=== PATIENT | male | born 1945 | race Caucasian/White ===

== ENCOUNTER → 2018-02-22 12:53 | Outpatient (CLI) | payer MEDICARE, MEDICAID, SELFPAY ==
--- NOTE | 2018-02-23 08:52 | PFTCOMP ---
COMPLETE PULMONARY FUNCTION TEST INTERPRETATION Brief HPI: Patient is a 72 year old male, currently under the care of Nikki Taveras, who presents to [facility] for complete pulmonary function tests secondary to diagnosis of asthma. Respiratory therapist reports good effort, but difficult time following instructions. Unable to exhale for 6 seconds or complete DLCO maneuver. Interpretation: Forced expiration spirometry shows no large airways obstructive ventilatory defect with an FEV1 of 52% predicted. There is no significant bronchodilator response by ATS criteria. Spirograms are of poor quality and plateau slowly, indicating slowly emptying areas of the lungs. The respiratory flow volume loop shows decreased expiratory flow rates at all lung volumes consistent with airway obstruction. Lung volumes by body plethysmography show a decreased total lung capacity at 2.99 L, 78% predicted. FRC and RV are elevated out of proportion. Lung volume measurements are consistent with air-trapping. Diffusion capacity by carbon monoxide was unable to be obtained. The airway resistance is elevated. Compared to previous pulmonary function tests from 01/11/2017, there has been no significant change. Impression: Moderate restrictive ventilatory defect, but unclear reliability given difficulty with testing.
== END ==
PROVIDERS: Family Provider Family Medicine; PCP Family Medicine; Visit Provider Nurse Practitioner Acute Care
DX: J45.20 Mild intermittent asthma, uncomplicated (principal)
CPT/HCPCS: 94060; 94726

== ENCOUNTER → 2018-09-13 09:17 | Outpatient (CLI) | payer MEDICARE, MEDICAID, SELFPAY ==
[2018-09-13 08:45] VITALS: BMI 25.4
== END ==
PROVIDERS: Family Provider Family Medicine; PCP Family Medicine; Referring Provider Nurse Practitioner Acute Care; Visit Provider Nurse Practitioner Acute Care
DX: R06.2 Wheezing (principal)
CPT/HCPCS: 87633

== ENCOUNTER 2021-08-28 15:20 | Outpatient (CLI) | payer MEDICARE, MEDICAID, SELFPAY ==
[2021-08-28 17:14] LABS: Absolute Lymphocyte Count 1.34 X10^3/uL (0.83-4.51); Absolute Neutrophil Count 5.6 X10^3/uL (2.0-7.7); Basophil# 0.05 X10^3/uL; Basophil% 0.6 % (0-1); Eosinophil# 0.13 X10^3/uL; Eosinophils% 1.6 % (0-5); Hematocrit 46.6 % (40-54); Hemoglobin 14.6 g/dL (13.0-16.5); Lymphocyte # 1.34 X10^3/ul (0.83-4.51); Lymphocyte % 16.7 % (19-41); Mean Corp Hgb Conc 31.3 g/dL (32-36); Mean Corpuscular Hgb 28.2 pg (27.0-32.0); Mean Platelet Vol. 9.8 fl (6.2-12.0); Monocyte# 0.93 X10^3/uL; Monocyte% 11.6 % (0-10); NRBC Flagged by Analyzer 0 % (0-5); Neutrophil # 5.57 X10^3/uL (2.7-7.7); Neutrophil % 69.3 % (47-70); Platelet Count 319 K/mm3 (150-450); RBC Distribution Width CV 14.7 % (11.6-14.6); RBC Distribution Width SD 48.7 fl (35.1-43.9); Red Blood Count 5.18 M/mm3 (4.6-6.2)
[2021-08-28 17:52] LABS: ALB/GLOB Ratio 0.7 RATIO (0.9-2.4); AST(SGOT) 13 U/L (15-37); Alanine Aminotransfer ALT/SGPT 19 U/L (16-61); Albumin, Serum 3.2 g/dL (3.2-5.0); Alkaline Phosphatase 94 U/L (45-117); Anion Gap 5 (5-15); BUN 18 mg/dL (7-18); BUN/Creat Ratio 17.8 RATIO (10-20); Calcium,Total 9.3 mg/dL (8.5-10.1); Chloride 107 mmol/L (98-107); Cholesterol 169 mg/dL (200); Creatinine, Serum 1.01 mg/dL (0.70-1.30); EST Glomerular Filtration Rate 77 mL/min (>60); Est Glom Filt Rate - Afr Amer 93 mL/min (>60); Globulin 4.6 g/dL (2.2-4.2); Glucose 110 mg/dL (74-106); High Density Lipoprotein 70 mg/dL; PSA,Total - Annual Screen 9.18 ng/mL (0.00-4.00); Potassium 3.9 mmol/L (3.5-5.1); Protein, Total 7.8 g/dL (6.4-8.2); Sodium Level 142 mmol/L (136-145); Triglycerides 127 mg/dL; Very Low Density Lipoprotein 25 mg/dL (5-40)
== END 2021-08-28 23:59 | disposition home or self-care (01) ==
LOC: BIMLAB 15:21
PROVIDERS: PCP Internal Medicine; Referring Provider Internal Medicine; Visit Provider Internal Medicine
DX: J45.20 Mild intermittent asthma, uncomplicated (principal); I10 Essential (primary) hypertension; N40.0 Benign prostatic hyperplasia without lower urinary tract symptoms; Z12.5 Encounter for screening for malignant neoplasm of prostate
CPT/HCPCS: 36415; 80053; 80061; 84153; 85025; G0103

== ENCOUNTER → 2021-12-10 | Outpatient (CLI) | payer MEDICARE, MEDICAID, SELFPAY ==
[2021-12-10 12:20] LABS: Absolute Lymphocyte Count 1.29 X10^3/uL (0.83-4.51); Absolute Neutrophil Count 6.8 X10^3/uL (2.0-7.7); Basophil# 0.06 X10^3/uL; Basophil% 0.7 % (0-1); Eosinophil# 0.05 X10^3/uL; Eosinophils% 0.6 % (0-5); Hematocrit 50.7 % (40-54); Hemoglobin 15.3 g/dL (13.0-16.5); Lymphocyte # 1.29 X10^3/ul (0.83-4.51); Lymphocyte % 14.2 % (19-41); Mean Corp Hgb Conc 30.2 g/dL (32-36); Mean Corpuscular Hgb 28.3 pg (27.0-32.0); Mean Corpuscular Volume 93.9 fL (80-94); Mean Platelet Vol. 10.7 fl (6.2-12.0); Monocyte# 0.87 X10^3/uL; Monocyte% 9.6 % (0-10); NRBC Flagged by Analyzer 0 % (0-5); Neutrophil # 6.78 X10^3/uL (2.7-7.7); Neutrophil % 74.6 % (47-70); Platelet Count 280 K/mm3 (150-450); RBC Distribution Width CV 14.6 % (11.6-14.6); RBC Distribution Width SD 49.5 fl (35.1-43.9); White Blood Count 9.1 K/mm3 (4.4-11.0)
[2021-12-10 12:58] LABS: ALB/GLOB Ratio 0.8 RATIO (0.9-2.4); AST(SGOT) 18 U/L (15-37); Alanine Aminotransfer ALT/SGPT 19 U/L (16-61); Albumin, Serum 3.6 g/dL (3.2-5.0); Alkaline Phosphatase 92 U/L (45-117); Anion Gap 4 (5-15); BUN 18 mg/dL (7-18); BUN/Creat Ratio 20.9 RATIO (10-20); Calcium,Total 9.6 mg/dL (8.5-10.1); Chloride 109 mmol/L (98-107); Creatinine, Serum 0.86 mg/dL (0.70-1.30); EST Glomerular Filtration Rate 92 mL/min (>60); Est Glom Filt Rate - Afr Amer 111 mL/min (>60); Globulin 4.6 g/dL (2.2-4.2); Glucose 105 mg/dL (74-106); Potassium 3.7 mmol/L (3.5-5.1); Protein, Total 8.2 g/dL (6.4-8.2); Sodium Level 145 mmol/L (136-145)
== END | disposition home or self-care (01) ==
LOC: BIMLAB 10:52
PROVIDERS: PCP Internal Medicine; Referring Provider Physician Assistant; Visit Provider Physician Assistant
DX: R32 Unspecified urinary incontinence (principal); N40.0 Benign prostatic hyperplasia without lower urinary tract symptoms; R97.20 Elevated prostate specific antigen [PSA]
CPT/HCPCS: 36415; 80053; 84153; 85025

== ENCOUNTER → 2022-04-23 | Outpatient (CLI) | payer MEDICARE, MEDICAID, SELFPAY ==
[2022-04-23 17:46] LABS: Hematocrit 46.8 % (40-54); Hemoglobin 15.1 g/dL (13.0-16.5); Mean Corp Hgb Conc 32.3 g/dL (32-36); Mean Corpuscular Hgb 30.1 pg (27.0-32.0); Mean Corpuscular Volume 93.2 fL (80-94); Mean Platelet Vol. 10.7 fl (6.2-12.0); Platelet Count 312 K/mm3 (150-450); RBC Distribution Width CV 14.4 % (11.6-14.6); RBC Distribution Width SD 48.8 fl (35.1-43.9); Red Blood Count 5.02 M/mm3 (4.6-6.2); White Blood Count 8.5 K/mm3 (4.4-11.0)
[2022-04-23 18:10] LABS: Vitamin B12 501 pg/mL (211-911)
[2022-04-23 18:17] LABS: ALB/GLOB Ratio 0.8 RATIO (0.9-2.4); AST(SGOT) 16 U/L (15-37); Alanine Aminotransfer ALT/SGPT 22 U/L (16-61); Albumin, Serum 3.5 g/dL (3.2-5.0); Alkaline Phosphatase 89 U/L (45-117); Anion Gap 5 (5-15); BUN 20 mg/dL (7-18); BUN/Creat Ratio 21.2 RATIO (10-20); Chloride 108 mmol/L (98-107); Creatinine, Serum 0.94 mg/dL (0.70-1.30); EST Glomerular Filtration Rate 83 mL/min (>60); Est Glom Filt Rate - Afr Amer 100 mL/min (>60); Globulin 4.2 g/dL (2.2-4.2); Glucose 82 mg/dL (74-106); Potassium 3.7 mmol/L (3.5-5.1); Protein, Total 7.7 g/dL (6.4-8.2); Sodium Level 147 mmol/L (136-145); Thyroid Stim Hormone (TSH) 2.19 uIU/mL (0.358-3.74)
[2022-04-27 16:51] LABS: Vitamin D 1,25-Dihydroxy 45.1 pg/mL (24.8-81.5)
== END | disposition home or self-care (01) ==
PROVIDERS: PCP Internal Medicine; Referring Provider Psychiatry & Neurology Neurology; Visit Provider Psychiatry & Neurology Neurology
DX: F03.90 Unspecified dementia, unspecified severity, without behavioral disturbance, psychotic disturbance, mood disturbance, and anxiety (principal); I10 Essential (primary) hypertension; M81.0 Age-related osteoporosis without current pathological fracture
CPT/HCPCS: 36415; 80053; 82607; 82652; 82746; 84425; 84443; 85027

== ENCOUNTER → 2022-05-19 | Outpatient (CLI) | payer MEDICARE, MEDICAID, SELFPAY ==
--- NOTE | 2022-05-19 15:33 | MRI_ITS ---
STUDY: MRI BRAIN WITHOUT CONTRAST REASON FOR EXAM: Male, 76 years old. baseline mental retardation; superimposed dementia TECHNIQUE: Standardized multiplanar fat and water weighted pulse sequences were obtained. COMPARISON: CT of the brain 07/24/2016 FINDINGS: Mild to moderate atrophy with extensive periventricular white matter ischemic changes without mass effect or restricted diffusion. Chronic ischemic changes of the anjelica. 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 Normal bilateral basal ganglia. Normal thalami. There is no extra-axial fluid accumulation. Normal flow voids within the major intracranial circulation suggesting patency by spin echo criteria. Normal sella turcica, pituitary gland, infundibular stalk, optic chiasm and hypothalamus. Normal tectal plate and pineal gland. Normal midbrain, and medulla. Mild chronic ischemic changes of the cerebral hemispheres bilaterally Normal basal cisterns. Normal bilateral temporal bones. Normal bilateral internal auditory canals. Postsurgical changes of the orbits. Normal visualized paranasal sinuses. Normal calvarium and skull base. Normal visualized soft tissue structures. Normal visualized upper cervical spine. MRI/Brain without Contrast IMPRESSION: Atrophy and advanced periventricular white matter ischemic changes without evidence for acute infarct. Mild chronic ischemic changes of the cerebellar hemispheres, anjelica and small old bilateral parietal infarcts Electronically Signed: Too Candelaria MD at 17:34 EST ,
== END | disposition home or self-care (01) ==
PROVIDERS: PCP Internal Medicine; Referring Provider Psychiatry & Neurology Neurology; Visit Provider Psychiatry & Neurology Neurology
DX: F03.90 Unspecified dementia, unspecified severity, without behavioral disturbance, psychotic disturbance, mood disturbance, and anxiety (principal); F79 Unspecified intellectual disabilities
CPT/HCPCS: 70551

== ENCOUNTER → 2022-08-19 | Outpatient (CLI) | payer MEDICARE, MEDICAID, SELFPAY ==
[2022-08-19 13:07] LABS: Vitamin D,25 Hydroxy 26.5 ng/mL
[2022-08-19 13:24] LABS: ALB/GLOB Ratio 0.9 RATIO (0.9-2.4); AST(SGOT) 14 U/L (15-37); Alanine Aminotransfer ALT/SGPT 15 U/L (16-61); Albumin, Serum 3.5 g/dL (3.2-5.0); Alkaline Phosphatase 86 U/L (45-117); Anion Gap 5 (5-15); BUN 17 mg/dL (7-18); BUN/Creat Ratio 18.9 RATIO (10-20); Calcium,Total 9.3 mg/dL (8.5-10.1); Chloride 109 mmol/L (98-107); Cholesterol 178 mg/dL (200); EST Glomerular Filtration Rate 88 mL/min (>60); Est Glom Filt Rate - Afr Amer 106 mL/min (>60); Glucose 87 mg/dL (74-106); High Density Lipoprotein 91 mg/dL; PSA,Total- Diagnostic 6.91 ng/mL (0.0-4.0); Potassium 4.5 mmol/L (3.5-5.1); Protein, Total 7.5 g/dL (6.4-8.2); Sodium Level 145 mmol/L (136-145); Triglycerides 73 mg/dL; Very Low Density Lipoprotein 15 mg/dL (5-40)
== END | disposition home or self-care (01) ==
LOC: BIMLAB 11:04
PROVIDERS: PCP Internal Medicine; Referring Provider Internal Medicine; Visit Provider Internal Medicine
DX: I10 Essential (primary) hypertension (principal); M81.0 Age-related osteoporosis without current pathological fracture; N40.0 Benign prostatic hyperplasia without lower urinary tract symptoms
CPT/HCPCS: 36415; 80053; 80061; 82306; 84153

== ENCOUNTER → 2022-09-08 | Outpatient (CLI) | payer MEDICARE, MEDICAID, SELFPAY ==
--- NOTE | 2022-09-08 09:08 | BD_ITS ---
STUDY: DUAL ENERGY X-RAY ABSORPTIOMETRY / DXA REASON FOR EXAM: Male, 77 years old. Osteoporosis TECHNIQUE: Bone Mineral Density (BMD) measurements of lumbar spine and bilateral hips were obtained. COMPARISON: None. FINDINGS: Lumbar Spine (L1-L4): g/cm2 (0.693) / T-score (-2.3) / Z-score (-1.4) Findings are suggestive of osteopenia with a high fracture risk. Left Femur Total: g/cm2 (0.668) / T-score (-2.4) / Z-score (-1.6) Left Femoral Neck: g/cm2 (0.526) / T-score (-3.0) / Z-score (-1.6) Right Femur Total: g/cm2 (0.693) / T-score (-2.3) / Z-score (-1.4) Right Femoral Neck: g/cm2 (0.562) / T-score (-2.7) / Z-score (-1.4) BD/Dexa Bone Density Study IMPRESSION: The patient is considered osteoporotic as outlined below according to World Booker Organization (WHO) criteria with a high fracture risk. Reference Information: The T-score is the number of standard deviations above or below the standard which is normal for young adults at their peak bone mineral density. The World Health Organization (WHO) interprets the T-scores as follows: Above -1 Normal bone density Between -1 and -2.5 Osteopenia Equal to / or below -2.5 Osteoporosis As a practical clinical guideline, osteopenia may be graded as follows: Mild -1 through -1.5 Moderate -1.6 through -2.0 Severe -2.1 through -2.4 The Z-score is the number of standard deviations above or below age-matched controls. A Z-score of less than -1.5 would be considered abnormal. References: 1. NIH Osteoporosis and Related Bone Diseases www osteo.org 2. International Society for Clinical Densitometry www iscd.org 3. National Osteoporosis Foundation www nof.org Electronically Signed: Felix Castillo MD at 15:08 EST ,
== END | disposition home or self-care (01) ==
LOC: OPBD 08:59
PROVIDERS: PCP Internal Medicine; Referring Provider Internal Medicine; Visit Provider Internal Medicine
DX: M81.0 Age-related osteoporosis without current pathological fracture (principal)
CPT/HCPCS: 77080

== ENCOUNTER → 2022-12-25 | Outpatient (CLI) | payer MEDICARE, MEDICAID, SELFPAY ==
[2022-12-25 12:30] LABS: Absolute Lymphocyte Count 1.01 X10^3/uL (0.83-4.51); Absolute Neutrophil Count 5.7 X10^3/uL (2.0-7.7); Basophil# 0.07 X10^3/uL; Basophil% 0.9 % (0-1); Eosinophil# 0.05 X10^3/uL; Eosinophils% 0.7 % (0-5); Hematocrit 46.9 % (40-54); Hemoglobin 14.7 g/dL (13.0-16.5); Lymphocyte # 1.01 X10^3/ul (0.83-4.51); Lymphocyte % 13.3 % (19-41); Mean Corp Hgb Conc 31.3 g/dL (32-36); Mean Corpuscular Hgb 29.3 pg (27.0-32.0); Mean Corpuscular Volume 93.4 fL (80-94); Mean Platelet Vol. 10.3 fl (6.2-12.0); Monocyte# 0.82 X10^3/uL; Monocyte% 10.8 % (0-10); NRBC Flagged by Analyzer 0 % (0-5); Neutrophil # 5.65 X10^3/uL (2.7-7.7); Platelet Count 309 K/mm3 (150-450); RBC Distribution Width CV 14.1 % (11.6-14.6); RBC Distribution Width SD 48.2 fl (35.1-43.9); Red Blood Count 5.02 M/mm3 (4.6-6.2); White Blood Count 7.6 K/mm3 (4.4-11.0)
[2022-12-25 12:40] LABS: Vitamin D,25 Hydroxy 52.4 ng/mL
[2022-12-25 12:48] LABS: ALB/GLOB Ratio 0.8 RATIO (0.9-2.4); AST(SGOT) 14 U/L (15-37); Alanine Aminotransfer ALT/SGPT 15 U/L (16-61); Albumin, Serum 3.2 g/dL (3.2-5.0); Alkaline Phosphatase 87 U/L (45-117); Anion Gap 3 (5-15); BUN 20 mg/dL (7-18); BUN/Creat Ratio 22.3 RATIO (10-20); Calcium,Total 9.3 mg/dL (8.5-10.1); Chloride 105 mmol/L (98-107); EST Glomerular Filtration Rate 88 mL/min (>60); Est Glom Filt Rate - Afr Amer 106 mL/min (>60); Globulin 3.9 g/dL (2.2-4.2); Glucose 77 mg/dL (74-106); Potassium 4.2 mmol/L (3.5-5.1); Protein, Total 7.1 g/dL (6.4-8.2); Sodium Level 143 mmol/L (136-145)
== END | disposition home or self-care (01) ==
LOC: BIMLAB 09:23
PROVIDERS: PCP Internal Medicine; Referring Provider Internal Medicine; Visit Provider Internal Medicine
DX: R06.02 Shortness of breath (principal); M81.0 Age-related osteoporosis without current pathological fracture
CPT/HCPCS: 36415; 80053; 82306; 85025

== ENCOUNTER → 2023-08-27 | Outpatient (CLI) | payer MEDICARE, MEDICAID, SELFPAY ==
[2023-08-27 09:41] LABS: Absolute Lymphocyte Count 1.13 X10^3/uL (0.83-4.51); Absolute Neutrophil Count 4.8 X10^3/uL (2.0-7.7); Basophil# 0.06 X10^3/uL; Basophil% 0.9 % (0-1); Eosinophil# 0.19 X10^3/uL; Eosinophils% 2.8 % (0-5); Hemoglobin 15.3 g/dL (13.0-16.5); Lymphocyte # 1.13 X10^3/ul (0.83-4.51); Lymphocyte % 16.5 % (19-41); Mean Corp Hgb Conc 31.9 g/dL (32-36); Mean Corpuscular Hgb 29.3 pg (27.0-32.0); Monocyte# 0.64 X10^3/uL; Monocyte% 9.3 % (0-10); NRBC Flagged by Analyzer 0 % (0-5); Neutrophil # 4.81 X10^3/uL (2.7-7.7); Neutrophil % 70.2 % (47-70); Platelet Count 263 K/mm3 (150-450); RBC Distribution Width CV 14.7 % (11.6-14.6); RBC Distribution Width SD 50.2 fl (35.1-43.9); Red Blood Count 5.22 M/mm3 (4.6-6.2); White Blood Count 6.9 K/mm3 (4.4-11.0)
--- OUTSIDE RECORDS SUMMARY | 2023-08-27 10:00 | XMS RPT_ITS | CCD ---
Author Name Unknown Address [id number] [place] [address] Organization [facility] Care Team Providers Care [employer] Text[employer] Teacher Name Role Phone Vanessa ROSS, Sajan Kwok Primary Care Provider Medications Completed/Discontinued Medications Medication Drug Class(es) Dates Sig (Normalized) Sig (Original) amLODIPine 10 mg oral tablet (1 source) Dihydropyridine Calcium Channel Susana Start: 06-13-2021 take 1 tablet by mouth once daily amLODIPine (NORVASC) 10 mg tablet Indications: Essential hypertension, benign Take 1 tablet by mouth once daily. 90 tablet 3 06/13/2021 Active Problems Active Problems Problem Classification Problem Date Documented Da te Episodic/Chronic Adjustment disorders (1 source) Adjustment disorder with depressed mood; Translations: [Adjustment disorder with depressed mood] Onset: 08-15-2007 08-15-2007 Chronic Asthma (1 source) Mild intermittent asthma; Translations: [Mild intermittent asthma, uncomplicated] 03-19-2021 Chronic Developmental disorders (1 source) Intellectual disability; Translations: [Unspecified intellectual disabilities] 07-14-2005 Chronic Essential hypertension (1 source) Benign essential hypertension; Translations: [Essential (primary) hypertension] Onset: 12-04-2013 12-04-2013 Chronic Osteoporosis (2 sources) Osteoporosis; Translations: [Age-related osteoporosis without current pathological fracture] Onset: 07-15-2005 Chronic Past or Other Problems Problem Classification Problem Date Documented Da te Episodic/Chronic Other screening for suspected conditions (not mental disorders or infectious disease) (1 source) Raised prostate specific antigen; Translations: [Elevated prostate specific antigen [PSA]] Onset: 08-31-2020 08-31-2020 Episodic Encounters Encounter Date Encounter Type Care Provider Facility Start: 03-31-2022 Refill Sajan Mendez MD Work Phone: [facility] Procedures Date Procedure Procedure Detail Performing Clinician Start: 01-29-2003 Colonoscopy Jaxson Mendez MD Work Phone: Plan of Treatment Date Care Activity Detail Author Start: 08-28-2023 DIABETES SCREEN DIABETES SCREEN [facility] Start: 03-19-2022 ANNUAL PCP TEAM STOCK PULLER JILLIAN DISEASE VISIT ANNUAL PCP TEAM CHRONIC DISEASE VISIT [facility] Start: 03-05-2022 Influenza vaccination INFLUENZA (#1) [facility] Start: 07-05-2021 ADVANCE DIRECTIVE DISCUSSION ADVANCE DIRECTIVE DISCUSSION [facility] Start: 07-05-2021 DEPRESSION ASSESSMENT DEPRESSION ASS ESSMENT [facility] Start: 09-26-2020 COVID-19 VACCINE (3 - Booster for Pfizer series) COVID-19 VACCINE (3 - Booster for Pfizer series) [facility] Start: 07-01-2020 LIPID SCREEN LIPID SCREEN [facility] Start: 11-02-2018 Urine microalbumin profile DTA P,TDAP,TD (2 - Td or Tdap) [facility] Start: 07-07-2017 FECAL OCCULT BLOOD FECAL OCCULT BLOO D [facility] Start: 07-08-2016 COLORECTAL CANCER SCREENING COLORECTAL CANCER SCREENING [facility] Start: 01-29-2013 Colonoscopy COLONOSCOPY [facility] Start: 1997 SHINGRIX VACCINE (1 of 2) SHINGRIX V ACCINE (1 of 2) [facility] Start: 1992 COLOGUARD (FIT-DNA) COLOGUARD (FIT-D NA) [facility] Start: [address] COLONOGRAPHY [facility] Start: 1992 SIGMOIDOSCOPY SIGMOIDOSCOPY [facility] Start: 1965 BP CONTROLLED (<130/80) BP CONTROLLE D (<130/80) [facility] Start: 1965 SPIROMETRY SPIROMETRY [facility] Immunizations Immunization Date Immunization Notes Care Provider Becca patel 04-27-2017 influenza, high dose seasonal, preservative-free Sajan Mendez MD Work Phone: [facility] 07-07-2016 influenza, high dose seasonal, preservative-free Sajan Mendez MD Work Phone: [facility] 07-01-2015 pneumococcal polysaccharide vaccine, 23 valent Sajan Mendez MD Work Phone: [facility] 04-26-2014 pneumococcal conjuga te vaccine, 13 valent Sajan Mendez MD Work Phone: [facility] 04-03-2014 influenza, high dose seasonal, preservative-free Sajan Mendez MD Work Phone: [facility] Work Phone: 04-13-2013 influenza virus vaccine, unspecified formulation Sajan Mendez MD Work Phone: [facility] Work Phone: 05-12-2012 influenza virus vaccine, unspecified formulation Sajan Mendez MD Work Phone: [facility] 04-27-2011 influenza virus vaccine, unspecified formulation Sajan Mendez MD Work Phone: [facility] Work Phone: 04-04-2009 influenza virus vaccine, unspecified formulation Sajan Mendez MD Work Phone: [facility] 11-02-2008 tetanus toxoid, redu kang diphtheria toxoid, and acellular pertussis vaccine, adsorbed Sajan Mendez MD Work Phone: [facility] Payers Date Payer Category Payer Medicaid [place] [id number] 2016-Present [phone] [address] [place] [address] Medicaid [id number] 1987 Medicare MEDICARE MEDICAR E A AND B [id number] 1987-Present [phone] [address] [address] [place] [address] Medicare 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 Updated PCP Patient Identified by Name and : NO Outreach Outcome/Action PCP field updated Did you use a PCP flex slot to schedule this appointment? No Reason for Outreach Care Gap or Scheduling/Wellness visits Payer: Payor: MEDICARE / Plan: MEDICARE A AND B / Product Type: Medicare / Care Gap Reviewed:: N/A Reminder: Reminder note to check Health Maintenance for items below Health Maintenance items due: SPIROMETRY Never done BP CONTROLLED (<130/80) Never done SHINGRIX VACCINE(1 of 2) Never done COLORECTAL CANCER SCREENING due on 07/08/2016 DTAP,TDAP,TD(2 - Td or Tdap) due on 11/02/2018 LIPID SCREEN due on 07/01/2020 COVID-19 VACCINE(3 - Booster for Pfizer series) due on 09/26/2020 ANNUAL PCP TEAM CHRONIC DISEASE VISIT due on 03/19/2022 ADVANCE DIRECTIVE DISCUSSION Never done DEPRESSION ASSESSMENT Never done Navigation Signature: Candida Purvis MA December 14, 2022 9:09 AM Allergies As of Date: 12/14/2022 (No Known Allergies) Date Reviewed: 03/19/2021 Reviewed by: Sajan Mendez MD - Fully Assessed Reason for Visit: Population Health Navigation Outreach [3910] Cmt: [facility] PCSA Prescriptions as of 12/14/2022 - emtebtc-pqrayvrsh-tbxprdt D3 (OYSTER SHELL CALCIUM-VITAMIN D) 500 mg-5 mcg (200 unit) per tablet Take 1 tablet by mouth twice daily with meals. - calcium polycarbophil (FIBER-LAX) 625 mg tablet Take 2 tablets by mouth twice daily. - PARoxetine (PAXIL) 20 mg tablet Take 1 tablet by mouth once daily. - amLODIPine (NORVASC) 10 mg tablet Take 1 tablet by mouth once daily. - COMPOUNDED PRESCRIPTION Weekly BP checks. Problem List As Of Date 12/14/2022 Noted Resolved MENTAL RETARDATION NOS [F79] Osteoporosis [M81.0] 07/15/2005 ADJUSTMENT DISORDER WITH DEPRESSED MOOD [F43.21]08/15/2007 Essential hypertension, benign [I10] 12/04/2013 Mass of left lung [R91.8] 2016 08/25/2018 Sebaceous cyst [L72.3] 12/17/2016 01/04/2017 Elevated PSA [R97.20] 08/31/2020 Mild intermittent asthma without complication [* Encounter Status:Closed by CANDIDA PURVIS on 12/14/22 [facility] Progress note 12-14-2022 Note Date & Type Note Facility 12-14-2022 Note HNO ID: [id number] Author: Candida Purvis MA Service: ? Author Type: [employer] Type: Progress Notes Filed: 12/14/2022 9:12 AM Note Text: POPULATION HEALTH NAVIGATION OUTREACH Action/FYI Patient has new PCP found in Care Everywhere. Updated PCP Patient Identified by Name and : NO Outreach Outcome/Action PCP field updated Did you use a PCP flex slot to schedule this appointment? No Reason for Outreach Care Gap or Scheduling/Wellness visits Payer: Payor: MEDICARE / Plan: MEDICARE A AND B / Product Type: Medicare / Care Gap Reviewed:: N/A Reminder: Reminder note to check Health Maintenance for items below Health Maintenance items due: SPIROMETRY Never done BP CONTROLLED (<130/80) Never done SHINGRIX VACCINE(1 of 2) Never done COLORECTAL CANCER SCREENING due on 07/08/2016 DTAP,TDAP,TD(2 - Td or Tdap) due on 11/02/2018 LIPID SCREEN due on 07/01/2020 COVID-19 VACCINE(3 - Booster for Pfizer series) due on 09/26/2020 ANNUAL PCP TEAM CHRONIC DISEASE VISIT due on 03/19/2022 ADVANCE DIRECTIVE DISCUSSION Never done DEPRESSION ASSESSMENT Never done Navigation Signature: Candida Purvis MA December 14, 2022 9:09 AM [facility] Isaac Note 03-31-2022 Telephone Encounter - Shayla Goldberg - 03/31/2022 11:55 AM EDT Note Date & Type Note Facility 03-31-2022 Miscellaneous Notes Formattin g of this note is different from the original. Patient has been identified by name and date of : Yes Requested Prescriptions Pending Prescriptions Disp Refills knhszxs-vmpxnhwnc-rlqfvmn D3 (OYSTER SHELL CALCIUM-VITAMIN D) 500 mg-5 mcg (200 unit) per tablet 60 tablet 3 Sig: Take 1 tablet by mouth twice daily with meals. RX INSTRUCTIONS: Pharmacy initiated this request. No need to notify patient. Shayla Hughes Pss documented in this encounter [facility] History of Past illness Narrative 12-17-2016 Note Date & Type Note Facility documented as of this encounter (statuses as of 03/31/2022) [facility] Evaluation note Note Date & Type Note Facility documented in this encounter [facility] Summary Purpose Family History No Family History Records Found Advance Directives No Advanced Directives Records Found Additional Source Comments Source Comments (unrecognize d section and content) In the event this informatio n is protected by the Federal Confidentiality of Alcohol and Drug Abuse Patient Records regulations: The Federal rules restrict any use of the information to criminally investigate or prosecute any alcohol or drug abuse patient.[facility] Reason for Visit (unrecogniz ed section and content) Care Teams (unrecognized sec tion and content) (unrecognized sect ion and content) No Status Records Found INFORMATION SOURCE (unrecogn ized section and content) FOR RECORDS PERTAINING TO PATIENTS WHO ARE OR HAVE BEEN ENROLLED IN A CHEMICAL DEPENDENCY/SUBSTANCEABUSE PROGRAM, SOME INFORMATION MAY BE OMITTED. This clinical summary was aggregated from multiple sources. Caution should be exercised in using it in the provision of clinical care. This summary normalizes information from multiple sources, and as a consequence, information in this document may materially change the coding, format and clinical context of patient data. In addition, data may be omitted in some cases. CLINICAL DECISIONS SHOULD BE BASED ON THE PRIMARY CLINICAL RECORDS. [email or web address] [facility]. provides no warranty or guarantee of the accuracy or completeness of information in this document.
[2023-08-27 10:08] LABS: Vitamin D,25 Hydroxy 50.1 ng/mL
[2023-08-27 10:18] LABS: ALB/GLOB Ratio 0.8 RATIO (0.9-2.4); AST(SGOT) 20 U/L (15-37); Alanine Aminotransfer ALT/SGPT 27 U/L (16-61); Albumin, Serum 3.5 g/dL (3.2-5.0); Alkaline Phosphatase 83 U/L (45-117); Anion Gap 4 (5-15); BUN 20 mg/dL (7-18); BUN/Creat Ratio 20.3 RATIO (10-20); Calcium,Total 9.4 mg/dL (8.5-10.1); Chloride 108 mmol/L (98-107); Cholesterol 213 mg/dL (200); Creatinine, Serum 0.98 mg/dL (0.70-1.30); EST Glomerular Filtration Rate 79 mL/min (>60); Est Glom Filt Rate - Afr Amer 95 mL/min (>60); Globulin 4.5 g/dL (2.2-4.2); Glucose 68 mg/dL (74-106); High Density Lipoprotein 99 mg/dL; PSA,Total - Annual Screen 6.76 ng/mL (0.00-4.00); Sodium Level 142 mmol/L (136-145); Triglycerides 93 mg/dL; Very Low Density Lipoprotein 19 mg/dL (5-40)
== END | disposition home or self-care (01) ==
LOC: LABSPEC 09:23 → LAB 09:24
PROVIDERS: PCP Internal Medicine; Visit Provider Internal Medicine
DX: I10 Essential (primary) hypertension (principal); N40.0 Benign prostatic hyperplasia without lower urinary tract symptoms; M81.0 Age-related osteoporosis without current pathological fracture
CPT/HCPCS: 36415; 80053; 80061; 82306; 84153; 85025; G0103

== ENCOUNTER → 2024-02-25 | Outpatient (CLI) | payer MEDICARE, MEDICAID, SELFPAY ==
[2024-02-25 12:18] LABS: Absolute Neutrophil Count 5.6 X10^3/uL (2.0-7.7); Basophil# 0.06 X10^3/uL; Basophil% 0.8 % (0-1); Eosinophil# 0.12 X10^3/uL; Eosinophils% 1.6 % (0-5); Hematocrit 46.8 % (40-54); Hemoglobin 14.4 g/dL (13.0-16.5); Lymphocyte % 14.3 % (19-41); Mean Corp Hgb Conc 30.8 g/dL (32-36); Mean Corpuscular Hgb 28.7 pg (27.0-32.0); Mean Corpuscular Volume 93.4 fL (80-94); Monocyte# 0.78 X10^3/uL; Monocyte% 10.1 % (0-10); NRBC Flagged by Analyzer 0 % (0-5); Neutrophil # 5.59 X10^3/uL (2.7-7.7); Neutrophil % 72.7 % (47-70); Platelet Count 364 K/mm3 (150-450); RBC Distribution Width CV 13.8 % (11.6-14.6); RBC Distribution Width SD 46.9 fl (35.1-43.9); Red Blood Count 5.01 M/mm3 (4.6-6.2); White Blood Count 7.7 K/mm3 (4.4-11.0)
[2024-02-25 13:41] LABS: Anion Gap 4 (5-15); BUN 21 mg/dL (7-18); BUN/Creat Ratio 19.8 RATIO (10-20); Calcium,Total 9.8 mg/dL (8.5-10.1); Chloride 108 mmol/L (98-107); Creatinine, Serum 1.06 mg/dL (0.70-1.30); EST Glomerular Filtration Rate 72 mL/min (>60); Est Glom Filt Rate - Afr Amer 87 mL/min (>60); Glucose 88 mg/dL (74-106); Potassium 4.5 mmol/L (3.5-5.1); Sodium Level 143 mmol/L (136-145); T4 Free Direct 0.82 ng/dL (0.76-1.46)
== END | disposition home or self-care (01) ==
LOC: BIMLAB 09:41
PROVIDERS: PCP Internal Medicine; Referring Provider Internal Medicine; Visit Provider Internal Medicine
DX: I10 Essential (primary) hypertension (principal)
CPT/HCPCS: 36415; 80048; 84439; 84443; 85025

== ENCOUNTER 2024-03-27 06:37 | Inpatient (IN) | payer MEDICARE, MEDICAID, SELFPAY ==
[2024-03-27 06:40] VITALS: BP 146/73; PULSE 78; RESP 16; TEMP 36.7; O2SAT 96; BMI 20.9
--- NOTE | 2024-03-27 06:51 | RAD_ITS ---
EXAM: XR LEFT HIP WITH PELVIS WHEN PERFORMED, 2 OR 3 VIEWS CLINICAL INDICATION: injury TECHNIQUE: Two or three views of the left hip with pelvis when performed. COMPARISON: No relevant prior studies available. FINDINGS: BONES/JOINTS: Acute intertrochanteric fracture of the left femur noted. The femoral shaft is angulated and mild degree medially. No subluxation. SOFT TISSUES: Normal. No soft tissue swelling or gas. RAD/HIP, UNI W/ Pelvis 2-3 Views IMPRESSION: Acute intertrochanteric fracture of the left femur. Electronically Signed: Ryder Hook MD at 8:25 EDT ,
--- NOTE | 2024-03-27 06:51 | CT_ITS ---
EXAM: CT HEAD WITHOUT INTRAVENOUS CONTRAST CLINICAL INDICATION: trauma/fall trauma/fall TECHNIQUE: Multiple axial images were obtained of the head without intravenous contrast. This CT exam was performed using one or more of the following dose reduction techniques: automated exposure control, adjustment of the mA and/or kV according to patient size, and/or use of iterative reconstruction technique. RADIATION DOSE: CTDIvol = 41.16 mGy, DLP = 1366.94 mGy-cm COMPARISON: CT scan brain 07/24/2016. FINDINGS: BRAIN AND EXTRA-AXIAL SPACES: There is a small focus of encephalomalacia in the left parietal lobe which was not present on previous exam but is still consistent with an old infarction. There is mild cerebral atrophy. There are microvascular changes in supratentorial white matter. No intra- or extra-axial hemorrhage. No intracranial mass or mass effect. Posterior fossa structures are unremarkable. No hydrocephalus. Basal cisterns are patent. BONES/JOINTS: Unremarkable. No discrete lytic or blastic abnormalities. SOFT TISSUES: There is a left posterior scalp wound. VASCULATURE: There is atherosclerotic calcification of the cavernous carotid arteries. SINUSES: Unremarkable as visualized. Clear. MASTOID AIR CELLS: Unremarkable. Clear. ORBITS: Visualized globes, extraocular muscles, optic nerves and retrobulbar fat appear unremarkable. CT/Brain/Head without Contrast IMPRESSION: 1. Chronic involutional changes of the brain. 2. 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 3. No demonstrated acute intracranial process. Electronically Signed: Rogelio Soler MD at 8:06 EDT Reading Location ID and State: [facility] / [place] , Service support ,
--- NOTE | 2024-03-27 06:51 | RAD_ITS ---
EXAM: XR CHEST, 1 VIEW CLINICAL INDICATION: fall TECHNIQUE: Frontal view of the chest. COMPARISON: XR Chest dated 02/11/2016 FINDINGS: LUNGS AND PLEURAL SPACES: Shallow inspiration. No airspace opacification of the lungs. No pleural effusion or pneumothorax. HEART: Normal heart size. MEDIASTINUM: No mediastinal or hilar mass. BONES/JOINTS: No acute abnormality. RAD/Chest 1 View (Portable) IMPRESSION: No acute cardiopulmonary abnormality. Electronically Signed: Ryder Hook MD at 8:25 EDT ,
--- NOTE | 2024-03-27 06:53 | EDS_ITS ---
HPI HPI - Fall History of Present Illness Chief Complaint: Fall Informant: patient, EMS and other (retail client manager) Narrative Narrative: Patient found that the foot of his bed having had fallen either out of bed or after trying to get out of bed on his own. He has dementia, once he is up on his feet he is able to walk without assistance typically. At this time is not able to put any weight on his left lower extremity complaining of pain in his hip and thigh. He also complains of pain/injury at the top of his head. Denies any other pain. PFSH PFS Medical History Recent change in frequency of bowel movements Cerumen impaction BPH (benign prostatic hyperplasia) Cognitive and behavioral changes Osteoporosis Hearing loss Seasonal allergies Dyspnea Other kyphoscoliosis and scoliosis Hypertension Hemorrhoid Tracheobronchomalacia Mental retardation Pericardial effusion Pleural effusion Hypoxia Shortness of breath Home Medications ?Medication ?Instructions ?Recorded ?Last Taken ?Type Adult Pull-UP #3 ea 12/12/21 Unknown Rx denosumab 60 mg/mL subcutaneous 60 mg subcut [id number] #1 mL 12/25/22 Unknown Rx syringe cholecalciferol (vitamin D3) 50 50 mcg PO DAILY #90 caps 07/08/23 Unknown Rx mcg (2,000 unit) capsule amlodipine 5 mg tablet See Rx Instructions .Route 01/18/24 Unknown Rx .COMPLEX #90 tabs calcium carbonate 500 mg-vitamin 1 tab PO BID for osteoporosis #90 02/18/24 Unknown Rx D3 5 mcg (200 unit) tablet (Oyster tabs Shell Calcium-Vitamin D3) acetaminophen 325 mg tablet 650 mg PO Q4H PRN pain 02/25/24 Unknown History bismuth subsalicylate 262 mg/15 mL 524 mg PO Q4H PRN diarrhea 02/25/24 Unknown History oral suspension (Pepto-Bismol) calcium carbonate (Tums) 400 mg PO Q6H PRN dyspepsia 02/25/24 Unknown History galantamine 24 mg 24 hr 24 mg PO QAM #30 caps 03/02/24 Unknown Rx capsule,extended release magnesium hydroxide 400 mg/5 mL 30 ml PO DAILY PRN constipation 03/02/24 Unknown History oral suspension (Milk of Magnesia) memantine 10 mg tablet 10 mg PO BID #60 tabs 03/02/24 Unknown Rx paroxetine HCl 20 mg tablet See Rx Instructions .Route 03/15/24 Unknown Rx .COMPLEX #90 tabs Allergy/AdvReac Type Severity Reaction Status Date / Time No Known Allergies Allergy Verified 03/27/24 06:45 Family History Father Alzheimer disease Mother Cancer Sister Cancer Surgical History History of surgical removal of testicle S/P laparoscopic cholecystectomy Social History Smoking Status: Never smoker second hand exposure: No alcohol intake: never substance use type: does not use caffeine: Yes what type of physical activity do you participate in: none seatbelt use: always ROS ROS ED Review of Systems ROS Unobtainable: due to mental condition Eyes Eyes: Denies change in vision ENT ENT ED: Denies sore throat Cardiovascular Cardiovascular: Denies chest pain Respiratory/Chest Respiratory/Chest: Denies dyspnea Gastrointestinal Gastrointestinal: Denies abdominal pain or nausea Musculoskeletal Musculoskeletal: Reports as per HPI and extremity pain; Denies back pain or neck pain Integumentary Reports Abrasions Neurologic Neurologic: Denies headache(s) EXAM Physical Exam Const Vital Signs: 03/27/24 06:40 03/27/24 06:43 03/27/24 08:03 Temperature 98.0 F 98.1 F Temperature Source Temporal Pulse Rate 78 77 Respiratory Rate 16 17 Respiratory Effort Normal Blood Pressure 146/73 H 135/71 H Blood Pressure Mean 97 92 Pulse Ox 96 98 Oxygen Delivery Method Room Air Room Air Positive well nourished and well developed General Appearance ED: well developed and NAD HEENT Reports moist mucous membranes HEENT Narrative: Mild tenderness without hematoma, there is also a laceration at the top/crown of his scalp, no crepitance or depression. No other signs of head or neck trauma. No Carrasquillo sign. No raccoon eyes. No CSF otorhinorrhea. normocephalic and trauma Eyes PERRL and EOMs intact bilaterally Neck full ROM and supple Chest Wall inspection of chest normal and palpation of chest normal Resp normal respiratory effort and clear to auscultation bilaterally Cardio regular rate, regular rhythm and no murmurs GI non-tender and non-distended Auscultation: normoactive bowel sounds Palpation: soft Back/Spine no CVA tenderness General Back: other FROM Extremity Extremity Narrative: Left lower extremity is shortened, tender at the hip and pain in the groin with any passive movement of the hip. The rest of the thigh is benign appearing and nontender without deformity, all compartments are soft and nondistended/swollen. No knee or lower leg or ankle/foot tenderness. The right lower and both upper extremities all move fully without any difficulty. He does have high tone/stiffness, the transportation project manager states that is normal for him. General Extremety ED: Yes tenderness; Negative for edema or pulses abnormal General Extremity: Negative for edema or pulses abnormal Neuro CN's II-XII intact bilaterally and no sensory deficits noted Neuro Narrative: At baseline mental status per friend/transportation project manager Sensorium / Orientation: awake, alert, oriented to person and oriented to place Motor Exam: strength 5/5 throughout Psych mental status grossly normal Skin no rashes or lesions noted Skin Narrative: Laceration on top of his scalp, 2.5cm, clean, linear, full-thickness. MDM MDM MDM Narrative Medical decision making narrative: Clinically I am suspicious for a left hip fracture, 3 view left hip x-ray on my interpretation confirms this, appears to have a basicervical fracture. There may be an intertrochanteric component as the lesser trochanter appears to be involved. Discussed with Dr. Rivera with orthopedics who agrees and will plan on surgical repair tomorrow. CT of the head is interpreted by myself shows no acute fracture or hemorrhage. One-view portable chest x-ray was obtained and on my interpretation does not show any acute signs of injury or pneumonia. He was given morphine for his pain, I suspect this is why he dropped his oxygen saturations a little bit down to 88% and we placed a 2 L nasal cannula on him. Lab Data Attestation: I reviewed the patient's lab results. Labs: Laboratory Results - last 24 hr 03/27/24 07:00 WBC 18.8 H RBC 4.88 Hgb 14.3 Hct 44.6 MCV 91.4 MCH 29.3 MCHC 32.1 RDW Std Deviation 48.7 H RDW Coeff of Brenden 14.5 Plt Count 280 MPV 10.0 Immature Gran % (Auto) 0.700 Neut % (Auto) 88.5 H Lymph % (Auto) 2.4 L [place] % (Auto) 8.2 Eos % (Auto) 0.0 Baso % (Auto) 0.2 Absolute Neuts (auto) 16.7 H Absolute Lymphs (auto) 0.46 L Nucleated RBC % 0 Sodium 143 Potassium 3.7 Chloride 108 H Carbon Dioxide 28.0 Anion Gap 7 BUN 24 H Creatinine 0.81 Estim Creat Clear Calc 60.69 Est GFR (MDRD) Af Amer 119 Est GFR (MDRD) Non-Af 98 BUN/Creatinine Ratio 29.6 H Glucose 145 H Calcium 9.5 Radiography Diagnostic Testing: Clinical Impression(s) from Imaging Studies Brain CT 03/27/24 06:51 IMPRESSION: 1. Chronic involutional changes of the brain. 2. 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 3. No demonstrated acute intracranial process. Electronically Signed: Rogelio Soler MD at 8:06 EDT Reading Location ID and State: [facility] / [place] , Service support , Rhythm Strip Rhythm Strip: Sinus Rhythm Rate: 80 Ectopy: None EKG Initial EKG: Attestation: I personally reviewed and interpreted this EKG as follows: Interpretation: Sinus Rhythm and No Acute Injury Pattern Management Discussion w/another healthcare provider: Hospitalist and Poultry Farmer Egg (Ortho Dr. Rivera) Procedures Lacerations scalp: Length: 2.5 cm Depth: Sub Q Shape: Linear Prep: Sterile Conditions and Chlorhexadine Laceration repair: Lidocaine with epi (2cc, 1%), Local and Skin sutures (noman) Irrigated (ml): 60 Number of Sutures/Noman: 3 Discharge Plan Dx/Rx/DC Orders Clinical Impression: Closed fracture of left hip, Accidental fall, Closed head injury without concussion, Laceration of scalp Disposition Disposition: Acute Care Hospital [facility]
[2024-03-27] MEDS: Ondansetron 4 MG/2 ML Vial IV (07:07)
[2024-03-27] MEDS: Morphine 2 MG/ML Syringe IV (07:07)
[2024-03-27 07:20] LABS: Absolute Lymphocyte Count 0.46 X10^3/uL (0.83-4.51); Absolute Neutrophil Count 16.7 X10^3/uL (2.0-7.7); Basophil# 0.04 X10^3/uL; Basophil% 0.2 % (0-1); Hematocrit 44.6 % (40-54); Hemoglobin 14.3 g/dL (13.0-16.5); Lymphocyte # 0.46 X10^3/ul (0.83-4.51); Lymphocyte % 2.4 % (19-41); Mean Corp Hgb Conc 32.1 g/dL (32-36); Mean Corpuscular Hgb 29.3 pg (27.0-32.0); Mean Corpuscular Volume 91.4 fL (80-94); Monocyte# 1.54 X10^3/uL; Monocyte% 8.2 % (0-10); NRBC Flagged by Analyzer 0 % (0-5); Neutrophil # 16.66 X10^3/uL (2.7-7.7); Neutrophil % 88.5 % (47-70); POSITIVE DIFFERENTIAL YES; Platelet Count 280 K/mm3 (150-450); RBC Distribution Width CV 14.5 % (11.6-14.6); RBC Distribution Width SD 48.7 fl (35.1-43.9); Red Blood Count 4.88 M/mm3 (4.6-6.2); White Blood Count 18.8 K/mm3 (4.4-11.0)
[2024-03-27 07:32] LABS: Anion Gap 7 (5-15); BUN 24 mg/dL (7-18); BUN/Creat Ratio 29.6 RATIO (10-20); Calcium,Total 9.5 mg/dL (8.5-10.1); Chloride 108 mmol/L (98-107); Creatinine, Serum 0.81 mg/dL (0.70-1.30); EST Glomerular Filtration Rate 98 mL/min (>60); Est Glom Filt Rate - Afr Amer 119 mL/min (>60); Estimated Creatinine Clearance 60.69 ml/min; Glucose 145 mg/dL (74-106); Potassium 3.7 mmol/L (3.5-5.1); Sodium Level 143 mmol/L (136-145)
[2024-03-27 07:48] LABS: Differential Indicated SCAN CRITERIA MET
--- NOTE | 2024-03-27 07:48 | EKG12_ITS ---
Test Reason : FALL Blood Pressure : / mmHG Vent. Rate : 083 BPM Atrial Rate : 083 BPM P-R Int : 230 ms QRS Dur : 078 ms QT Int : 330 ms P-R-T Axes : 070 023 063 degrees QTc Int : 387 ms Sinus rhythm with 1st degree A-V block Otherwise normal ECG Confirmed by Roney Disla ([id number]), tape editor LEXUS PRIDE ([id number]) on 03/28/2024 10:05:59 AM Referred By: Confirmed By:Roney Disla
[2024-03-27 08:03] VITALS: BP 135/71; PULSE 77; RESP 17; TEMP 36.7; O2SAT 98
--- NOTE | 2024-03-27 08:09 | NURSING ---
DR QUIROZ FOR DR BECKETT
[2024-03-27] MEDS: Lidocaine 1% /Epi 1:100 (20ml) 20 ML Vial INFILT (08:17)
--- NOTE | 2024-03-27 08:18 | NURSING ---
MED SURG GABRIELLA LEFT HIP FRACTURE
[2024-03-27 08:35] LABS: Mucous, Urine 0 SEEN /hpf (<or=2+)
[2024-03-27 08:42] LABS: Color, Urine Yellow (Yellow); Glucose, Dipstick Normal (Normal); Ketone-Dipstick Negative (Negative); Leukocyte Esterase-Dipstick Negative /ul (Negative); Nitrite-Dipstick Negative (Negative); Occult Blood-Urine Negative /ul (Negative); Protein-Dipstick Negative (Negative); Urine Bilirubin Dipstick Negative (Negative); Urine Clarity Clear (Clear); Urine Urobilinogen Normal (Normal)
[2024-03-27 09:20] LABS: Red Blood Cells-Urine 0-5 SEEN /hpf (0-5); Squamous Epithelial Cells - UA 0-5 SEEN /hpf (0-5); Transitional Epithelial - Ur 0-5 SEEN /hpf (0-5); White Blood Cells 0-5 SEEN /hpf (0-5)
[2024-03-27 09:21] LABS: Bacteria 1+ /hpf (None Seen)
[2024-03-27 09:24] LABS: Hyaline Cast 0-5 SEEN /lpf (0-5)
[2024-03-27 09:27] LABS: Renal Epithelial Cells 0-5 SEEN /hpf (0-5)
[2024-03-27 10:21] VITALS: BP 139/58; PULSE 89; RESP 16; TEMP 36.7; O2SAT 93
[2024-03-27] MEDS: amLODIPine 5 MG Tablet PO (10:40)
[2024-03-27] MEDS: Memantine Hydrochloride 10 MG Tablet PO ×2 (10:41→20:14)
[2024-03-27] MEDS: Paroxetine 20 MG Tablet PO (10:41)
--- NOTE | 2024-03-27 12:35 | PCM.CONS.GEN ---
Assessment & Plan Assessment/Plan (1) Intertrochanteric fracture of left femur: QUALIFIERS: Encounter type: initial encounter Fracture alignment: displaced Fracture type: closed Qualified Code(s): S72.142A - Displaced intertrochanteric fracture of left femur, initial encounter for closed fracture PLAN: Plan Plan for left hip cephalomedullary fixation for intertrochanteric femur fracture. Consent was obtained from the patient however he does have some confusion when checking with the emergency room and the caregiver that was present at that time stated that he signed his own medical consents. We will also try to get a consent from the patient advocate. I did review risk and benefits of the surgery with him. Plans for surgery 03/28/2024 antibiotics on-call to the OR. HPI Consult Data Date of Consult: 03/27/24 HPI Narrative HPI Narrative: RAULITO TARIQ, is a 78 M who presents after ground-level fall he does have some dementia. He did sustain a left basicervical intertrochanteric fracture. He denies any other complaints [facility] Medical History Recent change in frequency of bowel movements Cerumen impaction BPH (benign prostatic hyperplasia) Cognitive and behavioral changes Osteoporosis Hearing loss Seasonal allergies Dyspnea Other kyphoscoliosis and scoliosis Hypertension Hemorrhoid Tracheobronchomalacia Mental retardation Pericardial effusion Pleural effusion Hypoxia Shortness of breath Home Medications ?Medication ?Instructions ?Recorded ?Last Taken ?Type Adult Pull-UP #3 ea 12/12/21 Unknown Rx denosumab 60 mg/mL subcutaneous 60 mg subcut [id number] #1 mL 12/25/22 Unknown Rx syringe cholecalciferol (vitamin D3) 50 50 mcg PO DAILY vit d deficiency 07/08/23 03/26/24 Rx mcg (2,000 unit) capsule #90 caps amlodipine 5 mg tablet See Rx Instructions .Route 01/18/24 03/27/24 Rx .COMPLEX #90 tabs calcium carbonate 500 mg-vitamin 1 tab PO BID for osteoporosis #90 02/18/24 03/27/24 Rx D3 5 mcg (200 unit) tablet (Oyster tabs Shell Calcium-Vitamin D3) acetaminophen 325 mg tablet 650 mg PO Q4H PRN pain 02/25/24 Unknown History bismuth subsalicylate 262 mg/15 mL 524 mg PO Q4H PRN diarrhea 02/25/24 Unknown History oral suspension (Pepto-Bismol) calcium carbonate (Tums) 400 mg PO Q6H PRN dyspepsia 02/25/24 Unknown History galantamine 24 mg 24 hr 24 mg PO QAM dementia #30 caps 03/02/24 03/26/24 Rx capsule,extended release magnesium hydroxide 400 mg/5 mL 30 ml PO DAILY PRN constipation 03/02/24 Unknown History oral suspension (Milk of Magnesia) memantine 10 mg tablet 10 mg PO BID #60 tabs 03/02/24 03/27/24 Rx paroxetine HCl 20 mg tablet See Rx Instructions .Route 03/15/24 03/26/24 Rx .COMPLEX #90 tabs Allergy/AdvReac Type Severity Reaction Status Date / Time No Known Allergies Allergy Verified 03/27/24 06:45 Family History Father Alzheimer disease Mother Cancer Sister Cancer Surgical History History of surgical removal of testicle S/P laparoscopic cholecystectomy Social History Smoking Status: Never smoker second hand exposure: No alcohol intake: never substance use type: does not use caffeine: Yes what type of physical activity do you participate in: none seatbelt use: always Physical Exam Const no apparent distress General Appearance: cooperative and comfortable Extremity Extremity Narrative: Left lower extremity no open wounds around the hip he does have a positive logroll there is compartments are soft. Lab / Micro Data 03/27/24 07:00 03/27/24 07:00 Labs: Laboratory Results - last 24 hr 03/27/24 07:00: WBC 18.8 H, RBC 4.88, Hgb 14.3, Hct 44.6, MCV 91.4, MCH 29.3, MCHC 32.1, RDW Std Deviation 48.7 H, RDW Coeff of Brenden 14.5, Plt Count 280, MPV 10.0, Immature Gran % (Auto) 0.700, Neut % (Auto) 88.5 H, Lymph % (Auto) 2.4 L, [place] % (Auto) 8.2, Eos % (Auto) 0.0, Baso % (Auto) 0.2, Absolute Neuts (auto) 16.7 H, Absolute Lymphs (auto) 0.46 L, Nucleated RBC % 0, Differential Comment COMMENT, Diff Path Review May foll, Sodium 143, Potassium 3.7, Chloride 108 H, Carbon Dioxide 28.0, Anion Gap 7, BUN 24 H, Creatinine 0.81, Estim Creat Clear Calc 60.69, Est GFR (MDRD) Af Amer 119, Est GFR (MDRD) Non-Af 98, BUN/Creatinine Ratio 29.6 H, Glucose 145 H, Calcium 9.5 03/27/24 08:31: Urine Color Yellow, Urine Clarity Clear, Urine pH 6.0, Ur Specific [place] 1.020, Urine Protein Negative, Urine Glucose (UA) Normal, Urine Ketones Negative, Urine Occult Blood Negative, Urine Nitrite Negative, Urine Bilirubin Negative, Urine Urobilinogen Normal, Ur Leukocyte Esterase Negative, Urine RBC 0-5 SEEN, Urine WBC 0-5 SEEN, Ur Squamous Epith Cells 0-5 SEEN, Ur Transition Epith Cell 0-5 SEEN, Ur Renal Epithelial Cell 0-5 SEEN, Urine Bacteria 1+, Hyaline Casts 0-5 SEEN, Urine Mucus 0 SEEN Rhythm Strip Rhythm Strip: Sinus Rhythm Rate: 80 Ectopy: None Imaging Radiology Impression Brain CT 03/27/24 06:51 IMPRESSION: 1. Chronic involutional changes of the brain. 2. 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 3. No demonstrated acute intracranial process. Electronically Signed: Rogelio Soler MD at 8:06 EDT , Chest X-Ray 03/27/24 06:51 IMPRESSION: No acute cardiopulmonary abnormality. Electronically Signed: Ryder Hook MD at 8:25 EDT , Hip/Pelvis X-Ray 03/27/24 06:51 IMPRESSION: Acute intertrochanteric fracture of the left femur. Electronically Signed: Ryder Hook MD at 8:25 EDT ,
--- NOTE | 2024-03-27 15:26 | CHAPLAIN ---
Type of Pastoral Visit _x__ Initial Visit ___ Follow-up Visit ___ On-call Visit ___ General Patient Visit ___ Spiritual Assessment ___ Family Conference ___ Bereavement ___ Rapid Response ___ Code Blue ___ Other (describe below) Pastoral Care Referral From _x__ Patient ___ Family ___ Nurse ___ Physician ___ Control Tower Radio Operator ___ Kitchen Food Server ___ Other (describe below) Sacrament/Intervention _x__ Active listening ___ Anointing ___ Hindu ___ Bereavement ___ Communion ___ Yue exploration ___ ___ Life review _x__ Prayer ___ Reconciliation ___ Sacrament of Sick _x__ Supportive presence ___ Wedding ___ Other (describe below) Pastoral Comments patient is welcoming; a guest is at the bedside but is not introduced nor does she state her relationship; pt repeats his thoughts about staying here and not going back and forth; pt acknowledges that his leg hurts; guest states that surgery will be tomorrow; pt speech is of a lower aptitude but able to answer some basic questions, yet not all; pt says it is okay to pray but when the prayer continues the patient speaks and talks about himself again;
[2024-03-27 16:20] VITALS: BP 126/78; PULSE 84; RESP 16; TEMP 36.6; O2SAT 95
--- NOTE | 2024-03-27 16:50 | HP.PCM.HOS_ITS ---
HPI - General General Date of Admission: 03/27/24 HPI Narrative RAULITO TARIQ, is a 78 M who presents to the hospital [facility] the [facility]. He does not give great history from a possible learning disability versus dementia. He was found to have a left intertrochanteric femur fracture. Unfortunately there is nobody at bedside to be able to fill in any history. Most of the history is obtained from chart review and discussing with the ED physician. He claims he does not have any significant pain at the moment. [facility] Medical History Recent change in frequency of bowel movements Cerumen impaction BPH (benign prostatic hyperplasia) Cognitive and behavioral changes Osteoporosis Hearing loss Seasonal allergies Dyspnea Other kyphoscoliosis and scoliosis Hypertension Hemorrhoid Tracheobronchomalacia Mental retardation Pericardial effusion Pleural effusion Hypoxia Shortness of breath Home Medications ?Medication ?Instructions ?Recorded ?Last Taken ?Type Adult Pull-UP #3 ea 12/12/21 Unknown Rx denosumab 60 mg/mL subcutaneous 60 mg subcut [id number] #1 mL 12/25/22 Unknown Rx syringe cholecalciferol (vitamin D3) 50 50 mcg PO DAILY vit d deficiency 07/08/23 03/26/24 Rx mcg (2,000 unit) capsule #90 caps amlodipine 5 mg tablet See Rx Instructions .Route 01/18/24 03/27/24 Rx .COMPLEX #90 tabs calcium carbonate 500 mg-vitamin 1 tab PO BID for osteoporosis #90 02/18/24 03/27/24 Rx D3 5 mcg (200 unit) tablet (Oyster tabs Shell Calcium-Vitamin D3) acetaminophen 325 mg tablet 650 mg PO Q4H PRN pain 02/25/24 Unknown History bismuth subsalicylate 262 mg/15 mL 524 mg PO Q4H PRN diarrhea 02/25/24 Unknown History oral suspension (Pepto-Bismol) calcium carbonate (Tums) 400 mg PO Q6H PRN dyspepsia 02/25/24 Unknown History galantamine 24 mg 24 hr 24 mg PO QAM dementia #30 caps 03/02/24 03/26/24 Rx capsule,extended release magnesium hydroxide 400 mg/5 mL 30 ml PO DAILY PRN constipation 03/02/24 Unknown History oral suspension (Milk of Magnesia) memantine 10 mg tablet 10 mg PO BID #60 tabs 03/02/24 03/27/24 Rx paroxetine HCl 20 mg tablet See Rx Instructions .Route 03/15/24 03/26/24 Rx .COMPLEX #90 tabs Allergy/AdvReac Type Severity Reaction Status Date / Time No Known Allergies Allergy Verified 03/27/24 06:45 Family History Father Alzheimer disease Mother Cancer Sister Cancer Surgical History History of surgical removal of testicle S/P laparoscopic cholecystectomy Social History Smoking Status: Never smoker second hand exposure: No alcohol intake: never substance use type: does not use caffeine: Yes what type of physical activity do you participate in: none seatbelt use: always ROS Review of Systems ROS Unobtainable: due to mental condition Vital Signs Vital Signs Vital Signs: 03/27/24 06:40 03/27/24 06:43 03/27/24 08:03 Temperature 98.0 F 98.1 F Temperature Source Temporal Pulse Rate 78 77 Respiratory Rate 16 17 Respiratory Effort Normal Blood Pressure 146/73 H 135/71 H Blood Pressure Mean 97 92 Blood Pressure Source Blood Pressure Position Blood Pressure Location Pulse Ox 96 98 Oxygen Delivery Method Room Air Room Air 03/27/24 10:21 Temperature 98.1 F Temperature Source Oral Pulse Rate 89 Respiratory Rate 16 Respiratory Effort Blood Pressure 139/58 H Blood Pressure Mean 85 Blood Pressure Source Monitor Blood Pressure Position Semi-Fowlers Blood Pressure Location Left Arm Pulse Ox 93 Oxygen Delivery Method Room Air Weight Weight: 116 lb 13.52 oz Body Mass Index (BMI) 20.0 Physical Exam Narrative General: Alert, Oriented x2, Cooperative, No apparent distress HEENT: Atraumatic, PERRLA, EOMI, Normocephalic Oral: Moist Mucosa Neck: Supple, No JVD Lungs: Diminished, Normal air movement, No rhonchi, No wheeze, No rales Cardiovascular: Regular rate, Regular Rhythm, Normal S1, Normal S2, No murmurs Abdomen: Soft, Non Tender, Non-Distended, No Hepato-splenomegaly Extremities: No edema, Capillary Refill Less than 3 Seconds Skin: No rashes, No breakdown Musculoskeletal: Left hip pain to palpation Neurological: Difficult to follow commands, exam limited by hip fracture on the left Psych/Mental Status: Flat Results Lab / Micro Data 03/27/24 07:00 03/27/24 07:00 Labs: Laboratory Results - last 24 hr 03/27/24 07:00: WBC 18.8 H, RBC 4.88, Hgb 14.3, Hct 44.6, MCV 91.4, MCH 29.3, MCHC 32.1, RDW Std Deviation 48.7 H, RDW Coeff of Brenden 14.5, Plt Count 280, MPV 10.0, Immature Gran % (Auto) 0.700, Neut % (Auto) 88.5 H, Lymph % (Auto) 2.4 L, [place] % (Auto) 8.2, Eos % (Auto) 0.0, Baso % (Auto) 0.2, Absolute Neuts (auto) 16.7 H, Absolute Lymphs (auto) 0.46 L, Nucleated RBC % 0, Differential Comment COMMENT, Diff Path Review November, Sodium 143, Potassium 3.7, Chloride 108 H, Carbon Dioxide 28.0, Anion Gap 7, BUN 24 H, Creatinine 0.81, Estim Creat Clear Calc 60.69, Est GFR (MDRD) Af Amer 119, Est GFR (MDRD) Non-Af 98, BUN/Creatinine Ratio 29.6 H, Glucose 145 H, Calcium 9.5 03/27/24 08:31: Urine Color Yellow, Urine Clarity Clear, Urine pH 6.0, Ur Specific [place] 1.020, Urine Protein Negative, Urine Glucose (UA) Normal, Urine Ketones Negative, Urine Occult Blood Negative, Urine Nitrite Negative, Urine Bilirubin Negative, Urine Urobilinogen Normal, Ur Leukocyte Esterase Negative, Urine RBC 0-5 SEEN, Urine WBC 0-5 SEEN, Ur Squamous Epith Cells 0-5 SEEN, Ur Transition Epith Cell 0-5 SEEN, Ur Renal Epithelial Cell 0-5 SEEN, Urine Bacteria 1+, Hyaline Casts 0-5 SEEN, Urine Mucus 0 SEEN Rhythm Strip Rhythm Strip: Sinus Rhythm Rate: 80 Ectopy: None Imaging Radiology Impression Brain CT 03/27/24 06:51 IMPRESSION: 1. Chronic involutional changes of the brain. 2. 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 3. No demonstrated acute intracranial process. Electronically Signed: Rogelio Soler MD at 8:06 EDT , Chest X-Ray 03/27/24 06:51 IMPRESSION: No acute cardiopulmonary abnormality. Electronically Signed: Ryder Hook MD at 8:25 EDT , Hip/Pelvis X-Ray 03/27/24 06:51 IMPRESSION: Acute intertrochanteric fracture of the left femur. Electronically Signed: Ryder Hook MD at 8:25 EDT , Assessment & Plan Assessment/Plan (1) Intertrochanteric fracture of left femur: QUALIFIERS: Encounter type: initial encounter Fracture type: c losed Fracture alignment: displaced Qualified Code(s): S72.142A - Displaced intertrochanteric fracture of left femur, initial encounter for closed fracture PLAN: Plan 1. Intertrochanteric femur fracture on the left status post fall ? PT/OT ? Pain management ? Consult orthopedic surgery for intervention on 03/28/2024 ? She did have a leukocytosis and a UA is unremarkable therefore likely reactive to his fracture will recheck in the morning 2. Essential HTN ? Continue with Norvasc ? Will monitor make adjustments as necessary 3. Osteoporosis ? Stable ? Continue with Prolia every 6 months 4. Dementia/MRDD ? Stable ? Continue with his home medications, he does appear to be at baseline 5. Anxiety/depression ? Stable ? Continue with Paxil DVT: SCDs 75 minutes was spent on direct patient care, including documentation as well as chart review and collaboration with colleagues Charges/Coding Visit Charges Inpatient E&M: 89584 Init Hosp L3
[2024-03-27] MEDS: Acetaminophen 325 MG Tablet 650 MG PO (20:14)
[2024-03-27 20:15] VITALS: BP 126/59; PULSE 90; RESP 16; TEMP 36.7; O2SAT 93
[2024-03-28] VITALS (13 sets, daily range): BP systolic 107–137; BP diastolic 54–111; PULSE 75–88; RESP 16–20; TEMP 36.7–37.8; O2SAT 91–99; BMI 20.1
[2024-03-28 05:57] LABS: Absolute Lymphocyte Count 0.83 X10^3/uL (0.83-4.51); Absolute Neutrophil Count 11.9 X10^3/uL (2.0-7.7); Basophil# 0.04 X10^3/uL; Basophil% 0.3 % (0-1); Eosinophil# 0.01 X10^3/uL; Eosinophils% 0.1 % (0-5); Hematocrit 40.1 % (40-54); Hemoglobin 12.8 g/dL (13.0-16.5); Lymphocyte # 0.83 X10^3/ul (0.83-4.51); Lymphocyte % 5.6 % (19-41); Mean Corp Hgb Conc 31.9 g/dL (32-36); Mean Corpuscular Hgb 29.6 pg (27.0-32.0); Mean Corpuscular Volume 92.6 fL (80-94); Mean Platelet Vol. 10.1 fl (6.2-12.0); Monocyte# 2.06 X10^3/uL; Monocyte% 13.8 % (0-10); NRBC Flagged by Analyzer 0 % (0-5); Neutrophil % 79.8 % (47-70); POSITIVE DIFFERENTIAL YES; Platelet Count 236 K/mm3 (150-450); RBC Distribution Width CV 14.8 % (11.6-14.6); RBC Distribution Width SD 49.6 fl (35.1-43.9); Red Blood Count 4.33 M/mm3 (4.6-6.2); White Blood Count 14.9 K/mm3 (4.4-11.0)
[2024-03-28 06:07] LABS: Differential Indicated SCAN CRITERIA MET
[2024-03-28 06:22] LABS: Anion Gap 3 (5-15); BUN 20 mg/dL (7-18); BUN/Creat Ratio 23.7 RATIO (10-20); Calcium,Total 8.7 mg/dL (8.5-10.1); Chloride 111 mmol/L (98-107); Creatinine, Serum 0.84 mg/dL (0.70-1.30); EST Glomerular Filtration Rate 94 mL/min (>60); Est Glom Filt Rate - Afr Amer 113 mL/min (>60); Estimated Creatinine Clearance 56.08 ml/min; Glucose 128 mg/dL (74-106); Potassium 3.8 mmol/L (3.5-5.1); Sodium Level 144 mmol/L (136-145)
[2024-03-28] MEDS: amLODIPine 5 MG Tablet PO (06:38)
[2024-03-28] MEDS: Memantine Hydrochloride 10 MG Tablet PO ×2 (06:38→22:11)
[2024-03-28] MEDS: Paroxetine 20 MG Tablet PO (06:38)
[2024-03-28 07:29] LABS: Anisocytosis 1+; Atypical Lymphocyte 1+ %
--- NOTE | 2024-03-28 09:18 | CASEMGMT ---
MAURA was informed patient is confused and only alert and oriented X1. Patient is Developmentally disabled, lives in a long term, and normally is alert and oriented so he makes his own decisions. MAURA called [facility] Board of and spoke with his readers' advisory service librarian Amarilis. Amarilis said patient is normally alert and oriented and able to make his own decisions. She confirmed patient does not have a guardian or Healthcare Power of Sports Psychologist. MAURA notified Larriman Helper of situation. MAURA went to patient's room and his caregiver Connie Kelly was present. Connie confirmed patient is confused and not his typical self. Janna Subramanian HEEL CURVER BRUCE
--- NOTE | 2024-03-28 10:53 | PN.HOSP_ITS ---
Subjective Subjective Doing well, no issues overnight. Has minimal left hip pain Objective Data Objective Data Vital Signs: Vital Signs Temp Pulse Resp BP Pulse Ox O2 Del Method 98.1 F 75 16 118/67 93 Room Air 03/28/24 06:35 03/28/24 06:35 03/28/24 06:35 03/28/24 06:35 03/28/24 06:35 03/28/24 06:35 Oxygen Delivery Method Room Air Weight: 116 lb 13.52 oz Body Mass Index (BMI) 20.0 Intake & Output: Intake and Output for Last 24 Hours 03/27/24 03/28/24 03/29/24 03:59 03:59 03:59 Intake Total 740 / 740 Output Total 750 / 750 200 / 200 Balance -10 / -10 -200 / -200 Lab / Micro Data 03/28/24 05:25 03/28/24 05:25 Labs: Laboratory Results - last 24 hr 03/28/24 05:25: WBC 14.9 H, RBC 4.33 L, Hgb 12.8 L, Hct 40.1, MCV 92.6, MCH 29.6, MCHC 31.9 L, RDW Std Deviation 49.6 H, RDW Coeff of Brenden 14.8 H, Plt Count 236, MPV 10.1, Immature Gran % (Auto) 0.400, Neut % (Auto) 79.8 H, Lymph % (Auto) 5.6 L, [place] % (Auto) 13.8 H, Eos % (Auto) 0.1, Baso % (Auto) 0.3, A bsolute Neuts (auto) 11.9 H, Absolute Lymphs (auto) 0.83, Nucleated RBC % 0, Diff Path Review May foll, Atypical Lymphocytes 1+, Anisocytosis 1+, Sodium 144, Potassium 3.8, Chloride 111 H, Carbon Dioxide 30.0, Anion Gap 3 L, BUN 20 H, Creatinine 0.84, Estim Creat Clear Calc 56.08, Est GFR (MDRD) Af Amer 113, Est GFR (MDRD) Non-Af 94, BUN/Creatinine Ratio 23.7 H, Glucose 128 H, Calcium 8.7 Rhythm Strip Rhythm Strip: Sinus Rhythm Rate: 80 Ectopy: None Physical Exam Narrative General: Alert, Oriented x2, Cooperative, No apparent distress HEENT: Atraumatic, PERRLA, EOMI, Normocephalic Oral: Moist Mucosa Neck: Supple, No JVD Lungs: Diminished, Normal air movement, No rhonchi, No wheeze, No rales Cardiovascular: Regular rate, Regular Rhythm, Normal S1, Normal S2, No murmurs Abdomen: Soft, Non Tender, Non-Distended, No Hepato-splenomegaly Extremities: No edema, Capillary Refill Less than 3 Seconds Skin: No rashes, No breakdown Musculoskeletal: Left hip pain to palpation Neurological: Difficult to follow commands, exam limited by hip fracture on the left Psych/Mental Status: Flat Assessment & Plan Assessment/Plan (1) Intertrochanteric fracture of left femur: QUALIFIERS: Encounter type: initial encounter Fracture type: c losed Fracture alignment: displaced Qualified Code(s): S72.142A - Displaced intertrochanteric fracture of left femur, initial encounter for closed fracture PLAN: Plan 1. Intertrochanteric femur fracture on the left status post fall ? PT/OT ? Pain management ? Consult orthopedic surgery for intervention today ? Leukocytosis is improving likely reactive ? Case management to follow as he may need half-way prior to going back to the long term. 2. Essential HTN ? Continue with Norvasc ? Will monitor make adjustments as necessary 3. Osteoporosis ? Stable ? Continue with Prolia every 6 months 4. Dementia/MRDD ? Stable ? Continue with his home medications, he does appear to be at baseline 5. Anxiety/depression ? Stable ? Continue with Paxil DVT: SCDs Charges/Coding Visit Charges Inpatient E&M: 57297 Subs Hosp L2
[2024-03-28 11:39] LABS: Pathologist Review Reviewed
--- NOTE | 2024-03-28 12:24 | CASEMGMT ---
SW spoke with hospitalist and asked if he felt patient is alert enough to give informed consent. Physician stated patient answered his questions appropriately. Physician also stated that when he asked patient if he is in pain patient told him no, they gave me Tylenol. Physician said he feels patient is alert enough. Janna BARRERA
[2024-03-28] MEDS: Lactated Ringers 1,000 ML 15 ML IV (13:24)
--- NOTE | 2024-03-28 14:07 | PRE.ANES_ITS ---
ASA Classification* ASA Classification ASA Classification: 3 Assessment & Plan Anesthesia* Anesthesia Assessment Anesthesia Assessment: Discussed sedation and/or anesthesia options, risks, benefits, and alternatives with patient/parents/legal guardian/POA. Questions invited. The patient/parents/legal guardian/POA seems to understand and agrees to proceed with anesthesia plan. Reviewed the physical assessment, medical history, allergy history and patient home medications list prior to surgery/procedure/anesthetic and documented any changes. Performed airway and anesthesia risk assessments. Anesthesia Type Anesthesia Type: General History Source History Obtained from:: Patient and Chart Anesthesia Focused Assessment* Temperature: 98.1 F Pulse Rate: 75 Blood Pressure: 118/67 Respiratory Rate: 16 Pulse Ox: 93 Oxygen Delivery Method: Room Air Airway Assessment Mouth opens: 2 cm Mallampati Score: IV Teeth Condition: Intact Neck Range of motion (ROM): Limited ROM (Severe decrease in range of motion. Unclear if this is compliance versus physiologic.) Focused Labs Anesthesia Preop lab: CBC WBC 14.9 K/mm3 (4.4-11.0) H 03/28/24 05:25 RBC 4.33 M/mm3 (4.6-6.2) L 03/28/24 05:25 Hgb 12.8 g/dL (13.0-16.5) L 03/28/24 05:25 Hct 40.1 % (40-54) 03/28/24 05:25 Plt Count 236 K/mm3 (150-450) 03/28/24 05:25 CHEMISTRY Potassium 3.8 mmol/L (3.5-5.1) 03/28/24 05:25 Sodium 144 mmol/L (136-145) 03/28/24 05:25 BUN 20 mg/dL (7-18) H 03/28/24 05:25 Creatinine 0.84 mg/dL (0.70-1.30) 03/28/24 05:25 Glucose 128 mg/dL (74-106) H 03/28/24 05:25 TSH 3.010 uIU/mL (0.358-3.740) 02/25/24 09:41 COAG Pre-Assessment Diagnosis/Proposed Procedure Planned Operative Procedure(s): Left hip cephalomedullary nail fixation. 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 When Was Last Pacemaker Check QUESTION #4 FULL TEXT: You/Your Family Experience fever (hyperthermia) with Anesthesia Last Oral Intake Last Oral intake: Last Oral Intake NPO since 00:01 03/27/24 20:24 Meds taken in AM with sips of No 03/27/24 20:24 water? Meds patient instructed to take am of surgery PONV PONV - boiler/chiller operator: PONV - boiler/chiller operator Female HX of Motion Sickness HX of N/V After Surgery Non-Smoker Duration of Surgery greater than 60 minutes Number of Risk Factors PONV Score Height & Weight Height & Weight: Anesthesia: Height & Weight Height 5 ft 4 in 03/27/24 09:29 Weight: 53 kg 03/27/24 09:29 Body Mass Index (BMI) 20.0 03/27/24 20:24 Respiratory Assessment Respiratory Assessment - boiler/chiller operator: Respiratory Tract Infection Hx - boiler/chiller operator Hx Respiratory Tract Infection No 03/27/24 20:24 STOP Sleep Apnea STOP Sleep Apnea - boiler/chiller operator: STOP Sleep Apnea - boiler/chiller operator Hx Hypertension Yes 03/28/24 10:41 Hx Sleep Apnea No 03/27/24 09:29 CPAP BIPAP Do you snore loudly (louder No 03/27/24 09:29 than talking or can be heard Do you often feel tired/ No 03/27/24 09:29 fatigued/ sleepy during daytime? Has anyone observed you stop No 03/27/24 09:29 breathing during sleep? STOP Results Negative 03/27/24 09:29 QUESTION #5 FULL TEXT : Do you snore loudly (louder than talking or can be heard through closed doors)? 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 Specify any problems Hx of Preganancy in last 3 N/A 03/27/24 09:29 Months Nurse Filling Out Transfusion [email or web address] 03/27/24 09:29 & Questions: Date: 03/27/24 03/27/24 09:29 Time: 09:33 03/27/24 09:29 Patient unable to answer at this time (ie. confused, unrespo /Reproduction History /Reproductive History - boiler/chiller operator: /Reproductive Hx- boiler/chiller operator Hx Now Gestational Age (in weeks): EDC: Hx Hx Para Hx Section SAB Active Medications Active Medications: Current Medications Generic Name Dose Route Start Last Admin Trade Name Freq PRN Reason Stop Dose Admin Acetaminophen 650 mg 03/27/24 09:38 03/27/24 20:14 Acetaminophen 325 Mg Tablet PO 650 mg Q4H PRN Administration PAIN 1-10 Amlodipine Besylate 5 mg 03/27/24 10:00 03/28/24 06:38 Amlodipine 5 Mg Tablet PO 5 mg DAILY MATTHEW Administration Protocol Lactated Ringer's 1,000 mls @ 15 mls/hr 03/28/24 13:15 03/28/24 13:24 IV 15 mls/hr .Q48H MATTHEW Administration Memantine 10 mg 03/27/24 10:00 03/28/24 06:38 Memantine Hydrochloride 10 Mg Tablet PO 10 mg BID MATTHEW Administration Morphine Sulfate 2 - 4 mg 03/27/24 09:38 Morphine 2 Mg/Ml Syringe IV Q3H PRN PRN Pain Score 6-10 Morphine Sulfate 2 - 4 mg 03/27/24 09:41 Morphine 4 Mg/Ml Syringe IV Q3H PRN PRN Pain Score 6-10 Ondansetron HCl 4 mg 03/27/24 09:38 Ondansetron 4 Mg/2 Ml Vial IV Q8H PRN PRN NAUSEA/VOMITING Oxycodone HCl 5 mg 03/27/24 09:38 Oxycodone 5 Mg Tablet PO Q4H PRN PRN Pain Score 4-10 Paroxetine HCl 20 mg 03/27/24 10:00 03/28/24 06:38 Paroxetine 20 Mg Tablet PO 20 mg DAILY MATTHEW Administration [facility] Medical History Recent change in frequency of bowel movements Cerumen impaction BPH (benign prostatic hyperplasia) Cognitive and behavioral changes Osteoporosis Hearing loss Seasonal allergies Dyspnea Other kyphoscoliosis and scoliosis Hypertension Hemorrhoid Tracheobronchomalacia Mental retardation Pericardial effusion Pleural effusion Hypoxia Shortness of breath Home Medications ?Medication ?Instructions ?Recorded ?Last Taken ?Type Adult Pull-UP #3 ea 12/12/21 Unknown Rx denosumab 60 mg/mL subcutaneous 60 mg subcut [id number] #1 mL 12/25/22 Unknown Rx syringe cholecalciferol (vitamin D3) 50 50 mcg PO DAILY vit d deficiency 07/08/23 03/26/24 Rx mcg (2,000 unit) capsule #90 caps amlodipine 5 mg tablet See Rx Instructions .Route 01/18/24 03/27/24 Rx .COMPLEX #90 tabs calcium carbonate 500 mg-vitamin 1 tab PO BID for osteoporosis #90 02/18/24 03/27/24 Rx D3 5 mcg (200 unit) tablet (Oyster tabs Shell Calcium-Vitamin D3) acetaminophen 325 mg tablet 650 mg PO Q4H PRN pain 02/25/24 Unknown History bismuth subsalicylate 262 mg/15 mL 524 mg PO Q4H PRN diarrhea 02/25/24 Unknown History oral suspension (Pepto-Bismol) calcium carbonate (Tums) 400 mg PO Q6H PRN dyspepsia 02/25/24 Unknown History galantamine 24 mg 24 hr 24 mg PO QAM dementia #30 caps 03/02/24 03/26/24 Rx capsule,extended release magnesium hydroxide 400 mg/5 mL 30 ml PO DAILY PRN constipation 03/02/24 Unknown History oral suspension (Milk of Magnesia) memantine 10 mg tablet 10 mg PO BID #60 tabs 03/02/24 03/27/24 Rx paroxetine HCl 20 mg tablet See Rx Instructions .Route 03/15/24 03/26/24 Rx .COMPLEX #90 tabs Allergy/AdvReac Type Severity Reaction Status Date / Time No Known Allergies Allergy Verified 03/28/24 13:12 Family History Father Alzheimer disease Mother Cancer Sister Cancer Surgical History History of surgical removal of testicle S/P laparoscopic cholecystectomy Social History Smoking Status: Never smoker second hand exposure: No alcohol intake: never substance use type: does not use caffeine: Yes what type of physical activity do you participate in: none seatbelt use: always Review of Systems (Anesthesia) ROS Narrative System reviewed and no additional complaints, except as documented.
[2024-03-28] MEDS: Cefazolin 2 GM in 0.9% Normal Saline (100mL Bag) 100 ML IV ×2 (14:19→20:04)
--- NOTE | 2024-03-28 14:30 | RAD_ITS ---
STUDY: X-RAY - LEFT HIP REASON FOR EXAM: Male, 78 years old. Fracture. TECHNIQUE: 3 spot fluoroscopic C-arm spot films were obtained of the left hip. COMPARISON: Pelvis and left hip radiographs dated 03/27/2024. FINDINGS: An intramedullary nail has been placed into the left proximal femur with left hip screw in place, fixating the previously seen intertrochanteric fracture. Normal visualized left superior and inferior pubic rami. Normal left ischial tuberosity. RAD/Hip 1 view with Pelvis IMPRESSION: Intramedullary femoral nail with left hip screw in place, fixating the previously seen intertrochanteric fracture. Electronically Signed: Kirk Linder MD at 15:29 EDT ,
--- NOTE | 2024-03-28 15:26 | OP.PCM_ITS ---
Operative Report Date of Procedure: 03/28/24 Preoperative diagnosis: Left hip intertrochanteric femur fracture Postoperative diagnosis: Same Procedure: Cephalo-medullary fixation right hip Implants: Synthes short nail 130 deg 10 mm diameter 100 mm helical blade 36 mm screw Anesthesia: General EBL: 20 Complications: None Condition: Stable to PACU Indication for procedure: 78-year-old male with dementia patient with ground- level fall sustaining injury to hip. Fracture demonstrated intertrochanteric femur fracture pattern. Risk benefits and alternatives were reviewed including risk of bleeding infection nerve, artery, bone, tissue damage, blood clot need for further surgery and continued pain. Procedure: Patient met in the preoperative holding area once again the operative extremity was identified by both patient and physician and was marked. Patient was met by anesthesia and IV was started . patient was brought back to the to the operating room anesthesia was started. Patient was then positioned on the fracture table all bony prominences were well-padded. patient was then positioned with abduction internal rotation and traction and fluoroscopy was brought in to ensure that an adequate reduction could be performed. Patient was then prepped and draped in usual sterile fashion and timeout was called to ensur e the proper patient procedure and extremity were being contemplated. Fluoroscopy was used to [place] the tip of the greater trochanter and a 3 fingerbreadth incision was made 2 finger breaths proximal to the tip of the greater trochanter. Was carried carried down through the skin and subcutaneous tissue as well as the gluteal fascia. Guidepin was then inserted through the tip of the greater trochanter directed towards the level of lesser trochanter this was checked in both AP and lateral projections. An opening reamer was performed. Following this was the insertion of the nail the appropriate height jig was used and a triple trocar sleeve was advanced to the skin and a stab incision was made at the trocar was inserted to the level of the bone and a guidepin was placed into the femoral neck and head checked on both AP and lateral projections. This was then measured and appropriately sized helical blade was inserted the nail was locked proximally the fracture was compressed and a locking screw was placed distally the same incision was extended slightly distally to allow the insertion of the trocar for the transverse screw. This was then drilled and measured under fluoroscopy and the appropriate size screw was inserted. Final AP and lateral projections were saved to the PACS system of the entire construct the wounds were thoroughly irrigated the fascia was closed with #1 [id number] Vicryls followed by 2-0 Vicryl in the subcutaneous tissues followed by josefa in the skin. 0.5% Marcaine with epinephrine was injected into the subcutaneous tissues dressing was applied form of Xeroform 4 x 4 ABD and Ioban tape. Patient tolerated procedure well there is no intraoperative complications and was brought back to the PACU in stable condition.
[2024-03-28] MEDS: Bupiv/Epi 0.25% 30 ML Vial (15:35)
--- NOTE | 2024-03-28 15:51 | PCM.POST.ANE ---
Anesthesia: Postop Eval I Current Vital Signs Temperature: 98.9 F Pulse Rate: 83 Blood Pressure: 137/111 Respiratory Rate: 16 Pulse Ox: 94 Oxygen Delivery Method: Room Air Assessment Airway patent: Yes Spontaneous unlabored respirations: Yes Mental status: Awake and Calm nausea: No Vomiting: No Anesthesia Complication: No Fluid Hydration Crystalloid volume administer (ml): 600 Total IV fluid infused: 600 Progress Note Anesthesia document: Postop Eval 1 completed: Yes
--- NOTE | 2024-03-28 17:08 | PCM.POSTANE2 ---
Anesthesia Postop Eval I Sum Postop Eval Completion status Anesthesia document: Postop Eval 1 completed: Yes Anesthesia Postop Eval I Summary Anesthesia Postop Eval I Summary: Anesthesia Postop Eval I: Assessment Summary Airway patent Yes 03/28/24 15:53 PIPE LINE MAINTENANCE [email or web address] Spontaneous unlabored Yes 03/28/24 15:53 PIPE LINE MAINTENANCE [email or web address] respirations Mental status Awake,Calm 03/28/24 15:53 PIPE LINE MAINTENANCE [email or web address] nausea No 03/28/24 15:53 PIPE LINE MAINTENANCE [email or web address] Vomiting No 03/28/24 15:53 PIPE LINE MAINTENANCE [email or web address] Anesthesia Postop Eval I: Fluid Summary Crystalloid volume administer 600 03/28/24 15:53 PIPE LINE MAINTENANCE [email or web address] (ml) Colloids volume administered ( ml) Blood Product volume administered (ml) Total IV fluid infused 600 03/28/24 15:53 PIPE LINE MAINTENANCE [email or web address] Anesthesia Postop Eval I: Summary Notes Anesthesia Complication No 03/28/24 15:53 PIPE LINE MAINTENANCE [email or web address] Anesthesia Complication Comment: Post-operative progress note Anesthesia: Postop Eval II Evaluation Mental status: Awake and Calm Pain Level: 2 nausea: No Vomiting: No Complications Anesthesia Complication: No
--- NOTE | 2024-03-28 17:08 | POSTOPAN2_ITS ---
Anesthesia Postop Eval I Sum Postop Eval Completion status Anesthesia document: Postop Eval 1 completed: Yes Anesthesia Postop Eval I Summary Anesthesia Postop Eval I Summary: Anesthesia Postop Eval I: Assessment Summary Airway patent Yes 03/28/24 15:53 [email or web address] Spontaneous unlabored Yes 03/28/24 15:53 [email or web address] respirations Mental status Awake,Calm 03/28/24 15:53 [email or web address] nausea No 03/28/24 15:53 [email or web address] Vomiting No 03/28/24 15:53 [email or web address] Anesthesia Postop Eval I: Fluid Summary Crystalloid volume administer 600 03/28/24 15:53 [email or web address] (ml) Colloids volume administered ( ml) Blood Product volume administered (ml) Total IV fluid infused 600 03/28/24 15:53 [email or web address] Anesthesia Postop Eval I: Summary Notes Anesthesia Complication No 03/28/24 15:53 [email or web address] Anesthesia Complication Comment: Post-operative progress note Anesthesia: Postop Eval II Evaluation Mental status: Awake and Calm Pain Level: 2 nausea: No Vomiting: No Complications Anesthesia Complication: No
[2024-03-28] MEDS: 0.9% Normal Saline (1000mL) 1,000 ML 125 ML IV (17:36)
[2024-03-28] MEDS: Calcium Carbonate 500 MG Tablet PO (17:38)
[2024-03-29] VITALS (7 sets, daily range): BP systolic 119–135; BP diastolic 53–89; PULSE 80–90; RESP 16–18; TEMP 36.4–36.9; O2SAT 88–97; BMI 20.1
[2024-03-29] MEDS: 0.9% Normal Saline (1000mL) 1,000 ML 125 ML IV ×2 (00:56→07:54)
[2024-03-29] MEDS: Cefazolin 2 GM in 0.9% Normal Saline (100mL Bag) 100 ML IV ×2 (00:58→07:54)
[2024-03-29 07:03] LABS: Absolute Lymphocyte Count 0.44 X10^3/uL (0.83-4.51); Absolute Neutrophil Count 10.8 X10^3/uL (2.0-7.7); Basophil# 0.01 X10^3/uL; Basophil% 0.1 % (0-1); Hematocrit 28.1 % (40-54); Hemoglobin 8.5 g/dL (13.0-16.5); Lymphocyte # 0.44 X10^3/ul (0.83-4.51); Lymphocyte % 3.5 % (19-41); Mean Corp Hgb Conc 30.2 g/dL (32-36); Mean Corpuscular Hgb 28.9 pg (27.0-32.0); Mean Corpuscular Volume 95.6 fL (80-94); Mean Platelet Vol. 10.8 fl (6.2-12.0); Monocyte# 1.44 X10^3/uL; Monocyte% 11.3 % (0-10); NRBC Flagged by Analyzer 0 % (0-5); Neutrophil # 10.75 X10^3/uL (2.7-7.7); Neutrophil % 84.6 % (47-70); POSITIVE DIFFERENTIAL YES; Platelet Count 159 K/mm3 (150-450); RBC Distribution Width CV 14.9 % (11.6-14.6); RBC Distribution Width SD 52.1 fl (35.1-43.9); Red Blood Count 2.94 M/mm3 (4.6-6.2); White Blood Count 12.7 K/mm3 (4.4-11.0)
[2024-03-29 07:42] LABS: Anion Gap 2 (5-15); BUN 13 mg/dL (7-18); BUN/Creat Ratio 27.1 RATIO (10-20); Calcium,Total 5.6 mg/dL (8.5-10.1); Chloride 128 mmol/L (98-107); Creatinine, Serum 0.48 mg/dL (0.70-1.30); EST Glomerular Filtration Rate 180 mL/min (>60); Est Glom Filt Rate - Afr Amer 218 mL/min (>60); Estimated Creatinine Clearance 58.89 ml/min; Glucose 98 mg/dL (74-106); Potassium 2.7 mmol/L (3.5-5.1); Sodium Level 151 mmol/L (136-145)
[2024-03-29 08:33] LABS: Ionized Calcium 4.59 mg/dL (4.36-5.20)
[2024-03-29] MEDS: Memantine Hydrochloride 10 MG Tablet PO ×2 (08:58→21:35)
[2024-03-29] MEDS: Senna/Docusate Sodium 1 Tablet 2 TABLET PO ×2 (08:59→21:35)
[2024-03-29] MEDS: Potassium Chloride Oral Tablet 20 MEQ 60 MEQ PO (08:59)
[2024-03-29] MEDS: Paroxetine 20 MG Tablet PO (08:59)
[2024-03-29] MEDS: Calcium Carbonate 500 MG Tablet PO ×3 (08:59→17:02)
[2024-03-29] MEDS: Cholecalciferol (VIT D3) 25 MCG TABLET (1,000 UNITS) PO (08:59)
[2024-03-29] MEDS: amLODIPine 5 MG Tablet PO (08:59)
[2024-03-29 09:05] LABS: Ionized Calcium Order ORDER TUBE
--- NOTE | 2024-03-29 10:42 | CASEMGMT ---
This MAURA and MAURA Romero met with patient and his caregiver, Connie. Patient was much more talkative today. SW spoke with them about going somewhere for rehab. Connie said patient was wondering about doing rehab here at [facility] on the 4th floor. Patient did confirm he would like to stay at [facility]. SW explained once therapy sees patient that will help make a decision on which unit would be appropriate for patient. Janna Subramanian POULTRY HATCHERY SUPERVISOR BRUCE
--- NOTE | 2024-03-29 12:15 | PN.ORTHO_ITS ---
Subjective Subjective Postop day #1 patient is sitting in the chair he is comfortable and he is confused. No complaints or concerns Objective Data Objective Data Vital Signs: Vital Signs Temp Pulse Resp BP Pulse Ox O2 Del Method O2 Flow Rate 97.5 F L 84 18 124/68 H 92 Room Air 2 03/29/24 08:56 03/29/24 08:56 03/29/24 08:56 03/29/24 08:56 03/29/24 08:56 03/29/24 08:56 03/29/24 00:49 Oxygen Flow Rate (L/min) 2 Oxygen Delivery Method Room Air Weight: 116 lb 13.52 oz Body Mass Index (BMI) 20.0 Intake & Output: Intake and Output for Last 24 Hours 03/27/24 03/28/24 03/29/24 23:59 23:59 23:59 Intake Total 740 / 740 1220 / 1220 2487.50 / 2487.50 Output Total 750 / 750 700 / 700 600 / 600 Balance -10 / -10 520 / 520 1887.50 / 1887.50 Lab / Micro Data 03/29/24 05:30 03/29/24 05:30 Labs: Laboratory Results - last 24 hr 03/29/24 05:30: WBC 12.7 H, RBC 2.94 L, Hgb 8.5 L, Hct 28.1 L, MCV 95.6 H, MCH 28.9, MCHC 30.2 L D, RDW Std Deviation 52.1 H, RDW Coeff of Brenden 14.9 H, Plt Count 159, MPV 10.8, Immature Gran % (Auto) 0.500, Neut % (Auto) 84.6 H, Lymph % (Auto) 3.5 L, [place] % (Auto) 11.3 H, Eos % (Auto) 0.0, Baso % (Auto) 0.1, A bsolute Neuts (auto) 10.8 H, Absolute Lymphs (auto) 0.44 L, Nucleated RBC % 0, S odium 151 H, Potassium 2.7 L*, Chloride 128 H*, Carbon Dioxide 21.0, Anion Gap 2 L, BUN 13, Creatinine 0.48 L, Estim Creat Clear Calc 58.89, Est GFR (MDRD) Af Amer 218, Est GFR (MDRD) Non-Af 180, BUN/Creatinine Ratio 27.1 H, Glucose 98, C alcium 5.6 L* 03/29/24 08:28: Ionized Calcium 4.59 Radiography Diagnostic Testing: Radiology Impression Hip/Pelvis X-Ray 03/28/24 14:30 IMPRESSION: Intramedullary femoral nail with left hip screw in place, fixating the previously seen intertrochanteric fracture. Electronically Signed: Kirk Linder MD at 15:29 EDT , Rhythm Strip Rhythm Strip: Sinus Rhythm Rate: 80 Ectopy: None Physical Exam Const no apparent distress; Negative for alert or oriented x3 General Appearance: cooperative Extremity Extremity Narrative: Left lower extremity dressing clean dry intact compartment soft neurovascular intact. Assessment & Plan Assessment/Plan (1) Intertrochanteric fracture of left femur: QUALIFIERS: Encounter type: initial encounter Fracture type: c losed Fracture alignment: displaced Qualified Code(s): S72.142A - Displaced intertrochanteric fracture of left femur, initial encounter for closed fracture PLAN: Plan Postop day #1 left hip intertrochanteric fracture fixed with cephalomedullary fixation PT OT weightbearing as tolerated Dressing keep undisturbed until 03/31/2024 then begin daily incisional cleaning with antibacterial soap and warm water and dry dressing daily at that point DVT prophylaxis SCDs MULU hose Eliquis 2.5 mg twice daily for 3 weeks postop. Follow-up in the office 2 weeks for wound check and staple removal.
--- NOTE | 2024-03-29 14:14 | CASEMGMT ---
Patient has been accepted in the [facility] Acute Rehab Unit. SW will notify patient and Connie Mendoza, his caregiver from the [facility]. Janna BARRERA
--- NOTE | 2024-03-29 14:38 | CASEMGMT ---
MAURA called Connie and let her know [facility] Acute Rehab can take patient when he is ready. MAURA also notified patient that he will get to stay at [facility] for his rehab. Patient said, That would be alright. Plan: d/c to [facility] Acute Rehab Unit when medically ready. Janna BARRERA
--- NOTE | 2024-03-29 14:59 | PN.HOSP_ITS ---
Subjective Subjective Doing well, no issues overnight. Denies any significant hip pain Objective Data Objective Data Vital Signs: Vital Signs Temp Pulse Resp BP Pulse Ox O2 Del Method O2 Flow Rate 97.5 F L 84 18 124/68 H 92 Room Air 2 03/29/24 08:56 03/29/24 08:56 03/29/24 08:56 03/29/24 08:56 03/29/24 08:56 03/29/24 08:56 03/29/24 00:49 Oxygen Flow Rate (L/min) 2 Oxygen Delivery Method Room Air Weight: 116 lb 13.52 oz Body Mass Index (BMI) 20.0 Intake & Output: Intake and Output for Last 24 Hours 03/28/24 03/29/24 03/30/24 03:59 03:59 03:59 Intake Total 740 / 740 2246.67 / 2246.67 1460.83 / 1460.83 Output Total 750 / 750 700 / 700 600 / 600 Balance -10 / -10 1546.67 / 1546.67 860.83 / 860.83 Lab / Micro Data 03/29/24 05:30 03/29/24 05:30 Labs: Laboratory Results - last 24 hr 03/29/24 05:30: WBC 12.7 H, RBC 2.94 L, Hgb 8.5 L, Hct 28.1 L, MCV 95.6 H, MCH 28.9, MCHC 30.2 L D, RDW Std Deviation 52.1 H, RDW Coeff of Brenden 14.9 H, Plt Count 159, MPV 10.8, Immature Gran % (Auto) 0.500, Neut % (Auto) 84.6 H, Lymph % (Auto) 3.5 L, [place] % (Auto) 11.3 H, Eos % (Auto) 0.0, Baso % (Auto) 0.1, A bsolute Neuts (auto) 10.8 H, Absolute Lymphs (auto) 0.44 L, Nucleated RBC % 0, S odium 151 H, Potassium 2.7 L*, Chloride 128 H*, Carbon Dioxide 21.0, Anion Gap 2 L, BUN 13, Creatinine 0.48 L, Estim Creat Clear Calc 58.89, Est GFR (MDRD) Af Amer 218, Est GFR (MDRD) Non-Af 180, BUN/Creatinine Ratio 27.1 H, Glucose 98, C alcium 5.6 L* 03/29/24 08:28: Ionized Calcium 4.59 Radiography Diagnostic Testing: Radiology Impression Hip/Pelvis X-Ray 03/28/24 14:30 IMPRESSION: Intramedullary femoral nail with left hip screw in place, fixating the previously seen intertrochanteric fracture. Electronically Signed: Kirk Linder MD at 15:29 EDT , Rhythm Strip Rhythm Strip: Sinus Rhythm Rate: 80 Ectopy: None Physical Exam Narrative General: Alert, Oriented x2, Cooperative, No apparent distress HEENT: Atraumatic, PERRLA, EOMI, Normocephalic Oral: Moist Mucosa Neck: Supple, No JVD Lungs: Diminished, Normal air movement, No rhonchi, No wheeze, No rales Cardiovascular: Regular rate, Regular Rhythm, Normal S1, Normal S2, No murmurs Abdomen: Soft, Non Tender, Non-Distended, No Hepato-splenomegaly Extremities: No edema, Capillary Refill Less than 3 Seconds Skin: Dressing CDI Musculoskeletal: Minimal left hip pain to palpation Neurological: Difficult to follow commands, exam limited by hip fracture on the left Psych/Mental Status: Flat Assessment & Plan Assessment/Plan (1) Intertrochanteric fracture of left femur: QUALIFIERS: Encounter type: initial encounter Fracture type: c losed Fracture alignment: displaced Qualified Code(s): S72.142A - Displaced intertrochanteric fracture of left femur, initial encounter for closed fracture PLAN: Plan 1. Intertrochanteric femur fracture on the left status post fall status postrepair on 03/28/2024 ? PT/OT ? Pain management ? Appreciate orthopedic surgery's assistance ? Leukocytosis is improving likely reactive ? Case management to follow as he may need fdc versus rehab prior to going back to the shelter. ? Lab work is highly abnormal and this is likely because it was drawn from above twice daily will replace potassium and recheck in the morning 2. Essential HTN ? Continue with Norvasc ? Will monitor make adjustments as necessary 3. Osteoporosis ? Stable ? Continue with Prolia every 6 months 4. Dementia/MRDD ? Stable ? Continue with his home medications, he does appear to be at baseline 5. Anxiety/depression ? Stable ? Continue with Paxil DVT: Eliquis 2.5 mg p.o. twice daily Charges/Coding Visit Charges Inpatient E&M: 61237 Subs Hosp L2
[2024-03-29 15:03] LABS: Pathologist Review Reviewed
[2024-03-29] MEDS: APIXABAN 2.5 MG TABLET (WCH) PO (21:35)
[2024-03-30 03:20] VITALS: BP 123/69; BP 141/73; PULSE 67; PULSE 82; RESP 18; TEMP 36.4; O2SAT 100
[2024-03-30 05:54] LABS: Absolute Lymphocyte Count 1.31 X10^3/uL (0.83-4.51); Absolute Neutrophil Count 10.6 X10^3/uL (2.0-7.7); Basophil# 0.07 X10^3/uL; Basophil% 0.5 % (0-1); Eosinophil# 0.08 X10^3/uL; Eosinophils% 0.6 % (0-5); Hematocrit 33.6 % (40-54); Hemoglobin 10.3 g/dL (13.0-16.5); Lymphocyte # 1.31 X10^3/ul (0.83-4.51); Lymphocyte % 9.6 % (19-41); Mean Corp Hgb Conc 30.7 g/dL (32-36); Mean Corpuscular Hgb 28.9 pg (27.0-32.0); Mean Corpuscular Volume 94.4 fL (80-94); Mean Platelet Vol. 10.3 fl (6.2-12.0); Monocyte% 11.7 % (0-10); NRBC Flagged by Analyzer 0 % (0-5); Neutrophil # 10.56 X10^3/uL (2.7-7.7); Neutrophil % 76.9 % (47-70); POSITIVE DIFFERENTIAL YES; Platelet Count 209 K/mm3 (150-450); RBC Distribution Width CV 14.8 % (11.6-14.6); RBC Distribution Width SD 52.7 fl (35.1-43.9); Red Blood Count 3.56 M/mm3 (4.6-6.2); White Blood Count 13.7 K/mm3 (4.4-11.0)
[2024-03-30 06:26] LABS: Differential Indicated SCAN CRITERIA MET
[2024-03-30 06:30] LABS: Anion Gap 1 (5-15); BUN 16 mg/dL (7-18); BUN/Creat Ratio 22.6 RATIO (10-20); Chloride 114 mmol/L (98-107); Creatinine, Serum 0.71 mg/dL (0.70-1.30); EST Glomerular Filtration Rate 115 mL/min (>60); Est Glom Filt Rate - Afr Amer 139 mL/min (>60); Estimated Creatinine Clearance 58.89 ml/min; Glucose 105 mg/dL (74-106); Potassium 3.7 mmol/L (3.5-5.1); Sodium Level 144 mmol/L (136-145)
[2024-03-30 07:43] LABS: Differential Comment SCANNED
[2024-03-30 09:20] VITALS: BP 117/54; PULSE 78; RESP 18; TEMP 36.8; O2SAT 96
[2024-03-30] MEDS: APIXABAN 2.5 MG TABLET (WCH) PO (09:25)
[2024-03-30] MEDS: amLODIPine 5 MG Tablet PO (09:25)
[2024-03-30] MEDS: Calcium Carbonate 500 MG Tablet PO ×2 (09:25→11:51)
[2024-03-30] MEDS: Paroxetine 20 MG Tablet PO (09:25)
[2024-03-30] MEDS: Memantine Hydrochloride 10 MG Tablet PO (09:25)
[2024-03-30] MEDS: Senna/Docusate Sodium 1 Tablet 2 TABLET PO (09:26)
[2024-03-30] MEDS: Cholecalciferol (VIT D3) 25 MCG TABLET (1,000 UNITS) PO (09:26)
--- NOTE | 2024-03-30 10:08 | DCINST_ITS ---
Discharge Instructions Diet Discharge Diet: Low fat / Low cholesterol Activity Discharge Activity: Return to Normal Activity Weight Bearing Status: Weight bearing as tolerated Dressing / Incision Call your doctor if you observe: Fever of 101 or Higher, Shortness of breath, Dizziness, Fainting spells, Swelling in the ankles, Chest pain and Increased palpitations (irregular heartbeat) Follow Up Care Test Results: Test results from this visit will be discussed in further detail at your follow- up appointment, if applicable. Discharge Plan Admission Admit Date/Time: 03/27/24 08:10 Attending Provider: Rui Vemra Primary Care Provider: Maria Luz Chavira Consulting Providers: Capo Rivera Discharge Orders/Prescriptions Prescriptions: New Eliquis 5 mg Tablet 2.5 mg PO BID 20 Days Qty: 20 0RF Continued denosumab 60 mg/mL syringe 60 mg subcut [id number] Qty: 1 2RF acetaminophen 325 mg tablet 650 mg PO Q4H PRN (Reason: pain) calcium carbonate [Tums] 200 mg calcium (500 mg) tablet,chewable 400 mg PO Q6H PRN (Reason: dyspepsia) bismuth subsalicylate [Pepto-Bismol] 262 mg/15 mL suspension 524 mg PO Q4H PRN (Reason: diarrhea) Rx Instructions: do not exceed 8 doses in a 24 hour period magnesium hydroxide [Milk of Magnesia] 400 mg/5 mL suspension 30 ml PO DAILY PRN (Reason: constipation) galantamine 24 mg capsule,ext rel. pellets 24 hr 24 mg PO QAM Qty: 30 11RF Rx Instructions: administer with breakfast memantine 10 mg tablet 10 mg PO BID Qty: 60 11RF (DME) Adult Pull-UP See Rx Instructions .Route .MEDSUPPLY Qty: 3 6RF Rx Instructions: As directed cholecalciferol (vitamin D3) 50 mcg (2,000 unit) capsule 50 mcg PO DAILY Qty: 90 3RF amlodipine 5 mg tablet See Rx Instructions .ROUTE .COMPLEX Qty: 90 2RF Dose Instruction: GIVE 1 TABLET BY MOUTH ONCE DAILY DX: HYPERTENSION Rx Instructions: GIVE 1 TABLET BY MOUTH ONCE DAILY DX: HYPERTENSION calcium carbonate-vitamin D3 [Oyster Shell Calcium-Vit D3] 500 mg-5 mcg (200 unit) tablet 1 tab PO BID Qty: 90 0RF paroxetine HCl 20 mg tablet See Rx Instructions .ROUTE .COMPLEX Qty: 90 1RF Dose Instruction: TAKE 1 TABLET BY MOUTH ONCE DAILY DX: MOOD DISORDER Rx Instructions: TAKE 1 TABLET BY MOUTH ONCE DAILY DX: MOOD DISORDER Referrals / Follow Up: Maria Luz Chavira MD [Primary Care Provider] - Capo Rivera DO [Med Staff - Active Staff] - Within 2 Weeks Disposition Disposition (needs filled in before D/C Order can be placed): Inpatient Rehab Unit/Facility
--- NOTE | 2024-03-30 11:35 | CASEMGMT ---
This MAURA and MAURA Romero went to patient's room and notified him he will be going to the Rehab Unit today. Patient did not seem to understand what MAURA was telling him. MAURA called Connie patient's caregiver and notified her. Connie was aware and was bringing clothes in for patient. Plan: d/c to [facility] Acute Rehab Unit. Janna BARRERA
--- NOTE | 2024-03-30 11:39 | NURSING ---
Gave report to Jenise on Rehab unit
[2024-03-30 14:09] LABS: Pathologist Review Reviewed
--- NOTE | 2024-03-30 14:37 | DS.PCM_ITS ---
Providers Date of Admission: 03/27/24 Primary Care Physician: Dr. Maria Luz Chavira MD Consultations 03/27/24 09:38 Consult: Orthopedics Routine Consulting Provider: Capo Rivera Reason for Consult: Left hip fx EMERGENT Consult: No MD Notified: Yes Date Notified: 03/27/24 Time Notified: 08:16 Method of Notification: ED Physician Initiated Reason For Visit: LEFT HIP FRACTURE Diagnosis Discharge Diagnosis (1) Intertrochanteric fracture of left femur: Status: Acute Code(s): S72.142A - Displaced intertrochanteric fracture of left femur, initial encounter for closed fracture Qualifiers: Encounter type: initial encounter Fracture alignment: displaced F racture type: closed Qualified Code(s): S72.142A - Displaced intertrochanteric fracture of left femur, initial encounter for closed fracture Medications at Discharge Home Medications Adult Pull-UP #3 ea 12/12/21 denosumab 60 mg/mL subcutaneous syringe 60 mg subcut [id number] Osteoporosis #1 mL 12/25/22 cholecalciferol (vitamin D3) 50 mcg (2,000 unit) capsule 50 mcg PO DAILY vit d deficiency #90 caps 07/08/23 calcium carbonate 500 mg-vitamin D3 5 mcg (200 unit) tablet (Oyster Shell Calcium-Vitamin D3) 1 tab PO BID for osteoporosis #90 tabs 02/18/24 acetaminophen 325 mg tablet 650 mg PO Q4H PRN pain 02/25/24 bismuth subsalicylate 262 mg/15 mL oral suspension (Pepto-Bismol) 524 mg PO Q4H PRN diarrhea 02/25/24 calcium carbonate (Tums) 400 mg PO Q6H PRN dyspepsia 02/25/24 galantamine 24 mg 24 hr capsule,extended release 24 mg PO QAM dementia #30 caps 03/02/24 magnesium hydroxide 400 mg/5 mL oral suspension (Milk of Magnesia) 30 ml PO DAILY PRN constipation 03/02/24 memantine 10 mg tablet 10 mg PO BID Dementia #60 tabs 03/02/24 amlodipine 5 mg tablet 5 mg PO DAILY BP 03/30/24 apixaban 5 mg tablet (Eliquis) 2.5 mg (1/2 x 5 mg) PO BID Blood thinner 20 days #20 tabs 03/30/24 paroxetine HCl 20 mg tablet 20 mg PO DAILY Mood 03/30/24 Hospital Course Operations - (Cephalo-medullary fixation right hip) Procedures None Summary of Care Provided Minutes Spent on Discharge: 37 Hospital Course: Per HPI: RAULITO TARIQ, is a 78 M who presents to the hospital after falling at the intermediate. He does not give great history from a possible learning disability versus dementia. He was found to have a left intertrochanteric femur fracture. Unfortunately there is nobody at bedside to be able to fill in any history. Most of the history is obtained from chart review and discussing with the ED physician. He claims he does not have any significant pain at the moment. Hospital Course: 1. Intertrochanteric femur fracture on the left status post fall status post repair on 03/28/2024, this is likely precipitated by his osteoporosis?78-year-old male from a intermediate with dementia and probable learning disability presents after mechanical fall with a left intertrochanteric femur fracture. This was repaired with a cephalomedullary nailing. He is weightbearing as tolerated, he did tolerate the surgery very well he did have a slight leukocytosis on admission which was reactive and has been resolving without antibiotics. He has not been requiring any significant narcotics and states that his pain is fairly well-controlled with just Tylenol. Will plan to discharge for rehab prior to returning to his intermediate. He will need to be on Eliquis 2.5 mg p.o. twice daily for 21 days total. 2. Essential hypertension, dementia, MRDD, anxiety, depression, osteoporosis are all chronic medical conditions which complicate his care. His home medications were continued where appropriate Physical Exam Narrative General: Alert, Oriented x2, Cooperative, No apparent distress HEENT: Atraumatic, PERRLA, EOMI, Normocephalic Oral: Moist Mucosa Neck: Supple, No JVD Lungs: Diminished, Normal air movement, No rhonchi, No wheeze, No rales Cardiovascular: Regular rate, Regular Rhythm, Normal S1, Normal S2, No murmurs Abdomen: Soft, Non Tender, Non-Distended, No Hepato-splenomegaly Extremities: No edema, Capillary Refill Less than 3 Seconds Skin: Dressing CDI Musculoskeletal: Minimal left hip pain to palpation Neurological: No focal neurological deficits Psych/Mental Status: Flat Weight / BMI Weight Weight: 116 lb 13.52 oz Body Mass Index (BMI) 20.0 ABG / Lab / Microbiology Data 03/30/24 05:42 03/30/24 05:42 Laboratory: Laboratory Results - last 24 hr 03/28/24 05:25: Diff Path Review Reviewed 03/30/24 05:42: WBC 13.7 H, RBC 3.56 L, Hgb 10.3 L, Hct 33.6 L, MCV 94.4 H, MCH 28.9, MCHC 30.7 L, RDW Std Deviation 52.7 H, RDW Coeff of Brenden 14.8 H, Plt Count 209, MPV 10.3, Immature Gran % (Auto) 0.700, Neut % (Auto) 76.9 H, Lymph % (Auto) 9.6 L, [place] % (Auto) 11.7 H, Eos % (Auto) 0.6, Baso % (Auto) 0.5, A bsolute Neuts (auto) 10.6 H, Absolute Lymphs (auto) 1.31, Nucleated RBC % 0, Differential Comment SCANNED, Diff Path Review Reviewed, Sodium 144, Potassium 3.7, Chloride 114 H, Carbon Dioxide 29.0, Anion Gap 1 L, BUN 16, Creatinine 0.71, Estim Creat Clear Calc 58.89, Est GFR (MDRD) Af Amer 139, Est GFR (MDRD) Non-Af 115, BUN/Creatinine Ratio 22.6 H, Glucose 105, Calcium 8.0 L D/C Instructions Discharge Diet: Low fat / Low cholesterol Weight Bearing Status: Weight bearing as tolerated Call your doctor if you observe: Fever of 101 or Higher, Shortness of breath, Dizziness, Fainting spells, Swelling in the ankles, Chest pain and Increased palpitations (irregular heartbeat) Meaningful Use Info Meaningful Use Meaningful Use Diagnoses (Choose all that apply): None applicable Ischemic Stroke Statin Dosing Therapy Reference: STATIN DOSE THERAPY REFERENCE: * Patients > 75 years receive moderate or high dose statin therapy. * Patients 75 years or YOUNGER should receive HIGH intensity statin dose unless contraindicated. You will be required to document reason for non-treatment if statin daily dose does not meet guidelines. HIGH DOSE STATIN THERAPY DAILY Atorvastatin > than or = to 40 mg Rosuvastatin > than or = to 20 mg Amlodipine + Atorvastatin > than or = to 2.5/40 mg Ezetimibe + Simvastatin 10/80 mg Simvastatin 80mg Discharge Plan Admission Admit Date/Time: 03/27/24 08:10 Attending Provider: Rui Verma Primary Care Provider: Maria Luz Chavira Consulting Providers: Capo Rivera Discharge Orders/Prescriptions Prescriptions: New Eliquis 5 mg Tablet 2.5 mg PO BID 20 Days Qty: 20 0RF Continued denosumab 60 mg/mL syringe 60 mg subcut [id number] Qty: 1 2RF acetaminophen 325 mg tablet 650 mg PO Q4H PRN (Reason: pain) calcium carbonate [Tums] 200 mg calcium (500 mg) tablet,chewable 400 mg PO Q6H PRN (Reason: dyspepsia) bismuth subsalicylate [Pepto-Bismol] 262 mg/15 mL suspension 524 mg PO Q4H PRN (Reason: diarrhea) Rx Instructions: do not exceed 8 doses in a 24 hour period magnesium hydroxide [Milk of Magnesia] 400 mg/5 mL suspension 30 ml PO DAILY PRN (Reason: constipation) galantamine 24 mg capsule,ext rel. pellets 24 hr 24 mg PO QAM Qty: 30 11RF Rx Instructions: administer with breakfast memantine 10 mg tablet 10 mg PO BID Qty: 60 11RF (DME) Adult Pull-UP See Rx Instructions .Route .MEDSUPPLY Qty: 3 6RF Rx Instructions: As directed cholecalciferol (vitamin D3) 50 mcg (2,000 unit) capsule 50 mcg PO DAILY Qty: 90 3RF calcium carbonate-vitamin D3 [Oyster Shell Calcium-Vit D3] 500 mg-5 mcg (200 unit) tablet 1 tab PO BID Qty: 90 0RF No Action amlodipine 5 mg tablet 5 mg PO DAILY paroxetine HCl 20 mg tablet 20 mg PO DAILY Rx Instructions: once daily Referrals / Follow Up: Maria Luz Chavira MD [Primary Care Provider] - Capo Rivera DO [Med Staff - Active Staff] - Within 2 Weeks Disposition Disposition (needs filled in before D/C Order can be placed): Inpatient Rehab Unit/Facility Charges/Coding Visit Charges Inpatient E&M: 42540 Disch Hosp >30min
== END 2024-03-30 12:10 | DRG 482 ==
LOC: ED 08:14 → PCU 08:34
PROVIDERS: Orthopaedic Surgery; Admitting Provider Family Medicine; Emergency Provider Emergency Medicine; PCP Internal Medicine; Visit Provider Family Medicine
PROC: 0QS736Z Reposition Left Upper Femur with Intramedullary Internal Fixation Device, Percutaneous Approach (ICD-10-PCS; principal; 2024-03-28 13:30)
DX: M80.052A Age-related osteoporosis with current pathological fracture, left femur, initial encounter for fracture (principal); F02.80 Dementia in other diseases classified elsewhere, unspecified severity, without behavioral disturbance, psychotic disturbance, mood disturbance, and anxiety; I10 Essential (primary) hypertension; F32.A Depression, unspecified; S01.01XA Laceration without foreign body of scalp, initial encounter; W06.XXXA Fall from bed, initial encounter; F41.9 Anxiety disorder, unspecified; Y92.10 Unspecified residential institution as the place of occurrence of the external cause; F79 Unspecified intellectual disabilities; Z79.899 Other long term (current) drug therapy
CPT/HCPCS: 36415; 70450; 71045; 73501; 73502; 76000; 80048; 81001; 82330; 85025; 93005; 97162; 97166; 97530; 99285; C1713; J7030; J7120; A4216; J2405

== ENCOUNTER 2024-03-30 12:25 | Inpatient (IN) | payer MEDICARE, MEDICAID, SELFPAY ==
[2024-03-30 13:22] VITALS: BP 121/51; PULSE 88; RESP 14; TEMP 36.4; O2SAT 93; BMI 20.7
--- NOTE | 2024-03-30 14:36 | PCM.HP.STD ---
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 He was unable to bear weight on the left lower extremity and was complaining of pain in the hip and thigh. Imaging revealed a left intertrochanteric femur fracture. He was admitted to the hospitalist service and Dr. Rivera was consulted from orthopedics. He was taken to the OR on 03/28/2024 and underwent cephalomedullary fixation of the left hip. He was transferred to the acute inpatient rehab unit at [facility] on 03/30/2024 for 3 hours of therapy daily to restore function/independence at his level prior to the recent fracture. All lab and imaging done in the hospital was personally reviewed. Hemoglobin at presentation to the emergency department was 14.3 and dropped to 8.5 on 03/29/2024. On 03/30/2024 the hemoglobin is 10.3. Platelets are within normal limits. Chemistries today show a sodium of 144 and a potassium of 3.7. Serum bicarb is normal at 21. The BUN is 16 with a creatinine of 0.71 which is up from 0.48 yesterday. Calcium is low at 8 but there is no recent albumin on the chart. Vitamin D level in August was within normal limits. TSH in February was normal. He had a bone mineral density study done in September 2022 and was diagnosed with osteoporosis. He is taking denosumab every 6 months. The medication list was reviewed and he has been taking only as needed Tylenol for pain. I was able to speak to his ramp service man and she tells me that he does not generally complain of pain when he has it but he will go lay down in bed when he is painful. This happens more frequently when it is raining. COUNTS INCLUDE 234 BEDS AT THE [facility] Medical History (Updated 03/31/24 @ 16:[address] Belinda Teixeira DO) Impacted cerumen of both ears Closed head injury without concussion Laceration of scalp Recent change in frequency of bowel movements BPH (benign prostatic hyperplasia) Cognitive and behavioral changes Osteoporosis Hearing loss Seasonal allergies Dyspnea Other kyphoscoliosis and scoliosis Hypertension Hemorrhoid Tracheobronchomalacia Mental retardation Pericardial effusion Pleural effusion Hypoxia Shortness of breath Home Medications ?Medication ?Instructions ?Recorded ?Last Taken ?Type Adult Pull-UP #3 ea 12/12/21 Unknown Rx denosumab 60 mg/mL subcutaneous 60 mg subcut [id number] Osteoporosis 12/25/22 12/06/23 Rx syringe #1 mL cholecalciferol (vitamin D3) 50 50 mcg PO DAILY vit d deficiency 07/08/23 03/26/24 Rx mcg (2,000 unit) capsule #90 caps calcium carbonate 500 mg-vitamin 1 tab PO BID for osteoporosis #90 02/18/24 03/27/24 Rx D3 5 mcg (200 unit) tablet (Oyster tabs Shell Calcium-Vitamin D3) acetaminophen 325 mg tablet 650 mg PO Q4H PRN pain 02/25/24 Unknown History bismuth subsalicylate 262 mg/15 mL 524 mg PO Q4H PRN diarrhea 02/25/24 Unknown History oral suspension (Pepto-Bismol) calcium carbonate (Tums) 400 mg PO Q6H PRN dyspepsia 02/25/24 Unknown History galantamine 24 mg 24 hr 24 mg PO QAM dementia #30 caps 03/02/24 03/26/24 Rx capsule,extended release magnesium hydroxide 400 mg/5 mL 30 ml PO DAILY PRN constipation 03/02/24 Unknown History oral suspension (Milk of Magnesia) memantine 10 mg tablet 10 mg PO BID Dementia #60 tabs 03/02/24 03/30/24 Rx amlodipine 5 mg tablet 5 mg PO DAILY BP 03/30/24 03/30/24 History apixaban 5 mg tablet (Eliquis) 2.5 mg (1/2 x 5 mg) PO BID Blood 03/30/24 03/30/24 Rx thinner 20 days #20 tabs paroxetine HCl 20 mg tablet 20 mg PO DAILY Mood 03/30/24 03/30/24 History Allergy/AdvReac Type Severity Reaction Status Date / Time No Known Allergies Allergy Verified 03/28/24 13:12 Family History Father Alzheimer disease Mother Cancer Sister Cancer Surgical History History of surgical removal of testicle S/P laparoscopic cholecystectomy Social History Smoking Status: Former smoker second hand exposure: No alcohol intake: never substance use type: does not use caffeine: Yes what type of physical activity do you participate in: none seatbelt use: always ROS ROS Narrative ROS is limited due to MRDD and dementia. He denies Pain to me and also denies SOB. He has not had a cough. He was eating his lunch when I saw him initially and he does not need assist. He had good intake. His ramp service man tells me that he had been losing wt but, this seems to have stabilized since the stool softener dose was decreased. He was having frequent loose stools every time he ate. He does not appear to be in any discomfort. Vital Signs Vital Signs Vital Signs: 03/30/24 13:22 Temperature 97.6 F L Temperature Source Temporal Pulse Rate 88 Respiratory Rate 14 Blood Pressure 121/51 H Blood Pressure Mean 74 Blood Pressure Source Monitor Blood Pressure Position Semi-Fowlers Blood Pressure Location Right Arm Pulse Ox 93 Oxygen Delivery Method Room Air Weight Weight: 121 lb 7.595 oz Body Mass Index (BMI) 20.7 Physical Exam Const alert Constitutional Narrative: talkative.....I can not always understand what he is saying and he tends to slur. Does not make eye contact when talking. HEENT head/scalp atraumatic HEENT Narrative: Dry mucous membranes. Tongue is coated, yellow-brown, but patient denies any mouth pain or painful swallowing. Hearing impaired, I have to repeat myself and speak loudly. Eyes PERRL, EOMs intact bilaterally, conjunctivae normal and no scleral icterus Neck no JVD, No nodes and no carotid bruits Neck Narrative: Brisk carotid upstroke with good pulse volume. Chest Chest: symmetrical chest wall rise Resp normal respiratory effort and clear to auscultation bilaterally Resp Narrative: Not tachypneic. No cough with deep breathing. Effort and Inspection: able to speak in complete sentences Cardio regular rate, regular rhythm, no murmurs, no rub and no gallops Cardio Narrative: sinus arrhythmia with respiration/deep breathing GI normal to inspection, nondistended, normoactive bowel sounds, soft to palpation and non-tender GI Narrative: No guarding with palpation. No masses appreciated. Back/Spine Back/Spine Narrative: + kyphosis Extremity Extremity Narrative: Both feet are warm to touch. Good capillary refill. + ankle edema of the Left ankle. No calf tenderness. Skin General Skin Exam: no breakdown Rashes: no rashes Wound Narrative: Incisions having dressings that are not to be removed yet. Will examine when we can remove. No DC on the dressing and there is no erythema extending beyond the dressing. Hair: general thinning Neuro CN's II-XII intact bilaterally, moves all extremities and no sensory deficits noted Psych cooperative Attitude: calm, No agitated and No aggressive Results Lab / Micro Data 03/31/24 05:10 03/31/24 05:10 Assessment & Plan Assessment/Plan (1) Physical debility: (2) Accidental fall: QUALIFIERS: Encounter type: subsequent encounter Qualified Code(s): W19.XXXD - Unspecified fall, subsequent encounter (3) Closed fracture of left hip: QUALIFIERS: Encounter type: subsequent encounter (4) Acute blood loss anemia: (5) Mental retardation: (6) Dementia: QUALIFIERS: Dementia type: Alzheimer's Alzheimer's disease onset: late onset Dementia severity: unspecified severity Dementia behavioral or psychological symptom: without behavioral, psychotic, or mood disturbance or anxiety Qualified Code(s): G30.1 - Alzheimer's disease with late onset; F02.80 - Dementia in other diseases classified elsewhere, unspecified severity, without behavioral disturbance, psychotic disturbance, mood disturbance, and anxiety (7) BPH (benign prostatic hyperplasia): QUALIFIERS: Lower urinary tract symptom presence: unspecified whether lower urinary tract symptoms present Qualified Code(s): N40.0 - Benign prostatic hyperplasia without lower urinary tract symptoms (8) Cognitive and behavioral changes: (9) Hypertension: QUALIFIERS: Hypertension type: primary hypertension Qualified Code(s): I10 - Essential (primary) hypertension (10) Tracheobronchomalacia: (11) Hypernatremia: (12) Dehydration: PLAN: Plan PLAN PT for gait stability OT for ADL's Analgesics as needed Bowel protocol Fall precautions Assess for Anxiety/Depression GI prophylaxis -not necessary at this time. He has no nausea/vomiting/heartburn/epigastric pain. DVT prophylaxis with apixaban 2.5 mg twice daily Follow up with Dr. Mike Tejeda and PCP following DC from IP Rehab AM lab including CMP, CBC, Mag and Phos-all personally reviewed Encourage increased fluid intake Scheduled Tylenol 1000 mg every 8 hours for pain control. Denies pain at the present time and has not been taking pain medication so we will hold off and continue to observe. Charges/Coding Visit Charges Inpatient E&M: 22872 Init Hosp L2
[2024-03-30] MEDS: Magnesium Hydroxide 30 ML UDC PO (15:27)
[2024-03-30] MEDS: Acetaminophen 500 MG Tablet 1000 MG PO ×2 (15:28→21:40)
[2024-03-30 18:00] VITALS: BP 107/62; PULSE 95; RESP 14; TEMP 37.5; O2SAT 93
[2024-03-30] MEDS: Calcium Carb/Vitamin D 1 TABLET Tablet PO (21:39)
[2024-03-30] MEDS: Senna/Docusate Sodium 1 Tablet 2 TABLET PO (21:39)
[2024-03-30] MEDS: Memantine Hydrochloride 10 MG Tablet PO (21:39)
[2024-03-30] MEDS: APIXABAN 2.5 MG TABLET (WCH) PO (21:39)
[2024-03-31 05:21] LABS: Absolute Lymphocyte Count 1.25 X10^3/uL (0.83-4.51); Absolute Neutrophil Count 7.3 X10^3/uL (2.0-7.7); Basophil# 0.06 X10^3/uL; Basophil% 0.6 % (0-1); Eosinophil# 0.28 X10^3/uL; Eosinophils% 2.8 % (0-5); Hematocrit 32.2 % (40-54); Hemoglobin 9.9 g/dL (13.0-16.5); Lymphocyte # 1.25 X10^3/ul (0.83-4.51); Lymphocyte % 12.3 % (19-41); Mean Corp Hgb Conc 30.7 g/dL (32-36); Mean Corpuscular Hgb 28.8 pg (27.0-32.0); Mean Corpuscular Volume 93.6 fL (80-94); Monocyte# 1.19 X10^3/uL; Monocyte% 11.7 % (0-10); NRBC Flagged by Analyzer 0 % (0-5); Neutrophil # 7.27 X10^3/uL (2.7-7.7); Neutrophil % 71.8 % (47-70); Platelet Count 239 K/mm3 (150-450); RBC Distribution Width CV 14.8 % (11.6-14.6); RBC Distribution Width SD 51.2 fl (35.1-43.9); Red Blood Count 3.44 M/mm3 (4.6-6.2); White Blood Count 10.1 K/mm3 (4.4-11.0)
[2024-03-31] MEDS: Acetaminophen 500 MG Tablet 1000 MG PO ×3 (06:03→21:21)
[2024-03-31 06:55] LABS: ALB/GLOB Ratio 0.7 RATIO (0.9-2.4); AST(SGOT) 16 U/L (15-37); Alanine Aminotransfer ALT/SGPT 15 U/L (16-61); Albumin, Serum 2.2 g/dL (3.2-5.0); Alkaline Phosphatase 52 U/L (45-117); Anion Gap 2 (5-15); BUN 28 mg/dL (7-18); BUN/Creat Ratio 30.9 RATIO (10-20); Calcium,Total 8.9 mg/dL (8.5-10.1); Chloride 115 mmol/L (98-107); Creatinine, Serum 0.91 mg/dL (0.70-1.30); EST Glomerular Filtration Rate 86 mL/min (>60); Est Glom Filt Rate - Afr Amer 105 mL/min (>60); Estimated Creatinine Clearance 53.82 ml/min; Globulin 3.3 g/dL (2.2-4.2); Glucose 113 mg/dL (74-106); Magnesium 2.3 mg/dL (1.6-2.6); Phosphorus 3.4 mg/dL (2.5-4.9); Potassium 3.8 mmol/L (3.5-5.1); Protein, Total 5.5 g/dL (6.4-8.2); Sodium Level 146 mmol/L (136-145)
[2024-03-31 07:05] VITALS: BP 114/60; PULSE 90; RESP 16; TEMP 37; O2SAT 95
[2024-03-31] MEDS: APIXABAN 2.5 MG TABLET (WCH) PO ×2 (08:04→21:19)
[2024-03-31] MEDS: Galantamine Hydrobromide 4 MG Tablet 12 MG PO ×2 (08:04→21:19)
[2024-03-31] MEDS: Memantine Hydrochloride 10 MG Tablet PO ×2 (08:05→21:19)
[2024-03-31] MEDS: Calcium Carb/Vitamin D 1 TABLET Tablet PO ×2 (08:05→21:19)
[2024-03-31] MEDS: Senna/Docusate Sodium 1 Tablet 2 TABLET PO (08:05)
[2024-03-31] MEDS: Cholecalciferol (VIT D3) 25 MCG TABLET (1,000 UNITS) 50 MCG PO (08:05)
[2024-03-31] MEDS: amLODIPine 5 MG Tablet PO (08:06)
[2024-03-31] MEDS: Paroxetine 20 MG Tablet PO (08:06)
--- NOTE | 2024-03-31 16:06 | CHAPLAIN ---
Type of Pastoral Visit ___ Initial Visit _x__ Follow-up Visit ___ On-call Visit ___ General Patient Visit ___ Spiritual Assessment ___ Family Conference ___ Bereavement ___ Rapid Response ___ Code Blue ___ Other (describe below) Pastoral Care Referral From ___ Patient ___ Family ___ Nurse ___ Physician ___ Traffic Worker ___ Physical Therapy Coordinator _x__ Other (describe below) Sacrament/Intervention _x__ Active listening ___ Anointing ___ Worship ___ Bereavement ___ Communion ___ Yue exploration ___ ___ Life review _x__ Prayer ___ Reconciliation ___ Sacrament of Sick _x__ Supportive presence ___ Wedding ___ Other (describe below) Pastoral Comments patient with limited cognitive skills but able to answer questions and tell me that he did his exercises, ate his lunch, and is doing fine; pt is pleasant and is not in any distress; casual talk and then patient agrees to having a prayer spoken for him
--- NOTE | 2024-03-31 16:35 | REHABEVAL_ITS ---
Admission Information Primary Diagnosis:: Debility secondary to left hip fracture/ORIF Status Changes from Prescreening?: No changes Identified Actual Problem List:: Skin Intergrity, Pain, ALteration in Cmfrt, Depression, Bladder Incontinence, Bowel, Incontinence, Bowel, Constipation, Mobility Impaired, Self Care Deficit, BP, Hypertension, Fluid Change-Dehydration and Alteration-Leisure Activ. Potential Problem List:: DVT, Bleeding, Infection, UTI, Aspiration, Falls, Skin Integrity and Depression Risk of Complications DVT: MULU Hose and - (Apixaban) Bleeding: Monitor Lab Values, Nursing to Teach Precautions for anti-coagulation therapy., Wound, if applicable, to be assessed every shift. and Stroke patients assessed for lethargy or change in status. Infection: Clinical Staff to Monitor for S/S of infection: and S/S of infection include fever, redness, warmth, etc. Urinary Tract Infection: Monitor for frequency, burning, discomfort, or incontinence. and Nursing will obtain urine sample for urinalysis and C&S when ordered. Aspiration: Clinical staff will monitor for coughing, drooling, congestion., Speech will evaluate swallowing and dsyphasia. and Nursing will monitor patient swallowing during meals. Falls: Patient will be evaluated for Fall Precautions and Patient will be placed on Fall Precautions as indicated per protocol. Skin Breakdown: Nursing will assess skin daily using assessment tool. and Nursing will place on Skin Breakdown Precautions as indicated. Pain: Clinical staff will assess patient's pain level per protocol., Medications will be given, if needed, and the pain level reassessed. and Other methods: Massage, distraction, decrease stimulus, etc. used PRN. Plan of Care Patient requires physician specializing in physical medicine and rehab oversight to provide close medical supervision of rehab issues including: Pain Management, Sleep Problems, Bowel and Bladder, Medical and co-morbidity Management, DVT prophylaxis, Rehabilitation Leadership and Coordination of treatment team Patient needs Physical Therapy: For a minimum of 1 hour and At least 5 out of 7 days Patient needs Physical Therapy to improve:: Mobility, Strengthening, Transfers, Stretching, ROM, Endurance, Stairs, Gait and Balance Patient needs Occupational Therapy: For a minimum of 1 hour and At least 5 out of 7 days Patient needs Occupational Therapy to improve ADL's incl.: Eating, Grooming, Bathing, Dressing, Toileting, Toilet transfers, Community Reintegration, Higher functioning activities, Household tasks, Adaptive Equipment, Splinting and Other activities as determined Patient requires 24/7 Rehabilitation Nursing for: Pain Issues, Identifying and preventing risk factors, Monitoring and reporting current medical conditions, Assisting with ambulation, transfer, and all ADL's, Teaching patients about disease process and medications, Family teaching, Providing safe environment, Bowel and Bladder Issues, Skin integrity and Medication Management Patient needs Methane Gas Collection System Operator/ Case Management for: Discharge Planning, Arranging Home Equipment or Services and Family Interventions Patient needs Dietary and Nutrition Services for: Adequate Nutrition, Nutritional Supplements and Nutritional Education Goals Goals Patient will remain: free from falls Patient will perform eating at: MOD I level of assist. Patient will perform bed mobility at: MOD I level of assist. Patient will complete transfers from bed to chair at: Standby Assist. Patient will ambulate: - (165 feet with least restrictive device at standby assist on various surfaces) Patient will complete upper body dressing at: - (Supervision) Patient will complete lower body dressing at: - (Supervision with adaptive equipment as needed) Patient will complete toilet transfer at: - (Supervision) Patient will complete toileting at: - (Supervision) Patient will perform bathing at: - (Upper body bathing at set up and lower body bathing at supervision with adaptive equipment as needed) Patient will perform Tub/Shower transfer at: - (Supervision) Patient will complete grooming at: - (Set up while standing at the sink) Patient will achieve: - (3 steps at contact-guard assist so that he can get on the bus at the senior care) Patient will have pain level of: of 3 or less Patient's skin will: remain intact Patient will receive: adequate nutrition. Discharge Planning Pt Prognosis for Sig. Practical Improv. w/in Reasonable Time: Good Estimated Length of stay (days): 21 Anticipated D/C Destination: Assisted Living Facility (He will be discharged back to his senior care) Was Preadmission Assessment Accurate?: Yes
[2024-03-31 18:00] VITALS: BP 105/54; PULSE 70; RESP 14; TEMP 37.2; O2SAT 95
[2024-03-31] MEDS: 0.9% Saline Lock 10 ML Syringe IV ×2 (18:38→21:22)
[2024-04-01 05:58] VITALS: BP 129/63; PULSE 64; RESP 18; TEMP 36.3; O2SAT 96
[2024-04-01] MEDS: Acetaminophen 500 MG Tablet 1000 MG PO ×3 (06:32→21:25)
[2024-04-01] MEDS: Galantamine Hydrobromide 4 MG Tablet 12 MG PO ×2 (07:49→21:25)
[2024-04-01] MEDS: Memantine Hydrochloride 10 MG Tablet PO ×2 (07:49→21:25)
[2024-04-01] MEDS: amLODIPine 5 MG Tablet PO (07:49)
[2024-04-01] MEDS: Calcium Carb/Vitamin D 1 TABLET Tablet PO ×2 (07:49→21:25)
[2024-04-01] MEDS: Paroxetine 20 MG Tablet PO (07:49)
[2024-04-01] MEDS: Cholecalciferol (VIT D3) 25 MCG TABLET (1,000 UNITS) 50 MCG PO (07:49)
[2024-04-01] MEDS: APIXABAN 2.5 MG TABLET (WCH) PO ×2 (07:49→21:25)
[2024-04-01 18:00] VITALS: BP 112/51; PULSE 78; RESP 16; TEMP 37; O2SAT 96
[2024-04-02] MEDS: Acetaminophen 500 MG Tablet 1000 MG PO ×3 (05:57→21:04)
[2024-04-02 05:58] VITALS: BP 122/53; PULSE 59; RESP 17; TEMP 36.9; O2SAT 95
[2024-04-02] MEDS: Memantine Hydrochloride 10 MG Tablet PO ×2 (08:24→21:01)
[2024-04-02] MEDS: amLODIPine 5 MG Tablet PO (08:24)
[2024-04-02] MEDS: Galantamine Hydrobromide 4 MG Tablet 12 MG PO ×2 (08:24→21:01)
[2024-04-02] MEDS: Calcium Carb/Vitamin D 1 TABLET Tablet PO ×2 (08:25→21:00)
[2024-04-02] MEDS: Paroxetine 20 MG Tablet PO (08:25)
[2024-04-02] MEDS: APIXABAN 2.5 MG TABLET (WCH) PO ×2 (08:26→21:01)
[2024-04-02] MEDS: Cholecalciferol (VIT D3) 25 MCG TABLET (1,000 UNITS) 50 MCG PO (08:26)
[2024-04-02 18:00] VITALS: BP 132/57; PULSE 92; RESP 16; TEMP 36.3; O2SAT 96
[2024-04-03] MEDS: Acetaminophen 500 MG Tablet 1000 MG PO ×3 (05:28→20:46)
[2024-04-03 05:29] VITALS: BP 146/67; PULSE 67; RESP 17; TEMP 36.3; O2SAT 96
[2024-04-03] MEDS: Galantamine Hydrobromide 4 MG Tablet 12 MG PO ×2 (07:34→20:46)
[2024-04-03] MEDS: Cholecalciferol (VIT D3) 25 MCG TABLET (1,000 UNITS) 50 MCG PO (07:34)
[2024-04-03] MEDS: Paroxetine 20 MG Tablet PO (07:35)
[2024-04-03] MEDS: amLODIPine 5 MG Tablet PO (07:35)
[2024-04-03] MEDS: APIXABAN 2.5 MG TABLET (WCH) PO ×2 (07:35→20:47)
[2024-04-03] MEDS: Calcium Carb/Vitamin D 1 TABLET Tablet PO ×2 (07:35→20:46)
[2024-04-03] MEDS: Memantine Hydrochloride 10 MG Tablet PO ×2 (07:43→20:47)
--- NOTE | 2024-04-03 10:14 | PN_ITS ---
Subjective Subjective Afebrile VSS - Maintaining appropriate oxygen saturation on RA Oral intake - FOOD good FLUIDS improving with frequent reminders to drink water. Discussed with nursing - no problems that need addressed Reviewed the THERAPY notes Medication list reviewed. No complaints today. He is cooperating very well with therapy and making good progress. He denies pain today and he does not appear to be in any discomfort. Not tachypneic and not tachycardia. Not grimacing while he is doing therapy. Talkative. Limited ROS due to MRDD. does not really answer direct questions without deviating onto to something else. Objective Data Objective Data Vital Signs: Vital Signs Temp Pulse Resp BP Pulse Ox O2 Del Method 97.3 F L 67 17 146/67 H 96 Room Air 04/03/24 05:04/03/24 05:04/03/24 05:04/03/24 05:04/03/24 05:04/03/24 05:29 Oxygen Delivery Method Room Air Weight: 121 lb 7.595 oz Body Mass Index (BMI) 20.7 Intake & Output: Intake and Output for Last 24 Hours 04/01/24 04/02/24 04/03/24 23:59 23:59 23:59 Intake Total 1320 / 1520 1720 / 1720 240 / 240 Output Total 150 / 150 200 / 200 Balance 1170 / 1370 1520 / 1520 240 / 240 Lab / Micro Data 03/31/24 05:10 03/31/24 05:10 Physical Exam Narrative General: Alert, Oriented x2, Cooperative, No apparent distress HEENT: Atraumatic, PERRLA, EOMI, Normocephalic Oral: Moist Mucosa Neck: Supple, No JVD Lungs: Diminished, Normal air movement, No rhonchi, No wheeze, No rales Cardiovascular: Regular rate, Regular Rhythm, Normal S1, Normal S2, No murmurs Abdomen: Soft, Non Tender, Non-Distended, No Hepato-splenomegaly Extremities: No edema, Capillary Refill Less than 3 Seconds Skin: Dressing CDI Musculoskeletal: Minimal left hip pain to palpation Neurological: No focal neurological deficits Psych/Mental Status: Flat Const alert and no apparent distress General Appearance: cooperative Resp normal respiratory effort and clear to auscultation bilaterally Effort and Inspection: Negative for tachypneic or labored Cardio regular rate, regular rhythm, no murmurs and no gallops GI normal to inspection, nondistended, normoactive bowel sounds, soft to palpation and non-tender GI Narrative: No guarding with palpation Extremity no calf tenderness Skin Wound Narrative: the scalp lac is intact with no dehiscence, no DC and no jacob-incisional erythema. Staple can come out Wednesday. Assessment & Plan Assessment/Plan (1) Physical debility: (2) Accidental fall: QUALIFIERS: Encounter type: subsequent encounter Qualified Code(s): W19.XXXD - Unspecified fall, subsequent encounter (3) Closed fracture of left hip: QUALIFIERS: Encounter type: subsequent encounter (4) Acute blood loss anemia: (5) Mental retardation: (6) Dementia: QUALIFIERS: Dementia type: Alzheimer's Alzheimer's disease onset: late onset Dementia severity: unspecified severity Dementia behavioral or psychological symptom: without behavioral, psychotic, or mood disturbance or anxiety Qualified Code(s): G30.1 - Alzheimer's disease with late onset; F02.80 - Dementia in other diseases classified elsewhere, unspecified severity, without behavioral disturbance, psychotic disturbance, mood disturbance, and anxiety PLAN: Plan 1. Continue therapy 2. No changes to the drug regimen. 3. will return to the long term when he is discharged from rehab. 4. Remove the josefa from the scalp on Wednesday Charges/Coding Visit Charges Inpatient E&M: [id number] [facility] L1
--- NOTE | 2024-04-03 13:15 | CASEMGMT ---
Social Work IDT met with pt at bedside and attempted to phone caregiver, but no answer and no VM set up. Pt unable to comprehend all information to be discussed. Nursing to follow up with caregiver as she visits. SW to phone caregiver once Medicare days are known. LEIGHA WashingtonW
--- NOTE | 2024-04-03 15:55 | EKG12_ITS ---
Test Reason : L SHOULDER PAIN Blood Pressure : / mmHG Vent. Rate : 086 BPM Atrial Rate : 086 BPM P-R Int : 204 ms QRS Dur : 072 ms QT Int : 348 ms P-R-T Axes : 037 037 048 degrees QTc Int : 416 ms Normal sinus rhythm with sinus arrhythmia Normal ECG When compared with ECG of 27-MAR-2024 07:57, No significant change was found Confirmed by JANIYA ROSS, IOANA ([id number]), sports editor EDILBERTO BECERRA ([id number]) on 04/04/2024 9:45:43 AM Referred By: Belinda Teixeira Confirmed By:IOANA DENSON MD
--- NOTE | 2024-04-03 16:30 | RAD_ITS ---
INDICATION: recent fall EXAMINATION/TECHNIQUE: X-RAY - LEFT XR Shoulder Min 2 Views 5 VIEWS COMPARISON: No relevant prior comparison study available FINDINGS: BONES: No acute fracture demonstrated. There is a fragment adjacent to the tip of the scapular coracoid process, appears well-corticated and may be related to prior trauma. Degenerative changes at the glenohumeral and acromioclavicular joints. JOINTS: No dislocation. SOFT TISSUES: Unremarkable. RAD/Shoulder min 2 Views IMPRESSION: No evidence of acute fracture. Electronically Signed: Vandana Mcneil MD at 5:00 EDT ,
[2024-04-03 17:42] VITALS: BP 123/60; PULSE 86; RESP 18; TEMP 37; O2SAT 95
[2024-04-03] MEDS: Arthritis Pain Compound 60 CLICK TUBE TOPICAL (20:49)
[2024-04-04] MEDS: Acetaminophen 500 MG Tablet 1000 MG PO ×3 (05:46→21:18)
[2024-04-04] MEDS: Arthritis Pain Compound 60 CLICK TUBE TOPICAL ×3 (05:46→21:18)
[2024-04-04 06:00] VITALS: BP 151/61; PULSE 71; RESP 16; TEMP 37.2; O2SAT 95
[2024-04-04] MEDS: Galantamine Hydrobromide 4 MG Tablet 12 MG PO ×2 (07:49→21:18)
[2024-04-04] MEDS: Calcium Carb/Vitamin D 1 TABLET Tablet PO ×2 (07:49→21:18)
[2024-04-04] MEDS: Memantine Hydrochloride 10 MG Tablet PO ×2 (07:49→21:18)
[2024-04-04] MEDS: amLODIPine 5 MG Tablet PO (07:49)
[2024-04-04] MEDS: Cholecalciferol (VIT D3) 25 MCG TABLET (1,000 UNITS) 50 MCG PO (07:49)
[2024-04-04] MEDS: Paroxetine 20 MG Tablet PO (07:50)
[2024-04-04] MEDS: APIXABAN 2.5 MG TABLET (WCH) PO ×2 (07:50→21:19)
--- NOTE | 2024-04-04 09:10 | PN.REHAB_ITS ---
Subjective Subjective Patient seen, examined. He feels well, getting ready to eat breakfast. He has no new problems, concerns, issues, complaints. Objective Data Objective Data Vital Signs: Vital Signs Temp Pulse Resp BP Pulse Ox O2 Del Method 99 F 71 16 151/61 H 95 Room Air 04/04/24 06:00 04/04/24 06:00 04/04/24 06:00 04/04/24 06:00 04/04/24 06:00 04/04/24 06:00 Oxygen Delivery Method Room Air Weight: 55.1 kg Body Mass Index (BMI) 20.7 Intake & Output: Intake and Output for Last 24 Hours 04/02/24 04/03/24 04/04/24 23:59 23:59 23:59 Intake Total 1720 / 1720 560 / 1260 1100 / 1100 Output Total 200 / 200 Balance 1520 / 1520 560 / 1260 1100 / 1100 Lab / Micro Data 03/31/24 05:10 03/31/24 05:10 Radiography Diagnostic Testing: Radiology Impression Shoulder X-Ray 04/03/24 16:30 IMPRESSION: No evidence of acute fracture. Electronically Signed: Vandana Mcneil MD at 5:00 EDT , Indicators for Scoring Admitted with or Primary Diagnosis of CVA/Stroke: No Hx of CVA/Stroke: No Physical Exam Const alert General Appearance: cooperative HEENT normocephalic Eyes PERRL and EOMs intact bilaterally Neck supple, no JVD and no carotid bruits Resp normal respiratory effort, normal air movement and clear to auscultation bilaterally Cardio regular rate and regular rhythm GI normal to inspection, nondistended, normoactive bowel sounds, non-tender and non-distended Extremity normal capillary refill General Extremity: Negative for edema Skin no rashes or lesions noted General Skin Exam: no breakdown Psych affect normal Appearance: appropriate Assessment & Plan Assessment/Plan (1) Debility: (2) Closed right hip fracture: (3) Essential (primary) hypertension: (4) Calcium deficiency: (5) Vitamin D deficiency: (6) Dementia, unspecified, without behavioral disturbance: (7) Depression: PLAN: Plan 78 year old male with below past medical history hospitalized for right hip fracture, underwent cephalo medullary fixation right hip 03/28/[address] Rivera, admitted to with debility, here for rehabilitation, strengthening, prior to discharge home. * Debility - PT/OT. * Pain - Tylenol 1000mg q8, Tramadol 25mg q6 prn, Arthritis compound topical tid. * Bowel - senna/colace 2 tablets bid, Dulcolax 10mg pr x 1 prn, MOM 30ml daily prn. * DVT prophylaxis - Eliquis 2.5mg bid thru 04/20/2024. * Hypertension - Amlodipine 5mg daily. * Calcium deficiency - Calcium D 1 tablet bid. * Indigestion - TUMS 500mg q6 prn. * Vitamin D deficiency - D3 50mcg daily. * Dementia NOS - Galantamine 12mg bid, Memantine 10mg bid. * Depression - Paxil 20mg daily.
--- NOTE | 2024-04-04 10:43 | CASEMGMT ---
Social Work Pt received Medicare approval of 14 days with DC 04/13. SW phoned caregiver and adjusted phone number's in chart. SW educated to Medicare days and DC date, with a brief update on therapy progress. Educated to next week's Team meeting and time. Caregiver can be present and DC plans will be finalized at that time. LEIGHA WashingtonW
[2024-04-04 11:46] VITALS: BMI 20.6
[2024-04-04] MEDS: traMADol 50 MG Tablet 25 MG PO (15:06)
[2024-04-04 18:00] VITALS: BP 120/56; PULSE 85; RESP 15; TEMP 36.9; O2SAT 95
--- NOTE | 2024-04-05 03:36 | NURSING ---
Reviewed and agree with Dale SEGAL, assessment and documentation charting.
[2024-04-05] MEDS: Arthritis Pain Compound 60 CLICK TUBE TOPICAL ×3 (05:37→20:53)
[2024-04-05] MEDS: Acetaminophen 500 MG Tablet 1000 MG PO ×3 (05:37→20:50)
[2024-04-05 05:39] VITALS: BP 136/70; PULSE 81; RESP 16; TEMP 36.8; O2SAT 93
[2024-04-05] MEDS: Galantamine Hydrobromide 4 MG Tablet 12 MG PO ×2 (07:46→20:51)
[2024-04-05] MEDS: Memantine Hydrochloride 10 MG Tablet PO ×2 (07:47→20:51)
[2024-04-05] MEDS: Cholecalciferol (VIT D3) 25 MCG TABLET (1,000 UNITS) 50 MCG PO (07:47)
[2024-04-05] MEDS: APIXABAN 2.5 MG TABLET (WCH) PO ×2 (07:47→20:50)
[2024-04-05] MEDS: Calcium Carb/Vitamin D 1 TABLET Tablet PO ×2 (07:47→20:50)
[2024-04-05] MEDS: amLODIPine 5 MG Tablet PO (07:47)
[2024-04-05] MEDS: Paroxetine 20 MG Tablet PO (07:47)
--- NOTE | 2024-04-05 08:37 | PN.REHAB_ITS ---
Subjective Subjective Patient seen, examined. He is drinking orange juice from a glass with a straw. He has no new complaints today. Objective Data Objective Data Vital Signs: Vital Signs Temp Pulse Resp BP Pulse Ox O2 Del Method 98.3 F 81 16 136/70 H 93 Room Air 04/05/24 05:39 04/05/24 05:39 04/05/24 05:39 04/05/24 05:39 04/05/24 05:39 04/05/24 05:39 Oxygen Delivery Method Room Air Weight: 54.9 kg Body Mass Index (BMI) 20.6 Intake & Output: Intake and Output for Last 24 Hours 04/03/24 04/04/24 04/05/24 23:59 23:59 23:59 Intake Total 560 / 1260 2019 290 / 290 Balance 560 / 1260 2019 290 / 290 Lab / Micro Data 03/31/24 05:10 03/31/24 05:10 Indicators for Scoring Admitted with or Primary Diagnosis of CVA/Stroke: No Hx of CVA/Stroke: No Physical Exam Const alert General Appearance: cooperative HEENT normocephalic Eyes PERRL and EOMs intact bilaterally Neck supple, no JVD and no carotid bruits Resp normal respiratory effort, normal air movement and clear to auscultation bilaterally Cardio regular rate and regular rhythm GI normal to inspection, nondistended, normoactive bowel sounds, non-tender and non-distended Extremity normal capillary refill General Extremity: Negative for edema Skin no rashes or lesions noted General Skin Exam: no breakdown Psych affect normal Appearance: appropriate Assessment & Plan Assessment/Plan (1) Debility: (2) Closed right hip fracture: (3) Essential (primary) hypertension: (4) Calcium deficiency: (5) Vitamin D deficiency: (6) Dementia, unspecified, without behavioral disturbance: (7) Depression: PLAN: Plan 78 year old male with below past medical history hospitalized for right hip fracture, underwent cephalo medullary fixation right hip 03/28/[address] Rivera, admitted to with debility, here for rehabilitation, strengthening, prior to discharge home. * Debility - PT/OT. * Pain - Tylenol 1000mg q8, Tramadol 25mg q6 prn, Arthritis compound topical tid. * Bowel - senna/colace 2 tablets bid, Dulcolax 10mg pr x 1 prn, MOM 30ml daily prn. * DVT prophylaxis - Eliquis 2.5mg bid thru 04/20/2024. * Hypertension - Amlodipine 5mg daily. * Calcium deficiency - Calcium D 1 tablet bid. * Indigestion - TUMS 500mg q6 prn. * Vitamin D deficiency - D3 50mcg daily. * Dementia NOS - Galantamine 12mg bid, Memantine 10mg bid. * Depression - Paxil 20mg daily.
[2024-04-05] MEDS: traMADol 50 MG Tablet 25 MG PO (10:29)
[2024-04-05 18:00] VITALS: BP 97/61; PULSE 94; RESP 16; TEMP 36.7; O2SAT 97
[2024-04-05 22:00] VITALS: PULSE 94; RESP 16; O2SAT 97
[2024-04-06] MEDS: Arthritis Pain Compound 60 CLICK TUBE TOPICAL ×3 (05:41→21:00)
[2024-04-06] MEDS: Acetaminophen 500 MG Tablet 1000 MG PO ×3 (05:42→21:01)
[2024-04-06 06:00] VITALS: BP 125/63; PULSE 75; RESP 15; TEMP 37.2; O2SAT 95
[2024-04-06] MEDS: Paroxetine 20 MG Tablet PO (07:29)
[2024-04-06] MEDS: Calcium Carb/Vitamin D 1 TABLET Tablet PO ×2 (07:29→21:00)
[2024-04-06] MEDS: APIXABAN 2.5 MG TABLET (WCH) PO ×2 (07:30→21:01)
[2024-04-06] MEDS: Galantamine Hydrobromide 4 MG Tablet 12 MG PO ×2 (07:30→21:01)
[2024-04-06] MEDS: Memantine Hydrochloride 10 MG Tablet PO ×2 (07:30→21:01)
[2024-04-06] MEDS: Cholecalciferol (VIT D3) 25 MCG TABLET (1,000 UNITS) 50 MCG PO (07:31)
--- NOTE | 2024-04-06 07:51 | PN.REHAB_ITS ---
Subjective Subjective Patient seen, examined. He is getting ready to eat breakfast. He asked me to put his glasses away in its case, otherwise no new complaints. Objective Data Objective Data Vital Signs: Vital Signs Temp Pulse Resp BP Pulse Ox O2 Del Method 98.0 F 94 16 97/61 97 Room Air 04/05/24 18:00 04/05/24 22:00 04/05/24 22:00 04/05/24 18:00 04/05/24 22:00 04/05/24 22:00 Oxygen Delivery Method Room Air Weight: 54.9 kg Body Mass Index (BMI) 20.6 Intake & Output: Intake and Output for Last 24 Hours 04/04/24 04/05/24 04/06/24 23:59 23:59 23:59 Intake Total 2019 870 / 870 200 / 200 Output Total 100 / 100 Balance 2019 770 / 770 200 / 200 Lab / Micro Data 03/31/24 05:10 03/31/24 05:10 Indicators for Scoring Admitted with or Primary Diagnosis of CVA/Stroke: No Hx of CVA/Stroke: No Physical Exam Const alert General Appearance: cooperative HEENT normocephalic Eyes PERRL and EOMs intact bilaterally Neck supple, no JVD and no carotid bruits Resp normal respiratory effort, normal air movement and clear to auscultation bilaterally Cardio regular rate and regular rhythm GI normal to inspection, nondistended, normoactive bowel sounds, non-tender and non-distended Extremity normal capillary refill General Extremity: Negative for edema Skin no rashes or lesions noted General Skin Exam: no breakdown Psych affect normal Appearance: appropriate Assessment & Plan Assessment/Plan (1) Debility: (2) Closed right hip fracture: (3) Essential (primary) hypertension: (4) Calcium deficiency: (5) Vitamin D deficiency: (6) Dementia, unspecified, without behavioral disturbance: (7) Depression: PLAN: Plan 78 year old male with below past medical history hospitalized for right hip fracture, underwent cephalo medullary fixation right hip 03/28/[address] Rivera, admitted to with debility, here for rehabilitation, strengthening, prior to discharge home. * Debility - PT/OT. * Pain - Tylenol 1000mg q8, Tramadol 25mg q6 prn, Arthritis compound topical tid. * Bowel - senna/colace 2 tablets bid, Dulcolax 10mg pr x 1 prn, MOM 30ml daily prn. * DVT prophylaxis - Eliquis 2.5mg bid thru 04/20/2024. * Hypertension - Amlodipine 5mg daily. * Calcium deficiency - Calcium D 1 tablet bid. * Indigestion - TUMS 500mg q6 prn. * Vitamin D deficiency - D3 50mcg daily. * Dementia NOS - Galantamine 12mg bid, Memantine 10mg bid. * Depression - Paxil 20mg daily.
[2024-04-06] MEDS: traMADol 50 MG Tablet PO ×2 (10:43→17:26)
[2024-04-06] MEDS: amLODIPine 5 MG Tablet PO (11:18)
[2024-04-06 17:27] VITALS: BP 118/60; PULSE 88; RESP 16; TEMP 37; O2SAT 96
[2024-04-06 21:00] VITALS: PULSE 88; RESP 16; O2SAT 96
[2024-04-07 05:00] VITALS: BP 119/65; PULSE 73; RESP 17; TEMP 36.6; O2SAT 95
[2024-04-07] MEDS: Acetaminophen 500 MG Tablet 1000 MG PO ×3 (05:03→20:09)
[2024-04-07] MEDS: Arthritis Pain Compound 60 CLICK TUBE TOPICAL ×3 (05:03→20:08)
[2024-04-07] MEDS: traMADol 50 MG Tablet PO ×2 (05:03→20:10)
[2024-04-07 06:00] VITALS: BP 119/65; PULSE 73; RESP 17; TEMP 36.6; O2SAT 95
--- NOTE | 2024-04-07 07:30 | NURSING ---
3 josefa were removed from pt scalp this am and pt tolerated this well
[2024-04-07] MEDS: Memantine Hydrochloride 10 MG Tablet PO ×2 (08:25→20:09)
[2024-04-07] MEDS: APIXABAN 2.5 MG TABLET (WCH) PO ×2 (08:25→20:10)
[2024-04-07] MEDS: Galantamine Hydrobromide 4 MG Tablet 12 MG PO ×2 (08:26→20:09)
[2024-04-07] MEDS: Paroxetine 20 MG Tablet PO (08:26)
[2024-04-07] MEDS: Calcium Carb/Vitamin D 1 TABLET Tablet PO ×2 (08:26→20:09)
[2024-04-07] MEDS: amLODIPine 5 MG Tablet PO (08:26)
[2024-04-07] MEDS: Cholecalciferol (VIT D3) 25 MCG TABLET (1,000 UNITS) 50 MCG PO (08:27)
[2024-04-07 08:52] VITALS: PULSE 88; O2SAT 98
[2024-04-07] MEDS: oxyCODONE 5 MG Tablet PO (10:13)
[2024-04-07 17:08] VITALS: BP 124/52; PULSE 82; RESP 17; TEMP 37.1; O2SAT 96
[2024-04-07 19:45] VITALS: PULSE 82; RESP 17; O2SAT 96
--- NOTE | 2024-04-08 02:49 | NURSING ---
Reviewed and agree with Aparna SEGAL, documentation and assessment charting.
[2024-04-08 05:18] VITALS: BP 129/60; RESP 16; TEMP 37; O2SAT 97
[2024-04-08] MEDS: Arthritis Pain Compound 60 CLICK TUBE TOPICAL ×3 (05:29→21:43)
[2024-04-08] MEDS: Acetaminophen 500 MG Tablet 1000 MG PO ×3 (05:29→21:43)
[2024-04-08 07:18] VITALS: BP 129/60; PULSE 78; RESP 16; TEMP 37; O2SAT 97
[2024-04-08] MEDS: amLODIPine 5 MG Tablet PO (09:46)
[2024-04-08] MEDS: APIXABAN 2.5 MG TABLET (WCH) PO ×2 (09:46→21:44)
[2024-04-08] MEDS: Paroxetine 20 MG Tablet PO (09:47)
[2024-04-08] MEDS: Calcium Carb/Vitamin D 1 TABLET Tablet PO ×2 (09:47→21:43)
[2024-04-08] MEDS: Memantine Hydrochloride 10 MG Tablet PO ×2 (09:47→21:44)
[2024-04-08] MEDS: Cholecalciferol (VIT D3) 25 MCG TABLET (1,000 UNITS) 50 MCG PO (09:48)
[2024-04-08] MEDS: Senna/Docusate Sodium 1 Tablet 2 TABLET PO ×2 (09:48→21:43)
[2024-04-08] MEDS: Galantamine Hydrobromide 4 MG Tablet 12 MG PO ×2 (09:48→21:43)
[2024-04-08] MEDS: oxyCODONE 5 MG Tablet PO ×2 (11:43→19:50)
[2024-04-08 18:00] VITALS: BP 111/59; PULSE 81; RESP 16; TEMP 36.9; O2SAT 94
[2024-04-08] MEDS: traMADol 50 MG Tablet PO (23:59)
[2024-04-09 05:26] VITALS: BP 118/57; PULSE 72; RESP 18; TEMP 37.2; O2SAT 93
[2024-04-09] MEDS: Arthritis Pain Compound 60 CLICK TUBE TOPICAL ×3 (05:28→20:45)
[2024-04-09] MEDS: oxyCODONE 5 MG Tablet PO ×2 (05:31→20:54)
[2024-04-09] MEDS: Acetaminophen 500 MG Tablet 1000 MG PO ×3 (05:31→20:49)
[2024-04-09] MEDS: Galantamine Hydrobromide 4 MG Tablet 12 MG PO ×2 (08:30→20:46)
[2024-04-09] MEDS: Senna/Docusate Sodium 1 Tablet 2 TABLET PO ×2 (08:30→20:49)
[2024-04-09] MEDS: Cholecalciferol (VIT D3) 25 MCG TABLET (1,000 UNITS) 50 MCG PO (08:30)
[2024-04-09] MEDS: Memantine Hydrochloride 10 MG Tablet PO ×2 (08:31→20:46)
[2024-04-09] MEDS: amLODIPine 5 MG Tablet PO (08:31)
[2024-04-09] MEDS: APIXABAN 2.5 MG TABLET (WCH) PO ×2 (08:31→20:46)
[2024-04-09] MEDS: Calcium Carb/Vitamin D 1 TABLET Tablet PO ×2 (08:31→20:46)
[2024-04-09] MEDS: Paroxetine 20 MG Tablet PO (08:31)
[2024-04-09 08:39] VITALS: BP 114/57; PULSE 82
[2024-04-09] MEDS: traMADol 50 MG Tablet PO (09:42)
[2024-04-09 18:00] VITALS: BP 112/48; PULSE 84; RESP 17; TEMP 37.2; O2SAT 92
[2024-04-10] MEDS: traMADol 50 MG Tablet PO ×3 (02:22→19:59)
[2024-04-10] MEDS: oxyCODONE 5 MG Tablet PO ×2 (04:54→16:02)
[2024-04-10] MEDS: Acetaminophen 500 MG Tablet 1000 MG PO ×3 (04:54→21:57)
[2024-04-10 05:19] VITALS: BP 124/65; PULSE 78; RESP 16; TEMP 36.9; O2SAT 93
[2024-04-10] MEDS: Paroxetine 20 MG Tablet PO (08:00)
[2024-04-10] MEDS: Calcium Carb/Vitamin D 1 TABLET Tablet PO ×2 (08:00→21:56)
[2024-04-10] MEDS: Senna/Docusate Sodium 1 Tablet 2 TABLET PO ×2 (08:00→21:57)
[2024-04-10] MEDS: Cholecalciferol (VIT D3) 25 MCG TABLET (1,000 UNITS) 50 MCG PO (08:00)
[2024-04-10] MEDS: Memantine Hydrochloride 10 MG Tablet PO ×2 (08:01→21:57)
[2024-04-10] MEDS: APIXABAN 2.5 MG TABLET (WCH) PO ×2 (08:01→21:58)
[2024-04-10] MEDS: Arthritis Pain Compound 60 CLICK TUBE TOPICAL ×3 (08:01→21:56)
[2024-04-10] MEDS: Galantamine Hydrobromide 4 MG Tablet 12 MG PO ×2 (08:01→21:56)
[2024-04-10] MEDS: amLODIPine 5 MG Tablet PO (08:01)
[2024-04-10 08:04] VITALS: BP 115/73; PULSE 91
--- NOTE | 2024-04-10 08:12 | CASEMGMT ---
Social Work IDT met with patient, caregiver, Connie, from the [facility], and Agnes from the Board of , for the team meeting. Discussed patient's progress in PT/OT/ST/SN. Educated to Medicare approval of 14 days with [place] 04/13. Pt is modA for ADLs and using a FWW. Offered therapy training for caregivers to ensure pt can return to [facility] to ensure they can meet his needs. Caregiver to schedule for training. Offered skilled HHC and inquired need for FWW at [facility]. Caregiver agreed to skilled HHC and prefers to use [facility], and pt will need FWW. SW to coordinate both. Pt can use w/c for bus transportation. Caregiver to transport. SW phoned referral to [facility] for PT/OT. Sent referral to [facility] for FWW via [facility]. Plan: [place] 04/13 to [facility], [facility], FWW [place], ADMINISTRATIVE STAFF SUPERVISORLolly KELLY
[2024-04-10 17:18] VITALS: BP 120/63; PULSE 86; RESP 16; TEMP 37.3; O2SAT 94
--- NOTE | 2024-04-10 20:41 | PN.REHAB_ITS ---
Subjective Subjective Patient seen on Team rounds. His caregiver, and family independence case manager were present for meeting. Kip has been doing well, anticipate discharge this week to [facility]. Objective Data Objective Data Vital Signs: Vital Signs Temp Pulse Resp BP Pulse Ox O2 Del Method 99.1 F 86 16 120/63 94 Room Air 04/10/24 17:18 04/10/24 17:18 04/10/24 17:18 04/10/24 17:18 04/10/24 17:18 04/10/24 17:18 Oxygen Delivery Method Room Air Weight: 53.1 kg Body Mass Index (BMI) 20.0 Intake & Output: Intake and Output for Last 24 Hours 04/08/24 04/09/24 04/10/24 23:59 23:59 23:59 Intake Total 1380 / 1380 1400 / 1400 240 / 240 Output Total 200 / 200 100 / 100 Balance 1180 / 1180 1300 / 1300 240 / 240 Lab / Micro Data 03/31/24 05:10 03/31/24 05:10 Indicators for Scoring Admitted with or Primary Diagnosis of CVA/Stroke: No Hx of CVA/Stroke: No Physical Exam Const alert General Appearance: cooperative HEENT normocephalic Eyes PERRL and EOMs intact bilaterally Neck supple, no JVD and no carotid bruits Resp normal respiratory effort, normal air movement and clear to auscultation bilaterally Cardio regular rate and regular rhythm GI normal to inspection, nondistended, normoactive bowel sounds, non-tender and non-distended Extremity normal capillary refill Extremity Narrative: Arms stuck, he holds them in front of him. General Extremity: Negative for edema Skin no rashes or lesions noted General Skin Exam: no breakdown Psych affect normal Appearance: appropriate Assessment & Plan Assessment/Plan (1) Debility: (2) Closed right hip fracture: (3) Essential (primary) hypertension: (4) Calcium deficiency: (5) Vitamin D deficiency: (6) Dementia, unspecified, without behavioral disturbance: (7) Depression: PLAN: Plan 78 year old male with below past medical history hospitalized for right hip fracture, underwent cephalo medullary fixation right hip 03/28/[address] Rivera, admitted to with debility, here for rehabilitation, strengthening, prior to discharge home. * Debility - PT/OT. * Pain - Tylenol 1000mg q8, Tramadol 25mg q6 prn, Arthritis compound topical tid. * Bowel - senna/colace 2 tablets bid, Dulcolax 10mg pr x 1 prn, MOM 30ml daily prn. * DVT prophylaxis - Eliquis 2.5mg bid thru 04/20/2024. * Hypertension - Amlodipine 5mg daily. * Calcium deficiency - Calcium D 1 tablet bid. * Indigestion - TUMS 500mg q6 prn. * Vitamin D deficiency - D3 50mcg daily. * Dementia NOS - Galantamine 12mg bid, Memantine 10mg bid. * Depression - Paxil 20mg daily.
[2024-04-11] MEDS: Arthritis Pain Compound 60 CLICK TUBE TOPICAL ×3 (04:54→21:24)
[2024-04-11] MEDS: Acetaminophen 500 MG Tablet 1000 MG PO ×3 (04:58→21:25)
[2024-04-11] MEDS: oxyCODONE 5 MG Tablet PO (04:59)
[2024-04-11 06:00] VITALS: BP 133/70; PULSE 70; RESP 16; TEMP 37; O2SAT 96
--- NOTE | 2024-04-11 08:23 | PN.REHAB_ITS ---
Subjective Subjective Patient seen, examined, good appetite, no complaints. He is asking about getting thinner glasses. Objective Data Objective Data Vital Signs: Vital Signs Temp Pulse Resp BP Pulse Ox O2 Del Method 98.6 F 70 16 133/70 H 96 Room Air 04/11/24 06:00 04/11/24 06:00 04/11/24 06:00 04/11/24 06:00 04/11/24 06:00 04/11/24 06:00 Oxygen Delivery Method Room Air Weight: 53.1 kg Body Mass Index (BMI) 20.0 Intake & Output: Intake and Output for Last 24 Hours 04/09/24 04/10/24 04/11/24 23:59 23:59 23:59 Intake Total 1400 / 1400 240 / 240 300 / 300 Output Total 100 / 100 Balance 1300 / 1300 240 / 240 300 / 300 Lab / Micro Data 03/31/24 05:10 03/31/24 05:10 Indicators for Scoring Admitted with or Primary Diagnosis of CVA/Stroke: No Hx of CVA/Stroke: No Physical Exam Const alert General Appearance: cooperative HEENT normocephalic Eyes PERRL and EOMs intact bilaterally Neck supple, no JVD and no carotid bruits Resp normal respiratory effort, normal air movement and clear to auscultation bilaterally Cardio regular rate and regular rhythm GI normal to inspection, nondistended, normoactive bowel sounds, non-tender and non-distended Extremity normal capillary refill Extremity Narrative: Arms stuck, he holds them in front of him. General Extremity: Negative for edema Skin no rashes or lesions noted General Skin Exam: no breakdown Psych affect normal Appearance: appropriate Assessment & Plan Assessment/Plan (1) Debility: (2) Closed right hip fracture: (3) Essential (primary) hypertension: (4) Calcium deficiency: (5) Vitamin D deficiency: (6) Dementia, unspecified, without behavioral disturbance: (7) Depression: PLAN: Plan 78 year old male with below past medical history hospitalized for right hip fracture, underwent cephalo medullary fixation right hip 03/28/[address] Rivera, admitted to with debility, here for rehabilitation, strengthening, prior to discharge home. * Debility - PT/OT. * Pain - Tylenol 1000mg q8, Tramadol 25mg q6 prn, Arthritis compound topical tid. * Bowel - senna/colace 2 tablets bid, Dulcolax 10mg pr x 1 prn, MOM 30ml daily prn. * DVT prophylaxis - Eliquis 2.5mg bid thru 04/20/2024. * Hypertension - Amlodipine 5mg daily. * Calcium deficiency - Calcium D 1 tablet bid. * Indigestion - TUMS 500mg q6 prn. * Vitamin D deficiency - D3 50mcg daily. * Dementia NOS - Galantamine 12mg bid, Memantine 10mg bid. * Depression - Paxil 20mg daily.
[2024-04-11] MEDS: Paroxetine 20 MG Tablet PO (10:05)
[2024-04-11] MEDS: Memantine Hydrochloride 10 MG Tablet PO ×2 (10:05→21:25)
[2024-04-11] MEDS: APIXABAN 2.5 MG TABLET (WCH) PO ×2 (10:05→21:25)
[2024-04-11] MEDS: Calcium Carb/Vitamin D 1 TABLET Tablet PO ×2 (10:05→21:25)
[2024-04-11] MEDS: amLODIPine 5 MG Tablet PO (10:05)
[2024-04-11] MEDS: Galantamine Hydrobromide 4 MG Tablet 12 MG PO ×2 (10:05→21:25)
[2024-04-11] MEDS: Senna/Docusate Sodium 1 Tablet 2 TABLET PO ×2 (10:06→21:25)
[2024-04-11] MEDS: Cholecalciferol (VIT D3) 25 MCG TABLET (1,000 UNITS) 50 MCG PO (10:06)
--- NOTE | 2024-04-11 16:23 | CASEMGMT ---
Social Work SW received call from Agnes, Board of DD MAURA HEWITT, who introduced self and role. Agnes was present at the Team Meeting, but was late to introductions and did not ask any questions during the meeting. MARCELINA acknowledged she was new to the Board and learning how to assist the pt. Agnes asked multiple questions to plan for pt's DC, including request for hospital bed at DC. SW review pt's chart and pt does not have qualifying dx for hospital bed, though offered to still send referral and if Medicare denies, submit to Medicaid. MARCELINA requested just for the script, even without the medical necessity and the Board of DD will assist in supplying pt with a bed. CM requesting this worker fax DC summary, including information for pt's skilled HHC to the fax number shr provided this worker. CM appreciative of this worker's assistance. La Guevara, LEIGHA TUBE CUTTER OPERATOR
[2024-04-11 18:00] VITALS: BP 122/64; PULSE 71; RESP 16; TEMP 36.8; O2SAT 98
[2024-04-12] MEDS: Acetaminophen 500 MG Tablet 1000 MG PO ×3 (05:01→22:01)
[2024-04-12] MEDS: Arthritis Pain Compound 60 CLICK TUBE TOPICAL ×3 (05:01→21:59)
[2024-04-12 05:04] VITALS: BP 124/67; PULSE 71; RESP 16; TEMP 36.9; O2SAT 92
--- NOTE | 2024-04-12 08:34 | DS.PCM_ITS ---
Providers Date of Admission: 03/30/24 Primary Care Physician: Dr. Maria Luz Chavira MD Reason For Visit: LEFT HIP FRACTURE Diagnosis Discharge Diagnosis (1) Debility: Status: Acute Code(s): R53.81 - Other malaise (2) Closed right hip fracture: Status: Acute Code(s): S72.001A - Fracture of unspecified part of neck of right femur, initial encounter for closed fracture (3) Essential (primary) hypertension: Status: Acute Code(s): I10 - Essential (primary) hypertension (4) Calcium deficiency: Status: Acute Code(s): E58 - Dietary calcium deficiency (5) Vitamin D deficiency: Status: Acute Code(s): E55.9 - Vitamin D deficiency, unspecified (6) Dementia, unspecified, without behavioral disturbance: Status: Acute Code(s): F03.90 - Unspecified dementia, unspecified severity, without behavioral disturbance, psychotic disturbance, mood disturbance, and anxiety (7) Depression: Status: Acute Code(s): F32.A - Depression, unspecified Plan 78 year old male with below past medical history hospitalized for right hip fracture, underwent cephalo medullary fixation right hip 03/28/[address] Rivera, admitted to with debility, here for rehabilitation, strengthening, prior to discharge home. * Debility - PT/OT. * Pain - Tylenol 1000mg q8, Tramadol 25mg q6 prn, Arthritis compound topical tid. * Bowel - senna/colace 2 tablets bid, Dulcolax 10mg pr x 1 prn, MOM 30ml daily prn. * DVT prophylaxis - Eliquis 2.5mg bid thru 04/20/2024. * Hypertension - Amlodipine 5mg daily. * Calcium deficiency - Calcium D 1 tablet bid. * Indigestion - TUMS 500mg q6 prn. * Vitamin D deficiency - D3 50mcg daily. * Dementia NOS - Galantamine 12mg bid, Memantine 10mg bid. * Depression - Paxil 20mg daily. Medications at Discharge Home Medications Adult Pull-UP #3 ea 12/12/21 denosumab 60 mg/mL subcutaneous syringe 60 mg subcut [id number] Osteoporosis #1 mL 12/25/22 cholecalciferol (vitamin D3) 50 mcg (2,000 unit) capsule 50 mcg PO DAILY vit d deficiency #90 caps 07/08/23 bismuth subsalicylate 262 mg/15 mL oral suspension (Pepto-Bismol) 524 mg PO Q4H PRN diarrhea 02/25/24 calcium carbonate (Tums) 400 mg PO Q6H PRN dyspepsia 02/25/24 galantamine 24 mg 24 hr capsule,extended release 24 mg PO QAM dementia #30 caps 03/02/24 magnesium hydroxide 400 mg/5 mL oral suspension (Milk of Magnesia) 30 ml PO DAILY PRN constipation 03/02/24 memantine 10 mg tablet 10 mg PO BID Dementia #60 tabs 03/02/24 amlodipine 5 mg tablet 5 mg PO DAILY BP 03/30/24 paroxetine HCl 20 mg tablet 20 mg PO DAILY Mood 03/30/24 calcium 500 mg (as carbonate)-vitamin D3 5 mcg (200 unit) tablet (Oyster Shell Calcium-Vitamin D3) 1 tab PO BID for osteoporosis #90 tabs 04/04/24 acetaminophen 500 mg tablet 1,000 mg (2 x 500 mg) PO Q8 30 days #180 tabs 04/12/24 apixaban 5 mg tablet (Eliquis) 2.5 mg (1/2 x 5 mg) PO BID 7 days #7 tabs 04/12/24 oxycodone 5 mg tablet 5 mg PO Q4H PRN PRN Pain Score 4-10 Or Pre Pt/Ot 7 days #42 tabs 04/12/24 sennosides 8.6 mg-docusate sodium 50 mg tablet (Stimulant Laxative Plus) 2 tab PO BID 30 days #120 tabs 04/12/24 tramadol 50 mg tablet 50 mg PO Q6H PRN PRN Pain Score 1-3 Or Pre Pt/Ot 7 days #28 tabs 04/12/24 Hospital Course Operations - (See below.) Procedures None Summary of Care Provided Minutes Spent on Discharge: 35 Hospital Course: 78 year old male with below past medical history hospitalized for right hip fracture, underwent cephalo medullary fixation right hip 03/28/[address] Rivera, admitted to with debility, here for rehabilitation, strengthening, prior to discharge home. Discharge 04/13/2024 to [facility], [facility] PT/OT, FWW, Hospital Bed. FWW: Patient is unsafe to use a cane and requires a walker for ambulation in the home and the community. Hospital bed: Patient requires a hospital bed due to needing frequent changes in position to alleviate pain, prevent ongoing pressure areas, assist in healing of current pressure areas, prevent aspiration or due to respiratory condition that is not feasible in an ordinary bed. Dx: Hypoxia, pleural effusion, tracheobronchomalacia. Physical Exam Const alert General Appearance: cooperative HEENT normocephalic Eyes PERRL and EOMs intact bilaterally Neck supple, no JVD and no carotid bruits Resp normal respiratory effort, normal air movement and clear to auscultation bilaterally Cardio regular rate and regular rhythm GI normal to inspection, nondistended, normoactive bowel sounds, non-tender and non-distended Extremity normal capillary refill General Extremity: Negative for edema Skin no rashes or lesions noted General Skin Exam: no breakdown Psych affect normal Appearance: appropriate Weight / BMI Weight Weight: 53.1 kg Body Mass Index (BMI) 20.0 ABG / Lab / Microbiology Data 03/31/24 05:10 03/31/24 05:10 Indicators for Scoring Admitted with or Primary Diagnosis of CVA/Stroke: No Hx of CVA/Stroke: No D/C Instructions Discharge Diet: No restrictions Discharge Activity: Return to Normal Activity, May Shower and Use Walker Weight Bearing Status: Weight bearing as tolerated Call your doctor if you observe: Fever of 101 or Higher, Inability to urinate, Inability to have a bowel movement, Shortness of breath, Dizziness, Fainting spells, Swelling in the ankles, Chest pain and Uncontrolled pain Additional Instructions: Discharge 04/13/2024 to [facility], [facility] PT/OT, FWW, Hospital Bed. FWW: Patient is unsafe to use a cane and requires a walker for ambulation in the home and the community. Hospital bed: Patient requires a hospital bed due to needing frequent changes in position to alleviate pain, prevent ongoing pressure areas, assist in healing of current pressure areas, prevent aspiration or due to respiratory condition that is not feasible in an ordinary bed. Dx: Hypoxia, pleural effusion, tracheobronchomalacia. Meaningful Use Info Meaningful Use Meaningful Use Diagnoses (Choose all that apply): None applicable Ischemic Stroke Statin Dosing Therapy Reference: STATIN DOSE THERAPY REFERENCE: * Patients > 75 years receive moderate or high dose statin therapy. * Patients 75 years or YOUNGER should receive HIGH intensity statin dose unless contraindicated. You will be required to document reason for non-treatment if statin daily dose does not meet guidelines. HIGH DOSE STATIN THERAPY DAILY Atorvastatin > than or = to 40 mg Rosuvastatin > than or = to 20 mg Amlodipine + Atorvastatin > than or = to 2.5/40 mg Ezetimibe + Simvastatin 10/80 mg Simvastatin 80mg Discharge Plan Admission Admit Date/Time: 03/30/24 12:25 Primary Reason for Your Visit: Debility. Attending Provider: Belinda Teixeira Primary Care Provider: Maria Luz Chavira Instructions Additional Instructions / Restrictions: Discharge 04/13/2024 to [facility], [facility] PT/OT, FWW, Hospital Bed. FWW: Patient is unsafe to use a cane and requires a walker for ambulation in the home and the community. Hospital bed: Patient requires a hospital bed due to needing frequent changes in position to alleviate pain, prevent ongoing pressure areas, assist in healing of current pressure areas, prevent aspiration or due to respiratory condition that is not feasible in an ordinary bed. Dx: Hypoxia, pleural effusion, tracheobronchomalacia. Discharge Orders/Prescriptions Prescriptions: New acetaminophen 500 mg Tablet 1,000 mg PO Q8 30 Days Qty: 180 0RF sennosides-docusate sodium [Stimulant Laxative Plus] 8.6-50 mg Tablet 2 tab PO BID 30 Days Qty: 120 0RF oxycodone 5 mg Tablet 5 mg PO Q4H PRN PRN (Reason: Pain Score 4-10 Or Pre Pt/Ot) 7 Days Qty: 42 0RF Eliquis 5 mg Tablet 2.5 mg PO BID 7 Days Qty: 7 0RF tramadol 50 mg Tablet 50 mg PO Q6H PRN PRN (Reason: Pain Score 1-3 Or Pre Pt/Ot) 7 Days Qty: 28 0RF Continued denosumab 60 mg/mL syringe 60 mg subcut [id number] Qty: 1 2RF calcium carbonate [Tums] 200 mg calcium (500 mg) tablet,chewable 400 mg PO Q6H PRN (Reason: dyspepsia) bismuth subsalicylate [Pepto-Bismol] 262 mg/15 mL suspension 524 mg PO Q4H PRN (Reason: diarrhea) Rx Instructions: do not exceed 8 doses in a 24 hour period magnesium hydroxide [Milk of Magnesia] 400 mg/5 mL suspension 30 ml PO DAILY PRN (Reason: constipation) galantamine 24 mg capsule,ext rel. pellets 24 hr 24 mg PO QAM Qty: 30 11RF Rx Instructions: administer with breakfast memantine 10 mg tablet 10 mg PO BID Qty: 60 11RF amlodipine 5 mg tablet 5 mg PO DAILY paroxetine HCl 20 mg tablet 20 mg PO DAILY Rx Instructions: once daily cholecalciferol (vitamin D3) 50 mcg (2,000 unit) capsule 50 mcg PO DAILY Qty: 90 3RF calcium carbonate-vitamin D3 [Oyster Shell Calcium-Vit D3] 500 mg-5 mcg (200 unit) tablet 1 tab PO BID Qty: 90 3RF Discontinued acetaminophen 325 mg tablet 650 mg PO Q4H PRN (Reason: pain) Eliquis 5 mg Tablet 2.5 mg PO BID 20 Days Qty: 20 0RF No Action (DME) Adult Pull-UP See Rx Instructions .Route .MEDSUPPLY Qty: 3 6RF Rx Instructions: As directed Referrals / Follow Up: Maria Luz Chavira MD [Primary Care Provider] - 04/18/24 1:00 pm Capo Rivera DO [Med Staff - Active Staff] - 04/21/24 8:30 am Disposition Disposition (needs filled in before D/C Order can be placed): Home Health Service
[2024-04-12] MEDS: Calcium Carb/Vitamin D 1 TABLET Tablet PO ×2 (08:46→21:59)
[2024-04-12] MEDS: Cholecalciferol (VIT D3) 25 MCG TABLET (1,000 UNITS) 50 MCG PO (08:46)
[2024-04-12] MEDS: APIXABAN 2.5 MG TABLET (WCH) PO ×2 (08:46→21:59)
[2024-04-12] MEDS: Memantine Hydrochloride 10 MG Tablet PO ×2 (08:46→21:59)
[2024-04-12] MEDS: Galantamine Hydrobromide 4 MG Tablet 12 MG PO ×2 (08:46→21:59)
[2024-04-12] MEDS: amLODIPine 5 MG Tablet PO (08:46)
[2024-04-12] MEDS: Senna/Docusate Sodium 1 Tablet 2 TABLET PO (08:46)
[2024-04-12] MEDS: Paroxetine 20 MG Tablet PO (08:46)
[2024-04-12 09:08] VITALS: BP 138/48; PULSE 71
--- NOTE | 2024-04-12 10:14 | NURSING ---
Called Dr. Rivera's office to see when [place] can be removed to left hip. LVM with Nursing Line awaiting return call.
--- NOTE | 2024-04-12 15:35 | CASEMGMT ---
Addendum entered by La Guevara 04/13/24 07:44: 7000 completed and DC paperwork sent to [facility] via [employer]. Caregiver transport 1300. Original Note: Social Work SW received call from Agnes HEWITT at 0815 explaining she attended a meeting after phone call with this worker yesterday and had some questions. CM inquired about pt discharging to a place to get more rehab before returning home. MAURA educated CM pt is admitted to Inpatient Rehab where he receives 3 hours per day of therapy. The plan is for to DC home from Rehab Unit with skilled HHC. CM replied, but when someone undergoes surgery, isn't it normal for them to go to a rehab facility for therapy?. SW reiterated pt did come to a rehab facility; that is where the pt is currently located. Inquired if CM was referring to a SNF and explained that being a lower level of care. CM confirmed that is what the Board of DD discussed is wanting pt to DC to a SNF. CM inquired for the reason, as there were concerns determined prior, and briefly educated to skilled criteria at a SNF. MARCELINA then explained at the Board meeting last night, the pt's long term cannot accommodate pt's needs, and is requesting pt DC to a SNF for further therapy. MAURA refuted that reason citing [facility]'s Acute SW, prior to admission to , confirmed with caregiver that regardless of pt's LOC, pt can return to the long term. There are other pts who need ADL and mobility aid assistance, just as the pt. MAURA continued stating there was this worker's admission assessment and two Team meetings that discussed pt's DC plan and current LOC, and each encounter, the caregiver confirmed the pt can return to the group. MAURA reminded CM that pt's DC is tomorrow, 04/13. CM acknowledged this worker's explanation and apologized for the short notice, but then explained the long term is short-staffed and cannot currently meet the pt's needs, again requesting SNF placement until staffing is resolved. MAURA educated to skilled vs intermediate care at a SNF and SW would make referrals to SNFs for intermediate level of care which would be covered until his Medicaid benefit. Though, explained, the SNF will need to confirm pt's Medicaid Cros[employer] would cover intermediate LOC. MAURA explained this worker cannot choose nor recommend SNFs, and would need to send CM a list of options to get preferences of SNFs. CM expressed understanding and would review the SNF list to make those selections and provided email address. MAURA sent SNF list in [facility] including quality and resource data via [employer] link. Requested preferences be provided as soon as possible to ensure a smooth DC for tomorrow. CM expressed understanding. SW phoned caregiver to inquire about her awareness of CM request for SNF placement at DC d/t staffing. Caregiver stated she is the Supervisor [employer] Line, and she did need to let a staff member go, but she is personally filling those hours and has no concerns with being able to meet the patient's needs. Caregiver explained all but one of the residents go to daily workshop and since pt cannot return to workshop immediately, she can care for pt and that other resident during the day. Caregiver stated pt has been with his roommate for 40 years and is concerned about pt going to a SNF, being away from the roommate longer. SW expressed understanding and agreement. Thanked caregiver for information. MAURA phoned CM to update on conversation from caregiver about no staffing concerns. CM interjected stating, let's get one thing cleared up. Connie is the Coordinator, and [CM] had a meeting with Connie's two bosses who stated pt needs to go to a SNF d/t staffing challenges and not being able to accommodate pt's needs. Connie is not the one making that decision. [CM} was under the impression Connie's boss already updated Connie, and will contact the boss to ensure everyone is on the same page. MAURA expressed understanding and confirmed this worker can assist with SNF placement, once preferences are provided. CM to review and provide preferences. -- MAURA received electronic preferences via [employer]: [facility]. [facility], [facility]. [facility], 3. [facility], 4. [facility], 5. [facility]. SW placed referrals. [facility] and [facility] do not have beds; the other SNFs can accept. MAURA updated CM via email. CM confirmed FOC as WVM. CM to visit pt and update him on the new DC plan. CM confirmed caregiver will still transport pt at DC. 7000 started. IDT updated. Plan: DC 04/13 to [facility], intermediate, part B therapies [facility]
[2024-04-12 17:59] VITALS: BP 110/57; PULSE 81; RESP 17; TEMP 36.7; O2SAT 98
--- NOTE | 2024-04-12 19:51 | TREXTCAR_ITS ---
Diet Diet Order/Speech Therapy: 03/30/24 12:49 Diet: Cardiac - Heart Healthy Food consistency:: Soft & Bite Sized Type of Dietary Supplement:: Ensure Plus High Protein Diet Comments: 120mL EPHP w/B&D, Ramos Magic cup w/ L&D Routine Orders/Code Status Code Status: Full Code Wound(s) left hip: Wound Type: Surgical Incision top of head: Wound Type: Laceration Therapies Weight Bearing: Weight bearing as tolerated Extremity Affected:: Bilateral Lower Physical Therapy: Eval and Treat Occupational Therapy: Eval and Treat Problem/Diagnosis (1) Debility: Status: Acute Code(s): R53.81 - Other malaise (2) Closed right hip fracture: Status: Acute Code(s): S72.001A - Fracture of unspecified part of neck of right femur, initial encounter for closed fracture (3) Essential (primary) hypertension: Status: Acute Code(s): I10 - Essential (primary) hypertension (4) Calcium deficiency: Status: Acute Code(s): E58 - Dietary calcium deficiency (5) Vitamin D deficiency: Status: Acute Code(s): E55.9 - Vitamin D deficiency, unspecified (6) Dementia, unspecified, without behavioral disturbance: Status: Acute Code(s): F03.90 - Unspecified dementia, unspecified severity, without behavioral disturbance, psychotic disturbance, mood disturbance, and anxiety (7) Depression: Status: Acute Code(s): F32.A - Depression, unspecified Plan 78 year old male with below past medical history hospitalized for right hip fracture, underwent cephalo medullary fixation right hip 03/28/[address] Rivera, admitted to with debility, here for rehabilitation, strengthening, prior to discharge home. * Debility - PT/OT. * Pain - Tylenol 1000mg q8, Tramadol 25mg q6 prn, Arthritis compound topical tid. * Bowel - senna/colace 2 tablets bid, Dulcolax 10mg pr x 1 prn, MOM 30ml daily prn. * DVT prophylaxis - Eliquis 2.5mg bid thru 04/20/2024. * Hypertension - Amlodipine 5mg daily. * Calcium deficiency - Calcium D 1 tablet bid. * Indigestion - TUMS 500mg q6 prn. * Vitamin D deficiency - D3 50mcg daily. * Dementia NOS - Galantamine 12mg bid, Memantine 10mg bid. * Depression - Paxil 20mg daily. Allergies/Procedures Done in Hospital Allergies No Known Allergies Allergy (Verified 03/28/24 13:12) Procedures: None Type of Care/Length of Stay Estimated LOS: Convalescent Care Less Than 30 days Type of Care Needed: Intermediate Rehab Potential: Fair Prognosis: Fair Additional Orders/Day of Discharge Additional Orders: PART B THERAPIES Day of Discharge: 04/13/24 Dietary and Speech Recommendations Dietitian Recommendations/Changes: Continue cardiac diet with soft and bite sized food/thin liquid for ease of biting, chewing and swallowing. Continue ramos magic cup with lunch and dinner, per family preference. Continue 240ml strawberry ensure plus high protein with breakfast and lunch. If changes occur in nutrition status, consult RD. Reviewed and approved by Tonya Clement RDN, LD. Discharge Plan Admission Admit Date/Time: 03/30/24 12:25 Primary Reason for Your Visit: Debility. Attending Provider: Belinda Teixeira Primary Care Provider: Maria Luz Chavira Instructions Additional Instructions / Restrictions: Discharge 04/13/2024 to [facility], [facility] PT/OT, FWW, Hospital Bed. FWW: Patient is unsafe to use a cane and requires a walker for ambulation in the home and the community. Hospital bed: Patient requires a hospital bed due to needing frequent changes in position to alleviate pain, prevent ongoing pressure areas, assist in healing of current pressure areas, prevent aspiration or due to respiratory condition that is not feasible in an ordinary bed. Dx: Hypoxia, pleural effusion, tracheobronchomalacia. Discharge Orders/Prescriptions Prescriptions: New acetaminophen 500 mg Tablet 1,000 mg PO Q8 30 Days Qty: 180 0RF sennosides-docusate sodium [Stimulant Laxative Plus] 8.6-50 mg Tablet 2 tab PO BID 30 Days Qty: 120 0RF oxycodone 5 mg Tablet 5 mg PO Q4H PRN PRN (Reason: Pain Score 4-10 Or Pre Pt/Ot) 7 Days Qty: 42 0RF Eliquis 5 mg Tablet 2.5 mg PO BID 7 Days Qty: 7 0RF tramadol 50 mg Tablet 50 mg PO Q6H PRN PRN (Reason: Pain Score 1-3 Or Pre Pt/Ot) 7 Days Qty: 28 0RF Continued denosumab 60 mg/mL syringe 60 mg subcut [id number] Qty: 1 2RF calcium carbonate [Tums] 200 mg calcium (500 mg) tablet,chewable 400 mg PO Q6H PRN (Reason: dyspepsia) bismuth subsalicylate [Pepto-Bismol] 262 mg/15 mL suspension 524 mg PO Q4H PRN (Reason: diarrhea) Rx Instructions: do not exceed 8 doses in a 24 hour period magnesium hydroxide [Milk of Magnesia] 400 mg/5 mL suspension 30 ml PO DAILY PRN (Reason: constipation) galantamine 24 mg capsule,ext rel. pellets 24 hr 24 mg PO QAM Qty: 30 11RF Rx Instructions: administer with breakfast memantine 10 mg tablet 10 mg PO BID Qty: 60 11RF amlodipine 5 mg tablet 5 mg PO DAILY paroxetine HCl 20 mg tablet 20 mg PO DAILY Rx Instructions: once daily cholecalciferol (vitamin D3) 50 mcg (2,000 unit) capsule 50 mcg PO DAILY Qty: 90 3RF calcium carbonate-vitamin D3 [Oyster Shell Calcium-Vit D3] 500 mg-5 mcg (200 unit) tablet 1 tab PO BID Qty: 90 3RF Discontinued acetaminophen 325 mg tablet 650 mg PO Q4H PRN (Reason: pain) Eliquis 5 mg Tablet 2.5 mg PO BID 20 Days Qty: 20 0RF No Action (DME) Adult Pull-UP See Rx Instructions .Route .MEDSUPPLY Qty: 3 6RF Rx Instructions: As directed Referrals / Follow Up: Maria Luz Chavira MD [Primary Care Provider] - 04/18/24 1:00 pm Capo Rivera DO [Med Staff - Active Staff] - 04/21/24 8:30 am Disposition Disposition (needs filled in before D/C Order can be placed): Fdc Facility
[2024-04-12 21:30] VITALS: PULSE 81; RESP 17; O2SAT 97
[2024-04-13 05:00] VITALS: BP 124/67; PULSE 66; RESP 16; TEMP 36.3; O2SAT 98
[2024-04-13] MEDS: Acetaminophen 500 MG Tablet 1000 MG PO (05:11)
[2024-04-13] MEDS: Arthritis Pain Compound 60 CLICK TUBE TOPICAL (05:11)
[2024-04-13] MEDS: APIXABAN 2.5 MG TABLET (WCH) PO (07:38)
[2024-04-13] MEDS: Paroxetine 20 MG Tablet PO (07:38)
[2024-04-13] MEDS: Galantamine Hydrobromide 4 MG Tablet 12 MG PO (07:38)
[2024-04-13] MEDS: Calcium Carb/Vitamin D 1 TABLET Tablet PO (07:38)
[2024-04-13] MEDS: Cholecalciferol (VIT D3) 25 MCG TABLET (1,000 UNITS) 50 MCG PO (07:39)
[2024-04-13] MEDS: amLODIPine 5 MG Tablet PO (07:39)
[2024-04-13] MEDS: Memantine Hydrochloride 10 MG Tablet PO (07:39)
[2024-04-13 13:11] VITALS: BP 124/67; PULSE 66; RESP 16; TEMP 36.3; O2SAT 98
--- NOTE | 2024-04-13 13:18 | NURSING ---
discharged to [facility]. via caregiver transport. Report called to Candida
== END 2024-04-13 13:19 | disposition intermediate care facility (04) | DRG 560 ==
PROVIDERS: Admitting Provider Internal Medicine; PCP Internal Medicine; Referring Provider Internal Medicine; Visit Provider Internal Medicine
DX: S72.142D Displaced intertrochanteric fracture of left femur, subsequent encounter for closed fracture with routine healing (principal); E87.0 Hyperosmolality and hypernatremia; J90 Pleural effusion, not elsewhere classified; F02.80 Dementia in other diseases classified elsewhere, unspecified severity, without behavioral disturbance, psychotic disturbance, mood disturbance, and anxiety; I10 Essential (primary) hypertension; F32.A Depression, unspecified; E86.0 Dehydration; G30.1 Alzheimer's disease with late onset; E55.9 Vitamin D deficiency, unspecified; W19.XXXD Unspecified fall, subsequent encounter; R09.02 Hypoxemia; Z87.891 Personal history of nicotine dependence; N40.0 Benign prostatic hyperplasia without lower urinary tract symptoms; F70 Mild intellectual disabilities; Z79.899 Other long term (current) drug therapy; R47.81 Slurred speech; M81.0 Age-related osteoporosis without current pathological fracture
CPT/HCPCS: 73030; 80053; 83735; 84100; 85025; 93005; 94668; 97110; 97116; 97150; 97162; 97166; 97530; 97535; A4216

== ENCOUNTER → 2024-04-14 05:00 | Outpatient (REF) | payer MEDICARE, MEDICAID, SELFPAY ==
[2024-04-14 06:43] LABS: Absolute Neutrophil Count 7.8 X10^3/uL (2.0-7.7); Basophil# 0.08 X10^3/uL; Basophil% 0.7 % (0-1); Eosinophil# 0.16 X10^3/uL; Eosinophils% 1.5 % (0-5); Hematocrit 39.5 % (40-54); Hemoglobin 12.2 g/dL (13.0-16.5); Mean Corp Hgb Conc 30.9 g/dL (32-36); Mean Corpuscular Hgb 29.1 pg (27.0-32.0); Mean Corpuscular Volume 94.3 fL (80-94); Mean Platelet Vol. 8.9 fl (6.2-12.0); Monocyte# 1.21 X10^3/uL; Monocyte% 11.3 % (0-10); NRBC Flagged by Analyzer 0 % (0-5); Neutrophil # 7.83 X10^3/uL (2.7-7.7); Neutrophil % 72.9 % (47-70); Platelet Count 486 K/mm3 (150-450); RBC Distribution Width CV 16.2 % (11.6-14.6); RBC Distribution Width SD 56.4 fl (35.1-43.9); Red Blood Count 4.19 M/mm3 (4.6-6.2); White Blood Count 10.7 K/mm3 (4.4-11.0)
[2024-04-14 06:55] LABS: ALB/GLOB Ratio 0.7 RATIO (0.9-2.4); AST(SGOT) 20 U/L (15-37); Alanine Aminotransfer ALT/SGPT 28 U/L (16-61); Albumin, Serum 2.9 g/dL (3.2-5.0); Alkaline Phosphatase 198 U/L (45-117); Anion Gap 3 (5-15); BUN 20 mg/dL (7-18); Calcium,Total 8.1 mg/dL (8.5-10.1); Chloride 115 mmol/L (98-107); Creatinine, Serum 0.71 mg/dL (0.70-1.30); EST Glomerular Filtration Rate 114 mL/min (>60); Est Glom Filt Rate - Afr Amer 138 mL/min (>60); Glucose 102 mg/dL (74-106); Protein, Total 6.9 g/dL (6.4-8.2); Sodium Level 144 mmol/L (136-145)
[2024-04-14 08:37] LABS: Vitamin D,25 Hydroxy 51.2 ng/mL
== END ==
LOC: OLS.WHLEAS 05:00
PROVIDERS: PCP Internal Medicine; Visit Provider Internal Medicine
DX: D62 Acute posthemorrhagic anemia (principal)
CPT/HCPCS: 36415; 80053; 82306; 85025

== ENCOUNTER → 2024-04-28 | Outpatient (REF) | payer MEDICARE, MEDICAID, SELFPAY ==
[2024-04-28 09:12] LABS: Absolute Lymphocyte Count 1.17 X10^3/uL (0.83-4.51); Absolute Neutrophil Count 4.8 X10^3/uL (2.0-7.7); Basophil# 0.09 X10^3/uL; Basophil% 1.2 % (0-1); Hematocrit 39.8 % (40-54); Hemoglobin 12.3 g/dL (13.0-16.5); Lymphocyte # 1.17 X10^3/ul (0.83-4.51); Lymphocyte % 15.8 % (19-41); Mean Corp Hgb Conc 30.9 g/dL (32-36); Mean Corpuscular Hgb 28.9 pg (27.0-32.0); Mean Corpuscular Volume 93.6 fL (80-94); Mean Platelet Vol. 9.6 fl (6.2-12.0); Monocyte# 1.01 X10^3/uL; Monocyte% 13.6 % (0-10); NRBC Flagged by Analyzer 0 % (0-5); Neutrophil # 4.82 X10^3/uL (2.7-7.7); Platelet Count 324 K/mm3 (150-450); RBC Distribution Width CV 15.4 % (11.6-14.6); RBC Distribution Width SD 53.1 fl (35.1-43.9); Red Blood Count 4.25 M/mm3 (4.6-6.2); White Blood Count 7.4 K/mm3 (4.4-11.0)
[2024-04-28 09:24] LABS: Anion Gap 2 (5-15); BUN 17 mg/dL (7-18); BUN/Creat Ratio 23.5 RATIO (10-20); Calcium,Total 8.6 mg/dL (8.5-10.1); Chloride 110 mmol/L (98-107); Creatinine, Serum 0.72 mg/dL (0.70-1.30); EST Glomerular Filtration Rate 112 mL/min (>60); Est Glom Filt Rate - Afr Amer 136 mL/min (>60); Glucose 90 mg/dL (74-106); Potassium 3.6 mmol/L (3.5-5.1); Sodium Level 141 mmol/L (136-145)
== END ==
LOC: OLS.WHLEAS 05:00
PROVIDERS: PCP Internal Medicine; Visit Provider Internal Medicine
DX: D62 Acute posthemorrhagic anemia (principal)
CPT/HCPCS: 36415; 80048; 85025

== ENCOUNTER → 2024-05-12 | Outpatient (REF) | payer MEDICARE, MEDICAID, SELFPAY ==
[2024-05-12 07:13] LABS: Absolute Lymphocyte Count 1.36 X10^3/uL (0.83-4.51); Absolute Neutrophil Count 4.6 X10^3/uL (2.0-7.7); Basophil# 0.09 X10^3/uL; Basophil% 1.2 % (0-1); Eosinophil# 0.25 X10^3/uL; Eosinophils% 3.4 % (0-5); Hematocrit 42.4 % (40-54); Hemoglobin 13.4 g/dL (13.0-16.5); Lymphocyte # 1.36 X10^3/ul (0.83-4.51); Lymphocyte % 18.7 % (19-41); Mean Corp Hgb Conc 31.6 g/dL (32-36); Mean Corpuscular Hgb 29.7 pg (27.0-32.0); Mean Platelet Vol. 9.7 fl (6.2-12.0); Monocyte# 0.95 X10^3/uL; Monocyte% 13.1 % (0-10); NRBC Flagged by Analyzer 0 % (0-5); Neutrophil # 4.58 X10^3/uL (2.7-7.7); Neutrophil % 63.2 % (47-70); Platelet Count 339 K/mm3 (150-450); RBC Distribution Width CV 15.4 % (11.6-14.6); RBC Distribution Width SD 53.1 fl (35.1-43.9); Red Blood Count 4.51 M/mm3 (4.6-6.2); White Blood Count 7.3 K/mm3 (4.4-11.0)
[2024-05-12 07:29] LABS: Anion Gap 2 (5-15); BUN 24 mg/dL (7-18); BUN/Creat Ratio 30.6 RATIO (10-20); Chloride 112 mmol/L (98-107); Creatinine, Serum 0.78 mg/dL (0.70-1.30); EST Glomerular Filtration Rate 102 mL/min (>60); Est Glom Filt Rate - Afr Amer 123 mL/min (>60); Glucose 96 mg/dL (74-106); Potassium 4.2 mmol/L (3.5-5.1); Sodium Level 142 mmol/L (136-145)
== END ==
LOC: OLS.WHLEAS 05:00
PROVIDERS: PCP Internal Medicine; Visit Provider Internal Medicine
DX: D62 Acute posthemorrhagic anemia (principal)
CPT/HCPCS: 36415; 80048; 85025

== ENCOUNTER → 2024-06-09 05:00 | Outpatient (REF) | payer MEDICARE, MEDICAID, SELFPAY ==
[2024-06-09 07:42] LABS: Absolute Lymphocyte Count 1.38 X10^3/uL (0.83-4.51); Absolute Neutrophil Count 9.1 X10^3/uL (2.0-7.7); Basophil# 0.07 X10^3/uL; Basophil% 0.6 % (0-1); Eosinophil# 0.25 X10^3/uL; Hematocrit 42.5 % (40-54); Hemoglobin 12.8 g/dL (13.0-16.5); Lymphocyte # 1.38 X10^3/ul (0.83-4.51); Lymphocyte % 11.3 % (19-41); Mean Corp Hgb Conc 30.1 g/dL (32-36); Mean Platelet Vol. 9.9 fl (6.2-12.0); Monocyte# 1.39 X10^3/uL; Monocyte% 11.3 % (0-10); NRBC Flagged by Analyzer 0 % (0-5); Neutrophil % 74.3 % (47-70); Platelet Count 349 K/mm3 (150-450); RBC Distribution Width CV 14.7 % (11.6-14.6); RBC Distribution Width SD 50.6 fl (35.1-43.9); Red Blood Count 4.57 M/mm3 (4.6-6.2); White Blood Count 12.3 K/mm3 (4.4-11.0)
[2024-06-09 07:51] LABS: Anion Gap 5 (5-15); BUN 26 mg/dL (7-18); BUN/Creat Ratio 38.2 RATIO (10-20); Calcium,Total 9.2 mg/dL (8.5-10.1); Chloride 109 mmol/L (98-107); Creatinine, Serum 0.68 mg/dL (0.70-1.30); EST Glomerular Filtration Rate 120 mL/min (>60); Est Glom Filt Rate - Afr Amer 145 mL/min (>60); Glucose 97 mg/dL (74-106); Potassium 4.4 mmol/L (3.5-5.1); Sodium Level 143 mmol/L (136-145)
== END ==
LOC: OLS.WHLEAS 05:00
PROVIDERS: PCP Internal Medicine; Visit Provider Internal Medicine
DX: I10 Essential (primary) hypertension (principal)
CPT/HCPCS: 36415; 80048; 85025

== ENCOUNTER → 2024-08-30 | Outpatient (CLI) | payer MEDICARE, MEDICAID, SELFPAY ==
[2024-08-30 12:25] LABS: Absolute Lymphocyte Count 1.37 X10^3/uL (0.83-4.51); Absolute Neutrophil Count 6.8 X10^3/uL (2.0-7.7); Basophil# 0.06 X10^3/uL; Basophil% 0.6 % (0-1); Eosinophil# 0.18 X10^3/uL; Eosinophils% 1.9 % (0-5); Hematocrit 48.3 % (40-54); Hemoglobin 14.8 g/dL (13.0-16.5); Lymphocyte # 1.37 X10^3/ul (0.83-4.51); Lymphocyte % 14.3 % (19-41); Mean Corp Hgb Conc 30.6 g/dL (32-36); Mean Corpuscular Hgb 28.8 pg (27.0-32.0); Mean Platelet Vol. 10.5 fl (6.2-12.0); Monocyte# 1.08 X10^3/uL; Monocyte% 11.3 % (0-10); NRBC Flagged by Analyzer 0 % (0-5); Neutrophil # 6.81 X10^3/uL (2.7-7.7); Neutrophil % 71.4 % (47-70); Platelet Count 343 K/mm3 (150-450); RBC Distribution Width CV 14.6 % (11.6-14.6); RBC Distribution Width SD 50.8 fl (35.1-43.9); Red Blood Count 5.14 M/mm3 (4.6-6.2); White Blood Count 9.6 K/mm3 (4.4-11.0)
[2024-08-30 12:52] LABS: Anion Gap 12 (5-15); BUN 13 mg/dL (4-19); BUN/Creat Ratio 16.4 RATIO (10-20); Calcium 9.8 mg/dL (7.6-11.0); Carbon Dioxide 27.2 mmol/L (22.0-29.0); Chloride 102 mmol/L (96-108); Creatinine, Serum 0.8 mg/dL (0.8-1.3); EST Glomerular Filtration Rate 92 (>60); Glucose 71 mg/dL (70-99); Potassium 3.9 mmol/L (3.3-5.1); Sodium Level 141 mmol/L (133-145)
== END | disposition home or self-care (01) ==
LOC: BIMLAB 09:36
PROVIDERS: PCP Internal Medicine; Referring Provider Internal Medicine; Visit Provider Internal Medicine
DX: I10 Essential (primary) hypertension (principal)
CPT/HCPCS: 36415; 80048; 85025

== ENCOUNTER → 2025-01-17 | Outpatient (CLI) | payer MEDICARE, MEDICAID, SELFPAY ==
--- NOTE | 2025-01-17 10:45 | RAD_ITS ---
EXAM: XR Chest, 2 Views CLINICAL INDICATION: ABNORMAL PULSE OXIMETRY TECHNIQUE: Frontal and lateral views of the chest. COMPARISON: No relevant prior studies available. FINDINGS: LUNGS AND PLEURAL SPACES: Unremarkable. No consolidation. No pneumothorax. HEART: Unremarkable. No cardiomegaly. MEDIASTINUM: Unremarkable. Normal mediastinal contour. BONES/JOINTS: Unremarkable. No acute fracture. RAD/Chest PA and Lateral IMPRESSION: No acute cardiopulmonary process. Reading Location: [facility]
--- NOTE | 2025-01-17 10:45 | RAD_ITS ---
EXAM: XR Chest, 2 Views CLINICAL INDICATION: ABNORMAL PULSE OXIMETRY TECHNIQUE: Frontal and lateral views of the chest. COMPARISON: No relevant prior studies available. FINDINGS: LUNGS AND PLEURAL SPACES: Unremarkable. No consolidation. No pneumothorax. HEART: Unremarkable. No cardiomegaly. MEDIASTINUM: Unremarkable. Normal mediastinal contour. BONES/JOINTS: Unremarkable. No acute fracture. RAD/Chest PA and Lateral IMPRESSION: No acute cardiopulmonary process. Reading Location: [facility]
== END | disposition home or self-care (01) ==
PROVIDERS: PCP Internal Medicine; Referring Provider Physician Assistant; Visit Provider Physician Assistant
DX: R79.81 Abnormal blood-gas level (principal)
CPT/HCPCS: 71046

== ENCOUNTER → 2025-02-07 | Outpatient (CLI) | payer MEDICARE, MEDICAID, SELFPAY ==
[2025-02-12 14:08] LABS: Vitamin D 1,25-Dihydroxy 37.2 pg/mL (24.8-81.5)
== END | disposition home or self-care (01) ==
LOC: MTLAB 08:43
PROVIDERS: PCP Internal Medicine; Referring Provider Psychiatry & Neurology Neurology; Visit Provider Psychiatry & Neurology Neurology
DX: E55.9 Vitamin D deficiency, unspecified (principal)
CPT/HCPCS: 36415; 82652

== ENCOUNTER 2025-05-26 19:47 | Emergency (ER) | payer MEDICARE, MEDICAID, SELFPAY ==
[2025-05-26] VITALS (7 sets, daily range): BP systolic 114–148; BP diastolic 71–98; PULSE 97–107; RESP 23–30; TEMP 36.2–37.5; O2SAT 87–96; BMI 22.9
--- NOTE | 2025-05-26 20:08 | ED.RN ---
This RN spoke with patients daily caregiver Connie on the phone who confirms his home medications. She also states patient ate dinner at 4pm with no problems and took his bedtime medications with applesauce around 1914 with no problems. Per caregiver the vomiting started suddenly around 193 and they are concerned for aspiration.
--- NOTE | 2025-05-26 20:16 | CT_ITS ---
PROCEDURE: ABDOMEN/PELVIS W IV CONT ONLY 05/26/2025 REASON FOR EXAM: NAUSEA VOMITING TECHNIQUE: Procedure Code: [id number] Modality: CT Procedure: ABDOMEN/PELVIS W IV CONT ONLY Coronal and Sagittal reconstruction series were provided. CONTRAST: VOLUME: mL One or more dose reduction techniques were used (e.g., Automated exposure control, adjustment of the mA and/or kV according to patient size, use of iterative reconstruction technique. RADIATION DOSE SUMMARY: CTDlvol: 50 mGy DLP: 1344.29 mGycm COMPARISON: None FINDINGS: Lung bases: Bases the lung bases are clear. Liver: Normal size. No mass. Gallbladder: Gallbladder is not seen. Spleen: Spleen has a normal appearance. There is a 12 mm accessory spleen. Pancreas: Normal size without evidence of mass surrounding inflammation or ductal dilation. Adrenals: Adrenals appear normal. Kidneys: Normal renal sizes. No hydronephrosis. There are parapelvic cysts and there is a 12 mm subcapsular mass at the superolateral aspect of the right kidney that may be an angiomyolipoma. There is a 15 mm subcapsular mass at the posterior aspect of the mid right kidney that may be a renal cyst. Bladder: Bladder the prostate gland has a 5.6 cm transverse diameter and is slightly to moderately enlarged. The enlarged prostate indents the base of the urinary bladder. There is a 3 mm calcification at the posterior-superior wall of the urinary bladder, just to the right of midline. This could be a bladder calculus or a bladder mucosa calcification. This finding should be further evaluated with ultrasonography. Reproductive Organs: Reproductive organs there is a left hydrocele or a cyst of the left tunica vaginalis. There are surgical clips at the left inguinal region. The scrotal regions are not completely projected. Bowel: There is moderate dilatation of the stomach which contains air and fluid. There is a patulous EG junction and there is refluxed fluid in the distal half of the esophagus. There is dilatation of the 1st and 2nd segments of the duodenum. The intestine distal to this is not dilated. There are numerous small diverticula at the splenic flexure, descending colon, and sigmoid colon. There is no evidence of diverticulitis. Appendix: Appendix is not seen. Lymph nodes: There is no evidence of lymph node enlargement. Vasculature: The abdominal aorta and IVC are normal. Peritoneum / Retroperitoneum: Peritoneal there is no ascites nor free intraperitoneal gas Bones: Degenerative changes of the spine. There is internal fixation of an old healed fracture of the proximal left femur. CT/Abdomen/Pelvis W IV Cont ONLY IMPRESSION: Impression nutcracker effect at the 3rd portion of the duodenum causing dilatat ion of the proximal duodenum and stomach versus gastroparesis versus gastric outlet stenosis. Gastroesophageal reflux. Distal colonic diverticulosis. Parapelvic renal cysts, right renal angiomyolipoma, and 15 mm right renal mass that could be cystic, complex cystic, or solid. Recommend: 1. NG tube placement. 2. Renal and bladder ultrasound to determine if there are any complex cystic or solid renal masses and to determine if there is a urinary bladder calculus versus calcification of an ulcerated mucosal lesion of the posterior urinary bladder wall. Reading Location: [id number]
--- NOTE | 2025-05-26 20:16 | CT_ITS ---
PROCEDURE: CTA CHEST W/WO CONTRAST 05/26/2025 REASON FOR EXAM: RULE OUT PE, LIKELY ASPIRATION PNA? TECHNIQUE: Procedure Code: [id number] Modality: CT Procedure: CTA CHEST W/WO CONTRAST Multiplanar Sagittal and Coronal images were obtained. CONTRAST: VOLUME: mL One or more dose reduction techniques were used (e.g., Automated exposure control, adjustment of the mA and/or kV according to patient size, use of iterative reconstruction technique). FINDINGS: Respiratory motion artifact severely limits evaluation. No large filling defect is identified within the main pulmonary trunk or main pulmonary arteries to suggest a large pulmonary embolism. Due to motion artifact, a small filling defect suggestive of a pulmonary embolism can not be excluded in the distal pulmonary arteries. Scarring and bullous changes are noted in the left lung base. Otherwise the lungs are clear. The heart and great vessels appear unremarkable. No thoracic lymphadenopathy. No acute osseous abnormality. Kyphosis and diffuse anterior bridging throughout the thoracic spine. Mild dextro convex thoracic scoliosis. The incompletely imaged liver appears enlarged. CT/CTA Chest W/WO Contrast IMPRESSION: Limited CT evaluation of the chest due to motion artifact. No large filling defect suggestive of a pulmonary embolism is identified within the main pulmonary trunk or main pulmonary arteries. A small pulmonary embolism in the distal pulmonary arteries can not be excluded. Nonacute findings, as described above. Reading Location: [id number]
--- NOTE | 2025-05-26 20:17 | EKG12_ITS ---
Test Reason : N/V Blood Pressure : */* mmHG Vent. Rate : 106 BPM Atrial Rate : 106 BPM P-R Int : 182 ms QRS Dur : 74 ms QT Int : 320 ms P-R-T Axes : 2 -14 56 degrees QTcB Int : 425 ms Sinus tachycardia with Premature supraventricular complexes Minimal voltage criteria for LVH, may be normal variant ( R in aVL ) Septal infarct , age undetermined Inferior infarct , age undetermined Abnormal ECG Confirmed by JANIYA ROSS, IOANA ([id number]), script editor EDILBERTO BECERRA ([id number]) on 05/28/2025 1:41:20 PM Referred By: Confirmed By: IOANA DENSON MD
--- NOTE | 2025-05-26 20:28 | EX.ED.DYSGE1 ---
HPI History of Present Illness Chief Complaint: Nausea/Vomiting Narrative Narrative: Patient is a 79-year-old male presenting to the emergency department for possible aspiration. Patient has a past medical history of MRDD, tracheal bronchial malacia, pleural effusion, pericardial effusion, hypertension, asthma, dementia. Patient coming from a [facility] where he receives [facility] care. Reportedly he ate his lunch and then took some pills with applesauce and shortly after when he was checked on again he had emesis all over the front of his shirt. He then started to have a difficult time breathing. EMS was called. He was reportedly 83% on room air on their arrival with coarse and wheezing lung sounds. Patient is unable to provide history due to mental condition. [facility] Medical History Fracture of left hip requiring operative repair History of hip fracture Hip fracture, left Impacted cerumen of both ears Closed head injury without concussion Laceration of scalp Recent change in frequency of bowel movements BPH (benign prostatic hyperplasia) Cognitive and behavioral changes Osteoporosis Hearing loss Seasonal allergies Dyspnea Other kyphoscoliosis and scoliosis Hypertension Hemorrhoid Tracheobronchomalacia Mental retardation Pericardial effusion Pleural effusion Hypoxia Shortness of breath Home Medications ?Medication ?Instructions ?Recorded ?Last Taken ?Type Adult Pull-UP #3 ea 12/12/21 Unknown Rx denosumab 60 mg/mL subcutaneous 60 mg subcut [id number] Osteoporosis 12/25/22 12/06/23 Rx syringe #1 mL magnesium hydroxide 400 mg/5 mL 30 ml PO DAILY PRN constipation 03/02/24 Unknown History oral suspension (Milk of Magnesia) cholecalciferol (vitamin D3) 50 50 mcg PO DAILY vit d deficiency 06/21/24 Unknown Rx mcg (2,000 unit) capsule #90 caps acetaminophen 500 mg tablet 1,000 mg (2 x 500 mg) PO Q8 PRN 07/11/24 Unknown Rx fever or pain 3 months #180 tabs paroxetine HCl 20 mg tablet 20 mg PO DAILY Mood #90 tabs 09/19/24 Unknown Rx galantamine 24 mg 24 hr 24 mg PO QAM dementia #30 caps 02/07/25 Unknown Rx capsule,extended release loperamide 2 mg tablet 2 mg PO .COMPLEX PRN diarrhea 02/07/25 Unknown History (Anti-Diarrheal (loperamide)) memantine 10 mg tablet 10 mg PO BID Dementia #60 tabs 02/07/25 Unknown Rx amlodipine 2.5 mg tablet 2.5 mg PO QHS BP #90 tabs 02/28/25 Unknown Rx melatonin 5 mg tablet 5 mg PO HS sleep #30 tabs 03/07/25 Unknown Rx calcium 500 mg (as 1 tab PO BID for osteoporosis #90 03/08/25 Unknown Rx carbonate)-vitamin D3 5 mcg (200 tabs unit) tablet (Oyster Shell Calcium-Vitamin D3) psyllium husk 0.4 gram capsule 0.4 g PO BID constipation 3 months 04/06/25 Unknown Rx #180 caps cholecalciferol (vitamin D3) 50 50 mcg PO DAILY 05/26/25 Unknown History mcg (2,000 unit) tablet (Vitamin D3) Allergy/AdvReac Type Severity Reaction Status Date / Time No Known Allergies Allergy Verified 03/02/25 09:12 Family History Father Alzheimer disease Mother Cancer Sister Cancer Surgical History History of surgical removal of testicle S/P laparoscopic cholecystectomy Social History household members: other housing: other current occupational status: disabled Smoking Status: Former smoker second hand exposure: No alcohol intake: never substance use type: does not use caffeine: Yes what type of physical activity do you participate in: none seatbelt use: always ROS ROS ED ROS Narrative obtained from caregiver and EMS given patients mental baseline Review of Systems ROS Unobtainable: due to mental condition EXAM Physical Exam Narrative Exam Narrative: Vital signs: Reviewed General: Alert. Acute respiratory distress. HEENT: Head is normocephalic and atraumatic, sinuses nontender, pupils equal round and reactive. Nares are patent. Oropharynx and throat exams normal. Neck: Supple without lymphadenopathy nontender Cardiovascular: Tachycardic rate and regular rhythm, no murmurs. No rubs or gallops. Normal S1 and S2 Respiratory: Inspiratory and expiratory wheezing heard in all lung robles. There is coarse breath sounds in bilateral lower lobes. Patient on 3 L nasal cannula saturating 94%. Has supraclavicular and intercostal retractions. Abdominal: Soft and protuberant. Normal bowel sounds. No guarding or rebound. Extremities: No lower extremity edema. No tenderness. No bruising. Normal range of motion. Normal sensation. Skin: No rash or redness. Neurological: Moves all extremities. Does not follow commands. Alert. The rest of the physical exam is unremarkable Const Vital Signs: 05/26/25 19:48 05/26/25 19:57 05/26/25 20:15 Temperature 97.2 F L 97.2 F L Temperature Source Temporal Temporal Pulse Rate 101 H 99 107 H Respiratory Rate 23 H 30 H 29 H Blood Pressure 148/82 H 148/82 H Blood Pressure Mean 104 104 Pulse Ox 87 96 Oxygen Delivery Method Room Air Nasal Cannula Oxygen Flow Rate (L/min) 2 05/26/25 20:17 05/26/25 21:00 05/26/25 22:00 Temperature 97.8 F Temperature Source Temporal Pulse Rate 103 H 97 Respiratory Rate 26 H 28 H Blood Pressure 142/71 H 140/76 H Blood Pressure Mean 94 97 Pulse Ox 95 95 95 Oxygen Delivery Method Nasal Cannula Nasal Cannula Nasal Cannula Oxygen Flow Rate (L/min) 2 2 2 05/26/25 23:00 05/27/25 00:00 05/27/25 01:00 Temperature 99.5 F H 99.2 F H 98.8 F Temperature Source Core Core Core Pulse Rate 97 72 93 Respiratory Rate 28 H 28 H 24 H Blood Pressure 114/98 H 138/78 H 123/68 H Blood Pressure Mean 103 98 86 Pulse Ox 96 94 94 Oxygen Delivery Method Nasal Cannula Nasal Cannula Nasal Cannula Oxygen Flow Rate (L/min) 2 2 MDM MDM MDM Narrative Medical decision making narrative: Patient is a 79-year-old male presenting to the emergency department for respiratory distress after possible aspiration event. Patient was seen and examined. Vitals stable. He is tachycardic in the low 100s. BP is stable at 148/82. Respiratory rate in the high 20s to low 30s. Patient is saturating 94% on 3 L nasal cannula. Does appear to be in respiratory distress. Patient given 3 DuoNeb breathing treatments and Solu-Medrol due to diffuse wheezing. Has a history of asthma may be secondary to this. Patient given Zofran for the nausea and vomiting. Patient given Rocephin and azithromycin for likely respiratory versus urinary source of his infection. Differential includes but is not limited to: Aspiration, pneumonia, asthma exacerbation, ACS, PE EKG shows sinus tachycardia at a rate of 106. Very poor baseline due to the patient's moving. There does appear to be some nonspecific ST changes that do not meet STEMI criteria. CBC shows no leukocytosis and a normal hemoglobin. CMP with mild anion gap of 17, hyponatremia of 148. Lipase within normal limits. Lactate of of 3.8. Troponin of 21 with reflex of 27. Likely secondary to his possible sepsis. BNP within normal limits. Urinalysis with evidence of urinary tract infection. VBG with respiratory acidosis, pH of 7.162 and PCO2 of 63.9. I do not think the patient will tolerate BiPAP at this time. Will repeat a VBG after the breathing treatments were given. He does look much more comfortable is no longer tachypneic on my evaluation. Patient with continued vomiting. On my review of the CT, appears that he has a very distended stomach, will have nursing staff place a NG. I do not see a specific transition point however we will wait on radiology read. Repeat VBG with pH 7.206 and pCO2 of 46.4. Patient signed out to oncoming physician pending CT abdomen radiology read. Patient will require admission for likely aspiration pneumonia secondary to probable obstruction as well as UTI. Clinical impression: Acute hypoxic respiratory failure UTI History & Record Review Discussion w/independent historian: EMS personnel Lab Data Attestation: I reviewed the patient's lab results. Labs: Laboratory Results - last 24 hr 05/26/25 05/26/25 05/26/25 19:58 20:27 22:22 WBC 10.5 RBC 5.22 Hgb 14.4 Hct 48.2 MCV 92.3 MCH 27.6 MCHC 29.9 L RDW Std Deviation 50.3 H RDW Coeff of Brenden 14.8 H Plt Count 362 MPV 10.1 Immature Gran % (Auto) 0.800 Neut % (Auto) 55.5 Lymph % (Auto) 27.4 Martin % (Auto) 12.5 H Eos % (Auto) 3.2 Baso % (Auto) 0.6 Absolute Neuts (auto) 5.8 Absolute Lymphs (auto) 2.87 Nucleated RBC % 0 Sodium 148 H Potassium 3.5 Chloride 110 H Carbon Dioxide 21.3 Anion Gap 17 H BUN 21 H Creatinine 1.16 Estim Creat Clear Calc 44.66 L Est GFR (MDRD) Non-Af 65 BUN/Creatinine Ratio 18.4 Glucose 179 H Lactic Acid 3.8 H* Calcium 8.7 Total Bilirubin 0.22 AST 28 ALT 16 Alkaline Phosphatase 87 Troponin T High Sens 21 Troponin T Hi Sens 2 Hr 27 H Troponin T Hi Sens 4Hr NT pro BNP II 154 Total Protein 7.6 Albumin 3.8 Globulin 3.7 Albumin/Globulin Ratio 1.0 Lipase 90 H Urine Color Yellow Urine Clarity Sl. Cloudy Urine pH 8.0 Ur Specific [place] 1.010 Urine Protein 100 H Urine Glucose (UA) Normal Urine Ketones Negative Urine Occult Blood 25 H Urine Nitrite Positive H Urine Bilirubin Negative Urine Urobilinogen Normal Ur Leukocyte Esterase 500 H Urine RBC 0 SEEN Urine WBC 50-100 SEEN Ur Squamous Epith Cells 0 SEEN Triple Phos Crystals 2+ Amorphous Sediment 3+ Urine Bacteria 3+ Urine Mucus 0 SEEN 05/27/25 00:21 WBC RBC Hgb Hct MCV MCH MCHC RDW Std Deviation RDW Coeff of Brenden Plt Count MPV Immature Gran % (Auto) Neut % (Auto) Lymph % (Auto) Martin % (Auto) Eos % (Auto) Baso % (Auto) Absolute Neuts (auto) Absolute Lymphs (auto) Nucleated RBC % Sodium Potassium Chloride Carbon Dioxide Anion Gap BUN Creatinine Estim Creat Clear Calc Est GFR (MDRD) Non-Af BUN/Creatinine Ratio Glucose Lactic Acid Calcium Total Bilirubin AST ALT Alkaline Phosphatase Troponin T High Sens Troponin T Hi Sens 2 Hr Troponin T Hi Sens 4Hr 23 H NT pro BNP II Total Protein Albumin Globulin Albumin/Globulin Ratio Lipase Urine Color Urine Clarity Urine pH Ur Specific [place] Urine Protein Urine Glucose (UA) Urine Ketones Urine Occult Blood Urine Nitrite Urine Bilirubin Urine Urobilinogen Ur Leukocyte Esterase Urine RBC Urine WBC Ur Squamous Epith Cells Triple Phos Crystals Amorphous Sediment Urine Bacteria Urine Mucus ABG Data ABG results: ABG 05/26/25 05/26/25 20:40 23:27 Specimen Type VALDO VALDO Sample Site Not entered Not entered O2 % 2.0 2.0 VBG pH 7.16 L* 7.21 L VBG pO2 41 H 44 H VBG HCO3 23 18 L VBG Total CO2 25 20 L VBG O2 Sat (Calc) 61 69 VBG Base Excess -6 L -10 L POC Mix VBG pCO2 Pt Tmp 63.9 H 46.4 O2 Delivery Device Cannula Cannula Crit Call To/Read Back Yes Yes Blood Gas Notified Whom [place] Blood Gas Notified Time 20:42:38 23:28:44 Radiography Diagnostic Testing: Clinical Impression(s) from Imaging Studies Chest CTA 05/26/25 20:16 IMPRESSION: Limited CT evaluation of the chest due to motion artifact. No large filling defect suggestive of a pulmonary embolism is identified within the main pulmonary trunk or main pulmonary arteries. A small pulmonary embolism in the distal pulmonary arteries can not be excluded. Nonacute findings, as described above. Reading Location: [id number] Discharge Plan Triage Chief Complaint: Nausea/Vomiting ED Provider: Janna Arreola Dx/Rx/DC Orders Prescriptions: No Action denosumab 60 mg/mL syringe 60 mg subcut [id number] Qty: 1 2RF magnesium hydroxide [Milk of Magnesia] 400 mg/5 mL suspension 30 ml PO DAILY PRN (Reason: constipation) amlodipine 2.5 mg tablet 2.5 mg PO QHS Qty: 90 1RF loperamide [Anti-Diarrheal (loperamide)] 2 mg tablet 2 mg PO .COMPLEX PRN (Reason: diarrhea) Rx Instructions: 2 mg orally After 2 loose stools, give 2 tablets (4mg); may give 1 tablet (2mg) if loose stolls continue for diarrhea with no other symptoms PRN; memantine 10 mg tablet 10 mg PO BID Qty: 60 7RF galantamine 24 mg capsule,ext rel. pellets 24 hr 24 mg PO QAM Qty: 30 7RF Rx Instructions: administer with breakfast cholecalciferol (vitamin D3) [Vitamin D3] 50 mcg (2,000 unit) tablet 50 mcg PO DAILY (DME) Adult Pull-UP See Rx Instructions .Route .MEDSUPPLY Qty: 3 6RF Rx Instructions: As directed cholecalciferol (vitamin D3) 50 mcg (2,000 unit) capsule 50 mcg PO DAILY Qty: 90 1RF acetaminophen 500 mg tablet 1,000 mg PO Q8 PRN (Reason: fever or pain) 90 Days Qty: 180 3RF paroxetine HCl 20 mg tablet 20 mg PO DAILY Qty: 90 3RF Rx Instructions: once daily melatonin 5 mg tablet 5 mg PO HS Qty: 30 7RF calcium carbonate-vitamin D3 [Oyster Shell Calcium-Vit D3] 500 mg-5 mcg (200 unit) tablet 1 tab PO BID Qty: 90 3RF psyllium husk 0.4 gram capsule 0.4 g PO BID 90 Days Qty: 180 2RF Primary Care Provider: Maria Luz Chavira Referrals: Maria Luz Chavira MD [Primary Care Provider, Internal Medicine] Print Language: [place]an
[2025-05-26 20:29] LABS: Hematocrit 48.2 % (40-54); Hemoglobin 14.4 g/dL (13.0-16.5); Immature Granulocytes Count 0.080 X10^3/uL (0.0-0.0); Mean Corp Hgb Conc 29.9 g/dL (32-36); Mean Corpuscular Volume 92.3 fL (80-94); Mean Platelet Vol. 10.1 fl (6.2-12.0); NRBC Flagged by Analyzer 0 % (0-5); Platelet Count 362 K/mm3 (150-450); RBC Distribution Width CV 14.8 % (11.6-14.6); RBC Distribution Width SD 50.3 fl (35.1-43.9); Red Blood Count 5.22 M/mm3 (4.6-6.2); White Blood Count 10.5 K/mm3 (4.4-11.0)
--- OUTSIDE RECORDS SUMMARY | 2025-05-26 20:43 | XMS RPT_ITS | CCD ---
Author Organization [facility] Care Team Providers Care [place] Packer Name Role Phone Dr. Maria Luz Chavira Attending Provider [phone] Dr. Maria Luz Chavira Primary Care Provider [phone] Dr. Maria Luz Chavira Referring Provider [phone] Dr. Bobby Garcia Attending Provider [phone] Attending Provider Unavail an Mendez MD, Artemio Rissa Primary Care Provider Dr. Maria Luz Chavira Primary Care Provider [phone]) Dr. Maria Luz Chavira Referring Provider [phone] Dr. Bobby Garcia Attending Provider [phone] Maria Luz Chavira Primary Care Provider [phone] [phone]) Dr. Maria Luz Chavira Referring Provider [phone] Dr. Bobby Garcia Attending Provider [phone] Derian Valentin Attending Provider Unavailable Dr. Maria Luz Chavira Primary Care Provider [phone] [phone]) Dr. Maria Luz Chavira Attending Provider [phone] Dr. Maria Luz Chavira Referring Provider [phone] Dr. Maria Luz Chavira Primary Care Provider 1(33 0) Dr. Maria Luz Chavira Attending Provider [phone] Dr. Maria Luz Chavira Referring Provider [phone] Dr. Maria Luz Chavira Primary Care Provider 1(33 0) Cait, Dr. Braga Attending Provider [phone] Cait, Dr. Braga Referring Provider [phone] Dr. Bobby Garcia Attending Provider Cait, Dr. Braga Primary Care Provider 1(33 0) Cait, Dr. Braga Attending Provider [phone] Cait, Dr. Braga Referring Provider [phone] Cait ROSS, Dr. Braga Primary Care Provider Cait ROSS, Maria Luz Attending Provider Unavaila brayan Chavira MD, Dr. Braga Referring Provider [phone] [phone]) Kim Spann Attending Provider [phone] Cait ROSS, Dr. Braga Attending Provider [phone]) Unavailable Primary Care Provider Unavailabl e TESTTREE, KIM Referring Unavailable TESTKE, KIM Referring Unavailable TESTKIM LEAVITT Attending Unavailable Cait ROSS, Dr. Braga Primary Care Provider Cait ROSS, Dr. Braga Referring Provider [phone]) Kim Spann Attending Provider [phone] Neal Maguire Attending Provider [phone] Neal Maguire Referring Provider Radha ROSS, Dr. Rosales Attending Provider Radha ROSS, Dr. Rosales Referring Provider Cait ROSS, Dr. Braga Attending Provider [phone]) Cait ROSS, Dr. Braga Primary Care Provider Cait ROSS, Dr. Braga Referring Provider [phone]) NURSE, BIM Attending Provider Unavailable Bobby Garcia Referring Unavailable Bobby Garcia Attending Unavailable Oleghe, Efewongbe Primary Care Unavailable Oleghe OLS Efewongbe Attending Unavailabl e Oleghe, Efewongbe Primary Care Unavailable Oleghe, Efewongbe Primary Care Unavailable Tyree Snyder Attending Unavailable Oleghe, Efewongbe Primary Care Unavailable Oleghe OLS Efewongbe Attending Unavailabl e Oleghe, Efewongbe Attending Unavailable Oleghe, Efewongbe Primary Care Unavailable Oleghe, Efewongbe Referring Unavailable Capo Rivera Consulting Unavailable Rui Verma Admitting Unavailable Rui Verma Attending Unavailable Oleghe, Efewongbe Primary Care Unavailable Oleghe, Efewongbe Primary Care Unavailable Sementi, Belinda Glez Attending Unavaila ble Sementi, Belinda Glez Admitting Unavaila ble Sementi, Belinda Glez Referring Unavaila ble Oleghe, Efewongbe Primary Care Unavailable Oleghe JAELYN Efewongbe Attending UnavailCapo Welsh Attending Unavailable Capo Rivera Consulting Unavailable Rui Verma Admitting Unavailable Oleghe, Efewongbe Primary Care Unavailable Rui Verma Consulting Unavailable Rui Verma Referring Unavailable Oleghe, Efewongbe Primary Care Unavailable Oleghe, Efewongbe Referring Unavailable Kim Doshi Attending Unavailable Oleghe, Efewongbe Primary Care Unavailable Luciano BAGGAGEMASTER, Rosi Attending Unavailable Luciano BAGGAGEMASTER, Rosi Attending Unavailable Oleghe, Efewongbe Primary Care Unavailable Oleghe, Efewongbe Attending Unavailable Oleghe, Efewongbe Primary Care Unavailable Oleghe, Efewongbe Referring Unavailable Oleghe, Efewongbe Primary Care Unavailable Sementi, Belinda Glez Admitting Unavaila ble Sementi, Belinda Glez Attending Unavaila ble Sementi, Belinda Glez Consulting Unavaila ble Sementi, Belinda Glez Referring Unavaila ble Oleghe, Efewongbe Primary Care Unavailable Tyree Snyder Attending Unavailable Sementi, Belinda Glez Referring Unavaila ble Oleghe, Efewongbe Referring Unavailable Oleghe, Efewongbe Attending Unavailable Oleghe, Efewongbe Primary Care Unavailable Oleghe, Efewongbe Primary Care Unavailable Oleghe, Efewongbe Attending Unavailable Oleghe, Efewongbe Referring Unavailable Oleghe, Efewongbe Attending Unavailable Oleghe, Efewongbe Primary Care Unavailable Capo Rivera Attending Unavailable Oleghe, Efewongbe Primary Care Unavailable Oleghe, Efewongbe Referring Unavailable Nikki Taveras NP Attending Unavailable Virgil Quigley Referring Unavailable Oleghe, Efewongbe Primary Care Unavailable Oleghe, Efewongbe Primary Care Unavailable Oleghe OLS, Efewongbe Attending UnavailKim Bailey Attending Unavailable Oleghe, Efewongbe Primary Care Unavailable Oleghe, Efewongbe Referring Unavailable Rui Verma Attending Unavailable Oleghe, Efewongbe Referring Unavailable Oleghe, Efewongbe Primary Care Unavailable Neal Chun Attending Unavailable Bobby Garcia Attending Unavailable Oleghe, Efewongbe Referring Unavailable Oleghe, Efewongbe Primary Care Unavailable Neal Chun Attending Unavailable Oleghe, Efewongbe Primary Care Unavailable Neal Chun Referring Unavailable Medications Current Medications Medication Drug Class(es) Dates Sig (Normalized) Sig (Original) Adult Pull-UP (20 sources) Start: 12-12-2021 Adult Pull-UP Active 0 .Route .MEDSUPPLY 3 December 12, 2021 11:14am Urinary incontinence Incontinence of feces Unspecified urinary incontinence Full incontinence of feces urinary incontinence As directed Start: 12-12-2021 Adult Pull-UP Active 0 .Route .MEDSUPPLY December 12, 2021 10:14am As directed Start: 12-12-2021 Adult Pull-UP Active 0 .Route .MEDSUPPLY December 12, 2021 11:14am As directed Start: 12-10-2021 End: 12-12-2021 Adult Pull-UP Discontinued 0 .Route .MEDSUPPLY December 10, 2021 10:39am December 12, 2021 11:15am As directed Start: 12-10-2021 End: 12-12-2021 Adult Pull-UP Discontinued 0 .Route .MEDSUPPLY 3 December 10, 2021 12:00am December 12, 2021 11:15am Urinary incontinence Incontinence of feces Unspecified urinary incontinence Full incontinence of feces As directed Start: 12-10-2021 End: 12-12-2021 Adult Pull-UP Discontinued 0 .Route .MEDSUPPLY 3 December 09, 2021 11:00pm December 12, 2021 10:15am As directed Start: 12-10-2021 End: 12-12-2021 Adult Pull-UP Discontinued 0 .Route .MEDSUPPLY December 10, 2021 12:00am December 12, 2021 11:15am As directed amLODIPine 2.5 mg oral tablet (20 sources) Dihydropyridine Calcium Channel Susana Start: 02-28-2025 take 1 tablet by mouth at bedtime Amlodipine 2.5 mg tablet Active 2.5 mg PO AT BEDTIME 90 February 28, 2025 10:28am BP Start: 06-13-2021 take 1 tablet by asher once daily amLODIPine (NORVASC) 10 mg tablet Indications: Essential hypertension, benign Take 1 tablet by mouth once daily. 90 tablet 3 06/13/2021 Active Start: 02-10-2016 End: 02-28-2025 take 1 tablet by mouth once daily Amlodipine 5 mg tablet Discontinued 5 mg PO DAILY 90 October 09, 2024 4:32pm February 28, 2025 10:30am BP Comment on above: Take 1 tablet by asher once daily. bacitracin 0.5 unt/mg topical ointment (1 source) bacitracin 500 unit/gram ointment Apply to affected area two times a day. PRN for minor cuts and scrapes Active calcium carbonate 500 mg chewable tablet (7 sources) Start: 02-25-2024 take 1 tablet by mouth every six hours as needed Calcium Carbonate (Tums) 200 mg calcium (500 mg) tablet,chewable Active 400 mg PO EVERY 6 HOURS as needed for dyspepsia February 25, 2024 12:00am take 2 tablets by mo [facility] every six hours as needed for gastroesophageal reflux disease calcium carbonate (TUMS) 500 mg chew Rocco e by mouth. 2 Tablets every 6 hours as needed for heartburn/indigestion Active calcium polycarbophil 625 mg oral tablet (3 sources) Start: 11-03-2021 take 2 tablets by mouth twice daily calcium polycarbophil (FIBER-LAX) 625 mg tablet Take 2 tablets by mouth twice daily. 120 tablet 5 11/03/2021 Active Comment on above: Take 2 tablets by mo [facility] twice daily. COMPOUNDED PRESCRIPTION (3 sources) Start: 03-26-2017 COMPOUNDED PRESCRIPTION Indications: Essential hypertension, benign Weekly BP checks. 1 Each 03/26/2017 Active Start: 03-26-2017 COMPOUNDED PRE SCRIPTION Indications: Essential hypertension, benign Weekly BP checks. 1 Each 0 03/26/2017 Active Comment on above: Weekly BP checks. 1 ml denosumab 60 mg/ml prefilled syringe (8 sources) RANK Ligand Inhibitor Start: 12-25-2022 Denosumab 60 mg/mL syringe Active 60 mg SC every 6 months 1 December 25, 2022 12:00am Osteoporosis Start: 12-25-2022 Denosumab Acti ve 60 MG SC every 6 months December 24, 2022 11:00pm Fiber-Lax (13 sources) Start: 02-10-2016 take 2 tablets by [facility] once daily Fiber-Lax Active 2 TABLET PO DAILY February 10, 2016 8:10pm Start: 02-10-2016 End: 05-08-2022 Fiber-Lax Discontinued 2 {tb l} PO DAILY February 10, 2016 12:00am May 08, 2022 3:32pm Start: 02-10-2016 End: 05-08-2022 take 2 tablets by mouth once daily Fiber-Lax Discontinued 2 TABLET PO DAILY February 10, 2016 12:00am May 08, 2022 3:32pm Start: 02-10-2016 End: 05-08-2022 take 2 tablets by mouth once daily Fiber-Lax Discontinued 2 TABLET PO DAILY February 09, 2016 11:00pm May 08, 2022 2:32pm Start: 02-10-2016 take 2 tablets by [facility] once daily Fiber-Lax Active 2 TABLET PO DAILY February 10, 2016 12:00am loperamide hydrochloride 2 mg oral tablet (17 sources) Opioid Agonist Start: 02-07-2025 Loperamide (An ti-Diarrheal (Loperamide)) 2 mg tablet Active 2 mg PO .COMPLEX as needed February 07, 2025 12:00am 2 mg orally After 2 loose stools, give 2 tablets (4mg); may give 1 tablet (2mg) if loose stolls continue for diarrhea with no other symptoms PRN; Start: 02-25-2024 End: 03-27-2024 take 1 tablet by mouth every twenty-four hours Loperamide (Anti-Diarrheal (Loperamide)) 2 mg capsule Discontinued 4 mg PO DAILY as needed March 02, 2024 8:36am March 27, 2024 6:52am Give 2 tabs PO first dose. Then 1 tab after each loose stool until symptoms controlled; do not exceed 8 mg per 24 hrs loperamide HCl ( IMODIUM) 2 mg tab Take 2 mg by mouth as needed. Active Magnesium Hydroxide (7 sources) Start: 03-02-2024 take 30 mL by mouth once daily magnesium hydroxide (MILK OF MAGNESIA ORAL) Take 30 mL by mouth once daily. If no bowel movement within 3 days 03/02/2024 Active Start: 03-02-2024 take 1 mL by mouth o nce daily as needed for constipation Magnesium Hydroxide (Milk Of Magnesia) 400 mg/5 mL suspension Active 30 mL PO DAILY as needed for constipation March 02, 2024 12:00am psyllium 400 mg oral capsule (20 sources) Start: 07-07-2024 End: 07-13-2024 Psyllium Husk 0.4 gram capsu le Active 0.4 g PO TWICE A DAY 180 90 2 July 13, 2024 1:41pm constipation Start: 07-07-2024 End: 07-07-2024 Psyllium Husk 0.4 gram capsu le Discontinued 0.8 g PO TWICE A DAY 360 90 2 July 07, 2024 11:37am July 07, 2024 3:44pm constipation Start: 02-25-2024 End: 03-27-2024 Psyllium Husk 0.4 gram capsu le Discontinued 0.4 g PO TWICE A DAY 180 90 1 February 25, 2024 9:33am March 27, 2024 6:52am constipation Start: 09-14-2023 End: 02-25-2024 Psyllium Husk 0.4 gram capsu le Discontinued 0.8 g PO TWICE A DAY 360 90 0 February 24, 2024 4:50pm February 25, 2024 9:34am constipation Start: 09-08-2023 End: 09-14-2023 Psyllium Husk (Fiber Laxativ e (Psyllium Husk)) 0.52 gram capsule Discontinued 1.04 g PO TWICE A DAY 360 90 1 September 08, 2023 5:43pm September 14, 2023 11:21am constipation Start: 08-27-2023 End: 09-08-2023 Psyllium Husk (Fiber Laxativ e (Psyllium Husk)) 0.52 gram capsule Discontinued 0.52 g PO TWICE A DAY 180 August 27, 2023 10:01am September 08, 2023 5:43pm constipation Start: 05-12-2022 End: 05-12-2022 Psyllium Husk (Fiber Laxativ e (Psyllium Husk)) 0.52 gram capsule Discontinued 1.04 g PO TWICE A DAY May 12, 2022 11:35am May 12, 2022 3:30pm constipation Start: 05-08-2022 End: 08-27-2023 Psyllium Husk (Fiber Laxativ e (Psyllium Husk)) 0.52 gram capsule Discontinued 0 PO DAILY 180 April 22, 2023 1:01pm August 27, 2023 11:38am constipation 2 capsules orally daily; psyllium husk (METAMUCIL ORA L) (1 source) psyllium husk (M ETAMUCIL ORAL) Take by mouth once daily. Active Completed/Discontinued Medications Medication Drug Class(es) Dates Sig (Normalized) Sig (Original) acetaminophen 500 mg oral tablet (20 sources) Start: 04-12-2024 End: 07-11-2024 take 2 tablets by mouth every eight hours Acetaminophen 500 mg tablet Discontinued 1000 mg PO EVERY 8 HOURS 180 30 3 July 06, 2024 8:00pm July 11, 2024 1:42pm Start: 02-25-2024 End: 04-12-2024 take 2 tablets by mouth every four hours as needed for pain Acetaminophen 325 mg tablet Discontinued 650 mg PO Q4H as needed for pain February 25, 2024 12:00am April 12, 2024 8:39am take 1 tablet by asher th every eight hours as needed acetaminophen (TYLENOL) 500 mg tablet Take 500 mg by mouth every 8 hours as needed for pain or fever (specify temp.). Active [id number] 200 actuat albuterol 0.09 mg/actuat metered dose inhaler (20 sources) beta2-Adrenergic Agonist Start: 09-28-2017 End: 02-25-2024 Albuterol Sulfate 90 mcg/actuation HFA aerosol inhaler Discontinued 1 - 2 NMA INHALATION EVERY 4 HOURS NEEDED as needed for Sob &/Or Wheezing 1 0 September 28, 2017 8:26am February 25, 2024 9:14am Start: 09-28-2017 take 1 puff(s) by in halation every four hours as needed Albuterol Sulfate Active 1 - 2 PUFF INHALATION EVERY 4 HOURS NEEDED 1 September 28, 2017 7:26am Start: 02-12-2016 End: 09-28-2017 Albuterol Sulfate 1 INHALER inhaler Discontinued 1 - 2 NMA INHALATION EVERY 4 HOURS NEEDED as needed for Sob &/Or Wheezing 1 0 February 12, 2016 12:00am September 28, 2017 8:27am Start: 02-12-2016 End: 09-28-2017 take 1 puff(s) by inhalation every four hours as needed Albuterol Sulfate Discontinued 1 - 2 PUFF INHALATION EVERY 4 HOURS NEEDED 1 February 11, 2016 11:00pm September 28, 2017 7:27am apixaban 5 mg oral tablet (12 sources) Factor Xa Inhibitor Start: 03-30-2024 End: 08-30-2024 take 2.5 mg by mouth twice daily Apixaban (Eliquis) 5 mg Tablet Discontinued 2.5 mg PO TWICE A DAY 7 7 0 April 12, 2024 12:00am August 30, 2024 1:37pm azithromycin 250 mg oral tablet (13 sources) Macrolide Antimicrobial Start: 09-28-2017 End: 11-24-2017 take 1 tablet by mouth once daily Azithromycin 250 mg tablet Discontinued 250 mg PO daily 6 0 September 28, 2017 12:00am November 24, 2017 8:18am bismuth subsalicylate 17.5 mg/ml oral suspension (6 sources) Bismuth Start: 02-25-2024 End: 02-07-2025 Bismuth Subsalicylate (Pepto-Bismol) 262 mg/15 mL suspension Discontinued 524 mg PO Q4H as needed for diarrhea February 25, 2024 12:00am February 07, 2025 8:19am do not exceed 8 doses in a 24 hour period calcium carbonate 1250 mg / cholecalciferol 200 unt oral tablet (20 sources) Vitamin D Start: 04-07-2021 End: 09-19-2024 Calcium Carbonate-Vitamin D3 (Oyster Shell Calcium-Vit D3) 500 mg-5 mcg (200 unit) tablet Discontinued 1 {tbl} PO TWICE A DAY 90 April 04, 2024 12:22pm September 19, 2024 8:06pm for osteoporosis Start: 02-10-2016 End: 07-27-2022 Calcium Carbonate-Vitamin D3 1 EACH tablet Discontinued 1 NMA PO DAILY February 10, 2016 12:00am July 27, 2022 1:47pm Start: 02-10-2016 End: 07-27-2022 Calcium Carbonate-Vitamin D3 Discontinued 1 EACH PO DAILY February 09, 2016 11:00pm July 27, 2022 12:47pm Comment on above: Take 1 tablet by asher th twice daily with meals. Cetylpyridinium Chloride lozenge (6 sources) Start: 03-02-20 End: 03-27-20 Cetylpyridinium Chloride lozenge Discontinued NMA MUCOUS MEM EVERY 2 HOURS NEEDED March 02, 2024 12:00am March 27, 2024 6:51am cholecalciferol 0.05 mg oral capsule (20 sources) Vitamin D Start: 08-20-19 End: 06-21-20 take 1 capsule by mouth once daily Cholecalciferol (Vitamin D3) 50 mcg (2,000 unit) capsule Discontinued 50 ug PO DAILY 90 June 13, 2024 5:21pm June 21, 2024 1:21pm vit d deficiency docusate sodium 50 mg / sennosides, custodial 8.6 mg oral tablet (12 sources) Start: 04-12-20 End: 07-07-19 Sennosides-Docusate Sodium (Stimulant Laxative Plus) 8.6-50 mg tablet Discontinued 2 {tbl} PO TWICE A DAY as needed for constipation 180 July 06, 2024 8:00pm July 07, 2024 11:36am donepezil hydrochloride 10 mg oral tablet (20 sources) Start: 11-12-19 End: 04-23-20 take 1 tablet by mouth once daily in the morning Donepezil 10 mg tablet Discontinued 10 mg PO EVERY MORNING 30 3 February 03, 2022 8:36am April 23, 2022 8:23pm Start: 11-11-2021 End: 08-02-2022 take 1 tablet by mouth once daily in the morning Donepezil 5 mg tablet Discontinued 5 mg PO EVERY MORNING 30 0 November 11, 2021 12:00am February 03, 2022 8:36am 24 hr galantamine hydrobromide 16 mg extended release oral capsule (20 sources) Start: 03-02-2024 End: 03-02-2024 take 1 capsule by mouth once daily at breakfast Galantamine 16 mg capsule,ext rel. pellets 24 hr Discontinued 16 mg PO EVERY MORNING March 02, 2024 12:00am March 02, 2024 8:55am administer with breakfast Start: 10-28-2023 End: 02-07-2025 take 1 capsule by mouth once daily at breakfast Galantamine 24 mg capsule,ext rel. pellets 24 hr Discontinued 24 mg PO EVERY MORNING 30 11 March 02, 2024 12:00am February 07, 2025 8:30am dementia administer with breakfast Start: 07-12-2023 End: 10-28-2023 take 1 capsule by mouth once daily in the morning Galantamine 16 mg capsule,ext rel. pellets 24 hr Discontinued 16 mg PO EVERY MORNING 30 3 July 12, 2023 6:13pm October 28, 2023 11:48am Start: 12-29-2022 End: 07-12-2023 take 8 mg by mouth once daily in the morning Galantamine 16 mg capsule,ext rel. pellets 24 hr Discontinued 16 mg PO EVERY MORNING 30 5 December 29, 2022 12:00am July 12, 2023 6:14pm Administer with breakfast. Begin after completing one month course of galantamine ER 8mg qAM Start: 12-29-2022 End: 10-28-2023 take 1 capsule by mouth once daily at breakfast Galantamine 8 mg capsule,ext rel. pellets 24 hr Discontinued 8 mg PO EVERY MORNING 30 0 December 29, 2022 12:00am October 28, 2023 11:48am administer with breakfast guaiFENesin 20 mg/ml oral solution (6 sources) Start: 02-25-2024 End: 03-27-2024 take 600 mg by mouth every four hours as needed Guaifenesin 100 mg/5 mL liquid Discontinued 600 mg PO Q4H as needed February 25, 2024 12:00am March 27, 2024 6:52am memantine hydrochloride 10 mg oral tablet (20 sources) [id number] ate Receptor Antagonist Start: 04-23-2022 End: 02-07-2025 take 1 tablet by mouth twice daily Memantine 10 mg tablet Discontinued 10 mg PO TWICE A DAY 60 4 June 21, 2023 5:40pm October 28, 2023 11:53am Start: 04-23-2022 End: 05-14-2022 take 1 tablet by mouth once daily, then take 1 tablet by mouth twice daily, then take 1 tablet by mouth once daily in the morning, then take 2 tablets by mouth once daily in the evening Memantine 5 mg tablet Discontinued 5 mg PO .COMPLEX 42 21 0 April 23, 2022 12:00am May 13, 2022 1:00am May 14, 2022 1:04am 1 tablet PO daily for 1 week then 1 tablet BID for one week then 1 tablet qAM and two tablets qPM for 1 week oxyCODONE hydrochloride 5 mg oral tablet (6 sources) Opioid Agonist Start: 04-12-2024 End: 04-21-2024 take 1 tablet by mouth every four hours as needed for pain Oxycodone 5 mg Tablet Discontinued 5 mg PO EVERY 4 HOURS NEEDED as needed for Pain Score 4-10 Or Pre Pt/Ot 42 7 0 April 12, 2024 April 21, 2024 8:47am Closed fracture of right hip PARoxetine hydrochloride 20 mg oral tablet (20 sources) Serotonin Reuptake Inhibitor Start: 02-10-2016 End: 09-19-2024 take 1 tablet by mouth once daily Paroxetine Hcl 20 mg tablet Discontinued 0 .ROUTE .COMPLEX 90 1 March 15, 2024 1:00pm March 30, 2024 12:57pm TAKE 1 TABLET BY MOUTH ONCE DAILY DX: MOOD DISORDER Comment on above: Take 1 tablet by asher once daily. sennosides, custodial 8.6 mg oral tablet (5 sources) Start: 09-15-2024 End: 02-07-2025 take 2 tablets by mouth twice daily Sennosides (Senna) 8.6 mg tablet Discontinued 17.2 mg PO TWICE A DAY September 15, 2024 12:00am February 07, 2025 8:19am traMADol hydrochloride 50 mg oral tablet (6 sources) Opioid Agonist Start: 04-12-2024 End: 09-15-2024 take 1 tablet by mouth every six hours as needed for pain Tramadol 50 mg Tablet Discontinued 50 mg PO EVERY 6 HOURS NEEDED as needed for Pain Score 1-3 Or Pre Pt/Ot 28 7 0 April 12, 2024 12:00am September 15, 2024 3:01pm traZODone hydrochloride 50 mg oral tablet (8 sources) Serotonin Reuptake Inhibitor Start: 02-07-2025 End: 02-28-2025 take 1 tablet by mouth at bedtime Trazodone 50 mg tablet Discontinued 50 mg PO AT BEDTIME 30 7 February 07, 2025 8:32am February 28, 2025 10:02am triamcinolone acetonide 40 mg/ml injectable suspension (1 source) Corticosteroid Start: 09-13-2018 End: 09-13-2018 Kenalog (triamcinolone acetonide) 40 mg/mL suspension for injection Discontinued 60 MG INTRAARTIC ONCE 1.5 September 13, 2018 8:35am September 13, 2018 9:04am Problems Active Problems Problem Classification Problem Date Documented Da te Episodic/Chronic Adjustment disorders (3 sources) Adjustment disorder with depressed mood; Translations: [Adjustment disorder with depressed mood] Onset: 08-15-2007 08-15-2007 Chronic Asthma (17 sources) Asthma; Translations: [Unspecified asthma, uncomplicated] Chronic Delirium, dementia, and amnestic and other cognitive disorders (20 sources) Dementia; Translations: [Unspecified dementia without behavioral disturbance] Onset: 04-11-2024 Chronic Developmental disorders (20 sources) Intellectual disability; Translations: [Unspecified intellectual disabilities] Onset: 04-11-2024 Chronic Essential hypertension (20 sources) Hypertensive disorder; Translations: [Essential (primary) hypertension] Onset: 12-04-2013 Chronic Fracture of neck of femur (hip) (6 sources) Closed fracture of hip; Translations: [Fracture of unspecified part of neck of right femur, initial encounter for closed fracture] 04-21-2024 Episodic Comment on above: s/p cephalo medullar y fixation right hip 03/28/[address] Rivera Hemorrhoids (13 sources) Hemorrhoids; Translations: [Unspecified hemorrhoids] 06-08-2017 Episodic Hyperplasia of prostate (16 sources) Benign prostatic hyperplasia; Translations: [Benign prostatic hyperplasia without lower urinary tract symptoms] Onset: 04-11-2024 Chronic Mood disorders (6 sources) Depressive disorder; Translations: [Depression] 04-04-2024 Chronic Nutritional deficiencies (12 sources) Vitamin D deficiency; Translations: [Vitamin D deficiency, unspecified] Onset: 02-16-2025 04-04-2024 Chronic Nutritional deficiencies (6 sources) Calcium deficiency; Translations: [Dietary calcium deficiency] 04-04-2024 Episodic Open wounds of head; neck; and trunk (6 sources) Scalp laceration; Translations: [Laceration without foreign body of scalp, initial encounter] 03-31-2024 Episodic Osteoporosis (20 sources) Osteoporosis; Translations: [Age-related osteoporosis without current pathological fracture] Onset: 07-15-2005 Chronic Other acquired deformities (13 sources) Acquired kyphosis; Translations: [Unspecified kyphosis, site unspecified] 03-02-2018 Chronic Other acquired deformities (13 sources) Scoliosis deformity of spine; Translations: [Other forms of scoliosis, site unspecified] 06-08-2017 Chronic Other aftercare (6 sources) Follow-up status; Translations: [Encounter for other orthopedic aftercare] 04-21-2024 Episodic Other connective tissue disease (1 source) Calcaneal spur; Translations: [Calcaneal spur, unspecified foot] 12-11-2024 Episodic Other connective tissue disease (1 source) Calcaneal spur, unspecified foot; Translations: [Calcaneal spur, unspecified laterality] Onset: 12-11-2024 Episodic Other ear and sense organ disorders (13 sources) Hearing loss; Translations: [Unspecified hearing loss, unspecified ear] 08-28-2021 Chronic Other ear and sense organ disorders (1 source) Unspecified hearing loss, unspecified ear; Translations: [Unspecified hearing loss] Chronic Other ear and sense organ disorders (16 sources) Impacted cerumen; Translations: [Impacted cerumen, unspecified ear] 11-11-2021 Episodic Other ear and sense organ disorders (2 sources) Impacted cerumen, unspecified ear; Translations: [Impacted cerumen] Episodic Other gastrointestinal disorders (7 sources) Finding of frequency of defecation; Translations: [Change in bowel habit] 02-25-2024 Episodic Other hereditary and degenerative nervous system conditions (9 sources) Essential tremor; Translations: [Essential tremor] 03-02-2024 Chronic Other injuries and conditions due to external causes (6 sources) Closed injury of head; Translations: [Unspecified injury of head, initial encounter] 03-31-2024 Episodic Other injuries and conditions due to external causes (11 sources) H/O: hip fracture; Translations: [Personal history of (healed) traumatic fracture] 08-30-2024 Episodic Other lower respiratory disease (20 sources) Dyspnea; Translations: [Shortness of breath] 06-08-2017 Episodic Other lower respiratory disease (13 sources) Wheezing; Translations: [Wheezing] 09-13-2018 Episodic Other lower respiratory disease (13 sources) Hypoxia; Translations: [Hypoxemia] 06-08-2017 Episodic Other nervous system disorders (13 sources) Impaired cognition; Translations: [Other symptoms and signs involving cognitive functions and awareness] 08-28-2021 Episodic Other screening for suspected conditions (not mental disorders or infectious disease) (4 sources) Raised prostate specific antigen; Translations: [Elevated prostate specific antigen [PSA]] Onset: 08-31-2020 08-31-2020 Episodic Other upper respiratory disease (13 sources) Seasonal allergy; Translations: [Other seasonal allergic rhinitis] 08-28-2021 Chronic Other upper respiratory disease (13 sources) Tracheobronchomalaci a; Translations: [Other specified diseases of upper respiratory tract] 11-24-2017 Episodic Silva-; endo-; and myocarditis; cardiomyopathy (except that caused by tuberculosis or sexually transmitted disease) (13 sources) Pericardial effusion; Translations: [Pericardial effusion (noninflammatory)] 06-08-2017 Episodic Pleurisy; pneumothorax; pulmonary collapse (13 sources) Pleural effusion; Translations: [Pleural effusion, not elsewhere classified] 06-08-2017 Episodic Residual codes; unclassified (13 sources) History of orchiectomy; Translations: [Other specified postprocedural states] 08-15-2019 Episodic Residual codes; unclassified (1 source) Pain; Translations: [Pain, unspecified] 12-11-2024 Episodic Residual codes; unclassified (1 source) Pain, unspecified; Translations: [Pain] Onset: 12-11-2024 Episodic Residual codes; unclassified (6 sources) Insomnia; Translations: [Insomnia, unspecified] 02-07-2025 Episodic Sprains and strains (13 sources) Shoulder strain; Translations: [Strain of unspecified muscle, fascia and tendon at shoulder and upper arm level, right arm, initial encounter] 07-25-2016 Episodic Superficial injury; contusion (13 sources) Contusion of face; Translations: [Contusion of other part of head, initial encounter] 07-25-2016 Episodic Past or Other Problems Problem Classification Problem Date Documented Date Episodic/Chronic Acute posthemorrhagic anemia (8 sources) Acute posthemorrhagic anemia; Translations: [Acute posthemorrhagic anemia] Onset: 04-21-2024 04-21-2024 Episodic Attention-deficit, conduct, and disruptive behavior disorders (1 source) Other symptoms and signs involving appearance and behavior; Translations: [Other symptoms and signs involving appearance and behavior] Onset: 04-11-2024 Episodic E Codes: Fall (8 sources) Accidental fall ; Translations: [Unspecified fall, initial encounter] Onset: 04-11-2024 04-21-2024 Episodic Fluid and electrolyte disorders (14 sources) Hypernatremia; Translations: [Hyperosmolality and hypernatremia] Onset: 04-11-2024 04-21-2024 Episodic Fracture of neck of femur (hip) (18 sources) Fracture of bone of hip region; Translations: [Fracture of unspecified part of neck of left femur, initial encounter for closed fracture] Onset: 04-11-2024 07-08-2024 Episodic Malaise and fatigue (13 sources) Asthenia; Translations: [Other malaise] Onset: 04-11-2024 03-31-2024 Episodic Other aftercare (1 source) Encounter for other orthopedic aftercare; Translations: [Encounter for other orthopedic aftercare] Onset: 08-04-2024 Episodic Other injuries and conditions due to external causes (1 source) Personal history of (healed) traumatic fracture; Translations: [Personal history of (healed) traumatic fracture] Onset: 11-01-2024 Episodic Other lower respiratory disease (2 sources) Lung mass; Translations: [Other nonspecific abnormal finding of lung field] Onset: 2016 Resolved: 08-25-2018 08-25-2018 Episodic Other nervous system disorders (2 sources) Other symptoms and signs involving cognitive functions and awareness; Translations: [Other signs and symptoms involving cognition] Onset: 04-11-2024 Episodic Other skin disorders (2 sources) Sebaceous cyst of skin; Translations: [Sebaceous cyst] Onset: 12-17-2016 Resolved: 01-04-2017 01-04-2017 Episodic Other upper respiratory disease (1 source) Other specified diseases of upper respiratory tract; Translations: [Other specified diseases of upper respiratory tract] Onset: 04-11-2024 Episodic Results Test Name Value Interpretation Reference Range Facility Office Visit Reporton 2024 Office Visit Report [facility] [address] [place] [address] OFFICE VISIT Date of Service: 03/02/25 MR#: [id number] Acct: [id number] Patient: AMOR PETE Rep #: [id number] : 1945 Provider: GOLDY NURSE Age/Sex: 79/M Location: [facility] Status: Signed Intake Vital Signs 02/28/25 10:04 Height 5 ft 4 in Weight: 118 lb BMI 20.2 BP 98/58 L Blood Pressure Location Lt brachial Position Sitting Respiration 16 Temp 98.1 F Temp Source Temporal Intake Visit Reasons: PROLIA-$0 Chief Complaint: prolia injection Ancillary Services Manager Required: Yes Accompanied by: Caregiver Is patient in pain?: No Allergies No Known Allergies Allergy (Verified 03/02/25 09:12) Have you fallen in the past year?: No Nurse's Note: patient given injection in left upper arm denies any issues at this time Office Procedures Injections Is this a patient provided medication?: No Office Meds Prolia 60 mg/mL subcutaneous syringe Performing Provider: Maria Luz Chavira MD Performing Location: [facility] Administered by: Luba Garcia on 03/02/25 09:15 Dose Route Admin Location Dispensed Lot Number Expiration Date [facility] Man ufacturer 60 mg subcut Left upper arm 1 mL [id number] 09/01/27 97638-385-17 AMGEN Comments: injection given paddy without issue patient tolerated well Assessment and Plan Assessment and Plan (1) Osteoporosis: Status: Chronic Orders: Orders Prolia Injection 03/02/25 M81.0 - Age-related osteoporosis without current pathological fracture Clinical Quality Measures Falls Risk Screening/Assistive Devices Have you fallen in the past year?: No 03/08/25 1706 Date Maria Luz Chavira MD Cosigner Signature: Date (if applicable) CC: [facility] Office Vis iton 02-28-2025 Internal Medicine Office Visit [facility] [address] [place] [address] [place] [address] OFFICE VISIT Date of Service: 02/28/25 MR#: [id number] Acct: [id number] Name: AMOR PETE Rep #: [id number] : 1945 Provider: Dr. Maria Luz le MD Age/Sex: 79/M [place] [facility] Status: Signed Intake Vital Signs 08/30/24 09:19 02/28/25 10:04 Height 5 ft 4 in 5 ft 4 in Weight: 118 lb BMI 20.2 BP 98/58 L Blood Pressure Location Lt brachial Position Sitting Respiration 16 Temp 98.1 F Temp Source Temporal Intake Visit Reasons: 6 M FU Chief Complaint: fu Ancillary Services Manager Required: No Accompanied by: Self Is patient in pain?: No Allergies No Known Allergies Allergy (Verified 02/28/25 09:56) Medications ???Medication ???Instructions ???Recorded ???Confirmed ???Type Adult Pull-UP #3 ea 12/12/21 02/28/25 Rx denosumab 60 mg/mL subcutaneous 60 mg subcut [id number] Osteoporosis 12/25/22 02/28/25 Rx syringe #1 mL calcium carbonate (Tums) 400 mg PO Q6H PRN dyspepsia 02/28/25 History magnesium hydroxide 400 mg/5 mL 30 ml PO DAILY PRN constipation 02/28/25 History oral suspension (Milk of Magnesia) cholecalciferol (vitamin D3) 50 50 mcg PO DAILY vit d deficiency 1 08/22/23 02/28/25 Rx mcg (2,000 unit) capsule #90 caps acetaminophen 500 mg tablet 1,000 mg (2 x 500 mg) PO Q8 PRN 02/28/25 Rx fever or pain 3 months #180 tabs psyllium husk 0.4 gram capsule 0.4 g PO BID constipation 3 months 07/13/24 02/28/25 Rx #180 caps calcium 500 mg (as 1 tab PO BID for osteoporosis #90 09/19/24 02/28/25 Rx carbonate)-vitamin D3 5 mcg (200 tabs unit) tablet (Oyster Shell Calcium-Vitamin D3) paroxetine HCl 20 mg tablet 20 mg PO DAILY Mood #90 tabs 09/1902/28/25 Rx galantamine 24 mg 24 hr 24 mg PO QAM dementia #30 caps 12/2702/28/25 Rx capsule,extended release loperamide 2 mg tablet 2 mg PO .COMPLEX PRN 02/07/2502/03 History (Anti-Diarrheal (loperamide)) memantine 10 mg tablet 10 mg PO BID Dementia #60 tabs 12/2702/28/25 Rx amlodipine 2.5 mg tablet 2.5 mg PO QHS BP #90 tabs 02/28/25 02/28/25 Rx Have you fallen in the past year?: No Nurse's Note: patient was prescribed trazodone but guardian doesnt want him taking it feels its too strong would prefer mel[facility] History Fracture of left hip requiring operative repair History of hip fracture Hip fracture, left Impacted cerumen of both ears Closed head injury without concussion Laceration of scalp Recent change in frequency of bowel movements BPH (benign prostatic hyperplasia) Cognitive and behavioral changes Osteoporosis Hearing loss Seasonal allergies Dyspnea Other kyphoscoliosis and scoliosis Hypertension Hemorrhoid Tracheobronchomalaci a Mental retardation Pericardial effusion Pleural effusion Hypoxia Shortness of breath Surgical History History of surgical removal of testicle S/P laparoscopic cholecystectomy Family History Father Alzheimer disease Mother Cancer Sister Cancer Social History Smoking Status: Former smoker second hand exposure: No alcohol intake: never substance use type: does not use caffeine: Yes what type of physical activity do you participate in: none seatbelt use: always HPI HPI Chief Complaint: fu Details: AMOR PETE, is a 79-year-old male presenting for follow-up of his chronic conditions. Here with his caregiver. The patient has a history of essential hypertension, with blood pressure readings that tend to be lower in the mornings, approximately 100/65 mmHg, and rise to 123-125/70 mmHg later in the day, reaching a maximum of 130/70 mmHg by the evening. The patient is currently on amlodipine, which he takes at 6:30 AM. Recent observations have raised concerns about blood pressure being too low in the morning, blood pressure today at 98/58 mmHg. No falls. History of osteoporosis on Prolia. Status post fracture over a year ago however since his last visit, no concerns for fracture. He is also on vitamin D supplements. History of dementia, follows up with neurology. On galantamine and memantine. Sleep patterns have been a challenge; the patient experiences difficulty in initiating sleep and has occasionally been noted to attempt to get out of bed at night. A bed alarm is utilized to prevent nocturnal falls. Previously prescribed trazodone for sleep issues has been met with some resistance from his guardian, leading to a discussion about potentially trying melatonin as an alternative, especially since these sleep disturbance (more content not included)... [facility] Vitamin D 1,25-Dihydroxyon 0 02-12-2025 VIT D 1,25 DIHY 37.2 pg/mL Normal 24.8-81.5 [facility] Comment on above: Result Comment: Perf ormed at: - [facility] [id number] [employer] Odd: Nico Palm MD, Phone: [phone] Performed By: #### L [phone] ####[facility] [id number] [place], [address] Neurology Visit Reporton Neurology Visit Report [facility] [address] [place] [address], [address] [place], [place] [address] OFFICE VISIT Date of Service: 02/07/25 MR#: [id number] Acct: [id number] Name: AMOR PETE Rep #: [id number] : 1945 Provider: Dr. Bobby nichole MD Age/Sex: 79/M Location: [facility] Status: Signed HPI HPI Details: Interim History: Amor returns for follow-up visit. He has a history of moderate lifelong intellectual disability, obsessive-compulsive disorder, benign prostatic hypertrophy, anxiety disorder, osteoporosis, scoliosis and hypertension. He is accompanied by a caregiver. The patient has been living in a custodial setting since the early or prior. Beginning in 2021, he exhibited gradual cognitive and related functional decline. At his baseline, he had been able to dress himself and feed himself and has had some independence in performing tasks such as laundry however since 2021, he has required increased guidance and supervision and he has been slower in completing tasks and has been more easily distracted. At his baseline, he has had some ability to converse however this has declined and he has appeared to have increased difficulty comprehending conversations and directions. Memantine was initiated in 2021. His forgetfulness subsequently worsened further. He has a tendency to repeat conversations. Galantamine ER was initiated in 2022. He has had no further decline of his cognitive status during the day since initiation of galantamine ER however he is exhibiting increased confusion at night and has some insomnia. He has tolerated galantamine ER 24 mg and memantine well. Concern is raised that he may be having some hearing loss; he has seen an ENT specialist and also [facility]. He has been involved in a day program daily and has been less active in activities in this program. He has had some anxiety. He has not had depression. Donepezil (initiated in 2021) did not result in improvement in his memory and caused restlessness. In 2021, he began exhibiting a tremor in the hands that is worsened with action. The tremor is commonly more pronounced in the morning and during this time he may have some functional impairment in holding a cup otherwise he is not experiencing other significant functional impairment due to his tremor. His gait has been slightly slower. He does not have any history of neuroleptic use according to the caregiver. He takes paroxetine for his anxiety. Physical Exam: Neuro: The patient is awake; he is markedly bradyphrenic; speech is slow and dysarthric; he is unable to raise his hand to command; he exhibits a paucity of speech; he is disoriented to place; a mild tremor is noted in the hands at rest; no rigidity is noted in the wrists Heart: Regular rate and rhythm Neck: No bruits HEENT: Tympanic membranes are not visualized due to cerumen Supplemental Info Head CT (07/24/16): FINDINGS: Normal soft tissue structures. Normal calvarium. Normal size ventricles and extra-axial spaces for the patient's age. Normal white matter tracts of the cerebral hemispheres. There are small punctate calcifications of the basal ganglia which are seen in the aging brain as a normal variant. Normal brainstem. Normal cerebellum. There is no intracranial hemorrhage. There are no findings of an acute ischemic infarction. Mucosal thickening of the maxillary sinuses bilaterally. IMPRESSION: Chronic involutional changes of the brain. Mucosal thickening of the maxillary sinus bilaterally. CBC, CMP, lipid profile, PSA (08/28/2021): PSA 9.18, Glucose 110 CBC, CMP (12/10/2021): Unremarkable. Total PSA (12/10/2021): 10.3 (elevated). TSH, folate, vitamin D, B12, thiamine (04/23/2022): Normal. Head MRI without contrast (05/19/2022): FINDINGS: Mild to moderate atrophy with extensive periventricular white matter ischemic changes without mass effect or restricted diffusion. Chronic ischemic changes of the anjelica. 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 Normal bilateral basal ganglia. Normal thalami. There is no extra-axial fluid accumulation. Normal flow voids within the major intracranial circulation suggesting patency by spin echo criteria. Normal sella turcica, pituitary gland, infundibular stalk, optic chiasm and hypothalamus. Normal tectal plate and pineal gland. Normal midbrain, and medulla. Mild chronic ischemic changes of the cerebral hemispheres bilaterally Normal basal cisterns. Normal bilateral temporal bones. Normal bilateral internal auditory canals. Postsurgical changes of the orbits. Normal visualized paranasal sinuses. Normal calvarium and skull base. Normal visualized soft tissue structures. Normal visualized upper cervical spine. IMPRESSION: Atrophy and advanced periventricular white matter ischemic changes without evidence for acute infarct. Mild chronic (more content not included)... [facility] Serum or plasma calcitriol m easurement (mass/volume)Ordered By: Bobby Garcia on 02-07-2025 1,25-dihydroxyvitamin D3 [Mass/Vol] 37.2 pg/mL 24.8-81.5 [facility] Comment on above: Performed at: - [address] [id number] Director: Nico Palm MD, Phone: [phone] Chest PA and Lateralon 01-17 Chest PA and Lateral [facility] [address] [place] [address] Chest PA and Lateral MR#: [id number] Acct: [id number] Name: AMOR PETE Rep #: [id number] : 1945 M 79 From: Daniel Tucker MD PCP: Dr. Maria Luz Chavira MD Status: REG CLI Study: Chest PA and Lateral Date of Exam: 01/17/25 Exam# [id number] Ordering Dr: Neal Chun PA EXAM: XR Chest, 2 Views CLINICAL INDICATION: ABNORMAL PULSE OXIMETRY TECHNIQUE: Frontal and lateral views of the chest. COMPARISON: No relevant prior studies available. FINDINGS: LUNGS AND PLEURAL SPACES: Unremarkable. No consolidation. No pneumothorax. HEART: Unremarkable. No cardiomegaly. MEDIASTINUM: Unremarkable. Normal mediastinal contour. BONES/JOINTS: Unremarkable. No acute fracture. RAD/Chest PA and Lateral IMPRESSION: No acute cardiopulmonary process. Reading Location: [facility] CC: Dr. Maria Luz Chavira MD; MJ Coronel Jewelry Inspector: Signed [facility]gent Care Visit Reporton 0 01-17-2025 Urgent Care Visit Report [facility] [address], [address] [place] [address] OFFICE VISIT Date of Service: 01/17/25 MR#: [id number] Acct: [id number] Name: AMOR PETE Rep #: [id number] : 1945 Provider: MJ Coronel Age/Sex: 79/M Location: [facility] Status: Signed Intake Vital Signs 11/01/24 12:43 01/17/25 10:26 01/17/25 11:17 Height 5 ft 4 in Weight: 118 lb 8 oz BMI 20.3 BP 110/64 142/76 H Blood Pressure Location Rt brachial Lt brachial Position Sitting Sitting Respiration 16 15 14 Pulse 66 88 86 Pulse Source Monitor NIBP Auscultation Temp 97.5 F L 98.2 F Temp Source Temporal Oral Pulse Oximetry (%) 96 90 95 Oxygen Delivery Method room air room air Intake Visit Reasons: LOST VOICE/THROAT Chief Complaint: laryngitis Ancillary Services Manager Required: No Is patient in pain?: No Allergies No Known Allergies Allergy (Verified 01/17/25 10:27) Have you fallen in the past year?: No Nurse's Note: c/o laryngitis x 24 hours. pt and caregiver deny complaint of ST, [place], fever, cough. pt pulse ox in room best was 90% after multiple deep breaths. pt denies SOB, caregiver denies lung hx. PFSH Medical History Fracture of left hip requiring operative repair History of hip fracture Hip fracture, left Impacted cerumen of both ears Closed head injury without concussion Laceration of scalp Recent change in frequency of bowel movements BPH (benign prostatic hyperplasia) Cognitive and behavioral changes Osteoporosis Hearing loss Seasonal allergies Dyspnea Other kyphoscoliosis and scoliosis Hypertension Hemorrhoid Tracheobronchomalaci a Mental retardation Pericardial effusion Pleural effusion Hypoxia Shortness of breath Surgical History History of surgical removal of testicle S/P laparoscopic cholecystectomy Family History Father Alzheimer disease Mother Cancer Sister Cancer Social History Smoking Status: Former smoker second hand exposure: No alcohol intake: never substance use type: does not use caffeine: Yes what type of physical activity do you participate in: none seatbelt use: always HPI HPI Chief Complaint: laryngitis Details: AMOR PETE, is a 79 M who presents to the office today for History of Present Illness The patient is a 79-year-old male presenting with sudden loss of voice. The issue began on Wednesday morning after a day of extensive talking on Wednesday. The patient has not experienced fever or chills, and his pulse oximetry improved after coughing. The patient's heart and lung examination revealed normal findings, with no signs of pneumonia on the chest x-ray. The laryngitis is suspected to be viral in origin, with clear nasal drainage noted. Attestation: Documentation on this patient encounter was supported using ambient scribe technology/ voice AI technology. The patient consented to recording for the purpose of documenting the encounter. Provider reviewed content of the generated note prior to signature. Review of Systems - Respiratory: Reports loss of voice since Wednesday, denies fever or chills Physical Exam - Cardiovascular: Normal heart sounds with regular rhythm and rate, no murmurs - Respiratory: Lungs clear to auscultation bilaterally - Respiratory: Normal respiratory rate - Ear, Nose, Throat: Ear canals and eardrums normal, clear nasal drainage observed. Oral mucous membranes moist and pink without compromise and audible though hoarse voice appreciated Results - Imaging: Chest x-ray shows no signs of pneumonia, heart and lungs appear normal Assessment and Plan The 79-year-old male with a history of Alzheimer's disease presents with sudden onset of laryngitis, likely viral in origin. The absence of fever or chills and the improvement in pulse oximetry post- coughing are reassuring signs. The chest x-ray confirms no pneumonia, supporting the viral etiology of the laryngitis. 1. Laryngitis J04.0 The patient is advised to rest his voice and maintain adequate hydration. Follow-up with the family doctor is recommended if symptoms persist beyond five to seven days. 2. Upper Respiratory Viral Infection J06.9 Supportive care with fluids and rest is advised. No antibiotics are necessary as the infection is viral. Patient Instructions - Rest your voice and drink plenty of fluids. - Follow up with your family doctor if your symptoms do not improve in five to seven days. Coding Level of Care Code Off vis,est,level 4 Assessment and Plan Assessment and Plan Orders: Orders Chest PA and Lateral Today R79 (more content not included)... [facility] CNOVon 12-11-2024 CNOV Office Visit (PODIWS) AMOR PETE ([id number]) 1945 M Date Time Provider Department 12/11/24 1:45 PM KIM CHEUNG During your visit today, we recorded the following information about you: Terri Grimes, RN 12/11/2024 1:59 PM Signed Patient presents with: Left Foot - New, foot check Right Foot - New, foot check Patient presents from [facility] for foot check. Is not a diabetic. Denies any current pain. Xrays prior to appointment. Kim Cheung 12/11/2024 1:59 PM Signed Subjective Amor Pete is a 79-year-old male presenting for a foot examination. patient is here for foot examination. He has no complaints of pain. he has no current issues that he is concerned for. Musculoskeletal: (-) foot pain Skin: (-) foot skin irritation PAST MEDICAL HISTORY Diagnosis Date Benign prostatic hyperplasia without lower urinary tract symptoms Elevated PSA 12/27/2014 PSA 8.77 - [facility] - see scanned documents Essential hypertension, benign 12/04/2013 Intellectual disability custodial Kyphosis, acquired Major depressive disorder Mass of left lung 2016 07/26/17: 5 mm noncalcified nodule (6 month follow-up) Mild intermittent asthma without complication Other kyphoscoliosis and scoliosis Tracheobronchomalaci a Unspecified hemorrhoids without mention of complication Hemorrhoids Current Outpatient Medications Medication Sig Dispense Refill acetaminophen (TYLENOL) 500 mg tablet Take 500 mg by mouth every 8 hours as needed for pain or fever (specify temp.). calcium carbonate (TUMS) 500 mg chew Take by mouth. 2 Tablets every 6 hours as needed for heartburn/indigestio n Galantamine Hydrobromide (RAZADYNE) 24 mg 24 hr capsule Take 24 mg by mouth daily with breakfast. memantine (NAMENDA) 10 mg tablet Take 10 mg by mouth two times a day. magnesium hydroxide (MILK OF MAGNESIA ORAL) Take 30 mL by mouth once daily. If no bowel movement within 3 days bacitracin 500 unit/gram ointment Apply to affected area two times a day. PRN for minor cuts and scrapes psyllium husk (METAMUCIL ORAL) Take by mouth once daily. loperamide HCl (IMODIUM) 2 mg tab Take 2 mg by mouth as needed. wncliun-pmzmxpmal-uz tamin D3 (OYSTER SHELL CALCIUM-VITAMIN D) 500 mg-5 mcg (200 unit) per tablet Take 1 tablet by mouth twice daily with meals. 60 tablet 3 PARoxetine (PAXIL) 20 mg tablet Take 1 tablet by mouth once daily. 30 tablet 5 amLODIPine (NORVASC) 10 mg tablet Take 1 tablet by mouth once daily. (Patient taking differently: Take 5 mg by mouth once daily.) 90 tablet 3 calcium polycarbophil (FIBER-LAX) 625 mg tablet Take 2 tablets by mouth twice daily. (Patient not taking: Reported on 12/11/2024) 120 tablet 5 COMPOUNDED PRESCRIPTION Weekly BP checks. (Patient not taking: Reported on 12/11/2024) 1 Each 0 No current facility-administere d medications for this visit. Family History Problem Relation Age of Onset Cancer Mother UNKNOWN Psychiatry Sister MENTAL RETARDATION Objective There were no vitals taken for this visit. - Cardiovascular: Dorsalis pedis and posterior tibial pulses palpable bilaterally; capillary refill time <5 seconds. - Skin: Well-hydrated without evidence of calluses, ulcerations, or open wounds; normal hair growth on lower extremities. nails 1-5 b/l are normal in length and thickness - Neurological: Protective sensation intact bilaterally. - Musculoskeletal: - Feet: - Skin temperature warm bilaterally. - no pain with exam of b/l feet - Strength 5/5 bilaterally. - minimal spurring to b/l heels Imaging: - (Today) X-ray, bilateral feet: Plantar and posterior heel spurs noted. No evidence of acute fracture. Assessment AND Plan 1. Calcaneal spur, unspecified laterality (M77.30) - X-rays of both feet demonstrate plantar and posterior heel spurs; no evidence of acute fracture. - Advised to avoid barefoot walking and to wear good supportive shoes to prevent irritation from heel spurs. - Recommended regular application of lotion to maintain skin hydration. - Monitor for any signs of irritation or pain; instructed to report any issues promptly. - has b/l heel spur without pain. continue with shoes that provide good support and that avoid rubbing on the heels. his current shoes should suffice. Recording using Mysterio software for draft documentation of the visit was discussed with the patient/authorized sales service representative; all questions welcomed and answered. Patient/authorized sales service representative agreed to proceed Kim Testrake, DPM Referring Provider: KIM CHEUNG [[id number]] Allergies As of Date: 12/11/2024 (No Known Allergies) Date Reviewed: 12/11/2024 Reviewed by: Terri Grimes RN - Fully Assessed Reason for Visit: New [300516] foot check [Other] New [506493] foot check [Other] Primary Visit Diagnosis:Calcaneal spur, unspecified laterali (more content not included)... Normal [facility] XR FOOT 3V AP/LAT/OBL BILon 12-11-2024 XR FOOT 3V AP/LAT/OBL LEN * * *Final Report* * * DATE OF EXAM: Dec 11 2024 1:26PM [id number] - XR FOOT 3V AP/LAT/OBL LEN / PROCEDURE REASON: Pain * * * * Physician Interpretation * * * * EXAMINATION / TECHNIQUE: XR FOOT 3V AP/LAT/OBL LEN HISTORY: bilateral foot pain. Pain COMPARISON: None. RESULT: No acute fracture or dislocation in either foot. Joint spaces are maintained bilaterally. There are calcaneal enthesophytes bilaterally. No osseous erosion. IMPRESSION: No acute bony abnormality. Jewelry Inspector: PSCB Transcribe Date/Time: Dec 16 2024 2:54P Dictated by : CLYDE LIMON MD This examination was interpreted and the report reviewed and electronically signed by: CLYDE LIMON MD on Dec 16 2024 2:54PM EST [id number] Normal [facility] Internal Medicine Office Vis iton 11-01-2024 Internal Medicine Office Visit [facility] [address] [place] [address] [place] [address] OFFICE VISIT Date of Service: 11/01/24 MR#: [id number] Acct: [id number] Name: AMOR PETE Rep #: [id number] 8 : 1945 Provider: MJ Parrish Age/Sex: 79/M Location[place] [facility] Status: Signed Intake Vital Signs 09/15/24 12:11 11/01/24 12:43 Height 5 ft 4 in 5 ft 4 in Weight: 118 lb 118 lb 8 oz BMI 20.2 20.3 BP 135/73 H 110/64 Blood Pressure Location Lt brachial Rt brachial Position Sitting Sitting Respiration 20 H 16 Pulse 70 66 Pulse Source Monitor Monitor Temp 97.6 F L 97.5 F L Temp Source Temporal Pulse Oximetry (%) 99 96 Oxygen Delivery Method room air room air Intake Visit Reasons: ACUTE - WANTS TO RETURN TO WORKSHOP Chief Complaint: 6 M FU- PROLIA SHOT Ancillary Services Manager Required: No Accompanied by: Self Is patient in pain?: No Allergies No Known Allergies Allergy (Verified 11/01/24 12:35) Medications ???Medication ???Instructions ???Recorded ???Confirmed ???Type Adult Pull-UP #3 ea 12/12/21 11/01/24 Rx denosumab 60 mg/mL subcutaneous 60 mg subcut [id number] Osteoporosis 12/25/22 11/01/24 Rx syringe #1 mL bismuth subsalicylate 262 mg/15 mL 524 mg PO Q4H PRN diarrhea 02/2411/01/24 History oral suspension (Pepto-Bismol) calcium carbonate (Tums) 400 mg PO Q6H PRN dyspepsia 11/01/24 History galantamine 24 mg 24 hr 24 mg PO QAM dementia #30 caps 11/01/24 Rx capsule,extended release magnesium hydroxide 400 mg/5 mL 30 ml PO DAILY PRN constipation 11/01/24 History oral suspension (Milk of Magnesia) memantine 10 mg tablet 10 mg PO BID Dementia #60 tabs 11/01/24 Rx cholecalciferol (vitamin D3) 50 50 mcg PO DAILY vit d deficiency 1 08/22/23 11/01/24 Rx mcg (2,000 unit) capsule #90 caps acetaminophen 500 mg tablet 1,000 mg (2 x 500 mg) PO Q8 PRN 11/01/24 Rx fever or pain 3 months #180 tabs psyllium husk 0.4 gram capsule 0.4 g PO BID constipation 3 months 07/13/24 11/01/24 Rx #180 caps sennosides 8.6 mg tablet (senna) 17.2 mg PO BID 09/15/24 11/01/24 H istory calcium 500 mg (as 1 tab PO BID for osteoporosis #90 09/19/24 11/01/24 Rx carbonate)-vitamin D3 5 mcg (200 tabs unit) tablet (Oyster Shell Calcium-Vitamin D3) paroxetine HCl 20 mg tablet 20 mg PO DAILY Mood #90 tabs 09/1911/01/24 Rx amlodipine 5 mg tablet 5 mg PO DAILY BP #90 tabs 10/09/24 11/01/24 Rx Have you fallen in the past year?: No PFSH Medical History Fracture of left hip requiring operative repair History of hip fracture Hip fracture, left Impacted cerumen of both ears Closed head injury without concussion Laceration of scalp Recent change in frequency of bowel movements BPH (benign prostatic hyperplasia) Cognitive and behavioral changes Osteoporosis Hearing loss Seasonal allergies Dyspnea Other kyphoscoliosis and scoliosis Hypertension Hemorrhoid Tracheobronchomalaci a Mental retardation Pericardial effusion Pleural effusion Hypoxia Shortness of breath Surgical History History of surgical removal of testicle S/P laparoscopic cholecystectomy Family History Father Alzheimer disease Mother Cancer Sister Cancer Social History Smoking Status: Former smoker second hand exposure: No alcohol intake: never substance use type: does not use caffeine: Yes what type of physical activity do you participate in: none seatbelt use: always HPI HPI Chief Complaint: 6 M FU- PROLIA SHOT Details: AMOR PETE, is a 79 M who presents to the office today for a note to go back to the workshop. Patient initially broke his hip back in March. He was in rehab at the hospital for a few weeks and then we was in the detention for 2 more months. He was sent home June and was doing in- home therapy with him. He continued to show great progress and therefore he was discharged from the hospital last month feeling that he was doing well enough. He does now use a walker at all times now. He has not had any falls and does have any balance or gait abnormalities. He is currently going to the workshop twice a week now and would like to go back 5 days a week which he was doing. ROS Const Constitutional: No body ache, excessive sweating, fatigue, fever(s), frequent falls, headache(s), snoring, weakness, weight change, sleep problems or change in appetite Eyes Eyes: No blurry vision, change in vision, eye pain or Light sensitivity ENT ENT: No abnormal hearing, ear or mastoid pain, tinnitus, nasal congestion, headache(s), neck skylar (more content not included)... Normal [facility] Pulmonary Visit Reporton Pulmonary Visit Report [facility] [address] [place] [address] OFFICE VISIT Date of Service: 09/15/24 MR#: [id number] Acct: [id number] Name: AMOR PETE Rep #: [id number] 2 : 1945 Provider: HONEY Taveras Age/Sex: 79/M Location: [facility] Status: Signed Assessment and Plan Assessment and Plan (1) Cognitive and behavioral changes: Status: Chronic Plan: Complicates exam, plan, care and prognosis. (2) Dyspnea: Status: Acute Qualifiers: Dyspnea type: dyspnea on exertion Qualified Code(s): R06.09 - Other forms of dyspnea Plan: Asymptomatic at this time. We will maintain a relationship with him and see him back in 1 year. They can contact the office with any concerns of bronchitis or respiratory symptoms. HPI Re-establish care Chief Complaint: reestablish care HPI Comments Details: This patient presents to the office today to reestablish care regarding history of bronchitis requiring supplemental oxygen temporarily back in 2016. He is ambulatory with the use of wheeled walker. He is currently on room air and accompanied today by a caregiver from his custodial. His case is complicated by mental retardation. He has not recently been seen in the ED or urgent care for any respiratory illness. He is not required any antibiotics or prednisone for any breathing problems. He denies any difficulty with shortness of breath. The caregiver confirms that the patient does not display any symptoms consistent with shortness of breath. He has not had any cough, sputum production or hemoptysis. The patient has not complained of wheezing, chest tightness, chest pain or palpitations. He has not had any fever, chills or body aches. She reports that routinely they check his oxygen saturation what is typically found to be 94 to 96% while on room air. He is not currently on any inhalers. He has no complaints today. If you recall, he is a lifelong never smoker. Intake Vital Signs 07/07/24 14:02 09/15/24 12:11 Height 5 ft 4 in 5 ft 4 in Weight: 125 lb 118 lb BMI 21.4 20.2 BP 116/62 135/73 H Blood Pressure Location Lt brachial Lt brachial Position Sitting Sitting Respiration 16 20 H Pulse 76 70 Pulse Source Monitor Monitor Temp 98.5 F 97.6 F L Temperature Source Temporal Artery Pulse Oximetry (%) 99 99 Oxygen Delivery Method room air room air Intake Visit Reasons: Re-establish care Chief Complaint: 6 M FU- PROLIA SHOT Ancillary Services Manager Required: No Accompanied by: Caregiver Allergies No Known Allergies Allergy (Verified 09/15/24 14:58) Medications ???Medication ???Instructions ???Recorded ???Confirmed ???Type Adult Pull-UP #3 ea 12/12/21 08/30/24 Rx denosumab 60 mg/mL subcutaneous 60 mg subcut [id number] Osteoporosis 12/25/22 09/15/24 Rx syringe #1 mL bismuth subsalicylate 262 mg/15 mL 524 mg PO Q4H PRN diarrhea 02/2409/15/24 History oral suspension (Pepto-Bismol) calcium carbonate (Tums) 400 mg PO Q6H PRN dyspepsia 09/15/24 History galantamine 24 mg 24 hr 24 mg PO QAM dementia #30 caps 09/15/24 Rx capsule,extended release magnesium hydroxide 400 mg/5 mL 30 ml PO DAILY PRN constipation 09/15/24 History oral suspension (Milk of Magnesia) memantine 10 mg tablet 10 mg PO BID Dementia #60 tabs 09/15/24 Rx amlodipine 5 mg tablet 5 mg PO DAILY BP 03/30/24 09/15/24 History paroxetine HCl 20 mg tablet 20 mg PO DAILY Mood 03/30/2409/15 History calcium 500 mg (as 1 tab PO BID for osteoporosis #90 04/04/24 09/15/24 Rx carbonate)-vitamin D3 5 mcg (200 tabs unit) tablet (Oyster Shell Calcium-Vitamin D3) cholecalciferol (vitamin D3) 50 50 mcg PO DAILY vit d deficiency 1 08/22/23 09/15/24 Rx mcg (2,000 unit) capsule #90 caps acetaminophen 500 mg tablet 1,000 mg (2 x 500 mg) PO Q8 PRN 09/15/24 Rx fever or pain 3 months #180 tabs psyllium husk 0.4 gram capsule 0.4 g PO BID constipation 3 months 07/13/24 09/15/24 Rx #180 caps sennosides 8.6 mg tablet (senna) 17.2 mg PO BID 09/15/24 09/15/24 H istory Have you fallen in the past year?: Yes [facility] Medical History Fracture of left hip requiring operative repair History of hip fracture Hip fracture, left Impacted cerumen of both ears Closed head injury without concussion Laceration of scalp Recent change in frequency of bowel movements BPH (benign prostatic hyperplasia) Cognitive and behavioral changes Osteoporosis Hearing loss Seasonal allergies Dyspnea Other kyphoscoliosis and scoliosis Hypertension Hemorrhoid Tracheobronchomalaci a Mental retardation Pericardial effusion Pleural effusion Hypoxia Shortness of breath Surgical His (more content not included)... Normal [facility] Absolute neutrophil countOrd ered By: Maria Luz Chavira on 08-30-2024 Neutrophils (Bld) [#/Vol] 6.8 10*3/uL 2.0-7.7 [facility] BUN/creatinine ratioOrdered By: Maria Luz Chavira on 08-30-2024 Urea nitrogen/Creatinine [Mass ratio] 16.4 mg/mg - [facility] Basic Metabolic Profile (BMP )on 08-30-2024 Anion gap [Moles/Vol] 12 mmol/L Normal 11-16 [facility] Comment on above: Performed By: #### L 100.0100, L500.2500 #### [facility] [address] [place], [place], [address] BUN/CRE 16.4 RATIO Normal 04-23 [facility] Comment on above: Performed By: #### L 100.0100, L500.2500 #### [facility] [address] [place], [address] Calcium [Mass/Vol] 9.8 mg/dL Normal 7.6-11.0 [facility] Comment on above: Performed By: #### L 100.0100, L500.2500 #### [facility] [address] [place], [address] Chloride [Moles/Vol] 102 mmol/L Normal 96-108 [facility] Comment on above: Performed By: #### L 100.0100, L500.2500 #### [facility] [address] [place], [address] CO2 [Moles/Vol] 27.2 mmol/L Normal 22.0-29.0 [facility] Comment on above: Performed By: #### L 100.0100, L500.2500 #### [facility] [address] [place], [address] Creatinine [Mass/Vol] 0.8 mg/dL Normal 0.8-1.3 [facility] Comment on above: Performed By: #### L 100.0100, L500.2500 #### [facility] [address] [place], [address] GFR/1.73 sq M.predicted among non-blacks MDRD (S/P/Bld) [Vol rate/Area] 92 mL/min/{1.73_m2} Normal >60 [facility] Comment on above: Result Comment: mL/m in/1.73m2 CKD-EPI Creatinine Equation (2020) Performed By: #### L 100.0100, L500.2500 #### [facility] [address] [place], [address] Glucose [Mass/Vol] 71 mg/dL Normal 70-99 [facility] Comment on above: Performed By: #### L 100.0100, L500.2500 #### [facility] [address] [place], [address] Potassium [Moles/Vol] 3.9 mmol/L Normal 3.3-5.1 [facility] Comment on above: Performed By: #### L 100.0100, L500.2500 #### [facility] [address] [place], [address] Sodium [Moles/Vol] 141 mmol/L Normal 133-145 [facility] Comment on above: Performed By: #### L 100.0100, L500.2500 #### [facility] [address] [place], [address] Urea nitrogen [Mass/Vol] 13 mg/dL Normal 4-19 [facility] Comment on above: Performed By: #### L 100.0100, L500.2500 #### [facility] [address] [place], [address] Basophil percentageOrdered B y: Maria Luz Chavira on 08-30-2024 Basophils/100 WBC (Bld) 0.6 % 0-1 [facility] CBC W/Diff, Automatedon 08-06 Absolute Lymph 1.37 X10 3/uL Normal 0.83-4.51 [facility] Comment on above: Performed By: #### L 100.0100, L500.2500 #### [facility] [address] [place], [address] Absolute Neut 6.8 X10 3/uL Normal 2.0-7.7 [facility] Comment on above: Performed By: #### L 100.0100, L500.2500 #### [facility] [address] [place], [address] Basophils/100 WBC (Bld) 0.6 % Normal 0-1 [facility] Comment on above: Performed By: #### L 100.0100, L500.2500 #### [facility] [address] [place], [address] Eosinophils/100 WBC (Bld) 1.9 % Normal 0-5 [facility] Comment on above: Performed By: #### L 100.0100, L500.2500 #### [facility] [address] [place], [address] Erythrocyte distribution width (RBC) [Ratio] 14.6 % Normal 11.6-14.6 [facility] Comment on above: Performed By: #### L 100.0100, L500.2500 #### [facility] [address] [place], [address] Hematocrit (Bld) [Volume fraction] 48.3 % Normal 40-54 [facility] Comment on above: Performed By: #### L 100.0100, L500.2500 #### [facility] [address] [place], [address] Hemoglobin (Bld) [Mass/Vol] 14.8 g/dL Normal 13.0-16.5 [facility] Comment on above: Performed By: #### L 100.0100, L500.2500 #### [facility] [address] [place], [address] IG% 0.500 Normal 0.0-0.9 [facility] Comment on above: Result Comment: IG% - Immature Granulocytes (promyelocytes, myelocytes and metamyelocytes) > 1% indicates that a LEFT SHIFT is Present. Performed By: #### L 100.0100, L500.2500 #### [facility] [address] [place], [address] Lymphocytes/100 WBC (Bld) 14.3 % Low 19-41 [facility] Comment on above: Performed By: #### L 100.0100, L500.2500 #### [facility] [address] [place], [address] MCH (RBC) [Entitic mass] 28.8 pg Normal 27.0-32.0 [facility] Comment on above: Performed By: #### L 100.0100, L500.2500 #### [facility] [address] [place], [address] MCHC (RBC) [Mass/Vol] 30.6 g/dL Low 32-36 [facility] Comment on above: Performed By: #### L 100.0100, L500.2500 #### [facility] [address] [place], [address] MCV (RBC) [Entitic vol] 94.0 fL Normal 80-94 [facility] Comment on above: Performed By: #### L 100.0100, L500.2500 #### [facility] [address] [place], [address] Monocytes/100 WBC (Bld) 11.3 % High 0-10 [facility] Comment on above: Performed By: #### L 100.0100, L500.2500 #### [facility] [address] [place], [address] Neutrophils/100 WBC (Bld) 71.4 % High 47-70 [facility] Comment on above: Performed By: #### L 100.0100, L500.2500 #### [facility] [address] [place], [address] Nucleated RBC (Bld) [#/Vol] 0 10*3/uL Normal 0-5 [facility] Comment on above: Performed By: #### L 100.0100, L500.2500 #### [facility] [address] [place], [address] Platelet mean volume (Bld) [Entitic vol] 10.5 fL Normal 6.2-12.0 [facility] Comment on above: Performed By: #### L 100.0100, L500.2500 #### [facility] [address] [place], [address] Platelets (Bld) [#/Vol] 343 10*3/uL Normal 150-450 [facility] Comment on above: Performed By: #### L 100.0100, L500.2500 #### [facility] [address] [place], [address] RBC (Bld) [#/Vol] 5.14 10*6/uL Normal 4.6-6.2 [facility] Comment on above: Performed By: #### L 100.0100, L500.2500 #### [facility] [address] [place], [address] RDW SD 50.8 fl High 35.1-43.9 [facility] Comment on above: Performed By: #### L 100.0100, L500.2500 #### [facility] [address] [place], [address] WBC (Bld) [#/Vol] 9.6 10*3/uL Normal 4.4-11.0 [facility] Comment on above: Performed By: #### L 100.0100, L500.2500 #### [facility] [address] [place], [address] Carbon dioxide measurementOr dered By: Maria Luz Chavira on 08-30-2024 CO2 [Moles/Vol] 27.2 mmol/L 22.0-29.0 [facility] Chloride measurementOrdered By: Maria Luz Chavira on 08-30-2024 Chloride [Moles/Vol] 102 mmol/L 96-108 [facility] Creatinine [Moles/Vol]Ordere d By: Maria Luz Chavira on 08-30-2024 Creatinine [Mass/Vol] 0.8 mg/dL 0.8-1.3 [facility] Eosinophil percentageOrdered By: Maria Luz Chavira on 08-30-2024 Eosinophils/100 WBC (Bld) 1.9 % 0-5 [facility] Erythrocyte distribution wid th ratioOrdered By: Maria Luz Chavira on 08-30-2024 Erythrocyte distribution width (RBC) [Ratio] 14.6 % 11.6-14.6 [facility] Erythrocyte distribution wid th standard deviationOrdered By: Lelialolotj Chavira on 08-30-2024 Erythrocyte distribution width (RBC) [Entitic vol] 50.8 fL High 35.1-43.9 [facility] GFR/1.73 sq M.predicted gelacio g non-blacks MDRD (S/P/Bld) [Vol rate/Area]Ordered By: Maria Luz Chavira on 08-30-2024 Estimated GFR (MDRD) Non-Af Amer 92 >60 [facility] Comment on above: mL/min/1.73m2 CKD-EP I Creatinine Equation (2020) Hematocrit Auto (Bld) [Volum e fraction]Ordered By: joaquinalolotj Chavira on 08-30-2024 Hematocrit (Bld) [Volume fraction] 48.3 % 40-54 [facility] Hemoglobin measurementOrdere d By: Maria Luz Chavira on 08-30-2024 Hemoglobin (Bld) [Mass/Vol] 14.8 g/dL 13.0-16.5 [facility] Immature granulocytes/100 WB C Auto (Bld)Ordered By: Maria Luz Chavira on 08-30-2024 Immature granulocytes/100 WBC (Bld) 0.500 % 0.0-0.9 [facility] Comment on above: IG% - Immature Granu locytes (promyelocytes, myelocytes and metamyelocytes) > 1% indicates that a LEFT SHIFT is Present. Internal Medicine Office Vis itodella 08-30-2024 Internal [facility] Visit [facility] [address] [place] [address] [place] [address] OFFICE VISIT Date of Service: 08/30/24 MR#: [id number] Acct: [id number] Name: AMOR PETE Rep #: [id number] 2 : 1945 Provider: Dr. Maria Luz le MD Age/Sex: 79/M Location: [facility] Status: Signed Intake Vital Signs 02/25/24 09:17 07/07/24 14:02 08/30/24 09:19 Height 5 ft 2 in 5 ft 4 in 5 ft 4 in Weight: 119 lb BMI 20.4 BP 124/66 H Blood Pressure Location Lt brachial Position Sitting Respiration 18 Pulse 54 L Pulse Source Monitor Temp 97.8 F Temp Source Temporal Pulse Oximetry (%) 96 Oxygen Delivery Method room air Intake Visit Reasons: 6 M FU- PROLIA SHOT Chief Complaint: 6 M FU- PROLIA SHOT Is patient in pain?: No Allergies No Known Allergies Allergy (Verified 08/30/24 09:17) Medications ???Medication ???Instructions ???Recorded ???Confirmed ???Type Adult Pull-UP #3 ea 12/12/21 08/30/24 Rx denosumab 60 mg/mL subcutaneous 60 mg subcut [id number] Osteoporosis 12/25/22 08/30/24 Rx syringe #1 mL bismuth subsalicylate 262 mg/15 mL 524 mg PO Q4H PRN diarrhea 02/2408/30/24 History oral suspension (Pepto-Bismol) calcium carbonate (Tums) 400 mg PO Q6H PRN dyspepsia 08/30/24 History galantamine 24 mg 24 hr 24 mg PO QAM dementia #30 caps 08/30/24 Rx capsule,extended release magnesium hydroxide 400 mg/5 mL 30 ml PO DAILY PRN constipation 08/30/24 History oral suspension (Milk of Magnesia) memantine 10 mg tablet 10 mg PO BID Dementia #60 tabs 08/30/24 Rx amlodipine 5 mg tablet 5 mg PO DAILY BP 03/30/24 08/30/24 History paroxetine HCl 20 mg tablet 20 mg PO DAILY Mood 03/30/2408/30 History calcium 500 mg (as 1 tab PO BID for osteoporosis #90 04/04/24 08/30/24 Rx carbonate)-vitamin D3 5 mcg (200 tabs unit) tablet (Oyster Shell Calcium-Vitamin D3) tramadol 50 mg tablet 50 mg PO Q6H PRN PRN Pain Score 08/30/24 Rx 1-3 Or Pre Pt/Ot 7 days #28 tabs cholecalciferol (vitamin D3) 50 50 mcg PO DAILY vit d deficiency 1 08/22/23 08/30/24 Rx mcg (2,000 unit) capsule #90 caps acetaminophen 500 mg tablet 1,000 mg (2 x 500 mg) PO Q8 PRN 08/30/24 Rx fever or pain 3 months #180 tabs psyllium husk 0.4 gram capsule 0.4 g PO BID constipation 3 months 07/13/24 08/30/24 Rx #180 caps Have you fallen in the past year?: Yes (x1) Nurse's Note: pt's caregiver reports there are no changes to medications reports pt has been doing well since his left hip surgery rehab [facility] Medical History (Updated 08/30/24 @ 12:[address] Maria Luz Chavira MD) History of hip fracture Hip fracture, left Impacted cerumen of both ears Closed head injury without concussion Laceration of scalp Recent change in frequency of bowel movements BPH (benign prostatic hyperplasia) Cognitive and behavioral changes Osteoporosis Hearing loss Seasonal allergies Dyspnea Other kyphoscoliosis and scoliosis Hypertension Hemorrhoid Tracheobronchomalaci a Mental retardation Pericardial effusion Pleural effusion Hypoxia Shortness of breath Surgical History History of surgical removal of testicle S/P laparoscopic cholecystectomy Family History Father Alzheimer disease Mother Cancer Sister Cancer Social History Smoking Status: Former smoker second hand exposure: No alcohol intake: never substance use type: does not use caffeine: Yes what type of physical activity do you participate in: none seatbelt use: always HPI HPI Chief Complaint: 6 M FU- PROLIA SHOT Details: AMOR PETE, is a 79 M who presents to the office today for FU of his chronic medical conditions. No acute concerns at this time. Has been relatively stable since get back to his facility. Ambulates with a walker. No recent falls. He denies any pain. History of osteoporosis currently on Prolia. Due for his injection today. Stable vitamin D level at last check. History of hypertension, blood pressure today is at 124/66 mmHg. Syncopal and near syncopal episodes. Other chronic medical conditions are stable. ROS Const Constitutional: No body ache, chills, excessive sweating, fatigue, fever(s), frequent falls, headache(s), snoring, weight change, sleep problems, abnormal sleep pattern or change in appetite Eyes Eyes: No blurry vision, change in vision, eye pain or Light sensitivity ENT ENT: No abnormal hearing, ear or mastoid pain, tinnitus, nasal congestion, headache(s), neck pain or sore throat Resp Respiratory: No cough, shortness of breath, snoring or wheezing Cardio Cardiolog (more content not included)... [facility] Lymphocytes Auto (Unsp spec) [#/Vol]Ordered By: Maria Luz Chavira on 08-30-2024 Lymphocytes (Bld) [#/Vol] 1.37 10*3/uL 0.83-4.51 [facility] Lymphocytes/100 WBC Auto (Un sp spec)Ordered By: Maria Luz Chavira on 08-30-2024 Lymphocytes/100 WBC (Bld) 14.3 % Low 19-41 [facility] MCV (mean corpuscular volume ) determinationOrdered By: Maria Luz Chavira on 08-30-2024 MCV (RBC) [Entitic vol] 94.0 fL 80-94 [facility] Mean corpuscular hemoglobin (MCH) determinationOrdered By: Maria Luz Chavira on 08-30-2024 MCH (RBC) [Entitic mass] 28.8 pg 27.0-32.0 [facility] Mean corpuscular hemoglobin concentration (MCHC) determinationOrdered By: Maria Luz Chavira on 08-30-2024 MCHC (RBC) [Mass/Vol] 30.6 g/dL Low 32-36 [facility] Mean platelet volume determi nationOrdered By: Maria Luz Chavira on 08-30-2024 Platelet mean volume (Bld) [Entitic vol] 10.5 fL 6.2-12.0 [facility] Monocyte percentageOrdered B y: Maria Luz Chavira on 08-30-2024 Monocytes/100 WBC (Bld) 11.3 % High 0-10 [facility] Neutrophil percentageOrdered By: Maria Luz Chavira on 08-30-2024 Neutrophils/100 WBC (Bld) 71.4 % High 47-70 [facility] Nucleated red blood cell per centageOrdered By: Maria Luz Chavira on 08-30-2024 Nucleated RBC/100 WBC (Bld) [Ratio] 0 % 0-5 [facility] Platelet countOrdered By: Kaleigh Chavira on 08-30-2024 Platelets (Bld) [#/Vol] 343 10*3/uL 150-450 [facility] RBC Auto (Bld) [#/Vol]Ordere d By: Maria Luz Chavira on 08-30-2024 RBC (Bld) [#/Vol] 5.14 10*6/uL 4.6-6.2 [facility] Serum glucose measurement (m ass/volume)Ordered By: Maria Luz Chavira on 08-30-2024 Glucose [Mass/Vol] 71 mg/dL 70-99 [facility] Serum or plasma anion gap de termination (moles/volume)Ordered By: Maria Luz Chavira on 08-30-2024 Anion gap [Moles/Vol] 12 mmol/L 5-15 [facility] Serum or plasma calcium ray urement (mass/volume)Ordered By: Maria Luz Chavira on 08-30-2024 Calcium [Mass/Vol] 9.8 mg/dL 7.6-11.0 [facility] Serum or plasma potassium me asurementOrdered By: Maria Luz Chavira on 08-30-2024 Potassium [Moles/Vol] 3.9 mmol/L 3.3-5.1 [facility] Serum or plasma sodium measu rement (moles/volume)Ordered By: Maria Luz Chavira on 08-30-2024 Sodium [Moles/Vol] 141 mmol/L 133-145 [facility] Serum or plasma urea nitroge n measurement (mass/volume)Ordered By: Maria Luz Chavira on 08-30-2024 Urea nitrogen [Mass/Vol] 13 mg/dL 4-19 [facility] White blood cell (WBC) count Ordered By: Maria Luz Chavira on 08-30-2024 WBC (Bld) [#/Vol] 9.6 10*3/uL 4.4-11.0 [facility] Internal Medicine Office Vis iton 07-07-2024 Internal Medicine Office Visit [facility] [address] [place], [place] [address] OFFICE VISIT Date of Service: 07/07/24 MR#: [id number] Acct: [id number] Name: AMOR PETE Rep #: [id number] : 1945 Provider: MJ Parrish Age/Sex: 79/M [place] [facility] Status: Signed Intake Vital Signs 04/04/24 15:14 07/07/24 14:02 Height 5 ft 4 in 5 ft 4 in Weight: 125 lb BMI 21.4 BP 116/62 Blood Pressure Location Lt brachial Position Sitting Respiration 16 Pulse 76 Pulse Source Monitor Temp 98.5 F Temp Source Temporal Pulse Oximetry (%) 99 Oxygen Delivery Method room air Intake Visit Reasons: [place] DISCHARGE-KEEP 60 MIN Chief Complaint: [place] f/u Ancillary Services Manager Required: No Accompanied by: Caregiver Is patient in pain?: No Allergies No Known Allergies Allergy (Verified 07/07/24 13:55) Medications ???Medication ???Instructions ???Recorded ???Confirmed ???Type Adult Pull-UP #3 ea 12/12/21 07/07/24 Rx denosumab 60 mg/mL subcutaneous 60 mg subcut [id number] Osteoporosis 12/25/22 07/07/24 Rx syringe #1 mL bismuth subsalicylate 262 mg/15 mL 524 mg PO Q4H PRN diarrhea 02/25/24 07/07/24 History oral suspension (Pepto-Bismol) calcium carbonate (Tums) 400 mg PO Q6H PRN dyspepsia 02/25/24 07/07/24 History galantamine 24 mg 24 hr 24 mg PO QAM dementia #30 caps 03/02/24 07/07/24 Rx capsule,extended release magnesium hydroxide 400 mg/5 mL 30 ml PO DAILY PRN constipation 03/02/24 07/07/24 History oral suspension (Milk of Magnesia) memantine 10 mg tablet 10 mg PO BID Dementia #60 tabs 03/02/24 07/07/24 Rx amlodipine 5 mg tablet 5 mg PO DAILY BP 03/30/24 07/07/24 History paroxetine HCl 20 mg tablet 20 mg PO DAILY Mood 03/30/24 07/07/24 History calcium 500 mg (as 1 tab PO BID for osteoporosis #90 04/04/24 07/07/24 Rx carbonate)-vitamin D3 5 mcg (200 tabs unit) tablet (Oyster Shell Calcium-Vitamin D3) apixaban 5 mg tablet (Eliquis) 2.5 mg (1/2 x 5 mg) PO BID 7 days 04/12/24 07/07/24 Rx #7 tabs tramadol 50 mg tablet 50 mg PO Q6H PRN PRN Pain Score 04/12/24 07/07/24 Rx 1-3 Or Pre Pt/Ot 7 days #28 tabs cholecalciferol (vitamin D3) 50 50 mcg PO DAILY vit d deficiency 06/21/24 07/07/24 Rx mcg (2,000 unit) capsule #90 caps acetaminophen 500 mg tablet 1,000 mg (2 x 500 mg) PO Q8 30 07/06/24 07/07/24 Rx days #180 tabs psyllium husk 0.4 gram capsule 0.4 g PO BID constipation 3 months 07/07/24 07/07/24 Rx #180 caps Have you fallen in the past year?: No PFSH Medical History (Updated 07/08/24 @ 00:53 by Kim BARKER, PA) Hip fracture, left Impacted cerumen of both ears Closed head injury without concussion Laceration of scalp Recent change in frequency of bowel movements BPH (benign prostatic hyperplasia) Cognitive and behavioral changes Osteoporosis Hearing loss Seasonal allergies Dyspnea Other kyphoscoliosis and scoliosis Hypertension Hemorrhoid Tracheobronchomalaci a Mental retardation Pericardial effusion Pleural effusion Hypoxia Shortness of breath Surgical History History of surgical removal of testicle S/P laparoscopic cholecystectomy Family History Father Alzheimer disease Mother Cancer Sister Cancer Social History Smoking Status: Former smoker second hand exposure: No alcohol intake: never substance use type: does not use caffeine: Yes what type of physical activity do you participate in: none seatbelt use: always HPI HPI Chief Complaint: [place] f/u Details: AMOR PETE, is a 79 M who presents to the office today to for f/u since being in [facility]. They need a release for him to return to work which is something he really wants to do. He was admitted to [facility] for some rehab following a fracture he suffered from a fall at the end of March. Initially he did rehab as an inpatient at the hospital and the was transferred out for the rehab where he spent 2 months there (he was discharged on 06-13-24). [facility] [employer] states that he was released from ortho and does not require any further f/u with them. He has continued to do physical therapy 3 times a week at the home and has been doing very well. 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 His lurer states that he is not complaining of pains since being home. He is still using the walker with ambulation at the same time they state he walks very good and has been stable on his feet. ROS Const Constitutional: No body ache, chills, excessive sweating, fatigue, fever(s), frequent falls, headache(s), snoring, weakness or change i (more content not included)... [facility] Absolute neutrophil countOrd ered By: Maria Luz Chavira on 06-09-2024 Neutrophils (Bld) [#/Vol] 9.1 10*3/uL High 2.0-7.7 [facility] Basophil percentageOrdered B y: Maria Luz Chavira on 06-09-2024 Basophils/100 WBC (Bld) 0.6 % 0-1 [facility] Blood urea nitrogen (BUN)/cr eatinine ratioOrdered By: Maria Luz Chavira on 06-09-2024 Urea nitrogen/Creatinine [Mass ratio] 38.2 mg/mg High 10-20 [facility] Carbon dioxide measurementOr dered By: Maria Luz Chavira on 06-09-2024 CO2 [Moles/Vol] 29.0 mmol/L 21.0-32.0 [facility] Chloride measurementOrdered By: Maria Luz Chavira on 06-09-2024 Chloride [Moles/Vol] 109 mmol/L High 98-107 [facility] Eosinophil percentageOrdered By: Maria Luz Chavira on 06-09-2024 Eosinophils/100 WBC (Bld) 2.0 % 0-5 [facility] Erythrocyte distribution wid th ratioOrdered By: Maria Luz Chavira on 06-09-2024 Erythrocyte distribution width (RBC) [Ratio] 14.7 % High 11.6-14.6 [facility] Erythrocyte distribution wid th standard deviationOrdered By: Maria Luz Chavira on 06-09-2024 Erythrocyte distribution width (RBC) [Entitic vol] 50.6 fL High 35.1-43.9 [facility] Estimated glomerular filtrat ion rate (GFR) AmericanOrdered By: Maria Luz Chavira on 06-09-2024 Estimated GFR (MDRD) Amer 145 mL/min >60 [facility] Comment on above: GFR Calc Glomerular filtration rate ( GFR) estimationOrdered By: Maria Luz Chavira on 06-09-2024 Estimated GFR (MDRD) Non-Af Amer 120 mL/min >60 [facility] Comment on above: Non- GFR Calc Glucose measurementOrdered B y: Maria Luz Chavira on 06-09-2024 Glucose [Mass/Vol] 97 mg/dL 74-106 [facility] Hematocrit Auto (Bld) [Volum e fraction]Ordered By: Maria Luz Chavira on 06-09-2024 Hematocrit (Bld) [Volume fraction] 42.5 % 40-54 [facility] Hemoglobin measurementOrdere d By: Maria Luz Chavira on 06-09-2024 Hemoglobin (Bld) [Mass/Vol] 12.8 g/dL Low 13.0-16.5 [facility] Immature granulocytes/100 WB C Auto (Bld)Ordered By: Maria Luz Chavira on 06-09-2024 Immature granulocytes/100 WBC (Bld) 0.500 % 0.0-0.9 [facility] Comment on above: IG% - Immature Granu locytes (promyelocytes, myelocytes and metamyelocytes) > 1% indicates that a LEFT SHIFT is Present. Lymphocytes Auto (Unsp spec) [#/Vol]Ordered By: Maria Luz Chavira on 06-09-2024 Lymphocytes (Bld) [#/Vol] 1.38 10*3/uL 0.83-4.51 [facility] Lymphocytes/100 WBC Auto (Un sp spec)Ordered By: Maria Luz Chavira on 06-09-2024 Lymphocytes/100 WBC (Bld) 11.3 % Low 19-41 [facility] MCV (mean corpuscular volume ) determinationOrdered By: Maria Luz Chavira on 06-09-2024 MCV (RBC) [Entitic vol] 93.0 fL 80-94 [facility] Mean corpuscular hemoglobin (MCH) determinationOrdered By: Maria Luz Chavira on 06-09-2024 MCH (RBC) [Entitic mass] 28.0 pg 27.0-32.0 [facility] Mean corpuscular hemoglobin concentration (MCHC) determinationOrdered By: Maria Luz Chavira on 06-09-2024 MCHC (RBC) [Mass/Vol] 30.1 g/dL Low 32-36 [facility] Mean platelet volume determi nationOrdered By: Maria Luz Chavira on 06-09-2024 Platelet mean volume (Bld) [Entitic vol] 9.9 fL 6.2-12.0 [facility] Monocyte percentageOrdered B y: Maria Luz Chavira on 06-09-2024 Monocytes/100 WBC (Bld) 11.3 % High 0-10 [facility] Neutrophil percentageOrdered By: Maria Luz Chavira on 06-09-2024 Neutrophils/100 WBC (Bld) 74.3 % High 47-70 [facility] Nucleated red blood cell per centageOrdered By: Maria Luz Chavira on 06-09-2024 Nucleated RBC/100 WBC (Bld) [Ratio] 0 % 0-5 [facility] Platelet countOrdered By: Kaleigh Chavira on 06-09-2024 Platelets (Bld) [#/Vol] 349 10*3/uL 150-450 [facility] Potassium measurementOrdered By: Maria Luz Chavira on 06-09-2024 Potassium [Moles/Vol] 4.4 mmol/L 3.5-5.1 [facility] RBC Auto (Bld) [#/Vol]Ordere d By: Maria Luz Chavira on 06-09-2024 RBC (Bld) [#/Vol] 4.57 10*6/uL Low 4.6-6.2 [facility] Serum anion gap measurementO rdered By: Maria Luz Chavira on 06-09-2024 Anion gap [Moles/Vol] 5 mmol/L 5- [facility] Serum or plasma calcium ray urement (mass/volume)Ordered By: Maria Luz Chavira on 06-09-2024 Calcium [Mass/Vol] 9.2 mg/dL 8.5-10.1 [facility] Serum or plasma creatinine m easurement (mass/volume)Ordered By: Maria Luz Chavira on 06-09-2024 Creatinine [Mass/Vol] 0.68 mg/dL Low 0.70-1.30 [facility] Comment on above: The validity of the calculated GFR & GFRAA in patients over 70 years has not been determined. Clinical correlation is essential. Serum or plasma urea nitroge n measurement (mass/volume)Ordered By: Maria Luz Chavira on 06-09-2024 Urea nitrogen [Mass/Vol] 26 mg/dL High 01-19 [facility] Sodium levelOrdered By: Lelia Chavira on 06-09-2024 Sodium [Moles/Vol] 143 mmol/L 136-145 [facility] White blood cell (WBC) count Ordered By: Maria Luz Chavira on 06-09-2024 WBC (Bld) [#/Vol] 12.3 10*3/uL High 4.4-11.0 [facility] HIP, UNI W/ Pelvis 2-3 Views on 04-21-2024 HIP, UNI W/ Pelvis 2-3 Views [facility] [address] [place] [address] HIP, UNI W/ Pelvis 2-3 Views MR#: [id number] Acct: [id number] Name: AMOR PETE Rep #: [id number] : 1945 M 78 From: Brent galicia DO PCP: Dr. Maria Luz Chavira MD Status: DEP AMB Study: HIP, UNI W/ Pelvis 2-3 Views Date of Exam: Exam# [id number] Ordering Dr: Capo Rivera DO [id number] EXAM: XR LEFT HIP WITH PELVIS WHEN PERFORMED, 2 OR 3 VIEWS CLINICAL INDICATION: post op TECHNIQUE: Two or three views of the left hip with pelvis when performed. COMPARISON: 03/28/2024 and 03/27/2024 FINDINGS: BONES/JOINTS: Status post intramedullary fixation of the left femur for treatment of the previously described fracture. Degenerative changes in the lower lumbar spine and right hip. 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 No destructive or sclerotic lesions. Note that overlapping bowel shadows may however obscure fine detail. No widening of the pubic symphysis. SOFT TISSUES: Mild swelling in the surrounding soft tissues over the left hip. RAD/HIP, UNI W/ Pelvis 2-3 Views IMPRESSION: 1. Status post intramedullary fixation of the left femur for treatment of the previously described fracture. Expected postoperative change. 2. 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 Electronically Signed: Brent Garnica DO at 21:47 EDT , CC: Dr. Maria Luz Chavira MD; Dr. Capo Rivera DO Jewelry Inspector: Signed [facility] Orthopedic Visit Reporton Orthopedic Visit Report [facility] [address] [place] [address] OFFICE VISIT Date of Service: 04/21/24 MR#: [id number] Acct: [id number] Name: AMOR PETE Rep #: [id number] : 1945 Provider: Dr. Capo richards DO Age/Sex: 78/M Location: [facility] Status: Signed Intake Vital Signs 04/04/24 15:14 Height 5 ft 4 in Intake Visit Reasons: LEFT HIP Chief Complaint: left hip follow up Is patient in pain?: Yes (left hip) Pain scale (1-10): 2 Allergies No Known Allergies Allergy (Verified 04/21/24 08:42) Medications ???Medication ???Instructions ???Recorded ???Confirmed ???Type Adult Pull-UP #3 ea 12/12/21 04/05/24 Rx denosumab 60 mg/mL subcutaneous 60 mg subcut [id number] Osteoporosis 12/25/22 03/30/24 Rx syringe #1 mL cholecalciferol (vitamin D3) 50 50 mcg PO DAILY vit d deficiency 07/08/23 03/30/24 Rx mcg (2,000 unit) capsule #90 caps bismuth subsalicylate 262 mg/15 mL 524 mg PO Q4H PRN diarrhea 02/25/24 03/30/24 History oral suspension (Pepto-Bismol) calcium carbonate (Tums) 400 mg PO Q6H PRN dyspepsia 02/25/24 03/30/24 History galantamine 24 mg 24 hr 24 mg PO QAM dementia #30 caps 03/02/24 03/30/24 Rx capsule,extended release magnesium hydroxide 400 mg/5 mL 30 ml PO DAILY PRN constipation 03/02/24 03/30/24 History oral suspension (Milk of Magnesia) memantine 10 mg tablet 10 mg PO BID Dementia #60 tabs 03/02/24 03/30/24 Rx amlodipine 5 mg tablet 5 mg PO DAILY BP 03/30/24 03/30/24 History paroxetine HCl 20 mg tablet 20 mg PO DAILY Mood 03/30/24 03/30/24 History calcium 500 mg (as 1 tab PO BID for osteoporosis #90 04/04/24 04/05/24 Rx carbonate)-vitamin D3 5 mcg (200 tabs unit) tablet (Oyster Shell Calcium-Vitamin D3) acetaminophen 500 mg tablet 1,000 mg (2 x 500 mg) PO Q8 30 04/12/24 Rx days #180 tabs apixaban 5 mg tablet (Eliquis) 2.5 mg (1/2 x 5 mg) PO BID 7 days 04/12/24 Rx #7 tabs sennosides 8.6 mg-docusate sodium 2 tab PO BID 30 days #120 tabs 04/12/24 Rx 50 mg tablet (Stimulant Laxative Plus) tramadol 50 mg tablet 50 mg PO Q6H PRN PRN Pain Score 04/12/24 Rx 1-3 Or Pre Pt/Ot 7 days #28 tabs Have you fallen in the past year?: Yes PFSH Medical History (Updated 04/21/24 @ 09:[address] Capo Rivera DO) Hip fracture, left Impacted cerumen of both ears Closed head injury without concussion Laceration of scalp Recent change in frequency of bowel movements BPH (benign prostatic hyperplasia) Cognitive and behavioral changes Osteoporosis Hearing loss Seasonal allergies Dyspnea Other kyphoscoliosis and scoliosis Hypertension Hemorrhoid Tracheobronchomalaci a Mental retardation Pericardial effusion Pleural effusion Hypoxia Shortness of breath Surgical History (Updated 04/21/24 @ 00:01 by Pedro Luis Mcrae) History of surgical removal of testicle S/P laparoscopic cholecystectomy Family History Father Alzheimer disease Mother Cancer Sister Cancer Social History Smoking Status: Former smoker second hand exposure: No alcohol intake: never substance use type: does not use caffeine: Yes what type of physical activity do you participate in: none seatbelt use: always HPI LEFT HIP Chief Complaint: post op left hip Details: This documentation accurately reflects the service provided and the decisions made by me, Dr. Capo Rivera DO 04/21/24 0804. Part of today???s visit was documented by Lorin OLIVARES, acting as scribe. AMOR PETE is a 78 year old M here today for follow-up on left hip fracture date of surgery 03/28/2024 cephalomedullary fixation left hip. Pt. presents in w/c with caregiver. He is pleasant and caregiver states he has not c/o pain but he is taking Tylenol. He is currently in PT which is going well and caregiver states he is able to take a few steps with his walker and has been riding a stationary bike. Ortho Exam General General: Yes no acute distress Neurologic: Yes confused Left Hip Skin/Wound: Yes Ecchymosis, No soft tissue swelling and No Erythema Hip: Present eccymosis; Absent soft tissue swelling or erythema HIP: Incisions are well-healed there is no sign of infection he is no sign of DVT no significant edema in his extremity he is able to come to a stand with assist. Supplemental Info 04/21/2024 x-ray left hip: Status post cephalomedullary fixation with hardware intact without concern. 03/28/2024 left hip cephalomedullary fixation: Dr. Rivera Coding Level of Care Code Global Post Op Diagnoses Orthopedic aftercare Z47.89 Assessment and Plan Assessment and Plan (1) Orthopedic aftercare: Status: Acute Order (more content not included)... [facility] 12 Lead EKGon 04-03-2024 12 Lead EKG [facility] Cardiovascular Services [address] [place] [address] 12 Lead EKG 04/03/24 1657 MR#: [id number] Acct: [id number] Name: AMOR PETE Rep #: [id number] : 1945 78 From: Tyree Snyder MD Attending Dr: Dr. Belinda Teixeira DO Sta tus: ADM IN Ordering Dr: Belinda Teixeira DO Date: 04/03/24 Location: Sex: M C Admitted: 03/30/24 Test Reason : L SHOULDER PAIN Blood Pressure : / mmHG Vent. Rate : 086 BPM Atrial Rate : 086 BPM P-R Int : 204 ms QRS Dur : 072 ms QT Int : 348 ms P-R-T Axes : 037 037 048 degrees QTc Int : 416 ms Normal sinus rhythm with sinus arrhythmia Normal ECG When compared with ECG of 27-MAR-2024 07:57, No significant change was found Confirmed by JANIYA ROSS, TYREE ([id number]), editor managing newspaper TRERI BECERRA ([id number]) on 04/04/2024 9:45:43 AM Referred By: Belinda Teixeira Confirmed By:TYREE SNYDER MD 04/04/24 0945 Date Tyree Snyder MD CC: Dr. Maria Luz Chavira MD; Dr. Belinda Teixeira DO Signed [facility] Shoulder min 2 Viewson 04-03 Shoulder min 2 Views [facility] Imaging [place] [id number] Shoulder min 2 Views MR#: [id number] Acct: [id number] Name: AMOR PETE Rep #: [id number] : 1945 M 78 From: Vandana Shen PCP: Dr. Maria Luz Chavira MD Status: ADM IN Study: Shoulder min 2 Views Date of Exam: 04/03/24 Exam# [id number] Ordering Dr: Belinda Teixeira DO [id number] INDICATION: recent fall EXAMINATION/TECHNIQU E: X-RAY - LEFT XR Shoulder Min 2 Views 5 VIEWS COMPARISON: No relevant prior comparison study available ____ FINDINGS: BONES: No acute fracture demonstrated. There is a fragment adjacent to the tip of the scapular coracoid process, appears well-corticated and may be related to prior trauma. Degenerative changes at the glenohumeral and acromioclavicular joints. JOINTS: No dislocation. SOFT TISSUES: Unremarkable. ____ RAD/Shoulder min 2 Views IMPRESSION: No evidence of acute fracture. Electronically Signed: Vandana Mcneil MD at 5:00 EDT , CC: Dr. Maria Luz Chavira MD; Dr. Belinda Teixeira DO Jewelry Inspector: Signed [facility] CBC W/Diff, Automatedon 03-064 Absolute Lymph 1.25 X10 3/uL Normal 0.83-4.51 [facility] Comment on above: Performed By: #### L 501.5200, L500.4050, L501.2300, L100.0100 ####[facility] [address] [place], [address] Absolute Neut 7.3 X10 3/uL Normal 2.0-7.7 [facility] Comment on above: Performed By: #### L 501.5200, L500.4050, L501.2300, L100.0100 ####[facility] [address] [place], [address] Basophils/100 WBC (Bld) 0.6 % Normal 0-1 [facility] Comment on above: Performed By: #### L 501.5200, L500.4050, L501.2300, L100.0100 ####[facility] [address] [place], [address] Eosinophils/100 WBC (Bld) 2.8 % Normal 0-5 [facility] Comment on above: Performed By: #### L 501.5200, L500.4050, L501.2300, L100.0100 ####[facility] [address] [place], [address] Erythrocyte distribution width (RBC) [Ratio] 14.8 % High 11.6-14.6 [facility] Comment on above: Performed By: #### L 501.5200, L500.4050, L501.2300, L100.0100 ####[facility] [address] [place], [address] Hematocrit (Bld) [Volume fraction] 32.2 % Low 40-54 [facility] Comment on above: Performed By: #### L 501.5200, L500.4050, L501.2300, L100.0100 ####[facility] [address] [place], [address] Hemoglobin (Bld) [Mass/Vol] 9.9 g/dL Low 13.0-16.5 [facility] Comment on above: Performed By: #### L 501.5200, L500.4050, L501.2300, L100.0100 ####[facility] [address] [place], [address] IG% 0.800 Normal 0.0-0.9 [facility] Comment on above: Result Comment: IG% - Immature Granulocytes (promyelocytes, myelocytes and metamyelocytes) > 1% indicates that a LEFT SHIFT is Present. Performed By: #### L 501.5200, L500.4050, L501.2300, L100.0100 ####[facility] [address] [place], [address] Lymphocytes/100 WBC (Bld) 12.3 % Low 19-41 [facility] Comment on above: Performed By: #### L 501.5200, L500.4050, L501.2300, L100.0100 ####[facility] [address] [place], [address] MCH (RBC) [Entitic mass] 28.8 pg Normal 27.0-32.0 [facility] Comment on above: Performed By: #### L 501.5200, L500.4050, L501.2300, L100.0100 ####[facility] [address] [place], [address] MCHC (RBC) [Mass/Vol] 30.7 g/dL Low 32-36 [facility] Comment on above: Performed By: #### L 501.5200, L500.4050, L501.2300, L100.0100 ####[facility] [address] [place], [address] MCV (RBC) [Entitic vol] 93.6 fL Normal 80-94 [facility] Comment on above: Performed By: #### L 501.5200, L500.4050, L501.2300, L100.0100 ####[facility] [address] [place], [address] Monocytes/100 WBC (Bld) 11.7 % High 0-10 [facility] Comment on above: Performed By: #### L 501.5200, L500.4050, L501.2300, L100.0100 ####[facility] [address] [place], [address] Neutrophils/100 WBC (Bld) 71.8 % High 47-70 [facility] Comment on above: Performed By: #### L 501.5200, L500.4050, L501.2300, L100.0100 ####[facility] [address] [place], [address] Nucleated RBC (Bld) [#/Vol] 0 10*3/uL Normal 0-5 [facility] Comment on above: Performed By: #### L 501.5200, L500.4050, L501.2300, L100.0100 ####[facility] [address] [place], [address] Platelet mean volume (Bld) [Entitic vol] 10.0 fL Normal 6.2-12.0 [facility] Comment on above: Performed By: #### L 501.5200, L500.4050, L501.2300, L100.0100 ####[facility] [address] [place], [address] Platelets (Bld) [#/Vol] 239 10*3/uL Normal 150-450 [facility] Comment on above: Performed By: #### L 501.5200, L500.4050, L501.2300, L100.0100 ####[facility] [address] [place], [address] RBC (Bld) [#/Vol] 3.44 10*6/uL Low 4.6-6.2 [facility] Comment on above: Performed By: #### L 501.5200, L500.4050, L501.2300, L100.0100 ####[facility] [address] [place], [address] RDW SD 51.2 fl High 35.1-43.9 [facility] Comment on above: Performed By: #### L 501.5200, L500.4050, L501.2300, L100.0100 ####[facility] [address] [place], [address] WBC (Bld) [#/Vol] 10.1 10*3/uL Normal 4.4-11.0 [facility] Comment on above: Performed By: #### L 501.5200, L500.4050, L501.2300, L100.0100 ####[facility] [address] [place], [address] Comprehensive Metabolic Prof [facility] 03-31-2024 Albumin [Mass/Vol] 2.2 g/dL Low 3.2-5.0 [facility] Comment on above: Performed By: #### L 501.5200, L500.4050, L501.2300, L100.0100 ####[facility] [address] [place], [address] Albumin/Globulin [Mass ratio] 0.7 {ratio} Low 0.9-2.4 [facility] Comment on above: Performed By: #### L 501.5200, L500.4050, L501.2300, L100.0100 ####[facility] [address] [place], [address] ALK P 52 U/L Normal 45-117 [facility] Comment on above: Performed By: #### L 501.5200, L500.4050, L501.2300, L100.0100 ####[facility] [address] [place], [address] ALT [Catalytic activity/Vol] 15 U/L Low 16-61 [facility] Comment on above: Performed By: #### L 501.5200, L500.4050, L501.2300, L100.0100 ####[facility] [address] [place], [address] AST [Catalytic activity/Vol] 16 U/L Normal 15-37 [facility] Comment on above: Performed By: #### L 501.5200, L500.4050, L501.2300, L100.0100 ####[facility] [address] [place], [address] Bilirubin [Mass/Vol] 0.50 mg/dL Normal 0.20-1.00 [facility] Comment on above: Result Comment: For patients on eltrombopag therapy, use of Dimension Glady TBIL is not recommended. Performed By: #### L 501.5200, L500.4050, L501.2300, L100.0100 ####[facility] [address] [place], [address] BUN/CRE 30.9 RATIO High 10-20 [facility] Comment on above: Performed By: #### L 501.5200, L500.4050, L501.2300, L100.0100 ####[facility] [address] [place], [address] CA,Total 8.9 mg/dL Normal 8.5-10.1 [facility] Comment on above: Performed By: #### L 501.5200, L500.4050, L501.2300, L100.0100 ####[facility] [address] [place], [address] Chloride [Moles/Vol] 115 mmol/L High 98-107 [facility] Comment on above: Performed By: #### L 501.5200, L500.4050, L501.2300, L100.0100 ####[facility] [address] [place], [address] CO2 [Moles/Vol] 29.0 mmol/L Normal 21.0-32.0 [facility] Comment on above: Performed By: #### L 501.5200, L500.4050, L501.2300, L100.0100 ####[facility] [address] [place], [address] Creatinine [Mass/Vol] 0.91 mg/dL Normal 0.70-1.30 [facility] Comment on above: Result Comment: The validity of the calculated GFR GFRAA in patients over 70 years has not been determined. Clinical correlation is essential. Performed By: #### L 501.5200, L500.4050, L501.2300, L100.0100 ####[facility] [address] [place], [address] ECRCL 53.82 ml/min Normal [facility] Comment on above: Performed By: #### L 501.5200, L500.4050, L501.2300, L100.0100 ####[facility] [address] [place], [address] EST GFR - AA 105 mL/min Normal >60 [facility] Comment on above: Result Comment: Afri can [place]an GFR Calc Performed By: #### L 501.5200, L500.4050, L501.2300, L100.0100 ####[facility] [address] [place], [address] GAP 2 Low 5-15 [facility] Comment on above: Performed By: #### L 501.5200, L500.4050, L501.2300, L100.0100 ####[facility] [address] [place], [address] GFR/1.73 sq M.predicted among non-blacks MDRD (S/P/Bld) [Vol rate/Area] 86 mL/min/{1.73_m2} Normal >60 [facility] Comment on above: Result Comment: Non- GFR Calc Performed By: #### L 501.5200, L500.4050, L501.2300, L100.0100 ####[facility] [address] [place], [address] Globulin (S) [Mass/Vol] 3.3 g/dL Normal 2.2-4.2 [facility] Comment on above: Performed By: #### L 501.5200, L500.4050, L501.2300, L100.0100 ####[facility] [address] [place], [address] Glucose [Mass/Vol] 113 mg/dL High 74-106 [facility] Comment on above: Result Comment: Fast ing Glucose result from 100 to 125 mg/dL suggests IMPAIRED HOMEOSTASIS per A.D.A. criteria. Performed By: #### L 501.5200, L500.4050, L501.2300, L100.0100 ####[facility] [address] [place], [address] Potassium [Moles/Vol] 3.8 mmol/L Normal 3.5-5.1 [facility] Comment on above: Performed By: #### L 501.5200, L500.4050, L501.2300, L100.0100 ####[facility] [address] [place], [address] Sodium [Moles/Vol] 146 mmol/L High 136-145 [facility] Comment on above: Performed By: #### L 501.5200, L500.4050, L501.2300, L100.0100 ####[facility] [address] [place], [address] T PROT 5.5 g/dL Low 6.4-8.2 [facility] Comment on above: Performed By: #### L 501.5200, L500.4050, L501.2300, L100.0100 ####[facility] [address] [place], [address] Urea nitrogen [Mass/Vol] 28 mg/dL High 7-18 [facility] Comment on above: Performed By: #### L 501.5200, L500.4050, L501.2300, L100.0100 ####[facility] [address] [place], [address] Magnesiumon 03-31-2024 Magnesium [Mass/Vol] 2.3 mg/dL Normal 1.6-2.6 [facility] Comment on above: Performed By: #### L 501.5200, L500.4050, L501.2300, L100.0100 ####[facility] [address] [place], [address] Phosphoruson 03-31-2024 Phosphate [Mass/Vol] 3.4 mg/dL Normal 2.5-4.9 [facility] Comment on above: Performed By: #### L 501.5200, L500.4050, L501.2300, L100.0100 ####[facility] [address] [place], [address] Basic Metabolic Profile (BMP )on 03-30-2024 BUN/CRE 22.6 RATIO High 10-20 [facility] Comment on above: Performed By: #### L 100.0100, L500.2500 #### [facility] [address] [place], [address] CA,Total 8.0 mg/dL Low 8.5-10.1 [facility] Comment on above: Performed By: #### L 100.0100, L500.2500 #### [facility] [address] [place], [address] Chloride [Moles/Vol] 114 mmol/L High 98-107 [facility] Comment on above: Performed By: #### L 100.0100, L500.2500 #### [facility] [address] [place], [address] CO2 [Moles/Vol] 29.0 mmol/L Normal 21.0-32.0 [facility] Comment on above: Performed By: #### L 100.0100, L500.2500 #### [facility] [address] [place], [address] Creatinine [Mass/Vol] 0.71 mg/dL Normal 0.70-1.30 [facility] Comment on above: Result Comment: The validity of the calculated GFR GFRAA in patients over 70 years has not been determined. Clinical correlation is essential. Performed By: #### L 100.0100, L500.2500 #### [facility] [address] [place], [address] ECRCL 58.89 ml/min Normal [facility] Comment on above: Performed By: #### L 100.0100, L500.2500 #### [facility] [address] [place], [address] EST GFR - AA 139 mL/min Normal >60 [facility] Comment on above: Result Comment: Afri can [place]an GFR Calc Performed By: #### L 100.0100, L500.2500 #### [facility] [address] [place], [address] GAP 1 Low 5-15 [facility] Comment on above: Performed By: #### L 100.0100, L500.2500 #### [facility] [address] [place], [address] GFR/1.73 sq M.predicted among non-blacks MDRD (S/P/Bld) [Vol rate/Area] 115 mL/min/{1.73_m2} Normal >60 [facility] Comment on above: Result Comment: Non- GFR Calc Performed By: #### L 100.0100, L500.2500 #### [facility] [address] [place], [address] Glucose [Mass/Vol] 105 mg/dL Normal 74-106 [facility] Comment on above: Result Comment: Fast ing Glucose result from 100 to 125 mg/dL suggests IMPAIRED HOMEOSTASIS per A.D.A. criteria. Performed By: #### L 100.0100, L500.2500 #### [facility] [address] [place], [address] Potassium [Moles/Vol] 3.7 mmol/L Normal 3.5-5.1 [facility] Comment on above: Performed By: #### L 100.0100, L500.2500 #### [facility] [address] [place], [address] Sodium [Moles/Vol] 144 mmol/L Normal 136-145 [facility] Comment on above: Performed By: #### L 100.0100, L500.2500 #### [facility] [address] [place], [address] Urea nitrogen [Mass/Vol] 16 mg/dL Normal 7-18 [facility] Comment on above: Performed By: #### L 100.0100, L500.2500 #### [facility] [address] [place], [address] CBC W/Diff, Automatedon 09-2 PATH REV Reviewed Normal [facility] Comment on above: Result Comment: Neut rophilic leukocytosis. Macrocytic anemia. Clinical correlation necessary. Jose Hare M.D. 03/30/24 AMENDED REPORT 03/30/24 1409 PATH REV previously reported as: November Performed By: #### L 100.0100, L500.2500 #### [facility] [address] [place], [address] Discharge Instructionon 03-06 Discharge Instruction [facility] Medical Records Department [address] [place] [address] Instructions for Home/Discharge Instructions 03/30/24 1008 MR#: [id number] Acct: [id number] Name: AMOR PETE Rep #: [id number] : 1945 78 From: Rui Verma MD PCP: Dr. Maria Luz Chavira MD Status:ADM IN Discharge Instructions Diet Discharge Diet: Low fat / Low cholesterol Activity Discharge Activity: Return to Normal Activity Weight Bearing Status: Weight bearing as tolerated Dressing / Incision Call your doctor if you observe: Fever of 101 or Higher, Shortness of breath, Dizziness, Fainting spells, Swelling in the ankles, Chest pain and Increased palpitations (irregular heartbeat) Follow Up Care Test Results: Test results from this visit will be discussed in further detail at your follow-up appointment, if applicable. Discharge Plan Admission Admit Date/Time: 03/27/24 08:10 Attending Provider: Rui Verma Primary Care Provider: Maria Luz Chavira Consulting Providers: Capo Rivera Discharge Orders/Prescriptions Prescriptions: New Eliquis 5 mg Tablet 2.5 mg PO BID 20 Days Qty: 20 0RF Continued denosumab 60 mg/mL syringe 60 mg subcut [id number] Qty: 1 2RF acetaminophen 325 mg tablet 650 mg PO Q4H PRN (Reason: pain) calcium carbonate [Tums] 200 mg calcium (500 mg) tablet,chewable 400 mg PO Q6H PRN (Reason: dyspepsia) bismuth subsalicylate [Pepto-Bismol] 262 mg/15 mL suspension 524 mg PO Q4H PRN (Reason: diarrhea) Rx Instructions: do not exceed 8 doses in a 24 hour period magnesium hydroxide [Milk of Magnesia] 400 mg/5 mL suspension 30 ml PO DAILY PRN (Reason: constipation) galantamine 24 mg capsule,ext rel. pellets 24 hr 24 mg PO QAM Qty: 30 11RF Rx Instructions: administer with breakfast memantine 10 mg tablet 10 mg PO BID Qty: 60 11RF (DME) Adult Pull-UP See Rx Instructions .Route .MEDSUPPLY Qty: 3 6RF Rx Instructions: As directed cholecalciferol (vitamin D3) 50 mcg (2,000 unit) capsule 50 mcg PO DAILY Qty: 90 3RF amlodipine 5 mg tablet See Rx Instructions .ROUTE .COMPLEX Qty: 90 2RF Dose Instruction: GIVE 1 TABLET BY MOUTH ONCE DAILY DX: HYPERTENSION Rx Instructions: GIVE 1 TABLET BY MOUTH ONCE DAILY DX: HYPERTENSION calcium carbonate-vitamin D3 [Oyster Shell Calcium-Vit D3] 500 mg-5 mcg (200 unit) tablet 1 tab PO BID Qty: 90 0RF paroxetine HCl 20 mg tablet See Rx Instructions .ROUTE .COMPLEX Qty: 90 1RF Dose Instruction: TAKE 1 TABLET BY MOUTH ONCE DAILY DX: MOOD DISORDER Rx Instructions: TAKE 1 TABLET BY MOUTH ONCE DAILY DX: MOOD DISORDER Referrals / Follow Up: Maria Luz Chavira MD [Primary Care Provider] - Capo Rivera DO [Med Staff - Active Staff] - Within 2 Weeks Disposition Disposition (needs filled in before D/C Order can be placed): Inpatient Rehab Unit/Facility 03/30/24 1031 Rui Verma MD CC: Dr. Maria Luz Chavira MD; Dr. Capo Rivera DO Signed Normal [facility] Basic Metabolic Profile (BMP )on 03-29-2024 BUN/CRE 27.1 RATIO High 10-20 [facility] Comment on above: Performed By: #### L 500.2500, L100.0100 #### [facility] [address] [place], [place], [address] CA,Total 5.6 mg/dL Invalid Interpretation Code 8.5-10.1 [facility] Comment on above: Result Comment: Crit ical Result(s) Called at: 07:41:36 03/29/2024 by: MORGAN HEADLEY TO MORGAN RAJPUT. Results read back by same. Performed By: #### L 500.2500, L100.0100 #### [facility] [address] [place], [address] Chloride [Moles/Vol] 128 mmol/L Invalid Interpretation Code 98-107 [facility] Comment on above: Result Comment: Crit ical Result(s) Called at: 07:41:16 03/29/2024 by: MORGAN HEADLEY TO OMRGAN RAJPUT. Results read back by same. Performed By: #### L 500.2500, L100.0100 #### [facility] [address] [place], [address] CO2 [Moles/Vol] 21.0 mmol/L Normal 21.0-32.0 [facility] Comment on above: Performed By: #### L 500.2500, L100.0100 #### [facility] [address] [place], [address] Creatinine [Mass/Vol] 0.48 mg/dL Low 0.70-1.30 [facility] Comment on above: Result Comment: The validity of the calculated GFR GFRAA in patients over 70 years has not been determined. Clinical correlation is essential. Performed By: #### L 500.2500, L100.0100 #### [facility] [address] [place], [address] ECRCL 58.89 ml/min Normal [facility] Comment on above: Performed By: #### L 500.2500, L100.0100 #### [facility] [address] [place], [address] EST GFR - AA 218 mL/min Normal >60 [facility] Comment on above: Result Comment: Afri can [place]an GFR Calc Performed By: #### L 500.2500, L100.0100 #### [facility] [address] [place], [address] GAP 2 Low 5-15 [facility] Comment on above: Performed By: #### L 500.2500, L100.0100 #### [facility] [address] [place], [address] GFR/1.73 sq M.predicted among non-blacks MDRD (S/P/Bld) [Vol rate/Area] 180 mL/min/{1.73_m2} Normal >60 [facility] Comment on above: Result Comment: Non- GFR Calc Performed By: #### L 500.2500, L100.0100 #### [facility] [address] [place], [address] Glucose [Mass/Vol] 98 mg/dL Normal 74-106 [facility] Comment on above: Performed By: #### L 500.2500, L100.0100 #### [facility] [address] [place], [address] Potassium [Moles/Vol] 2.7 mmol/L Invalid Interpretation Code 3.5-5.1 [facility] Comment on above: Result Comment: Crit ical Result(s) Called at: 07:40:38 03/29/2024 by: MORGAN HEADLEY TO MORGAN RAJPUT. Results read back by same. Performed By: #### L 500.2500, L100.0100 #### [facility] [address] [place], [address] Sodium [Moles/Vol] 151 mmol/L High 136-145 [facility] Comment on above: Performed By: #### L 500.2500, L100.0100 #### [facility] [address] [place], [address] Urea nitrogen [Mass/Vol] 13 mg/dL Normal 7-18 [facility] Comment on above: Performed By: #### L 500.2500, L100.0100 #### [facility] [address] [place], [address] CBC W/Diff, Automatedon 03-06 PATH REV Reviewed Normal [facility] Comment on above: Result Comment: Neut rophilic leukocytosis. Clinical correlation necessary. Jose Hare M.D. 03/29/24 AMENDED REPORT 03/29/24 1503 PATH REV previously reported as: November Performed By: #### L 500.2500, L100.0100 ####[facility] [address] [place], [address] Absolute Lymph 0.44 X10 3/uL Low 0.83-4.51 [facility] Comment on above: Performed By: #### L 500.2500, L100.0100 #### [facility] [address] [place], [address] Absolute Neut 10.8 X10 3/uL High 2.0-7.7 [facility] Comment on above: Performed By: #### L 500.2500, L100.0100 #### [facility] [address] [place], [address] Basophils/100 WBC (Bld) 0.1 % Normal 0-1 [facility] Comment on above: Performed By: #### L 500.2500, L100.0100 #### [facility] [address] [place], [address] Eosinophils/100 WBC (Bld) 0.0 % Normal 0-5 [facility] Comment on above: Performed By: #### L 500.2500, L100.0100 #### [facility] [address] [place], [address] Erythrocyte distribution width (RBC) [Ratio] 14.9 % High 11.6-14.6 [facility] Comment on above: Performed By: #### L 500.2500, L100.0100 #### [facility] [address] [place], [address] Hematocrit (Bld) [Volume fraction] 28.1 % Low 40-54 [facility] Comment on above: Performed By: #### L 500.2500, L100.0100 #### [facility] [address] [place], [address] Hemoglobin (Bld) [Mass/Vol] 8.5 g/dL Low 13.0-16.5 [facility] Comment on above: Performed By: #### L 500.2500, L100.0100 #### [facility] [address] [place], [address] IG% 0.500 Normal 0.0-0.9 [facility] Comment on above: Result Comment: IG% - Immature Granulocytes (promyelocytes, myelocytes and metamyelocytes) > 1% indicates that a LEFT SHIFT is Present. Performed By: #### L 500.2500, L100.0100 #### [facility] [address] [place], [address] Lymphocytes/100 WBC (Bld) 3.5 % Low 19-41 [facility] Comment on above: Performed By: #### L 500.2500, L100.0100 #### [facility] [address] [place], [address] MCH (RBC) [Entitic mass] 28.9 pg Normal 27.0-32.0 [facility] Comment on above: Performed By: #### L 500.2500, L100.0100 #### [facility] [address] [place], [address] MCHC (RBC) [Mass/Vol] 30.2 g/dL Low 32-36 [facility] Comment on above: Performed By: #### L 500.2500, L100.0100 #### [facility] [address] [place], [address] MCV (RBC) [Entitic vol] 95.6 fL High 80-94 [facility] Comment on above: Performed By: #### L 500.2500, L100.0100 #### [facility] [address] [place], [address] Monocytes/100 WBC (Bld) 11.3 % High 0-10 [facility] Comment on above: Performed By: #### L 500.2500, L100.0100 #### [facility] [address] [place], [address] Neutrophils/100 WBC (Bld) 84.6 % High 47-70 [facility] Comment on above: Performed By: #### L 500.2500, L100.0100 #### [facility] [address] [place], [address] Nucleated RBC (Bld) [#/Vol] 0 10*3/uL Normal 0-5 [facility] Comment on above: Performed By: #### L 500.2500, L100.0100 #### [facility] [address] [place], [address] Platelet mean volume (Bld) [Entitic vol] 10.8 fL Normal 6.2-12.0 [facility] Comment on above: Performed By: #### L 500.2500, L100.0100 #### [facility] [address] [place], [address] Platelets (Bld) [#/Vol] 159 10*3/uL Normal 150-450 [facility] Comment on above: Performed By: #### L 500.2500, L100.0100 #### [facility] [address] [place], [address] RBC (Bld) [#/Vol] 2.94 10*6/uL Low 4.6-6.2 [facility] Comment on above: Performed By: #### L 500.2500, L100.0100 #### [facility] [address] [place], [address] RDW SD 52.1 fl High 35.1-43.9 [facility] Comment on above: Performed By: #### L 500.2500, L100.0100 #### [facility] [address] [place], [address] WBC (Bld) [#/Vol] 12.7 10*3/uL High 4.4-11.0 [facility] Comment on above: Performed By: #### L 500.2500, L100.0100 #### [facility] [address] [place], [address] L501.2276on 03-29-2024 Ionized Calcium 4.59 mg/dL Normal 4.36-5.20 [facility] Comment on above: Performed By: #### L 501.2276 ####[facility] [address] [place], [address] Basic Metabolic Profile (BMP )on 03-28-2024 BUN/CRE 23.7 RATIO High 10-20 [facility] Comment on above: Performed By: #### L 500.2500, L100.0100 ####[facility] [address] [place], [address] CA,Total 8.7 mg/dL Normal 8.5-10.1 [facility] Comment on above: Performed By: #### L 500.2500, L100.0100 ####[facility] [address] [place], [address] Chloride [Moles/Vol] 111 mmol/L High 98-107 [facility] Comment on above: Performed By: #### L 500.2500, L100.0100 ####[facility] [address] [place], [address] CO2 [Moles/Vol] 30.0 mmol/L Normal 21.0-32.0 [facility] Comment on above: Performed By: #### L 500.2500, L100.0100 ####[facility] [address] [place], [address] Creatinine [Mass/Vol] 0.84 mg/dL Normal 0.70-1.30 [facility] Comment on above: Result Comment: The validity of the calculated GFR GFRAA in patients over 70 years has not been determined. Clinical correlation is essential. Performed By: #### L 500.2500, L100.0100 ####[facility] [address] [place], [address] ECRCL 56.08 ml/min Normal [facility] Comment on above: Performed By: #### L 500.2500, L100.0100 ####[facility] [address] [place], [address] EST GFR - AA 113 mL/min Normal >60 [facility] Comment on above: Result Comment: Afri can [place] GFR Calc Performed By: #### L 500.2500, L100.0100 ####[facility] [address] [place], [address] GAP 3 Low 5-15 [facility] Comment on above: Performed By: #### L 500.2500, L100.0100 ####[facility] [address] [place], [address] GFR/1.73 sq M.predicted among non-blacks MDRD (S/P/Bld) [Vol rate/Area] 94 mL/min/{1.73_m2} Normal >60 [facility] Comment on above: Result Comment: Non- GFR Calc Performed By: #### L 500.2500, L100.0100 ####[facility] [address] [place], [address] Glucose [Mass/Vol] 128 mg/dL High 74-106 [facility] Comment on above: Result Comment: Fast ing Glucose result greater than or equal to 126 mg/dL suggests DIABETES MELLITUS per A.D.A. criteria. Performed By: #### L 500.2500, L100.0100 ####[facility] [address] [place], [address] Potassium [Moles/Vol] 3.8 mmol/L Normal 3.5-5.1 [facility] Comment on above: Performed By: #### L 500.2500, L100.0100 ####[facility] [address] [place], [address] Sodium [Moles/Vol] 144 mmol/L Normal 136-145 [facility] Comment on above: Performed By: #### L 500.2500, L100.0100 ####[facility] [address] [place], [address] Urea nitrogen [Mass/Vol] 20 mg/dL High 7-18 [facility] Comment on above: Performed By: #### L 500.2500, L100.0100 ####[facility] [address] [place], [address] CBC W/Diff, Automatedon 03-06 PATH REV Reviewed [facility] Comment on above: Result Comment: Neut rophilic leukocytosis. Clinical correlation necessary. Jose Hare M.D. 03/28/24 AMENDED REPORT 03/28/24 1139 PATH REV previously reported as: Susanne leavitt Performed By: #### L 500.2500, L100.0100 ####[facility] [address] [place], [address] Hip 1 view with Pelvison Hip 1 view with Pelvis [facility] Imaging Services [address] [place] [address] Hip 1 view with Pelvis MR#: [id number] Acct: [id number] Name: AMOR PETE Rep #: [id number] : 1945 M 78 From: Kirk Linder MD PCP: Dr. Maria Luz Chavira MD Status: ADM IN Study: Hip 1 view with Pelvis Date of Exam: 03/28/24 Exam# [id number] Ordering Dr: Capo Rivera DO [id number] STUDY: X-RAY - LEFT HIP REASON FOR EXAM: Male, 78 years old. Fracture. TECHNIQUE: 3 spot fluoroscopic C-arm spot films were obtained of the left hip. COMPARISON: Pelvis and left hip radiographs dated 03/27/2024. FINDINGS: An intramedullary nail has been placed into the left proximal femur with left hip screw in place, fixating the previously seen intertrochanteric fracture. Normal visualized left superior and inferior pubic rami. Normal left ischial tuberosity. RAD/Hip 1 view with Pelvis IMPRESSION: Intramedullary femoral nail with left hip screw in place, fixating the previously seen intertrochanteric fracture. Electronically Signed: Kirk Linder MD at 15:29 EDT Reading Location ID and State: [address] [place] [address] , Service support , CC: Dr. Maria Luz Chavira MD; Dr. Capo Rivera DO Jewelry Inspector: Signed [facility] MR/POSTOP.[facility] 03-28-2024 MR/POSTOP.[facility] Medical Records Department [address] [place] [address] Anesthesia Postop Eval I 03/28/24 1551 MR#: [id number] Acct: [id number] Name: AMOR PETE Rep #: [id number] : 1945 78 From: Merlin Quintana CRNA PCP: Dr. Maria Luz Chavira MD Status:ADM IN Y Race: C Location: [place] [address] Anesthesia: Postop Eval I Current Vital Signs Temperature: 98.9 F Pulse Rate: 83 Blood Pressure: 137/111 Respiratory Rate: 16 Pulse Ox: 94 Oxygen Delivery Method: Room Air Assessment Airway patent: Yes Spontaneous unlabored respirations: Yes Mental status: Awake and Calm nausea: No Vomiting: No Anesthesia Complication: No Fluid Hydration Crystalloid volume administer (ml): 600 Total IV fluid infused: 600 Progress Note Anesthesia document: Postop Eval 1 completed: Yes 03/28/24 1553 Date Merlin Quintana DISH STACKER Cosigner Signature: Date CC: Signed [facility] MR/[id number] 03-28-2024 [facility] Medical Records Department [address] [place] [address] Anesthesia Postop Eval II 03/28/24 1708 MR#: [id number] Acct: [id number] Name: AMOR PETE Rep #: [id number] : 1945 78 From: Huy Miller MD PCP: Dr. Maria Luz Chavira MD Status:ADM IN Y Race: C Location: [place] [address] Anesthesia Postop Eval I Sum Postop Eval Completion status Anesthesia document: Postop Eval 1 completed: Yes Anesthesia Postop Eval I Summary Anesthesia Postop Eval I Summary: Anesthesia Postop Eval I: Assessment Summary Airway patent Yes 03/28/24 15:53 DISH [email or web address] Spontaneous unlabored Yes 03/28/24 15:53 DISH [email or web address] respirations Mental status Awake,Calm 03/28/24 15:53 DISH [email or web address] nausea No 03/28/24 15:53 DISH [email or web address] Vomiting No 03/28/24 15:53 DISH [email or web address] Anesthesia Postop Eval I: Fluid Summary Crystalloid volume administer 600 03/28/24 15:53 [email or web address] (ml) Colloids volume administered ( ml) Blood Product volume administered (ml) Total IV fluid infused 600 03/28/24 15:53 DISH [email or web address] Anesthesia Postop Eval I: Summary Notes Anesthesia Complication No 03/28/24 15:53 DISH [email or web address] Anesthesia Complication Comment: Post-operative progress note Anesthesia: Postop Eval II Evaluation Mental status: Awake and Calm Pain Level: 2 nausea: No Vomiting: No Complications Anesthesia Complication: No 03/28/24 1708 Date Huy Fieldsignjose luis Signature: Date CC: Signed [facility] Operative Reporton 4 Operative Report [facility] Medical Records Department [address] [place] [address] Operative Report 03/28/24 1526 MR#: [id number] Acct: [id number] Name: AMOR PETE Rep #: [id number] : 1945 78 From: Capo Rivera DO PCP: Dr. Maria Luz Chavira MD Status:ADM IN Location: [place] [address] Operative Report Date of Procedure: 03/28/24 Preoperative diagnosis: Left hip intertrochanteric femur fracture Postoperative diagnosis: Same Procedure: Cephalo-medullary fixation right hip Implants: Synthes short nail 130 deg 10 mm diameter 100 mm helical blade 36 mm screw Anesthesia: General EBL: 20 Complications: None Condition: Stable to PACU Indication for procedure: 78-year-old male with dementia patient with ground-level fall sustaining injury to hip. Fracture demonstrated intertrochanteric femur fracture pattern. Risk benefits and alternatives were reviewed including risk of bleeding infection nerve, artery, bone, tissue damage, blood clot need for further surgery and continued pain. Procedure: Patient met in the preoperative holding area once again the operative extremity was identified by both patient and physician and was marked. Patient was met by anesthesia and IV was started . patient was brought back to the to the operating room anesthesia was started. Patient was then positioned on the fracture table all bony prominences were well-padded. patient was then positioned with abduction internal rotation and traction and fluoroscopy was brought in to ensure that an adequate reduction could be performed. Patient was then prepped and draped in usual sterile fashion and timeout was called to ensure the proper patient procedure and extremity were being contemplated. Fluoroscopy was used to daniel the tip of the greater trochanter and a 3 fingerbreadth incision was made 2 finger breaths proximal to the tip of the greater trochanter. Was carried carried down through the skin and subcutaneous tissue as well as the gluteal fascia. Guidepin was then inserted through the tip of the greater trochanter directed towards the level of lesser trochanter this was checked in both AP and lateral projections. An opening reamer was performed. Following this was the insertion of the nail the appropriate height jig was used and a triple trocar sleeve was advanced to the skin and a stab incision was made at the trocar was inserted to the level of the bone and a guidepin was placed into the femoral neck and head checked on both AP and lateral projections. This was then measured and appropriately sized helical blade was inserted the nail was locked proximally the fracture was compressed and a locking screw was placed distally the same incision was extended slightly distally to allow the insertion of the trocar for the transverse screw. This was then drilled and measured under fluoroscopy and the appropriate size screw was inserted. Final AP and lateral projections were saved to the PACS system of the entire construct the wounds were thoroughly irrigated the fascia was closed with #1 jfmlou-ml-nardt Vicryls followed by 2-0 Vicryl in the subcutaneous tissues followed by josefa in the skin. 0.5% Marcaine with epinephrine was injected into the subcutaneous tissues dressing was applied form of Xeroform 4 x 4 ABD and Ioban tape. Patient tolerated procedure well there is no intraoperative complications and was brought back to the PACU in stable condition. 03/28/24 1527 Cosigner Signature (if applicable): CC: Dr. Maria Luz Chavira MD; Dr. Capo Rivera DO Signed ADDENDUM by Dr. Capo Rivera DO on 03/29/24 at 0756 Addendum Error in documentation. Procedure should read left side 03/29/24 0756 Cosigner Signature (if applicable): cc: Dr. Maria Luz Chavira MD; Dr. Capo Rivera, DO * Signed [facility] 12 Lead EKGon 03-27-2024 12 Lead EKG [facility] Cardiovascular Services [address] [place] [address] 12 Lead EKG 03/27/24 0757 MR#: [id number] Acct: [id number] Name: AMOR PETE Rep #: [id number] : 1945 78 From: Roney Disla MD Attending Dr: Dr. Rui Verma MD Status : ADM IN Ordering Dr: Neil Ramey MD Date: 03/27/24 Location: [facility] Sex: M C Admitted: 03/27/24 Test Reason : FALL Blood Pressure : / mmHG Vent. Rate : 083 BPM Atrial Rate : 083 BPM P-R Int : 230 ms QRS Dur : 078 ms QT Int : 330 ms P-R-T Axes : 070 023 063 degrees QTc Int : 387 ms Sinus rhythm with 1st degree A-V block Otherwise normal ECG Confirmed by Roney Disla ([id number]), editor managing newspaper LEXUS PRIDE ([id number]) on 03/28/2024 10:05:59 AM Referred By: Confirmed By:Roney Disla 03/28/24 1006 Date Roney Disla MD CC: Dr. Neil Ramey MD; Dr. Maria Luz Chavira MD; Dr. Rui Verma MD Signed [facility] Basic Metabolic Profile (BMP )on 03-27-2024 BUN/CRE 29.6 RATIO High 10-20 [facility] Comment on above: Performed By: #### L 500.2500, L100.0100 ####[facility] [address] [place], [address] CA,Total 9.5 mg/dL Normal 8.5-10.1 [facility] Comment on above: Performed By: #### L 500.2500, L100.0100 ####[facility] [address] [place], [address] Chloride [Moles/Vol] 108 mmol/L High 98-107 [facility] Comment on above: Performed By: #### L 500.2500, L100.0100 ####[facility] [address] [place], [address] CO2 [Moles/Vol] 28.0 mmol/L Normal 21.0-32.0 [facility] Comment on above: Performed By: #### L 500.2500, L100.0100 ####[facility] [address] [place], [address] Creatinine [Mass/Vol] 0.81 mg/dL Normal 0.70-1.30 [facility] Comment on above: Result Comment: The validity of the calculated GFR GFRAA in patients over 70 years has not been determined. Clinical correlation is essential. Performed By: #### L 500.2500, L100.0100 ####[facility] [address] [place], [address] ECRCL 60.69 ml/min [facility] Comment on above: Performed By: #### L 500.2500, L100.0100 ####[facility] [address] [place], [address] EST GFR - AA 119 mL/min Normal >60 [facility] Comment on above: Result Comment: Afri can [place]an GFR Calc Performed By: #### L 500.2500, L100.0100 ####[facility] [address] [place], [address] GAP 7 Normal 5-15 [facility] Comment on above: Performed By: #### L 500.2500, L100.0100 ####[facility] [address] [place], [address] GFR/1.73 sq M.predicted among non-blacks MDRD (S/P/Bld) [Vol rate/Area] 98 mL/min/{1.73_m2} Normal >60 [facility] Comment on above: Result Comment: Non- GFR Calc Performed By: #### L 500.2500, L100.0100 ####[facility] [address] [place], [address] Glucose [Mass/Vol] 145 mg/dL High 74-106 [facility] Comment on above: Result Comment: Fast ing Glucose result greater than or equal to 126 mg/dL suggests DIABETES MELLITUS per A.D.A. criteria. Performed By: #### L 500.2500, L100.0100 ####[facility] [address] [place], [address] Potassium [Moles/Vol] 3.7 mmol/L Normal 3.5-5.1 [facility] Comment on above: Performed By: #### L 500.2500, L100.0100 ####[facility] [address] [place], [address] Sodium [Moles/Vol] 143 mmol/L Normal 136-145 [facility] Comment on above: Performed By: #### L 500.2500, L100.0100 ####[facility] [address] [place], [address] Urea nitrogen [Mass/Vol] 24 mg/dL High 7-18 [facility] Comment on above: Performed By: #### L 500.2500, L100.0100 ####[facility] [address] [place], [address] Brain/Head without Contrasto n 03-27-2024 Brain/Head without Contrast [facility] Imaging Services [address] [place] [address] Brain/Head without Contrast MR#: [id number] Acct: [id number] Name: AMOR PETE Rep #: [id number] : 1945 M 78 From: Rogelio bose MD PCP: Dr. MariaL uz Chavira MD Status: REG ER Study: Brain/Head without Contrast Date of Exam: 03/06 09/25 Exam# [id number] Ordering Dr: Neil Ramey MD [id number] EXAM: CT HEAD WITHOUT INTRAVENOUS CONTRAST CLINICAL INDICATION: trauma/fall trauma/fall TECHNIQUE: Multiple axial images were obtained of the head without intravenous contrast. This CT exam was performed using one or more of the following dose reduction techniques: automated exposure control, adjustment of the mA and/or kV according to patient size, and/or use of iterative reconstruction technique. RADIATION DOSE: CTDIvol = 41.16 mGy, DLP = 1366.94 mGy-cm COMPARISON: CT scan brain 07/24/2016. FINDINGS: BRAIN AND EXTRA-AXIAL SPACES: There is a small focus of encephalomalacia in the left parietal lobe which was not present on previous exam but is still consistent with an old infarction. There is mild cerebral atrophy. There are microvascular changes in supratentorial white matter. No intra- or extra-axial hemorrhage. No intracranial mass or mass effect. Posterior fossa structures are unremarkable. No hydrocephalus. Basal cisterns are patent. BONES/JOINTS: Unremarkable. No discrete lytic or blastic abnormalities. SOFT TISSUES: There is a left posterior scalp wound. VASCULATURE: There is atherosclerotic calcification of the cavernous carotid arteries. SINUSES: Unremarkable as visualized. Clear. MASTOID AIR CELLS: Unremarkable. Clear. ORBITS: Visualized globes, extraocular muscles, optic nerves and retrobulbar fat appear unremarkable. CT/Brain/Head without Contrast IMPRESSION: 1. Chronic involutional changes of the brain. 2. 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 3. No demonstrated acute intracranial process. Electronically Signed: Rogelio Soler MD at 8:06 EDT Reading Location ID and State: [facility] / [place] , Service support , CC: Dr. Neil Ramey MD; Dr. Maria Luz Chavira MD Jewelry Inspector: Signed [facility] Chest 1 View (Portable)on Chest 1 View (Portable) [facility] Imaging Services [address] [place] [address] Chest 1 View (Portable) MR#: [id number] Acct: [id number] Name: AMOR PETE Rep #: [id number] : 1945 M 78 From: Ryder Hook MD PCP: Dr. Maria Luz Chavira MD Status: REG ER Study: Chest 1 View (Portable) Date of Exam: 03/27/24 Exam# [id number] Ordering Dr: Neil Ramey MD [id number] EXAM: XR CHEST, 1 VIEW CLINICAL INDICATION: fall TECHNIQUE: Frontal view of the chest. COMPARISON: XR Chest dated 02/11/2016 FINDINGS: LUNGS AND PLEURAL SPACES: Shallow inspiration. No airspace opacification of the lungs. No pleural effusion or pneumothorax. HEART: Normal heart size. MEDIASTINUM: No mediastinal or hilar mass. BONES/JOINTS: No acute abnormality. RAD/Chest 1 View (Portable) IMPRESSION: No acute cardiopulmonary abnormality. Electronically Signed: Ryder Hook MD at 8:25 EDT Reading Location ID and State: [facility] / [place] Tel , Service support , CC: Dr. Neil Ramey MD; Dr. Maria Luz Chavira MD Jewelry Inspector: Signed [facility] Emergency Department Summary on 03-27-2024 Emergency Department Summary [facility] Medical Records Department [address] [place] [address] Emergency Department Summary 03/27/24 MR#: [id number] Acct: [id number] Name: AMOR PETE Rep #: [id number] : 1945 78 From: Neil Ramey MD PCP: Dr. Maria Luz Chavira MD Status:REG ER Location: ED HPI HPI - Fall History of Present Illness Chief Complaint: Fall Informant: patient, EMS and other (manager concrete) Narrative Narrative: Patient found that the foot of his bed having had fallen either out of bed or after trying to get out of bed on his own. He has dementia, once he is up on his feet he is able to walk without assistance typically. At this time is not able to put any weight on his left lower extremity complaining of pain in his hip and thigh. He also complains of pain/injury at the top of his head. Denies any other pain. [facility] Medical History Recent change in frequency of bowel movements Cerumen impaction BPH (benign prostatic hyperplasia) Cognitive and behavioral changes Osteoporosis Hearing loss Seasonal allergies Dyspnea Other kyphoscoliosis and scoliosis Hypertension Hemorrhoid Tracheobronchomalaci a Mental retardation Pericardial effusion Pleural effusion Hypoxia Shortness of breath Home Medications ???Medication ???Instructions ???Recorded ???Last Taken ???Type Adult Pull-UP #3 ea 12/12/21 Unknown Rx denosumab 60 mg/mL subcutaneous 60 mg subcut [id number] #1 mL 12/25/22 Unknown Rx syringe cholecalciferol (vitamin D3) 50 50 mcg PO DAILY #90 caps 07/08/23 Unknown Rx mcg (2,000 unit) capsule amlodipine 5 mg tablet See Rx Instructions .Route 01/18/24 Unknown Rx .COMPLEX #90 tabs calcium carbonate 500 mg-vitamin 1 tab PO BID for osteoporosis #90 02/18/24 Unknown Rx D3 5 mcg (200 unit) tablet (Oyster tabs Shell Calcium-Vitamin D3) acetaminophen 325 mg tablet 650 mg PO Q4H PRN pain 02/25/24 Unknown History bismuth subsalicylate 262 mg/15 mL 524 mg PO Q4H PRN diarrhea 02/25/24 Unknown History oral suspension (Pepto-Bismol) calcium carbonate (Tums) 400 mg PO Q6H PRN dyspepsia 02/25/24 Unknown History galantamine 24 mg 24 hr 24 mg PO QAM #30 caps 03/02/24 Unknown Rx capsule,extended release magnesium hydroxide 400 mg/5 mL 30 ml PO DAILY PRN constipation 03/02/24 Unknown History oral suspension (Milk of Magnesia) memantine 10 mg tablet 10 mg PO BID #60 tabs 03/02/24 Unknown Rx paroxetine HCl 20 mg tablet See Rx Instructions .Route 03/15/24 Unknown Rx .COMPLEX #90 tabs Allergy/AdvReac Type Severity Reaction Status Date / Time No Known Allergies Allergy Verified 03/27/24 06:45 Family History Father Alzheimer disease Mother Cancer Sister Cancer Surgical History History of surgical removal of testicle S/P laparoscopic cholecystectomy Social History Smoking Status: Never smoker second hand exposure: No alcohol intake: never substance use type: does not use caffeine: Yes what type of physical activity do you participate in: none seatbelt use: always ROS ROS ED Review of Systems ROS Unobtainable: due to mental condition Eyes Eyes: Denies change in vision ENT ENT ED: Denies sore throat Cardiovascular Cardiovascular: Denies chest pain Respiratory/Chest Respiratory/Chest: Denies dyspnea Gastrointestinal Gastrointestinal: Denies abdominal pain or nausea Musculoskeletal Musculoskeletal: Reports as per HPI and extremity pain; Denies back pain or neck pain Integumentary Reports Abrasions Neurologic Neurologic: Denies headache(s) EXAM Physical Exam Const Vital Signs: 03/27/24 06:40 03/27/24 06:43 03/27/24 08:03 Temperature 98.0 F 98.1 F Temperature Source Temporal Pulse Rate 78 77 Respiratory Rate 16 17 Respiratory Effort Normal Blood Pressure 146/73 H 135/71 H Blood Pressure Mean 97 92 Pulse Ox 96 98 Oxygen Delivery Method Room Air Room Air Positive well nourished and well developed General Appearance ED: well developed and NAD HEENT Reports moist mucous membranes HEENT Narrative: Mild tenderness without hematoma, there is also a laceration at the top/crown of his scalp, no crepitance or depression. No other signs of head or neck trauma. No Carrasquillo sign. No raccoon eyes. No CSF otorhinorrhea. normocephalic and trauma Eyes PERRL and EOMs intact bilaterally Neck full ROM and supple Chest Wall inspection of chest normal and palpation of chest normal Resp normal respiratory effort and clear to auscultation bilaterally Cardio regular rate, regular rhythm and no murmurs GI non-tender (more content not included)... [facility] H AND P Exam - Hospitaliston 03-27-2024 H&P Exam - Hospitalist [facility] Medical Records Department [address] [place] [address] H P Exam - Hospitalist 03/27/24 1650 MR#: [id number] Acct: [id number] Name: AMOR PETE Rep #: [id number] : 1945 78 From: Rui Verma MD PCP: Dr. Maria Luz Chavira MD Status:ADM IN Location: [place] [address]-1 HPI - General General Date of Admission: 03/27/24 HPI Narrative AMOR PETE, is a 78 M who presents to the hospital after falling at the custodial. He does not give great history from a possible learning disability versus dementia. He was found to have a left intertrochanteric femur fracture. Unfortunately there is nobody at bedside to be able to fill in any history. Most of the history is obtained from chart review and discussing with the ED physician. He claims he does not have any significant pain at the moment. [facility] Medical History Recent change in frequency of bowel movements Cerumen impaction BPH (benign prostatic hyperplasia) Cognitive and behavioral changes Osteoporosis Hearing loss Seasonal allergies Dyspnea Other kyphoscoliosis and scoliosis Hypertension Hemorrhoid Tracheobronchomalaci a Mental retardation Pericardial effusion Pleural effusion Hypoxia Shortness of breath Home Medications ???Medication ???Instructions ???Recorded ???Last Taken ???Type Adult Pull-UP #3 ea 12/12/21 Unknown Rx denosumab 60 mg/mL subcutaneous 60 mg subcut [id number] #1 mL 12/25/22 Unknown Rx syringe cholecalciferol (vitamin D3) 50 50 mcg PO DAILY vit d deficiency 07/08/23 03/26/24 Rx mcg (2,000 unit) capsule #90 caps amlodipine 5 mg tablet See Rx Instructions .Route 01/18/24 03/27/24 Rx .COMPLEX #90 tabs calcium carbonate 500 mg-vitamin 1 tab PO BID for osteoporosis #90 02/18/24 03/27/24 Rx D3 5 mcg (200 unit) tablet (Oyster tabs Shell Calcium-Vitamin D3) acetaminophen 325 mg tablet 650 mg PO Q4H PRN pain 02/25/24 Unknown History bismuth subsalicylate 262 mg/15 mL 524 mg PO Q4H PRN diarrhea 02/25/24 Unknown History oral suspension (Pepto-Bismol) calcium carbonate (Tums) 400 mg PO Q6H PRN dyspepsia 02/25/24 Unknown History galantamine 24 mg 24 hr 24 mg PO QAM dementia #30 caps 03/02/24 03/26/24 Rx capsule,extended release magnesium hydroxide 400 mg/5 mL 30 ml PO DAILY PRN constipation 03/02/24 Unknown History oral suspension (Milk of Magnesia) memantine 10 mg tablet 10 mg PO BID #60 tabs 03/02/24 03/27/24 Rx paroxetine HCl 20 mg tablet See Rx Instructions .Route 03/15/24 03/26/24 Rx .COMPLEX #90 tabs Allergy/AdvReac Type Severity Reaction Status Date / Time No Known Allergies Allergy Verified 03/27/24 06:45 Family History Father Alzheimer disease Mother Cancer Sister Cancer Surgical History History of surgical removal of testicle S/P laparoscopic cholecystectomy Social History Smoking Status: Never smoker second hand exposure: No alcohol intake: never substance use type: does not use caffeine: Yes what type of physical activity do you participate in: none seatbelt use: always ROS Review of Systems ROS Unobtainable: due to mental condition Vital Signs Vital Signs Vital Signs: 03/27/24 06:40 03/27/24 06:43 03/27/24 08:03 Temperature 98.0 F 98.1 F Temperature Source Temporal Pulse Rate 78 77 Respiratory Rate 16 17 Respiratory Effort Normal Blood Pressure 146/73 H 135/71 H Blood Pressure Mean 97 92 Blood Pressure Source Blood Pressure Position Blood Pressure Location Pulse Ox 96 98 Oxygen Delivery Method Room Air Room Air 03/27/24 10:21 Temperature 98.1 F Temperature Source Oral Pulse Rate 89 Respiratory Rate 16 Respiratory Effort Blood Pressure 139/58 H Blood Pressure Mean 85 Blood Pressure Source Monitor Blood Pressure Position Semi-Fowlers Blood Pressure Location Left Arm Pulse Ox 93 Oxygen Delivery Method Room Air Weight Weight: 116 lb 13.52 oz Body Mass Index (BMI) 20.0 Physical Exam Narrative General: Alert, Oriented x2, Cooperative, No apparent distress HEENT: Atraumatic, PERRLA, EOMI, Normocephalic Oral: Moist Mucosa Neck: Supple, No JVD Lungs: Diminished, Normal air movement, No rhonchi, No wheeze, No rales Cardiovascular: Regular rate, Regular Rhythm, Normal S1, Normal S2, No murmurs Abdomen: Soft, Non Tender, Non-Distended, No Hepato-splenomegaly Extremities: No edema, Capillary Refill Less than 3 Seconds Skin: No rashes, No breakdown Musculoskeletal: Left hip pain to palpation Neurological: Difficult to follow commands, exam anton (more content not included)... Normal [facility] HIP, UNI W/ Pelvis 2-3 Views on 03-27-2024 HIP, UNI W/ Pelvis 2-3 Views [facility] Services [address], [place] [id number] HIP, UNI W/ Pelvis 2-3 Views MR#: [id number] Acct: [id number] Name: AMOR PETE Rep #: [id number] : [id number] M 78 From: Ryder Hook MD PCP: Dr. Maria Luz Chavira MD Status: REG ER Study: HIP, UNI W/ Pelvis 2-3 Views Date of Exam: Exam# [id number] Ordering Dr: Neil Ramey MD [id number] EXAM: XR LEFT HIP WITH PELVIS WHEN PERFORMED, 2 OR 3 VIEWS CLINICAL INDICATION: injury TECHNIQUE: Two or three views of the left hip with pelvis when performed. COMPARISON: No relevant prior studies available. FINDINGS: BONES/JOINTS: Acute intertrochanteric fracture of the left femur noted. The femoral shaft is angulated and mild degree medially. No subluxation. SOFT TISSUES: Normal. No soft tissue swelling or gas. RAD/HIP, UNI W/ Pelvis 2-3 Views IMPRESSION: Acute intertrochanteric fracture of the left femur. Electronically Signed: Ryder Hook MD at 8:25 EDT , CC: Dr. Neil Ramey MD; Dr. Maria Luz Chavira MD Jewelry Inspector: Signed Normal [facility] Urinalysis, Completeon 03-27 EPI,RENAL 0-5 SEEN Normal 0-5 [facility] Comment on above: Order Comment: COLLE CTOR TO SPECIFY Performed By: #### L [id number] #### [facility] [address] [place], [address] CAST,HYALINE 0-5 SEEN Normal 0-5 [facility] Comment on above: Order Comment: COLLE CTOR TO SPECIFY Performed By: #### [id number] #### [facility] [address] [place], [address] BACTERIA 1+ /hpf Normal None Seen [facility] Comment on above: Order Comment: COLLE CTOR TO SPECIFY Performed By: #### [id number] #### [facility] [address] [place], [address] EPI,SQUAMOUS 0-5 SEEN Normal 0-5 [facility] Comment on above: Order Comment: COLLE CTOR TO SPECIFY Performed By: #### [id number] #### [facility] [address] [place], [address] EPI,TRANSITION 0-5 SEEN Normal 0-5 [facility] Comment on above: Order Comment: COLLE CTOR TO SPECIFY Performed By: #### L [id number] #### [facility] [address] [place], [address] RBC 0-5 SEEN Normal 0-5 [facility] Comment on above: Order Comment: COLLE CTOR TO SPECIFY Performed By: #### L [id number] #### [facility] [address] [place], [address] WBC 0-5 SEEN Normal 0-5 [facility] Comment on above: Order Comment: DENNY CTOR TO SPECIFY Performed By: #### [id number] #### [facility] [address] [place], [address] Mucus Ql (Urine sed) 0 SEEN Normal [facility] Comment on above: Order Comment: COLLE CTOR TO SPECIFY Performed By: #### [id number] #### [facility] [address] [place], [address] Absolute lymphocyte countOrd ered By: Maria Luz Chavira on 08-27-2023 Lymphocytes Auto (Unsp spec) [#/Vol] 1.13 10*3/uL 0.83-4.51 [facility] Automated lymphocyte count a s percentage of total leukocytesOrdered By: Maria Luz Chavira on 08-27-2023 Lymphocytes/100 WBC Auto (Unsp spec) 16.5 % 19-41 [facility] Basophil percentageOrdered B y: Maria Luz Chavira on 08-27-2023 Basophils/100 WBC (Bld) 0.9 % 0-1 [facility] Bilirubin [Mass/Vol] 0.50 mg/dL 0.20-1.00 [facility] Comment on above: For patients on eltr ombopag therapy, use of Dimension Glady TBIL is not recommended. Chloride [Moles/Vol] 108 mmol/L 98-107 [facility] Cholesterol [Mass/Vol] 213 mg/dL <200 [facility] Comment on above: <200 mg/dL Desirable 200-240 mg/dL Borderline >240 mg/dL High Risk Eosinophils/100 WBC (Bld) 2.8 % 0-5 [facility] Glucose [Mass/Vol] 68 mg/dL 74-106 [facility] Hemoglobin (Bld) [Mass/Vol] 15.3 g/dL 13.0-16.5 [facility] Monocytes/100 WBC (Bld) 9.3 % 0-10 [facility] Neutrophils (Bld) [#/Vol] 4.8 10*3/uL 2.0-7.7 [facility] Neutrophils/100 WBC (Bld) 70.2 % 47-70 [facility] Potassium [Moles/Vol] 4.0 mmol/L 3.5-5.1 [facility] Protein [Mass/Vol] 8.0 g/dL 6.4-8.2 [facility] Sodium [Moles/Vol] 142 mmol/L 136-145 [facility] Triglyceride [Mass/Vol] 93 mg/dL <199 [facility] Comment on above: The drugs N-Acetylcy steine and Metamizole may falsely depress this assay.Serum Triglycerides Reference Interval Normal <150 mg/dL Borderline high 150 - 199 mg/dL High 200 - 499 mg/dL Very High > or = 500 mg/dL WBC (Bld) [#/Vol] 6.9 10*3/uL 4.4-11.0 [facility] Determination of erythrocyte mean corpuscular volume (MCV)Ordered By: Maria Luz Chavira on 08-27-2023 MCV (RBC) [Entitic vol] 92.0 fL 80-94 [facility] Erythrocyte distribution wid th ratioOrdered By: [facility] Chavira on 08-27-2023 Erythrocyte distribution width (RBC) [Ratio] 14.7 % 11.6-14.6 [facility] Erythrocyte distribution wid th standard deviationOrdered By: [facility] Festussuzie on 08-27-2023 Erythrocyte distribution width (RBC) [Entitic vol] 50.2 fL 35.1-43.9 [facility] Hematocrit Auto (Bld) [Volum e fraction]Ordered By: Maria Luz Chavira on 08-27-2023 Hematocrit (Bld) [Volume fraction] 48.0 % 40-54 [facility] Immature granulocytes/100 WB C Auto (Bld)Ordered By: joaquinalolotj Chavira on 08-27-2023 Immature granulocytes/100 WBC (Bld) 0.300 % 0.0-0.9 [facility] Comment on above: IG% - Immature Granu locytes (promyelocytes, myelocytes and metamyelocytes) > 1% indicates that a LEFT SHIFT is Present. Laboratory - Chemistry and C hemistry - challengeOrdered By: Maria Luz Chavira on 08-27-2023 Albumin/Globulin [Mass ratio] 0.8 {ratio} 0.9-2.4 [facility] ALP [Catalytic activity/Vol] 83 U/L 45-117 [facility] ALT [Catalytic activity/Vol] 27 U/L 16-61 [facility] Cholesterol in HDL [Mass/Vol] 99 mg/dL >40 [facility] Comment on above: The drugs N-Acetylcy steine and Metamizole may falsely depress this assay. Reference Range HDL <40 mg/dL Low HDL Cholesterol HDL >or= 60 mg/dL High HDL Cholesterol Cholesterol in LDL [Mass/Vol] 95 mg/dL 0-130 [facility] CO2 [Moles/Vol] 30.0 mmol/L 21.0-32.0 [facility] Globulin (S) [Mass/Vol] 4.5 g/dL 2.2-4.2 [facility] Urea nitrogen/Creatinine [Mass ratio] 20.3 mg/mg 10-20 [facility] - Hematology and Cell countsOrdered By: Maria Luz Chavira on 08-27-2023 MCH (RBC) [Entitic mass] 29.3 pg 27.0-32.0 [facility] MCHC (RBC) [Mass/Vol] 31.9 g/dL 32-36 [facility] Nucleated RBC/100 WBC (Bld) [Ratio] 0 % 0-5 [facility] Platelet mean volume (Bld) [Entitic vol] 10.0 fL 6.2-12.0 [facility] Platelets (Bld) [#/Vol] 263 10*3/uL 150-450 [facility] No Panel InformationOrdered By: Maria Luz Chavira on 08-27-2023 Estimated GFR (MDRD) Amer 95 mL/min >60 [facility] Comment on above: GFR Calc Estimated GFR (MDRD) Non-Af Amer 79 mL/min >60 [facility] Comment on above: Non- GFR Calc Prostate Specific Antigen Screen 6.76 ng/mL 0.00-4.00 [facility] Comment on above: This test was perfor med using the TPSA assay method for theDimension chemistry system. Values obtained with differentassay methods cannot be used interchangably.When changing PSA assays in the course of monitoring apatient, additional sequential testing should be carriedout to confirm baseline values. Vitamin D 25-Hydroxy 50.1 ng/mL [facility] Comment on above: Vitamin D 25(OH) Sta tus Range Deficiency <20 ng/mL (50nmol/L) Insufficiency 20 - 30 ng/mL (50 - 75 nmol/L) Sufficiency 30 - 100 ng/mL (75 - 250 nmol/L) Toxicity >100 ng/mL (>250 nmol/L) VLDL Cholesterol 19 mg/dL 5-40 [facility] RBC Auto (Bld) [#/Vol]Ordere d By: Maria Luz Chavira on 08-27-2023 RBC (Bld) [#/Vol] 5.22 10*6/uL 4.6-6.2 [facility] Serum or plasma calcium ray urement (mass/volume)Ordered By: Maria Luz Chavira on 08-27-2023 Calcium [Mass/Vol] 9.4 mg/dL 8.5-10.1 [facility] Serum or plasma creatinine m easurement (mass/volume)Ordered By: Maria Luz Chavira on 08-27-2023 Creatinine [Mass/Vol] 0.98 mg/dL 0.70-1.30 [facility] Comment on above: The validity of the calculated GFR & GFRAA in patients over 70 years has not been determined. Clinical correlation is essential. Serum or plasma urea nitroge n measurement (mass/volume)Ordered By: Maria Luz Chavira on 08-27-2023 Urea nitrogen [Mass/Vol] 20 mg/dL 7-18 [facility] Thin prep Papanicolaou smear with manual screeningOrdered By: Maria Luz Chavira on 08-27-2023 Thin prep Papanicolaou smear with manual screening 3.5 g/dL 3.2-5.0 [facility] Thin prep Papanicolaou smear with manual screening 20 U/L 15-37 [facility] Thin prep Papanicolaou smear with manual screening 4 5-15 [facility] Absolute lymphocyte countOrd ered By: Dr. Chavira on 12-25-2022 Lymphocytes Auto (Unsp spec) [#/Vol] 1.01 10*3/uL 0.83-4.51 [facility] Basophil percentageOrdered B y: Dr. Chavira on 12-25-2022 Basophils/100 WBC (Bld) 0.9 % 0-1 [facility] Bilirubin [Mass/Vol] 0.40 mg/dL 0.20-1.00 [facility] Comment on above: For patients on eltr ombopag therapy, use of Dimension Glady TBIL is not recommended. Chloride [Moles/Vol] 105 mmol/L 98-107 [facility] Eosinophils/100 WBC (Bld) 0.7 % 0-5 [facility] Glucose [Mass/Vol] 77 mg/dL 74-106 [facility] Neutrophils (Bld) [#/Vol] 5.7 10*3/uL 2.0-7.7 [facility] Neutrophils/100 WBC (Bld) 74.0 % 47-70 [facility] Potassium [Moles/Vol] 4.2 mmol/L 3.5-5.1 [facility] Protein [Mass/Vol] 7.1 g/dL 6.4-8.2 [facility] Sodium [Moles/Vol] 143 mmol/L 136-145 [facility] WBC (Bld) [#/Vol] 7.6 10*3/uL 4.4-11.0 [facility] Blood erythrocytes count (nu mber/volume)Ordered By: Dr. Chavira on 12-25-2022 RBC (Bld) [#/Vol] 5.02 10*6/uL 4.6-6.2 [facility] Blood hemoglobin measurement (mass/volume)Ordered By: Dr. Chavira on 12-25-2022 Hemoglobin (Bld) [Mass/Vol] 14.7 g/dL 13.0-16.5 [facility] Blood lymphocytes/100 leukoc ytesOrdered By: Dr. Chavira on 12-25-2022 Lymphocytes/100 WBC (Bld) 13.3 % 19-41 [facility] Blood monocytes/100 leukocyt esOrdered By: Dr. Chavira on 12-25-2022 Monocytes/100 WBC (Bld) 10.8 % 0-10 [facility] Blood platelet mean volumeOr dered By: Dr. Chavira on 12-25-2022 Platelet mean volume (Bld) [Entitic vol] 10.3 fL 6.2-12.0 [facility] Determination of erythrocyte mean corpuscular volume (MCV)Ordered By: Dr. Chavira on 12-25-2022 MCV (RBC) [Entitic vol] 93.4 fL 80-94 [facility] Hematocrit Auto (Bld) [Volum e fraction]Ordered By: Dr. Chavira on 12-25-2022 Hematocrit (Bld) [Volume fraction] 46.9 % 40-54 [facility] - Chemistry and C hemistry - challengeOrdered By: Dr. Chavira on 12-25-2022 ALP [Catalytic activity/Vol] 87 U/L 45-117 [facility] ALT [Catalytic activity/Vol] 15 U/L 16-61 [facility] CO2 [Moles/Vol] 35.0 mmol/L 21.0-32.0 [facility] Globulin (S) [Mass/Vol] 3.9 g/dL 2.2-4.2 [facility] Urea nitrogen/Creatinine [Mass ratio] 22.3 mg/mg 10-20 [facility] - Hematology and Cell countsOrdered By: Dr. Chavira on 12-25-2022 Erythrocyte distribution width (RBC) [Entitic vol] 48.2 fL 35.1-43.9 [facility] Erythrocyte distribution width (RBC) [Ratio] 14.1 % 11.6-14.6 [facility] Immature granulocytes/100 WBC (Bld) 0.300 % 0.0-0.9 [facility] Comment on above: IG% - Immature Granu locytes (promyelocytes, myelocytes and metamyelocytes) > 1% indicates that a LEFT SHIFT is Present. MCH (RBC) [Entitic mass] 29.3 pg 27.0-32.0 [facility] Nucleated RBC/100 WBC (Bld) [Ratio] 0 % 0-5 [facility] MCHC Auto (RBC) [Mass/Vol]Or dered By: Dr. Chavira on 12-25-2022 MCHC (RBC) [Mass/Vol] 31.3 g/dL 32-36 [facility] No Panel InformationOrdered By: Dr. Chavira on 12-25-2022 Estimated GFR (MDRD) Amer 106 mL/min >60 [facility] Comment on above: GFR Calc Estimated GFR (MDRD) Non-Af Amer 88 mL/min >60 [facility] Comment on above: Non- GFR Calc Vitamin D 25-Hydroxy 52.4 ng/mL [facility] Comment on above: Vitamin D 25(OH) Sta tus Range Deficiency <20 ng/mL (50nmol/L) Insufficiency 20 - 30 ng/mL (50 - 75 nmol/L) Sufficiency 30 - 100 ng/mL (75 - 250 nmol/L) Toxicity >100 ng/mL (>250 nmol/L) Platelets bldOrdered By: Dr. Chavira on 12-25-2022 Platelets (Bld) [#/Vol] 309 10*3/uL 150-450 [facility] Serum or plasma albumin ray urement (mass/volume)Ordered By: Dr. Chavira on 12-25-2022 Albumin [Mass/Vol] 3.2 g/dL 3.2-5.0 [facility] Serum or plasma albumin/glob ulin mass ratioOrdered By: Dr. Chavira on 12-25-2022 Albumin/Globulin [Mass ratio] 0.8 {ratio} 0.9-2.4 [facility] Serum or plasma calcium ray urement (mass/volume)Ordered By: Dr. Chavira on 12-25-2022 Calcium [Mass/Vol] 9.3 mg/dL 8.5-10.1 [facility] Serum or plasma creatinine m easurement (mass/volume)Ordered By: Dr. Chavira on 12-25-2022 Creatinine [Mass/Vol] 0.90 mg/dL 0.70-1.30 [facility] Comment on above: The validity of the calculated GFR & GFRAA in patients over 70 years has not been determined. Clinical correlation is essential. Serum or plasma urea nitroge n measurement (mass/volume)Ordered By: Dr. Chavira on 12-25-2022 Urea nitrogen [Mass/Vol] 20 mg/dL 7-18 [facility] Thin prep Papanicolaou smear with manual screeningOrdered By: Dr. Chavira on 12-25-2022 Thin prep Papanicolaou smear with manual screening 14 U/L 15-37 [facility] Thin prep Papanicolaou smear with manual screening 3 5-15 [facility] Basophil percentageOrdered B y: Dr. Chavira on 08-19-2022 Bilirubin [Mass/Vol] 0.40 mg/dL 0.20-1.00 [facility] Comment on above: For patients on eltr ombopag therapy, use of Dimension Glady TBIL is not recommended. Chloride [Moles/Vol] 109 mmol/L 98-107 [facility] Cholesterol [Mass/Vol] 178 mg/dL <200 [facility] Comment on above: <200 mg/dL Desirable 200-240 mg/dL Borderline >240 mg/dL High Risk Glucose [Mass/Vol] 87 mg/dL 74-106 [facility] Potassium [Moles/Vol] 4.5 mmol/L 3.5-5.1 [facility] Protein [Mass/Vol] 7.5 g/dL 6.4-8.2 [facility] Sodium [Moles/Vol] 145 mmol/L 136-145 [facility] Triglyceride [Mass/Vol] 73 mg/dL <199 [facility] Comment on above: The drugs N-Acetylcy steine and Metamizole may falsely depress this assay.Serum Triglycerides Reference Interval Normal <150 mg/dL Borderline high 150 - 199 mg/dL High 200 - 499 mg/dL Very High > or = 500 mg/dL Laboratory - Chemistry and C hemistry - challengeOrdered By: Dr. Chavira on 08-19-2022 ALP [Catalytic activity/Vol] 86 U/L 45-117 [facility] ALT [Catalytic activity/Vol] 15 U/L 16-61 [facility] CO2 [Moles/Vol] 31.0 mmol/L 21.0-32.0 [facility] Globulin (S) [Mass/Vol] 4.0 g/dL 2.2-4.2 [facility] Urea nitrogen/Creatinine [Mass ratio] 18.9 mg/mg 10-20 [facility] No Panel InformationOrdered By: Dr. Chavira on 08-19-2022 Estimated GFR (MDRD) Amer 106 mL/min >60 [facility] Comment on above: GFR Calc Estimated GFR (MDRD) Non-Af Amer 88 mL/min >60 [facility] Comment on above: Non- GFR Calc Prostate Specific Antigen Total 6.91 ng/mL 0.0-4.0 [facility] Comment on above: This test was perfor med using the TPSA assay method for [employer] chemistry system. Values obtained with differentassay methods cannot be used interchangably.When changing PSA assays in the course of monitoring apatient, additional sequential testing should be carriedout to confirm baseline values. Vitamin D 25-Hydroxy 26.5 ng/mL [facility] Comment on above: Vitamin D 25(OH) Sta tus Range Deficiency <20 ng/mL (50nmol/L) Insufficiency 20 - 30 ng/mL (50 - 75 nmol/L) Sufficiency 30 - 100 ng/mL (75 - 250 nmol/L) Toxicity >100 ng/mL (>250 nmol/L) Serum or plasma albumin ray urement (mass/volume)Ordered By: Dr. Chavira on 08-19-2022 Albumin [Mass/Vol] 3.5 g/dL 3.2-5.0 [facility] Serum or plasma albumin/glob ulin mass ratioOrdered By: Dr. Chavira on 08-19-2022 Albumin/Globulin [Mass ratio] 0.9 {ratio} 0.9-2.4 [facility] Serum or plasma calcium ray urement (mass/volume)Ordered By: Dr. Chavira on 08-19-2022 Calcium [Mass/Vol] 9.3 mg/dL 8.5-10.1 [facility] Serum or plasma cholesterol in HDL measurement (mass/volume)Ordered By: Dr. Chavira on 08-19-2022 Cholesterol in HDL [Mass/Vol] 91 mg/dL >40 [facility] Comment on above: The drugs N-Acetylcy steine and Metamizole may falsely depress this assay. Reference Range HDL <40 mg/dL Low HDL Cholesterol HDL >or= 60 mg/dL High HDL Cholesterol Serum or plasma cholesterol in VLDL measurement (mass/volume)Ordered By: Dr. Chavira on 08-19-2022 Cholesterol in VLDL [Mass/Vol] 15 mg/dL 5-40 [facility] Serum or plasma creatinine m easurement (mass/volume)Ordered By: Dr. Chavira on 08-19-2022 Creatinine [Mass/Vol] 0.90 mg/dL 0.70-1.30 [facility] Comment on above: The validity of the calculated GFR & GFRAA in patients over 70 years has not been determined. Clinical correlation is essential. Serum or plasma low density lipoprotein (LDL) cholesterol measurement (mass/volume)Ordered By: Dr. Chavira on 08-19-2022 Cholesterol in LDL [Mass/Vol] 72 mg/dL 0-130 [facility] Serum or plasma urea nitroge n measurement (mass/volume)Ordered By: Dr. Chavira on 08-19-2022 Urea nitrogen [Mass/Vol] 17 mg/dL 7-18 [facility] Thin prep Papanicolaou smear with manual screeningOrdered By: Dr. Chvaira on 08-19-2022 Thin prep Papanicolaou smear with manual screening 14 U/L 15-37 [facility] Thin prep Papanicolaou smear with manual screening 5 5-15 [facility] Basophil percentageon 2021 Bilirubin [Mass/Vol] 0.30 mg/dL 0.20-1.00 [facility] Work Phone: Comment on above: For patients on eltr ombopag therapy, use of Dimension Glady TBIL is not recommended. Chloride [Moles/Vol] 108 mmol/L 98-107 [facility] Work Phone: Glucose [Mass/Vol] 82 mg/dL 74-106 [facility] Work Phone: Potassium [Moles/Vol] 3.7 mmol/L 3.5-5.1 [facility] Work Phone: Protein [Mass/Vol] 7.7 g/dL 6.4-8.2 [facility] Work Phone: [phone] Sodium [Moles/Vol] 147 mmol/L 136-145 [facility] Work Phone: WBC (Bld) [#/Vol] 8.5 10*3/uL 4.4-11.0 [facility] Work Phone: [phone] Blood erythrocytes count (nu mber/volume)on 04-23-2022 RBC (Bld) [#/Vol] 5.02 10*6/uL 4.6-6.2 [facility] Work Phone: [phone] Blood hemoglobin measurement (mass/volume)on 04-23-2022 Hemoglobin (Bld) [Mass/Vol] 15.1 g/dL 13.0-16.5 [facility] Work Phone: [phone] Blood platelet mean volumeon 04-23-2022 Platelet mean volume (Bld) [Entitic vol] 10.7 fL 6.2-12.0 [facility] Work Phone: [phone] Determination of erythrocyte mean corpuscular volume (MCV)on 04-23-2022 MCV (RBC) [Entitic vol] 93.2 fL 80-94 [facility] Work Phone: [phone] Hematocrit Auto (Bld) [Volum e fraction]on 04-23-2022 Hematocrit (Bld) [Volume fraction] 46.8 % 40-54 [facility] Work Phone: Laboratory - Chemistry and C hemistry - challengeon 04-23-2022 ALP [Catalytic activity/Vol] 89 U/L 45-117 [facility] Work Phone: [phone] ALT [Catalytic activity/Vol] 22 U/L 16-61 [facility] Work Phone: [phone] CO2 [Moles/Vol] 34.0 mmol/L 21.0-32.0 [facility] Work Phone: [phone] Cobalamin (Vitamin B12) [Mass/Vol] 501 pg/mL 211-911 [facility] Work Phone: [phone] Globulin (S) [Mass/Vol] 4.2 g/dL 2.2-4.2 [facility] Work Phone: [phone] Urea nitrogen/Creatinine [Mass ratio] 21.2 mg/mg 04-23 [facility] Work Phone: Laboratory - Hematology and Cell countson 04-23-2022 Erythrocyte distribution width (RBC) [Entitic vol] 48.8 fL 35.1-43.9 [facility] Work Phone: [phone] Erythrocyte distribution width (RBC) [Ratio] 14.4 % 11.6-14.6 [facility] Work Phone: [phone] MCH (RBC) [Entitic mass] 30.1 pg 27.0-32.0 [facility] Work Phone: [phone] MCHC Auto (RBC) [Mass/Vol]on 04-23-2022 MCHC (RBC) [Mass/Vol] 32.3 g/dL 32-36 [facility] Work Phone: No Panel Informationon 04-23 Estimated GFR (MDRD) Amer 100 mL/min >60 [facility] Work Phone: [phone] Comment on above: GFR Calc Estimated GFR (MDRD) Non-Af Amer 83 mL/min >60 [facility] Work Phone: [phone] Comment on above: Non- GFR Calc Thyroid Stimulating Hormone (TSH) 2.19 uIU/mL 0.358-3.74 [facility] Work Phone: [phone] Whole Blood Vitamin B1 Level 161.0 nmol/L 66.5-200.0 [facility] Work Phone: Comment on above: Performed at: - [address] [id number] Director: Nico Palm MD, Phone: [phone] Platelets bldon 04-23-2022 Platelets (Bld) [#/Vol] 312 10*3/uL 150-450 [facility] Work Phone: [phone] Serum or plasma albumin ray urement (mass/volume)on 04-23-2022 Albumin [Mass/Vol] 3.5 g/dL 3.2-5.0 [facility] Work Phone: [phone] Serum or plasma albumin/glob ulin mass ratioon 04-23-2022 Albumin/Globulin [Mass ratio] 0.8 {ratio} 0.9-2.4 [facility] Work Phone: Serum or plasma calcitriol m easurement (mass/volume)on 04-23-2022 1,25-dihydroxyvitamin D3 [Mass/Vol] 45.1 pg/mL 24.8-81.5 [facility] Work Phone: Comment on above: Performed at: - [address] [employer] [id number] Director: Nico Palm MD, Phone: [phone] Serum or plasma calcium ray urement (mass/volume)on 04-23-2022 Calcium [Mass/Vol] 9.0 mg/dL 8.5-10.1 [facility] Work Phone: Serum or plasma creatinine m easurement (mass/volume)on 04-23-2022 Creatinine [Mass/Vol] 0.94 mg/dL 0.70-1.30 [facility] Work Phone: Comment on above: The validity of the calculated GFR & GFRAA in patients over 70 years has not been determined. Clinical correlation is essential. Serum or plasma folate measu rement (mass/volume)on 04-23-2022 Folate [Mass/Vol] 14.20 ng/mL 3.1-55.4 [facility] Work Phone: Serum or plasma urea nitroge n measurement (mass/volume)on 04-23-2022 Urea nitrogen [Mass/Vol] 20 mg/dL 7-18 [facility] Work Phone: [phone] Thin prep Papanicolaou smear with manual screeningon 04-23-2022 Thin prep Papanicolaou smear with manual screening 16 U/L 15-37 [facility] Work Phone: [phone] Thin prep Papanicolaou smear with manual screening 5 5-15 [facility] Work Phone: Basophil percentageon 2021 Basophil percentage 0 SEEN /hpf [facility] Work Phone: [phone] Bilirubin Test strip Ql (U)o n 06-09-2022 Bilirubin Ql (U) Negative Negative [facility] Work Phone: Culture, urineon 12-11-2021 Bacteria identified Cx Nom (U) Mixed Gram Pos & Gram Neg Org [facility] Work Phone: Ketones Test strip Ql (U)on 12-11-2021 Ketones Ql (U) Negative Negative [facility] Work Phone: Mucus LM Ql (Urine sed)on Mucus Ql (Urine sed) 0 SEEN /hpf [facility] Work Phone: Nitrite Test strip Ql (U)on 12-11-2021 Nitrite Ql (U) Negative Negative [facility] Work Phone: Protein Test strip Ql (U)on 12-11-2021 Protein Ql (U) Negative Negative [facility] Work Phone: Squamous epithelial cells de tection in urine sediment by light microscopyon 12-11-2021 Epithelial cells.squamous LM Ql (Urine sed) 0-5 SEEN /hpf [facility] Work Phone: Urine blood detectionon RBC Ql (U) Negative Negative [facility] Work Phone: RBC Ql (U) 0 SEEN /hpf [facility] Work Phone: Urine clarityon 12-11-2021 Clarity (U) Sl. Cloudy Clear [facility] Work Phone: Urine color determinationon 12-11-2021 Color (U) Yellow Yellow [facility] Work Phone: Urine glucose detectionon Glucose Ql (U) Normal mg/dl Normal [facility] Work Phone: Urine leukocyte esterase det ection by dipstickon 12-11-2021 Leukocyte esterase Test strip Ql (U) Negative Negative [facility] Work Phone: Urine pHon 12-11-2021 pH (U) 6.5 [pH] [facility] Work Phone: Urine sediment bacteria coun t by microscopy (number/high power field)on 12-11-2021 Bacteria LM.HPF (Urine sed) [#/Area] 0 /[HPF] None Seen [facility] Work Phone: Urine specific gravity measu rementon 12-11-2021 Specific gravity (U) [Rel density] 1.015 [facility] Work Phone: Urobilinogen Auto test strip Ql (U)on 12-11-2021 Urobilinogen Ql (U) Normal mg/dl Normal [facility] Work Phone: Absolute lymphocyte counton 12-10-2021 Lymphocytes Auto (Unsp spec) [#/Vol] 1.29 10*3/uL 0.83-4.51 [facility] Work Phone: Basophil percentageon 2021 Basophils/100 WBC (Bld) 0.7 % 0-1 [facility] Work Phone: Bilirubin [Mass/Vol] 0.40 mg/dL 0.20-1.00 [facility] Work Phone: Comment on above: For patients on eltr ombopag therapy, use of Dimension Glady TBIL is not recommended. Chloride [Moles/Vol] 109 mmol/L 98-107 [facility] Work Phone: Eosinophils/100 WBC (Bld) 0.6 % 0-5 [facility] Work Phone: [phone] Glucose [Mass/Vol] 105 mg/dL 74-106 [facility] Work Phone: Comment on above: Fasting Glucose resu lt from 100 to 125 mg/dL suggests IMPAIRED HOMEOSTASIS per A.D.A. criteria. Neutrophils (Bld) [#/Vol] 6.8 10*3/uL 2.0-7.7 [facility] Work Phone: Neutrophils/100 WBC (Bld) 74.6 % 47-70 [facility] Work Phone: Potassium [Moles/Vol] 3.7 mmol/L 3.5-5.1 [facility] Work Phone: Protein [Mass/Vol] 8.2 g/dL 6.4-8.2 [facility] Work Phone: Sodium [Moles/Vol] 145 mmol/L 136-[facility]: WBC (Bld) [#/Vol] 9.1 10*3/uL 4.4-11.0 [facility] Work Phone: Blood erythrocytes count (nu mber/volume)on 12-10-2021 RBC (Bld) [#/Vol] 5.40 10*6/uL 4.6-6.2 [facility] Work Phone: Blood hemoglobin measurement (mass/volume)on 12-10-2021 Hemoglobin (Bld) [Mass/Vol] 15.3 g/dL 13.0-16.5 [facility] Work Phone: Blood lymphocytes/100 leukoc yteson 12-10-2021 Lymphocytes/100 WBC (Bld) 14.2 % 19-41 [facility] Work Phone: Blood monocytes/100 leukocyt eson 12-10-2021 Monocytes/100 WBC (Bld) 9.6 % 0-10 [facility] Work Phone: Blood platelet mean volumeon 12-10-2021 Platelet mean volume (Bld) [Entitic vol] 10.7 fL 6.2-12.0 [facility] Work Phone: Determination of erythrocyte mean corpuscular volume (MCV)on 12-10-2021 MCV (RBC) [Entitic vol] 93.9 fL 80-94 [facility] Work Phone: Hematocrit Auto (Bld) [Volum e fraction]on 12-10-2021 Hematocrit (Bld) [Volume fraction] 50.7 % 40-54 [facility] Work Phone: Laboratory - Chemistry and C hemistry - challengeon 12-10-2021 ALP [Catalytic activity/Vol] 92 U/L 45-117 [facility] Work Phone: [phone] ALT [Catalytic activity/Vol] 19 U/L 16-61 [facility] Work Phone: [phone] CO2 [Moles/Vol] 32.0 mmol/L 21.0-32.0 [facility] Work Phone: [phone] Globulin (S) [Mass/Vol] 4.6 g/dL 2.2-4.2 [facility] Work Phone: [phone] Urea nitrogen/Creatinine [Mass ratio] 20.9 mg/mg 10-20 [facility] Work Phone: [phone] Laboratory - Hematology and Cell countson 12-10-2021 Erythrocyte distribution width (RBC) [Entitic vol] 49.5 fL 35.1-43.9 [facility] Work Phone: [phone] Erythrocyte distribution width (RBC) [Ratio] 14.6 % 11.6-14.6 [facility] Work Phone: [phone] Immature granulocytes/100 WBC (Bld) 0.300 % 0.0-0.9 [facility] Work Phone: [phone] Comment on above: IG% - Immature Granu locytes (promyelocytes, myelocytes and metamyelocytes) > 1% indicates that a LEFT SHIFT is Present. MCH (RBC) [Entitic mass] 28.3 pg 27.0-32.0 [facility] Work Phone: [phone] Nucleated RBC/100 WBC (Bld) [Ratio] 0 % 0-5 [facility] Work Phone: [phone] MCHC Auto (RBC) [Mass/Vol]on 12-10-2021 MCHC (RBC) [Mass/Vol] 30.2 g/dL 32-36 [facility] Work [facility]: [phone] Panel Informationon 12-10 Prostate Specific Antigen Total 10.30 ng/mL 0.0-4.0 [facility] Work Phone: [phone] Comment on above: This test was perfor med using the TPSA assay method for the[facility] system. Values obtained with differentassay methods cannot be used interchangably.When changing PSA assays in the course of monitoring apatient, additional sequential testing should be carriedout to confirm baseline values. Estimated GFR (MDRD) Amer 111 mL/min >60 [facility] Work Phone: Comment on above: GFR Calc Estimated GFR (MDRD) Non-Af Amer 92 mL/min >60 [facility] Work Phone: Comment on above: Non- GFR Calc Platelets bldon 12-10-2021 Platelets (Bld) [#/Vol] 280 10*3/uL 150-450 [facility] Work Phone: Serum or plasma albumin ray urement (mass/volume)on 12-10-2021 Albumin [Mass/Vol] 3.6 g/dL 3.2-5.0 [facility] Work Phone: Serum or plasma albumin/glob ulin mass ratioon 12-10-2021 Albumin/Globulin [Mass ratio] 0.8 {ratio} 0.9-2.4 [facility] Work Phone: Serum or plasma calcium ray urement (mass/volume)on 12-10-2021 Calcium [Mass/Vol] 9.6 mg/dL 8.5-10.1 [facility] Work Phone: Serum or plasma creatinine m easurement (mass/volume)on 12-10-2021 Creatinine [Mass/Vol] 0.86 mg/dL 0.70-1.30 [facility] Work Phone: Comment on above: The validity of the calculated GFR & GFRAA in patients over 70 years has not been determined. Clinical correlation is essential. Serum or plasma urea nitroge n measurement (mass/volume)on 12-10-2021 Urea nitrogen [Mass/Vol] 18 mg/dL 7-18 [facility] Work Phone: Thin prep Papanicolaou smear with manual screeningon 12-10-2021 Thin prep Papanicolaou smear with manual screening 18 U/L 15-37 [facility] Work Phone: Thin prep Papanicolaou smear with manual screening 4 5-15 [facility] Work Phone: Absolute lymphocyte counton 08-28-2021 Lymphocytes Auto (Unsp spec) [#/Vol] 1.34 10*3/uL 0.83-4.51 [facility] Work Phone: Basophil percentageon 2021 Basophils/100 WBC (Bld) 0.6 % 0-1 [facility] Work Phone: Bilirubin [Mass/Vol] 0.20 mg/dL 0.20-1.00 [facility] Work Phone: Comment on above: For patients on eltr ombopag therapy, use of Dimension Glady TBIL is not recommended. Chloride [Moles/Vol] 107 mmol/L 98-107 [facility] Work Phone: Cholesterol [Mass/Vol] 169 mg/dL <200 [facility] Work Phone: Comment on above: <200 mg/dL Desirable 200-240 mg/dL Borderline >240 mg/dL High Risk Eosinophils/100 WBC (Bld) 1.6 % 0-5 [facility] Work Phone: Glucose [Mass/Vol] 110 mg/dL 74-106 [facility] Work Phone: Comment on above: Fasting Glucose resu lt from 100 to 125 mg/dL suggests IMPAIRED HOMEOSTASIS per A.D.A. criteria. Neutrophils (Bld) [#/Vol] 5.6 10*3/uL 2.0-7.7 [facility] Work Phone: Neutrophils/100 WBC (Bld) 69.3 % 47-70 [facility] Work Phone: Potassium [Moles/Vol] 3.9 mmol/L 3.5-5.1 [facility] Work Phone: Protein [Mass/Vol] 7.8 g/dL 6.4-8.2 [facility] Work Phone: Sodium [Moles/Vol] 142 mmol/L 136-145 [facility] Work Phone: [phone] Triglyceride [Mass/Vol] 127 mg/dL [facility] Work Phone: Comment on above: The drugs N-Acetylcy steine and Metamizole may falsely depress this assay.Serum Triglycerides Reference Interval Normal <150 mg/dL Borderline high 150 - 199 mg/dL High 200 - 499 mg/dL Very High > or = 500 mg/dL WBC (Bld) [#/Vol] 8.0 10*3/uL 4.4-11.0 [facility] Work Phone: Blood erythrocytes count (nu mber/volume)on 08-28-2021 RBC (Bld) [#/Vol] 5.18 10*6/uL 4.6-6.2 [facility] Work Phone: Blood hemoglobin measurement (mass/volume)on 08-28-2021 Hemoglobin (Bld) [Mass/Vol] 14.6 g/dL 13.0-16.5 [facility] Work Phone: Blood lymphocytes/100 leukoc yteson 08-28-2021 Lymphocytes/100 WBC (Bld) 16.7 % 19-41 [facility] Work Phone: [phone] Blood monocytes/100 leukocyt eson 08-28-2021 Monocytes/100 WBC (Bld) 11.6 % 0-10 [facility] Work Phone: [phone] Blood platelet mean volumeon 08-28-2021 Platelet mean volume (Bld) [Entitic vol] 9.8 fL 6.2-12.0 [facility] Work Phone: [phone] Determination of erythrocyte mean corpuscular volume (MCV)on 08-28-2021 MCV (RBC) [Entitic vol] 90.0 fL 80-94 [facility] Work Phone: [phone] Hematocrit Auto (Bld) [Volum e fraction]on 08-28-2021 Hematocrit (Bld) [Volume fraction] 46.6 % 40-54 [facility] Work Phone: [phone] Laboratory - Chemistry and C hemistry - challengeon 08-28-2021 ALP [Catalytic activity/Vol] 94 U/L 45-117 [facility] Work Phone: [phone] ALT [Catalytic activity/Vol] 19 U/L 16-61 [facility] Work Phone: [phone] CO2 [Moles/Vol] 30.0 mmol/L 21.0-32.0 [facility] Work Phone: [phone] Globulin (S) [Mass/Vol] 4.6 g/dL 2.2-4.2 [facility] Work Phone: [phone] Urea nitrogen/Creatinine [Mass ratio] 17.8 mg/mg 10-20 [facility] Work Phone: [phone] Laboratory - Hematology and Cell countson 08-28-2021 Erythrocyte distribution width (RBC) [Entitic vol] 48.7 fL 35.1-43.9 [facility] Work Phone: [phone] Erythrocyte distribution width (RBC) [Ratio] 14.7 % 11.6-14.6 [facility] Work Phone: [phone] Immature granulocytes/100 WBC (Bld) 0.200 % 0.0-0.9 [facility] Work Phone: [phone] Comment on above: IG% - Immature Granu locytes (promyelocytes, myelocytes and metamyelocytes) > 1% indicates that a LEFT SHIFT is Present. MCH (RBC) [Entitic mass] 28.2 pg 27.0-32.0 [facility] Work Phone: [phone] Nucleated RBC/100 WBC (Bld) [Ratio] 0 % 0-5 [facility] Work Phone: [phone] MCHC Auto (RBC) [Mass/Vol]on 08-28-2021 MCHC (RBC) [Mass/Vol] 31.3 g/dL 32-36 [facility] Work Phone: [phone] Panel Informationon 08-28 Estimated GFR (MDRD) Amer 93 mL/min >60 [facility] Work Phone: [phone] Comment on above: GFR Calc Estimated GFR (MDRD) Non-Af Amer 77 mL/min >60 [facility] Work Phone: Comment on above: Non- GFR Calc Prostate Specific Antigen Screen 9.18 ng/mL 0.00-4.00 [facility] Work Phone: Comment on above: This test was perfor med using the TPSA assay method for the[employer] chemistry system. Values obtained with differentassay methods cannot be used interchangably.When changing PSA assays in the course of monitoring apatient, additional sequential testing should be carriedout to confirm baseline values. Platelets bldon 08-28-2021 Platelets (Bld) [#/Vol] 319 10*3/uL 150-450 [facility] Work Phone: Serum or plasma albumin ray urement (mass/volume)on 08-28-2021 Albumin [Mass/Vol] 3.2 g/dL 3.2-5.0 [facility] Work Phone: [phone] Serum or plasma albumin/glob ulin mass ratioon 08-28-2021 Albumin/Globulin [Mass ratio] 0.7 {ratio} 0.9-2.4 [facility] Work Phone: Serum or plasma calcium ray urement (mass/volume)on 08-28-2021 Calcium [Mass/Vol] 9.3 mg/dL 8.5-10.1 [facility] Work Phone: Serum or plasma cholesterol in HDL measurement (mass/volume)on 08-28-2021 Cholesterol in HDL [Mass/Vol] 70 mg/dL [facility] Work Phone: Comment on above: The drugs N-Acetylcy steine and Metamizole may falsely depress this assay. Reference Range HDL <40 mg/dL Low HDL Cholesterol HDL >or= 60 mg/dL High HDL Cholesterol Serum or plasma cholesterol in VLDL measurement (mass/volume)on 08-28-2021 Cholesterol in VLDL [Mass/Vol] 25 mg/dL 5-40 [facility] Work Phone: [phone] Serum or plasma creatinine m easurement (mass/volume)on 08-28-2021 Creatinine [Mass/Vol] 1.01 mg/dL 0.70-1.30 [facility] Work Phone: Comment on above: The validity of the calculated GFR & GFRAA in patients over 70 years has not been determined. Clinical correlation is essential. Serum or plasma low density lipoprotein (LDL) cholesterol measurement (mass/volume)on 08-28-2021 Cholesterol in LDL [Mass/Vol] 74 mg/dL 0-130 [facility] Work Phone: Serum or plasma urea nitroge n measurement (mass/volume)on 08-28-2021 Urea nitrogen [Mass/Vol] 18 mg/dL 7-18 [facility] Work Phone: Thin prep Papanicolaou smear with manual screeningon 08-28-2021 Thin prep Papanicolaou smear with manual screening 13 U/L 15-37 [facility] Work Phone: Thin prep Papanicolaou smear with manual screening 5 5-15 [facility] Work Phone: Vital Signs Date Time Vital Sign Value Performing Clinician Faci lity 02-28-2025 10:04-0400 Body height 162.[address] Maria Luz Chavira MD Work Phone: [facility] 02-28-2025 10:04-0400 Body mass index (BMI) [Ratio] 20.2 kg/m2 Dr. Maria Luz Chavira MD Work Phone: [facility] 02-28-2025 10:04-0400 Body temperature 98.1 [degF] Dr. Maria Luz Chavira MD Work Phone: [facility] 02-28-2025 10:04-0400 Body weight 53.[address] Maria Luz Chavira MD Work Phone: [facility] 02-28-2025 10:04-0400 Diastolic blood pressure 58 mm[Hg] Dr. Maria Luz Chavira MD Work Phone: [facility] 02-28-2025 10:04-0400 Respiratory rate 16 /min Dr. Maria Luz Chavira MD Work Phone: [facility] 02-28-2025 10:04-0400 Systolic blood pressure 98 mm[Hg] Dr. Maria Luz Chavira MD Work Phone: [facility] 02-07-2025 08:07-0400 Body height 162.[address] Maria Luz Chavira MD Work Phone: [facility] 02-07-2025 08:07-0400 Body mass index (BMI) [Ratio] 21.6 kg/m2 Dr. Maria Luz Chavira MD Work Phone: [facility] 02-07-2025 08:07-0400 Body temperature 98.4 [degF] Dr. Maria Luz Chavira MD Work Phone: [facility] 02-07-2025 08:07-0400 Body weight 57.[address] Maria Luz Chavira MD Work Phone: [facility] 02-07-2025 08:07-0400 Diastolic blood pressure 74 mm[Hg] Dr. Maria Luz Chavira MD Work Phone: [facility] 02-07-2025 08:07-0400 Heart rate 75 /min Dr. Maria Luz Chavira MD Work Phone: [facility] 02-07-2025 08:07-0400 Respiratory rate 16 /min Dr. Maria Luz Chavira MD Work Phone: [facility] 02-07-2025 08:07-0400 SaO2% (BldA) [Mass fraction] 97 % Dr. Maria Luz Chavira MD Work Phone: [facility] 02-07-2025 08:07-0400 Systolic blood pressure 147 mm[Hg] Dr. Maria Luz Chavira MD Work Phone: [facility] 01-17-2025 11:17-0400 Heart rate 86 /min Dr. Maria Luz Chavira MD Work Phone: [facility] 01-17-2025 11:17-0400 Respiratory rate 14 /min Dr. Maria Luz Chavira MD Work Phone: [facility] 01-17-2025 11:17-0400 SaO2% (BldA) [Mass fraction] 95 % Dr. Maria Luz Chavira MD Work Phone: [facility] 01-17-2025 10:26-0400 Body temperature 98.2 [degF] Dr. Maria Luz Chavira MD Work Phone: [facility] 01-17-2025 10:26-0400 Diastolic blood pressure 76 mm[Hg] Dr. Maria Luz Chavira MD Work Phone: [facility] 01-17-2025 10:26-0400 Systolic blood pressure 142 mm[Hg] Dr. Maria Luz Chavira MD Work Phone: [facility] 11-01-2024 12:43-0400 Body height 162.[address] Maria Luz Chavira MD Work Phone: [facility] 11-01-2024 12:43-0400 Body mass index (BMI) [Ratio] 20.3 kg/m2 Dr. Maria Luz Chavira MD Work Phone: [facility] 11-01-2024 12:43-0400 Body temperature 97.5 [degF] Dr. Maria Luz Chavira MD Work Phone: [facility] 11-01-2024 12:43-0400 Body weight 53.[address] Maria Luz Chavira MD Work Phone: [facility] 11-01-2024 12:43-0400 Diastolic blood pressure 64 mm[Hg] Dr. Maria Luz Chavira MD Work Phone: [facility] 11-01-2024 12:43-0400 Heart rate 66 /min Dr. Maria Luz Chavira MD Work Phone: [facility] 11-01-2024 12:43-0400 Respiratory rate 16 /min Dr. Maria Luz Chavira MD Work Phone: [facility] 11-01-2024 12:43-0400 SaO2% (BldA) [Mass fraction] 96 % Dr. Maria Luz Chavira MD Work Phone: [facility] 11-01-2024 12:43-0400 Systolic blood pressure 110 mm[Hg] Dr. Maria Luz Chavira MD Work Phone: [facility] 08-30-2024 09:19-0500 Body height 162.[address] Maria Luz Chavira MD Work Phone: [facility] 08-30-2024 09:19-0500 Body mass index (BMI) [Ratio] 20.4 kg/m2 Dr. Maria Luz Chavira MD Work Phone: [facility] 08-30-2024 09:19-0500 Body temperature 97.8 [degF] Dr. Maria Luz Chavira MD Work Phone: [facility] 08-30-2024 09:19-0500 Body weight 53.[address] Maria Luz Chavira MD Work Phone: [facility] 08-30-2024 09:19-0500 Diastolic blood pressure 66 mm[Hg] Dr. Maria Luz Chavira MD Work Phone: [facility] 08-30-2024 09:19-0500 Heart rate 54 /min Dr. Maria Luz Chavira MD Work Phone: [facility] 08-30-2024 09:19-0500 Respiratory rate 18 /min Dr. Maria Luz Chavira MD Work Phone: [facility] 08-30-2024 09:19-0500 SaO2% (BldA) [Mass fraction] 96 % Dr. Maria Luz Chavira MD Work Phone: [facility] 08-30-2024 09:19-0500 Systolic blood pressure 124 mm[Hg] Dr. Maria Luz Chavira MD Work Phone: [facility] 07-07-2024 14:02-0500 Body mass index (BMI) [Ratio] 21.4 kg/m2 Dr. Maria Luz Chavira MD Work Phone: [facility] 07-07-2024 14:02-0500 Body temperature 98.5 [degF] Dr. Maria Luz Chavira MD Work Phone: [facility] 07-07-2024 14:02-0500 Body weight 56.[address] Maria Luz Chavira MD Work Phone: [facility] 07-07-2024 14:02-0500 Diastolic blood pressure 62 mm[Hg] Dr. Maria Luz Chavira MD Work Phone: [facility] 07-07-2024 14:02-0500 Heart rate 76 /min Dr. Maria Luz Chavira MD Work Phone: [facility] 07-07-2024 14:02-0500 Respiratory rate 16 /min Dr. Maria Luz Chvaira MD Work Phone: [facility] 07-07-2024 14:02-0500 SaO2% (BldA) [Mass fraction] 99 % Dr. Maria Luz Chavira MD Work Phone: [facility] 07-07-2024 14:02-0500 Systolic blood pressure 116 mm[Hg] Dr. Maria Luz Chavira MD Work Phone: [facility] 08-27-2023 08:45-0500 Body height 157.[address] Maria Luz Chavira Work Phone: [facility] 08-27-2023 08:45-0500 Body mass index (BMI) [Ratio] 22.1 kg/m2 Dr. Maria Luz Chavira Work Phone: [facility] 08-27-2023 08:45-0500 Body temperature 97.3 [degF] Dr. Maria Luz Chavira Work Phone: [facility] 08-27-2023 08:45-0500 Body weight 54.[address] Maria Luz Chavira Work Phone: [facility] 08-27-2023 08:45-0500 Diastolic blood pressure 64 mm[Hg] Dr. Maria Luz Chavira Work Phone: [facility] 08-27-2023 08:45-0500 Heart rate 64 /min Dr. Maria Luz Chavira Work Phone: [facility] 08-27-2023 08:45-0500 Respiratory rate 6 /min Dr. Maria Luz Chavira Work Phone: [facility] 08-27-2023 08:45-0500 SaO2% (BldA) [Mass fraction] 92 % Dr. Maria Luz Chavira Work Phone: [facility] 08-27-2023 08:45-0500 Systolic blood pressure 118 mm[Hg] Dr. Maria Luz Chavira Work Phone: [facility] 12-29-2022 15:37-0400 Body height 157.[address] Maria Luz Chavira Work Phone: [facility] 12-29-2022 15:37-0400 Body mass index (BMI) [Ratio] 20.6 kg/m2 Dr. Maria Luz Chavira Work Phone: [facility] 12-29-2022 15:37-0400 Body temperature 98.2 [degF] Dr. Maria Luz Chavira Work Phone: [facility] 12-29-2022 15:37-0400 Body weight 51.[address] Maria Luz Chavira Work Phone: [facility] 12-29-2022 15:37-0400 Diastolic blood pressure 80 mm[Hg] Dr. Maria Luz Chavira Work Phone: [facility] 12-29-2022 15:37-0400 Heart rate 66 /min Dr. Maria Luz Chavira Work Phone: [facility] 12-29-2022 15:37-0400 Respiratory rate 16 /min Dr. Maria Luz Chavira Work Phone: [facility] 12-29-2022 15:37-0400 SaO2% (BldA) [Mass fraction] 99 % Dr. Maria Luz Chavira Work Phone: [facility] 12-29-2022 15:37-0400 Systolic blood pressure 132 mm[Hg] Dr. Maria Luz Chavira Work Phone: [facility] 12-25-2022 09:02-0400 Body mass index (BMI) [Ratio] 21.5 kg/m2 Dr. Maria Luz hCavira Work Phone: [facility] 12-25-2022 09:02-0400 Body temperature 98.2 [degF] Dr. Maria Luz Chavira Work Phone: [facility] 12-25-2022 09:02-0400 Body weight 53.[address] Maria Luz Chavira Work Phone: [facility] 12-25-2022 09:02-0400 Diastolic blood pressure 60 mm[Hg] Dr. Maria Luz Chavira Work Phone: [facility] 12-25-2022 09:02-0400 Heart rate 76 /min Dr. Maria Luz Chavira Work Phone: [facility] 12-25-2022 09:02-0400 Respiratory rate 16 /min Dr. Maria Luz Chavira Work Phone: [facility] 12-25-2022 09:02-0400 SaO2% (BldA) [Mass fraction] 96 % Dr. Maria Luz Chavira Work Phone: [facility] 12-25-2022 09:02-0400 Systolic blood pressure 118 mm[Hg] Dr. Maria Luz Chavira Work Phone: [facility] 08-19-2022 10:13-0500 Body height 157.[address] Maria Luz Chavira Work Phone: [facility] 08-19-2022 10:13-0500 Body mass index (BMI) [Ratio] 21.2 kg/m2 Dr. Maria Luz Chavira Work Phone: [facility] 08-19-2022 10:13-0500 Body temperature 98.7 [degF] Dr. Maria Luz Chavira Work Phone: [facility] 08-19-2022 10:13-0500 Body weight 52.[address] Maria Luz Chaviar Work Phone: [facility] 08-19-2022 10:13-0500 Diastolic blood pressure 80 mm[Hg] Dr. Maria Luz Chavira Work Phone: [facility] 08-19-2022 10:13-0500 Heart rate 59 /min Dr. Maria Luz Chavira Work Phone: [facility] 08-19-2022 10:13-0500 Respiratory rate 16 /min Dr. Maria Luz Chavira Work Phone: [facility] 08-19-2022 10:13-0500 SaO2% (BldA) [Mass fraction] 92 % Dr. Maria Luz Chavira Work Phone: [facility] 08-19-2022 10:13-0500 Systolic blood pressure 130 mm[Hg] Dr. Maria Luz Chavira Work Phone: [facility] 04-23-2022 15:21-0400 Body height 157.[address] Maria Luz Chavira Work Phone: [facility] Work Phone: 04-23-2022 15:21-0400 Body mass index (BMI) [Ratio] 21.8 kg/m2 Dr. Maria Luz Chavira Work Phone: [facility] Work Phone: 04-23-2022 15:21-0400 Body temperature 98.4 [degF] Dr. Maria Luz Chavira Work Phone: [facility] Work Phone: 04-23-2022 15:21-0400 Body weight 54.[address] Maria Luz Chavira Work Phone: [facility] Work Phone: 04-23-2022 15:21-0400 Diastolic blood pressure 70 mm[Hg] Dr. Maria Luz Chavira Work Phone: [facility] Work Phone: 04-23-2022 15:21-0400 Heart rate 84 /min Dr. Maria Luz Chavira Work Phone: [facility] Work Phone: 04-23-2022 15:21-0400 Respiratory rate 16 /min Dr. Maria Luz Chavira Work Phone: [facility] Work Phone: 04-23-2022 15:21-0400 SaO2% (BldA) [Mass fraction] 98 % Dr. Maria Luz Chavira Work Phone: [facility] Work Phone: 04-23-2022 15:21-0400 Systolic blood pressure 110 mm[Hg] Dr. Maria Luz Chavira Work Phone: [facility] Work Phone: 12-10-2021 09:59-0400 Body height 157.[address] Maria Luz Chavira Work Phone: [facility] Work Phone: 12-10-2021 09:59-0400 Body mass index (BMI) [Ratio] 24 kg/m2 Dr. Maria Luz Chavira Work Phone: [facility] Work Phone: 12-10-2021 09:59-0400 Body temperature 97.6 [degF] Dr. Maria Luz Chavira Work Phone: [facility] Work Phone: 12-10-2021 09:59-0400 Body weight 59.[address] Maria Luz Chavira Work Phone: [facility] Work Phone: 12-10-2021 09:59-0400 Diastolic blood pressure 64 mm[Hg] Dr. Maria Luz Chavira Work Phone: [facility] Work Phone: 12-10-2021 09:59-0400 Heart rate 88 /min Dr. Maria Luz Chavira Work Phone: [facility] Work Phone: 12-10-2021 09:59-0400 Respiratory rate 18 /min Dr. Maria Luz Chavira Work Phone: [facility] Work Phone: 12-10-2021 09:59-0400 SaO2% (BldA) [Mass fraction] 96 % Dr. Maria Luz Chavira Work Phone: [facility] Work Phone: 12-10-2021 09:59-0400 Systolic blood pressure 124 mm[Hg] Dr. Maria Luz Chavira Work Phone: [facility] Work Phone: 11-11-2021 08:27-0400 Body temperature 98.6 [degF] Dr. Maria Luz Chavira Work Phone: [facility] Work Phone: 11-11-2021 08:27-0400 Body weight 63.[address] Maria Luz Chavira Work Phone: [facility] Work Phone: 11-11-2021 08:27-0400 Diastolic blood pressure 72 mm[Hg] Dr. Maria Luz Chavira Work Phone: [facility] Work Phone: 11-11-2021 08:27-0400 Heart rate 77 /min Dr. Maria Luz Chavira Work Phone: [facility] Work Phone: 11-11-2021 08:27-0400 Respiratory rate 16 /min Dr. Maria Luz Chavira Work Phone: [facility] Work Phone: 11-11-2021 08:27-0400 SaO2% (BldA) [Mass fraction] 97 % Dr. Maria Luz Chavira Work Phone: [facility] Work Phone: 11-11-2021 08:27-0400 Systolic blood pressure 130 mm[Hg] Dr. Maria Luz Chavira Work Phone: [facility] Work Phone: 08-28-2021 13:41-0500 Body mass index (BMI) [Ratio] 25 kg/m2 Dr. Maria Luz Chavira Work Phone: [facility] Work Phone: 08-28-2021 13:41-0500 Body temperature 98.4 [degF] Dr. Maria Luz Chavira Work Phone: [facility] Work Phone: 08-28-2021 13:41-0500 Body weight 62.[address] Maria Luz Chavira Work Phone: [facility] Work Phone: 08-28-2021 13:41-0500 Diastolic blood pressure 80 mm[Hg] Dr. Maria Luz Chavira Work Phone: [facility] Work Phone: 08-28-2021 13:41-0500 Heart rate 65 /min Dr. Maria Luz Chavira Work Phone: [facility] Work Phone: 08-28-2021 13:41-0500 Respiratory rate 16 /min Dr. Maria Luz Chavira Work Phone: [facility] Work Phone: 08-28-2021 13:41-0500 SaO2% (BldA) [Mass fraction] 90 % Dr. Maria Luz Chavira Work Phone: [facility] Work Phone: 08-28-2021 13:41-0500 Systolic blood pressure 124 mm[Hg] Dr. Maria Luz Chavira Work Phone: [facility] Work Phone: Encounters Encounter Date Encounter Type Care Provider Facility Start: 03-02-2025 End: 03-02-2025 Patient encounter procedure GOLDY NURSE [facility] Work Phone: Start: 03-02-2025 End: 03-02-[address] Maria Luz Chavira MD Work Phone: -[facility] Start: 02-28-2025 End: 02-28-[address] Maria Luz Chavira MD [facility] Work Phone: Start: 02-28-2025 End: 02-28-[address] Maria Luz Chavira MD Work Phone: [facility] Start: 02-07-2025 End: 02-07-[address] Bobby Garcia MD [facility] Work Phone: Start: 02-07-2025 End: 02-07-[address] Maria Luz Chavira MD Work Phone: [facility] Start: 02-07-2025 End: 02-07-2025 ambulatory Bobby Garcia Facility:[facility] Start: 01-17-2025 End: 01-17-2025 Patient encounter procedure Neal Chun [facility] Work Phone: Start: 01-17-2025 End: 01-17-[address] Maria Luz Chavira MD Work Phone: [facility] Start: 01-17-2025 End: 01-17-2025 ambulatory Neal Chun Facility:[facility] Start: 12-11-2024 End: 12-11-2024 Patient encounter procedure Kim Cheung Work Phone: Podiatry Comment on above: Calcaneal spur, unsp ecified laterality (Primary Dx) Start: 12-11-2024 End: 12-11-2024 ambulatory KIM CHEUNG Facility:[facility] Start: 12-11-2024 End: 12-11-2024 Subsequent hospital visit by physician [facility] Work Phone: Radiology Comment on above: Pain [R52] Start: 11-01-2024 End: 11-01-2024 Patient encounter procedure Kim BARKER [facility] Work Phone: Start: 11-01-2024 End: 11-01-2024 ambulatory Kim Doshi Facility:[facility] Start: 09-15-2024 End: 09-15-2024 ambulatory Nikki Taveras NP Facility:[facility] Start: 08-30-2024 End: 08-30-[address] Maria Luz Chavira MD [facility] Work Phone: Start: 08-30-2024 End: 08-30-[address] Maria Luz Chavira MD Work Phone: [facility] Work Phone: Start: 08-30-2024 End: 08-30-2024 ambulatory Kaleighjoaquinaongbe Tee Facility:[facility] Start: 07-07-2024 End: 07-07-2024 Patient encounter procedure Kim BARKER [facility] Work Phone: Start: 07-07-2024 End: 07-07-2024 ambulatory Kaleighjoaquinaongbe Olecaneloe Facility:[facility] Start: 06-09-2024 ambulatory Efewongbe Olecaneloe OLS Fa cility:[facility] Start: 06-09-2024 Registered Referred Maria Luz Chavira MD -[facility] Start: 05-12-2024 End: 05-12-2024 ambulatory Rosi Wolf NP Facility:[facility] Start: 05-12-2024 End: 05-12-2024 ambulatory Efjoaquinaongbe Tee Facility:[facility] Start: 04-28-2024 End: 04-28-2024 ambulatory Efewongbe Festuscaneloe Facility:[facility] Start: 04-21-2024 End: 04-21-2024 [facility] Start: 04-18-2024 End: 04-18-2024 ambulatory Efewongbe Olecaneloe Facility:[facility] Start: 04-14-2024 End: 04-14-2024 ambulatory Efewongbe Oleghe Facility:[facility] Start: 04-03-2024 End: 04-03-2024 ambulatory Efewongbe Tee Facility:[facility] Start: 03-30-2024 ambulatory Efewongbe Festuscaneloe Facili ty:[facility] Start: 03-30-2024 End: 04-13-2024 Evaluation and management of inpatient Efewongbe Oleghe Facility:[facility] Start: 03-27-2024 ambulatory [facility] :[facility] Start: 03-27-2024 End: 03-30-2024 Evaluation and management of inpatient Capo Borruso Facility:[facility] Start: 08-27-2023 End: 08-27-[address] Maria Luz Chavira Work Phone: [facility] Work Phone: Start: 08-27-2023 End: 08-27-[address] Maria Luz Chavira Work Phone: [facility] Work Phone: Start: 08-12-2023 End: 08-12-[address] Maria Luz Chavira Work Phone: [facility] Work Phone: Start: 12-29-[address] Maria Luz Chavira Work Phone: [facility] Start: 12-25-2022 End: 12-25-[address] Maria Luz Chavira Work Phone: [facility] Work Phone: Start: 12-25-2022 End: 12-25-[address] Maria Luz Chavira Work Phone: [facility] Start: 09-08-2022 End: 09-08-[address] Maria Luz Chavira Work Phone: [facility] Work Phone: Start: 09-08-2022 End: 09-08-[address] Maria Luz Chavira Work Phone: [facility] Start: 08-19-2022 End: 08-19-[address] Maria Luz Chavira Work Phone: [facility] Work Phone: Start: 08-19-2022 End: 08-19-[address] Maria Luz Chavira Work Phone: [facility] Start: 08-19-2022 End: 08-19-[address] Maria Luz Chavira Work Phone: [facility] Start: 05-19-2022 End: 05-19-[address] Maria Luz Chavira Work Phone: [facility] Work Phone: Start: 05-19-2022 End: 05-19-[address] Maria Luz Chavira Work Phone: [facility] Start: 05-12-2022 Non-patient / Non-visit Dr. Maria Luz Chavira Work Phone: [facility] Start: 04-23-2022 End: 04-23-[address] Maria Luz Chavira Work Phone: [facility] Work Phone: Start: 04-23-2022 End: 04-23-[address] Maria Luz Chavira Work Phone: [facility] Start: 04-23-2022 End: 04-23-[address] Maria Luz Chavira Work Phone: [facility] Start: 03-31-2022 Refill Sajan Mendez MD Work Phone: [facility] Comment on above: Refill Request Start: 12-10-2021 End: 12-10-[address] Maria Luz Chavira Work Phone: [facility] Start: 11-11-2021 End: 11-11-[address] Maria Luz Chavira Work Phone: [facility] Start: 08-28-2021 End: 08-28-[address] Maria Luz Chavira Work Phone: [facility] Date Procedure Procedure Detail Performing Clinician Start: 01-17-2025 X-ray of chest, PA and lateral views Dr. Maria Luz Chavira MD Work Phone: Start: 09-08-2022 Dual energy X-ray absorptiometry Dr. Maria Luz Chavira Work Phone: Start: 05-19-2022 MRI of brain without contrast Dr. Maria Luz Chavira Work Phone: Start: 12-11-[address] Maria Luz Chavira Work Phone: Start: 01-29-2003 Colonoscopy Sajan Mendez MD Work Phone: History of cholecystectomy S/P laparoscopic cholecystectomy Dr. Maria Luz Chavira Work Phone: Plan of Treatment Date Care Activity Detail Author Start: 03-05-2025 Influenza vaccination Influenza Vaccine (Season Ended) [facility] Start: 07-05-2024 Advance Directive Discussion Advance Directive Discussion [facility] Start: 03-05-2024 Covid-19 Vaccine ( season) Covid-19 Vaccine ( season) [facility] Start: 08-28-2023 DIABETES SCREEN DIABETES SCREEN [facility] Start: 08-28-2023 Diabetes Screening Diabetes Screening [facility] Start: 2022 RSV Vaccine (1 - 1-dose 75+ series) RSV Vaccine (1 - 1-dose 75+ series) [facility] Start: 03-19-2022 ANNUAL PCP TEAM CHRONIC DISEASE VISIT ANNUAL PCP TEAM CHRONIC DISEASE VISIT [facility] Start: 03-05-2022 Influenza vaccination INFLUENZA (#1) [facility] Start: 11-11-2021 Patient referral [facility] Work Phone: Start: 08-28-2021 Patient referral [facility] Work Phone: Start: 07-05-2021 ADVANCE DIRECTIVE DISCUSSION ADVANCE DIRECTIVE DISCUSSION [facility] Start: 07-05-2021 DEPRESSION ASSESSMENT DEPRESSION ASSESSMENT [facility] Start: 09-26-2020 COVID-19 VACCINE (3 - Booster for Pfizer series) COVID-19 VACCINE (3 - Booster for Pfizer series) [facility] Start: 07-01-2020 LIPID SCREEN LIPID SCREEN [facility] Start: 11-02-2018 Urine microalbumin profile [facility] Start: 07-07-2017 FECAL OCCULT BLOOD FECAL OCCULT BLOOD [facility] Start: 07-08-2016 COLORECTAL CANCER SCREENING COLORECTAL CANCER SCREENING [facility] Start: 01-29-2013 Colonoscopy COLONOSCOPY [facility] Start: 1997 SHINGRIX VACCINE (1 of 2) SHINGRIX VACCINE (1 of 2) [facility] Start: 1992 COLOGUARD (FIT-DNA) COLOGUARD (FIT-DNA) [facility] Start: [address] COLONOGRAPHY [facility] Start: 1992 SIGMOIDOSCOPY SIGMOIDOSCOPY [facility] Start: 1965 Anxiety Screening Anxiety Screening [facility] Start: 1965 BP CONTROLLED (<130/80) BP CONTROLLED (<130/80) [facility] Start: 1965 Depression Screening Depression Screening [facility] Start: 1965 SPIROMETRY SPIROMETRY [facility] DXA Bone [Mass/Area] Bone density [facility] Patient referral [facility] Work Phone: Vitamin D, 1,25-dihydroxy measurement [facility] XR Foot - bilateral AP and Lateral and oblique XR FOOT GENERAL 3V AP/LAT/OBL BILATERAL Radiology Routine Pain 12/11/2024 1:26 PM EDT [facility] Work Phone: Immunizations Immunization Date Immunization Notes Care Provider Becca topete 05-07-2023 influenza virus vaccine, unspecified formulation Kim Cheung Work Phone: [facility] 04-04-2023 Influenza High-Dose Quadrivalent Dr. Maria Luz Chavira MD Work Phone: [facility] 07-05-2022 Covid (Pfizer) Dr. Maria Luz Chavira MD Work Phone: [facility] 04-27-2017 influenza, high dose seasonal, preservative-free Sajan Mendez MD Work Phone: [facility] 07-07-2016 influenza, high dose seasonal, preservative-free Sajan Mendez MD Work Phone: [facility] 07-01-2015 pneumococcal polysaccharide vaccine, 23 valent Sajan Mendez MD Work Phone: [facility] 04-26-2014 pneumococcal conjuga te vaccine, 13 valent Sajan Mendez MD Work Phone: [facility] 04-03-2014 influenza, high dose seasonal, preservative-free Sajan Mendez MD Work Phone: [facility] Work Phone: 04-13-2013 influenza virus vaccine, unspecified formulation Sajna Mendez MD Work Phone: [facility] Work Phone: 05-12-2012 influenza virus vaccine, unspecified formulation aSjan Mendez MD Work Phone: [facility] 04-27-2011 influenza virus vaccine, unspecified formulation Sajan Mendez MD Work Phone: [facility] Work Phone: 04-04-2009 influenza virus vaccine, unspecified formulation Sajan Mendez MD Work Phone: [facility] 11-02-2008 tetanus toxoid, redu kang diphtheria toxoid, and acellular pertussis vaccine, adsorbed Sajan Mendez MD Work Phone: [facility] Payers Date Payer Category Payer Self-pay [id number] 2016 Medicaid [id number] 2016 Medicaid [id number] 1987 Medicare [id number] 1987 Medicare [id number] Unknown [id number] 2.16.8 40.1.277610.3.579.2.462 Unknown [id number] 2.16.8 40.1.319140.3.579.2.462 Unknown [id number] 2.16.8 40.1.225687.3.579.2.462 Unknown [id number] 2.16.8 40.1.925777.3.579.2.462 Unknown [id number] 2.16.8 40.1.597774.3.579.2.462 Unknown [id number] 2.16.8 40.1.712560.3.579.2.462 Unknown [id number] 2.16.8 40.1.646101.3.579.2.462 Unknown [id number] 2.16.8 40.1.238534.3.579.2.462 Unknown [id number] 2.16.8 40.1.821310.3.579.2.462 Unknown [id number] 2.16.8 40.1.443223.3.579.2.462 Unknown [id number] 2.16.8 40.1.068666.3.579.2.462 Unknown [id number] 2.16.8 40.1.183523.3.579.2.462 Unknown [id number] 2.16.8 40.1.877979.3.579.2.462 Unknown [id number] 2.16.8 40.1.116475.3.579.2.462 Unknown [id number] 2.16.8 40.1.133734.3.579.2.462 Unknown [id number] 2.16.8 40.1.840605.3.579.2.462 Unknown [id number] 2.16.8 40.1.685607.3.579.2.462 Unknown [id number] 2.16.8 40.1.216822.3.579.2.462 Unknown [id number] 2.16.8 40.1.596715.3.579.2.462 Unknown [id number] 2.16.8 40.1.609024.3.579.2.462 Unknown [id number] 2.16.8 40.1.922913.3.579.2.462 Unknown [id number] 2.16.8 40.1.125233.3.579.2.462 Unknown [id number] 2.16.8 40.1.132029.3.579.2.462 Unknown [id number] 2.16.8 40.1.003665.3.579.2.462 Unknown [id number] 2.16.8 40.1.990822.3.579.2.462 Unknown [id number] 2.16.8 40.1.499688.3.579.2.462 Unknown [id number] 2.16.8 40.1.394029.3.579.2.462 Unknown [id number] 2.16.8 40.1.541678.3.579.2.462 Unknown [id number] 2.16.8 40.1.716394.3.579.2.462 Unknown [id number] 2.16.8 40.1.647834.3.579.2.462 Unknown [id number] 2.16.8 40.1.715921.3.579.2.462 Unknown [id number] 2.16.8 40.1.806817.3.579.2.462 Unknown [id number] 2.16.8 40.1.640091.3.579.2.462 Social History Date Type Detail Facility Start: 12-10-2021 End: 08-27-2023 Tobacco smoking status NHIS Unknown if ever smoked [facility] Start: 02-11-2016 None [facility] Start: 02-11-2016 - [facility] Start: 02-11-2016 Non-smoker [facility] Start: 1945 Sex Assigned At Male [facility] Start: 04-13-2013 [facility] Work Phone: Start: 04-13-2013 Tobacco use and exposure Smokeless tobacco non-user [facility] Work Phone: Start: 03-19-2021 Alcohol intake 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 (finding) [facility] Start: 1945 Sex Assigned At Not on file [facility] Start: 03-30-2024 Tobacco smoking stat us [facility] Ex-smoker (finding) [facility] Start: 09-14-2024 Sex Male (finding) [facility] Start: 03-19-2021 End: 12-11-2024 History of Social function [facility] Start: 03-19-2021 End: 12-11-2024 Tobacco use panel [facility] Adult Depression Screening Assessment 0 [facility] Medical Equipment Procedure Code Equipment Code Equipment Original Text Equipment Identifier Dates Insertion, intramedullary joyce, femur, using titanium trochanteric fixation nail syste [employer] Locking Screw For IM Nail FDA Start: 03-28-2024 Insertion, intramedullary joyce, femur, using titanium trochanteric fixation nail syste [employer] TI NAZ TFNA FDA Start: 03-28-2024 Insertion, intramedullary joyce, femur, using titanium trochanteric fixation nail syste ([id number]) Spiral blade [id number] FDA Start: 03-28-2024 Insertion, intramedullary joyce, femur, using titanium trochanteric fixation nail syste [employer] Locking Screw For IM Nail FDA Start: 03-28-2024 Insertion, intramedullary joyce, femur, using titanium trochanteric fixation nail syste [employer] TI NAZ TFNA FDA Start: 03-28-2024 Insertion, intramedullary joyce, femur, using titanium trochanteric fixation nail syste [employer] Locking Screw For IM Nail FDA Start: 03-28-2024 Insertion, intramedullary joyce, femur, using titanium trochanteric fixation nail syste [employer] TI NAZ TFNA FDA Start: 03-28-2024 Insertion, intramedullary joyce, femur, using titanium trochanteric fixation nail syste [employer] Locking Screw For IM Nail FDA Start: 03-28-2024 Insertion, intramedullary joyce, femur, using titanium trochanteric fixation nail syste [employer] TI NAZ TFNA FDA Start: 03-28-2024 Insertion, intramedullary joyce, femur, using titanium trochanteric fixation nail syste [employer] Locking Screw For IM Nail FDA Start: 03-28-2024 Insertion, intramedullary joyce, femur, using titanium trochanteric fixation nail syste [employer] TI NAZ TFNA FDA Start: 03-28-2024 Insertion, intramedullary joyce, femur, using titanium trochanteric fixation nail syste [employer] Locking Screw For IM Nail FDA Start: 03-28-2024 Insertion, intramedullary joyce, femur, using titanium trochanteric fixation nail syste [employer] TI NAZ TFNA FDA Start: 03-28-2024 Functional Status Date Assessment Result Facility 01-11-2015 Are you deaf, or do you have serious difficulty hearing No 01/11/2015 10:00 AM Daphne Bentley RN No [facility] Work Phone: 01-11-2015 Are you blind, or do you have serious difficulty seeing, even when wearing glasses No 01/11/2015 10:00 AM Daphne Bentley RN No [facility] 01-11-2015 Do you have serious difficulty walking or climbing stairs No 01/11/2015 10:00 AM Daphne Bentley RN No [facility] 01-11-2015 Do you have difficul ty dressing or bathing No 01/11/2015 10:00 AM Daphne Bentley RN No [facility] 01-11-2015 Because of a physica l, mental, or emotional condition, do you have difficulty doing errands alone such as visiting a physician's office or shopping Yes 01/11/2015 10:00 AM Daphne Bentley RN Yes [facility] Mental Status Date Assessment Result Facility 01-11-2015 Because of a physica l, mental, or emotional condition, do you have serious difficulty concentrating, remembering, or making decisions Yes 01/11/2015 10:00 AM Daphne Bentley RN Yes [facility] Clinical Notes 12-17-2016 to 02-07-2025 Note Date & Type Note Facility 02-07-2025 Evaluation note Diagnosis Onset Date Resolution Essential tremor acute February 072024 8:01am Impacted cerumen of both ears acute February 07, 2025 8:01am Insomnia acute February 07 8:01am Dementia chronic February 07 8:01am Mental retardation chronic February 07, 2025 8:01am Vitamin D deficiency resolved 2024 8:01am Dementia, unspecified, without behavioral disturbance chronic February 28 10:08am Essential (primary) hypertension chronic February 28 10:08am Osteoporosis chronic February 28, 2025 10:08am Vitamin D deficiency resolved 2024 10:08am [facility] Work Phone: 1(192) 996-217406-09-2025 NoteHNO ID: [id number] Author: KIM CHEUNG, ? Service: ? Author Type: Physician Type: Progress Notes Filed: 12/11/2024 13:59 Note Text: Subjective Amor Pete is a 79-year-old male presenting for a foot examination. patient is here for foot examination. He has no complaints of pain. he has no current issues that he is concerned for. Musculoskeletal: (-) foot pain Skin: (-) foot skin irritation PAST MEDICAL HISTORY Diagnosis Date Benign prostatic hyperplasia without lower urinary tract symptoms Elevated PSA 12/27/2014 PSA 8.77 - [facility] - see scanned documents Essential hypertension, benign 12/04/2013 Intellectual disability custodial Kyphosis, acquired Major depressive disorder Mass of left lung 2016 07/26/17: 5 mm noncalcified nodule (6 month follow-up) Mild intermittent asthma without complication Other kyphoscoliosis and scoliosis Tracheobronchomalacia Unspecified hemorrhoids without mention of complication Hemorrhoids Current Outpatient Medications Medication Sig Dispense Refill acetaminophen (TYLENOL) 500 mg tablet Take 500 mg by mouth every 8 hours as needed for pain or fever (specify temp.). calcium carbonate (TUMS) 500 mg chew Take by mouth. 2 Tablets every 6 hours as needed for heartburn/indigestion Galantamine Hydrobromide (RAZADYNE) 24 mg 24 hr capsule Take 24 mg by mouth daily with breakfast. memantine (NAMENDA) 10 mg tablet Take 10 mg by mouth two times a day. magnesium hydroxide (MILK OF MAGNESIA ORAL) Take 30 mL by mouth once daily. If no bowel movement within 3 days bacitracin 500 unit/gram ointment Apply to affected area two times a day. PRN for minor cuts and scrapes psyllium husk (METAMUCIL ORAL) Take by mouth once daily. loperamide HCl (IMODIUM) 2 mg tab Take 2 mg by mouth as needed. gwdlelf-iukskmdgi-uihwiqv D3 (OYSTER SHELL CALCIUM-VITAMIN D) 500 mg-5 mcg (200 unit) per tablet Take 1 tablet by mouth twice daily with meals. 60 tablet 3 PARoxetine (PAXIL) 20 mg tablet Take 1 tablet by mouth once daily. 30 tablet 5 amLODIPine (NORVASC) 10 mg tablet Take 1 tablet by mouth once daily. (Patient taking differently: Take 5 mg by mouth once daily.) 90 tablet 3 calcium polycarbophil (FIBER-LAX) 625 mg tablet Take 2 tablets by mouth twice daily. (Patient not taking: Reported on 12/11/2024) 120 tablet 5 COMPOUNDED PRESCRIPTION Weekly BP checks. (Patient not taking: Reported on 12/11/2024) 1 Each 0 No current facility-administered medications for this visit. Family History Problem Relation Age of Onset Cancer Mother UNKNOWN Psychiatry Sister MENTAL RETARDATION Objective There were no vitals taken for this visit. - Cardiovascular: Dorsalis pedis and posterior tibial pulses palpable bilaterally; capillary refill time <5 seconds. - Skin: Well-hydrated without evidence of calluses, ulcerations, or open wounds; normal hair growth on lower extremities. nails 1-5 b/l are normal in length and thickness - Neurological: Protective sensation intact bilaterally. - Musculoskeletal: - Feet: - Skin temperature warm bilaterally. - no pain with exam of b/l feet - Strength 5/5 bilaterally. - minimal spurring to b/l heels Imaging: - (Today) X-ray, bilateral feet: Plantar and posterior heel spurs noted. No evidence of acute fracture. Assessment AND Plan 1. Calcaneal spur, unspecified laterality (M77.30) - X-rays of both feet demonstrate plantar and posterior heel spurs; no evidence of acute fracture. - Advised to avoid barefoot walking and to wear good supportive shoes to prevent irritation from heel spurs. - Recommended regular application of lotion to maintain skin hydration. - Monitor for any signs of irritation or pain; instructed to report any issues promptly. - has b/l heel spur without pain. continue with shoes that provide good support and that avoid rubbing on the heels. his current shoes should suffice. Recording using [employer] software for draft documentation of the visit was discussed with the patient/authorized sales service representative; all questions welcomed and answered. Patient/authorized sales service representative agreed to proceed Kim Yajairatico [facility]06-09-2025 History of Present illness Narrative* Kim Cheung - 12/11/2024 1:59 PM EDT Subjective Amor Pete is a 79-year-old male presenting for a foot examination. patient is here for foot examination. He has no complaints of pain. he has no current issues that he is concerned for. Musculoskeletal: (-) foot pain Skin: (-) foot skin irritation PAST MEDICAL HISTORY Diagnosis Date Benign prostatic hyperplasia without lower urinary tract symptoms Elevated PSA 12/27/2014 PSA 8.77 - [facility] - see scanned documents Essential hypertension, benign 12/04/2013 Intellectual disability custodial Kyphosis, acquired Major depressive disorder Mass of left lung 2016 07/26/17: 5 mm noncalcified nodule (6 month follow-up) Mild intermittent asthma without complication Other kyphoscoliosis and scoliosis Tracheobronchomalacia Unspecified hemorrhoids without mention of complication Hemorrhoids Current Outpatient Medications Medication Sig Dispense Refill acetaminophen (TYLENOL) 500 mg tablet Take 500 mg by mouth every 8 hours as needed for pain or fever (specify temp.). calcium carbonate (TUMS) 500 mg chew Take by mouth. 2 Tablets every 6 hours as needed for heartburn/indigestion Galantamine Hydrobromide (RAZADYNE) 24 mg 24 hr capsule Take 24 mg by mouth daily with breakfast. memantine (NAMENDA) 10 mg tablet Take 10 mg by mouth two times a day. magnesium hydroxide (MILK OF MAGNESIA ORAL) Take 30 mL by mouth once daily. If no bowel movement within 3 days bacitracin 500 unit/gram ointment Apply to affected area two times a day. PRN for minor cuts and scrapes psyllium husk (METAMUCIL ORAL) Take by mouth once daily. loperamide HCl (IMODIUM) 2 mg tab Take 2 mg by mouth as needed. khtwqgq-fyelpwfpy-ifqdpea D3 (OYSTER SHELL CALCIUM-VITAMIN D) 500 mg-5 mcg (200 unit) per tablet Take 1 tablet by mouth twice daily with meals. 60 tablet 3 PARoxetine (PAXIL) 20 mg tablet Take 1 tablet by mouth once daily. 30 tablet 5 amLODIPine (NORVASC) 10 mg tablet Take 1 tablet by mouth once daily. (Patient taking differently: Take 5 mg by mouth once daily.) 90 tablet 3 calcium polycarbophil (FIBER-LAX) 625 mg tablet Take 2 tablets by mouth twice daily. (Patient not taking: Reported on 12/11/2024) 120 tablet 5 COMPOUNDED PRESCRIPTION Weekly BP checks. (Patient not taking: Reported on 12/11/2024) 1 Each 0 No current facility-administered medications for this visit. Family History Problem Relation Age of Onset Cancer Mother UNKNOWN Psychiatry Sister MENTAL RETARDATION Objective There were no vitals taken for this visit. - Cardiovascular: Dorsalis pedis and posterior tibial pulses palpable bilaterally; capillary refilltime <5 seconds. - Skin: Well-hydrated without evidence of calluses, ulcerations, or open wounds; normal hair growthon lower extremities. nails 1-5 b/l are normal in length and thickness - Neurological: Protective sensation intact bilaterally. - Musculoskeletal: - Feet: - Skin temperature warm bilaterally. - no pain with exam of b/l feet - Strength 5/5 bilaterally. - minimal spurring to b/l heels Imaging: - (Today) X-ray, bilateral feet: Plantar and posterior heel spurs noted. No evidence of acute fracture. Assessment & Plan 1. Calcaneal spur, unspecified laterality (M77.30) - X-rays of both feet demonstrate plantar and posterior heel spurs; no evidence of acute fracture. - Advised to avoid barefoot walking and to wear good supportive shoes to prevent irritation from heel spurs. - Recommended regular application of lotion to maintain skin hydration. - Monitor for any signs of irritation or pain; instructed to report any issues promptly. - has b/l heel spur without pain. continue with shoes that provide good support and that avoid rubbing on the heels. his current shoes should suffice. Recording using My[employer] software for draft documentation of the visit was discussed with the patient/authorized sales service representative; all questions welcomed and answered. Patient/authorized sales service representative agreed to proceed Kim Cheung DPM * Terri Grimes RN - 12/11/2024 1:29 PM EDT Patient presents with: Left Foot - New, foot check Right Foot - New, foot check Patient presents from [facility] for foot check. Is not a diabetic. Denies any current pain. Xraysprior to appointment. [facility] NoteHNO ID: [id number] Author: TERRI GRIMES RN Service: ? Author Type: Registered Nurse Type: Progress Notes Filed: 12/11/2024 13:59 Note Text: Patient presents with: Left Foot - New, foot check Right Foot - New, foot check Patient presents from [facility] for foot check. Is not a diabetic. Denies any current pain. Xrays prior to appointment.[facility]06-09[facility] History of Present illness Narrative* Caitlin Lew Tech - 12/11/2024 1:10 PM EDT Radiology Service Progress Note PATIENT NAME: Amor Pete DATE OF SERVICE: December 11, 2024 TIME: 1:01 PM PATIENT IDENTITY VERIFICATION COMPLETED USING TWO (2) IDENTIFIERS: Name and Date of confirmedby patient verbally. FALL SCREENING: Has the patient had 2 falls in the last year or 1 fall with injury or currently using an Ambulatory Assistive Device (Walker, Cane, Wheelchair, Crutches, etc.)? Yes, Patient High Riskfor Falls What interventions were put in place to prevent falls during this visit? Offered Assistance with Transfers/Clothing, Instructed Patient to Remain Seated (Not on Exam Table) Until Exam, and Increased Observations by Caregivers PATIENT GENDER DATA: Assigned male at PATIENT RELEVANT IMPLANT DATA REVIEWED: Not Applicable PATIENT PRESENTS WITH AN IMPLANTABLE OR ATTACHED ANIMATED CARTOONS PAINTER: No RADIOLOGY DEPARTMENT: General X-ray: Exam(s) Completed: Lower Extremity X- Ray(s): Foot, Bilateral PERIPHERAL IV DATA: Not applicable SIGNED BY: Jordin Markham December 11, 2024 1:01 PM [facility]25 NoteHNO ID: [id number] Author: CAITLIN LEW Tech Service: ? Author Type: Technologist Type: Progress Notes Filed: 12/11/2024 13:26 Note Text: Radiology Service Progress Note PATIENT NAME: Amor Pete DATE OF SERVICE: December 11, 2024 TIME: 1:01 PM PATIENT IDENTITY VERIFICATION COMPLETED USING TWO (2) IDENTIFIERS: Name and Date of confirmed by patient verbally. FALL SCREENING: Has the patient had 2 falls in the last year or 1 fall with injury or currently using an Ambulatory Assistive Device (Walker, Cane, Wheelchair, Crutches, etc.)? Yes, Patient High Risk for Falls What interventions were put in place to prevent falls during this visit? Offered Assistance with Transfers/Clothing, Instructed Patient to Remain Seated (Not on Exam Table) Until Exam, and Increased Observations by Caregivers PATIENT GENDER DATA: Assigned male at PATIENT RELEVANT IMPLANT DATA REVIEWED: Not Applicable PATIENT PRESENTS WITH AN IMPLANTABLE OR ATTACHED ANIMATED CARTOONS PAINTER: No RADIOLOGY DEPARTMENT: General X-ray: Exam(s) Completed: Lower Extremity X-Ray(s): Foot, Bilateral PERIPHERAL IV DATA: Not applicable SIGNED BY: Jordin Markham December 11, 2024 1:01 [facility]04-30-2025 Evaluation note* Diagnosis Onset Date Resolution Status Admit Date History of hip fracture acute A 2024 12:31pm [facility] Work Phone: 1(371) 412-596104-30-2025 Evaluation note* Diagnosis Onset Date Resolution Status Admit Date History of hip fracture acute A 2024 12:31pm Vitamin D deficiency acute 2024 8:01am [employer] Work Phone: 1(682) 256-447404-30-2025 Evaluation note* Diagnosis Onset Date Resolution Status Admit Date History of hip fracture acute A 2024 12:31pm Essential tremor acute February 072024 8:01am Impacted cerumen of both ears acute February 07, 2025 8:01am Insomnia acute February 07 8:01am Dementia chronic February 07 8:01am Mental retardation chronic February 07, 2025 8:01am Vitamin D deficiency resolved 2024 8:01am [facility] Work Phone: 1(759) 261-250801-03-2025 Evaluation note* Diagnosis Onset Date Resolution Status Admit Date Hip fracture, left acute Juluar 2024 1:55pm Recent change in frequency o f bowel movements acute July 07 1:55pm Essential (primary) hypertension acute August 30, 025 9:08am History of hip fracture acute F ebruary 2024 9:08am Dementia chronic August 30, 2024 9:08am Osteoporosis chronic August 9:08am [facility] Work Phone: 1(785) 795-458910-09-2024 [facility] Medical Records Department [address] [place] [id number] Discharge Summary 04/12/24833 MR#: [id number] Acct: [id number] Name: AMOR PTEE Rep #: [id number] : 1945 78 From: Leo Snow MD PCP: Dr. Maria Luz Chavira MD Status:ADM IN Location: [place] [address] Providers Date of Admission: 03/30/24 Primary Care Physician: Dr. Maria Luz Chavira MD Reason For Visit: LEFT HIP FRACTURE Diagnosis Discharge Diagnosis (1) Debility: Status: Acute Code(s): R53.81 - Other malaise (2) Closed right hip fracture: Status: Acute Code(s): S72.001A - Fracture of unspecified part of neck of right femur, initial encounter for closed fracture (3) Essential (primary) hypertension: Status: Acute Code(s): I10 - Essential (primary) hypertension (4) Calcium deficiency: Status: Acute Code(s): E58 - Dietary calcium deficiency (5) Vitamin D deficiency: Status: Acute Code(s): E55.9 - Vitamin D deficiency, unspecified (6) Dementia, unspecified, without behavioral disturbance: Status: Acute Code(s): F03.90 - Unspecified dementia, unspecified severity, without behavioral disturbance, psychotic disturbance, mood disturbance, and anxiety (7) Depression: Status: Acute Code(s): F32.A - Depression, unspecified Plan 78 year old male with below past medical history hospitalized for right hip fracture, underwent cephalo medullary fixation right hip 03/28/[address] Rivera, admitted to with debility, here for rehabilitation, strengthening, prior to discharge home. * Debility - PT/OT. * Pain - Tylenol 1000mg q8, Tramadol 25mg q6 prn, Arthritis compound topical tid. * Bowel - senna/colace 2 tablets bid, Dulcolax 10mg pr x 1 prn, MOM 30ml daily prn. * DVT prophylaxis - Eliquis 2.5mg bid thru 04/20/2024. * Hypertension - Amlodipine 5mg daily. * Calcium deficiency - Calcium D 1 tablet bid. * Indigestion - TUMS 500mg q6 prn. * Vitamin D deficiency - D3 50mcg daily. * Dementia NOS - Galantamine 12mg bid, Memantine 10mg bid. * Depression - Paxil 20mg daily. Medications at Discharge Home Medications Adult Pull-UP #3 ea 12/12/21 denosumab 60 mg/mL subcutaneous syringe 60 mg subcut [id number] Osteoporosis #1 mL 12/25/22 cholecalciferol (vitamin D3) 50 mcg (2,000 unit) capsule 50 mcg PO DAILY vit d deficiency #90 caps 07/08/23 bismuth subsalicylate 262 mg/15 mL oral suspension (Pepto-Bismol) 524 mg PO Q4H PRN diarrhea 02/25/24 calcium carbonate (Tums) 400 mg PO Q6H PRN dyspepsia 02/25/24 galantamine 24 mg 24 hr capsule,extended release 24 mg PO QAM dementia #30 caps 03/02/24 magnesium hydroxide 400 mg/5 mL oral suspension (Milk of Magnesia) 30 ml PO DAILY PRN constipation 03/02/24 memantine 10 mg tablet 10 mg PO BID Dementia #60 tabs 03/02/24 amlodipine 5 mg tablet 5 mg PO DAILY BP 03/30/24 paroxetine HCl 20 mg tablet 20 mg PO DAILY Mood 03/30/24 calcium 500 mg (as carbonate)-vitamin D3 5 mcg (200 unit) tablet (Oyster Shell Calcium-Vitamin D3) 1 tab PO BID for osteoporosis #90 tabs 04/04/24 acetaminophen 500 mg tablet 1,000 mg (2 x 500 mg) PO Q8 30 days #180 tabs 04/12/24 apixaban 5 mg tablet (Eliquis) 2.5 mg (1/2 x 5 mg) PO BID 7 days #7 tabs 04/12/24 oxycodone 5 mg tablet 5 mg PO Q4H PRN PRN Pain Score 4-10 Or Pre Pt/Ot 7 days #42 tabs 04/12/24 sennosides 8.6 mg-docusate sodium 50 mg tablet (Stimulant Laxative Plus) 2 tab PO BID 30 days #120 tabs 04/12/24 tramadol 50 mg tablet 50 mg PO Q6H PRN PRN Pain Score 1-3 Or Pre Pt/Ot 7 days #28 tabs 04/12/24 Hospital Course Operations - (See below.) Procedures None Summary of Care Provided Minutes Spent on Discharge: 35 Hospital Course: 78 year old male with below past medical history hospitalized for right hip fracture, underwent cephalo medullary fixation right hip 03/28/[address] Rivera, admitted to with debility, here for rehabilitation, strengthening, prior to discharge home. Discharge 04/13/2024 to [facility], [facility] PT/OT, FWW, Hospital Bed. FWW: Patient is unsafe to use a cane and requires a walker for ambulation in the home and the community. Hospital bed: Patient requires a hospital bed due to needing frequent changes in position to alleviate pain, prevent ongoing pressure areas, assist in healing of current pressure areas, prevent aspiration or due to respiratory condition that is not feasible in an ordinary bed. Dx: Hypoxia, pleural effusion, tracheobronchomalacia. Physical Exam Const alert General Appearance: cooperative HEENT normocephalic Eyes PERRL and EOMs intact bilaterally Neck supple, no JVD and no carotid bruits Resp normal respiratory effort, normal air movement and clear to auscultation bilaterally Cardio regular rate and regular rhythm GI normal to inspection, nondistended, normoactive bowel sounds, non-tender and non-distended Extremity normal capillary re (more content not included)...[facility] 03-30-2024 [facility] Medical Records Department [address] [place] [address] Discharge Summary 03/30/24 1437 MR#: [id number] Acct: [id number] Name: AMOR PETE Rep #: [id number] : 1945 78 From: Rui Verma MD PCP: Dr. Maria Luz Chavira MD Status:DIS IN Location: [facility] [id number] Providers Date of Admission: 03/27/24 Primary Care Physician: Dr. Maria Luz Chavira MD Consultations 03/27/24 09:38 Consult: Orthopedics Routine Consulting Provider: Capo Rivera Reason for Consult: Left hip fx EMERGENT Consult: No MD Notified: Yes Date Notified: 03/27/24 Time Notified: 08:16 Method of Notification: ED Physician Initiated Reason For Visit: LEFT HIP FRACTURE Diagnosis Discharge Diagnosis (1) Intertrochanteric fracture of left femur: Status: Acute Code(s): S72.142A - Displaced intertrochanteric fracture of left femur, initial encounter for closed fracture Qualifiers: Encounter type: initial encounter Fracture alignment: displaced Fracture type: closed Q ualified Code(s): S72.142A - Displaced intertrochanteric fracture of left femur, initial encounter for closed fracture Medications at Discharge Home Medications Adult Pull-UP #3 ea 12/12/21 denosumab 60 mg/mL subcutaneous syringe 60 mg subcut [id number] Osteoporosis #1 mL 12/25/22 cholecalciferol (vitamin D3) 50 mcg (2,000 unit) capsule 50 mcg PO DAILY vit d deficiency #90 caps 07/08/23 calcium carbonate 500 mg-vitamin D3 5 mcg (200 unit) tablet (Oyster Shell Calcium-Vitamin D3) 1 tab PO BID for osteoporosis #90 tabs 02/18/24 acetaminophen 325 mg tablet 650 mg PO Q4H PRN pain 02/25/24 bismuth subsalicylate 262 mg/15 mL oral suspension (Pepto-Bismol) 524 mg PO Q4H PRN diarrhea 02/25/24 calcium carbonate (Tums) 400 mg PO Q6H PRN dyspepsia 02/25/24 galantamine 24 mg 24 hr capsule,extended release 24 mg PO QAM dementia #30 caps 03/02/24 magnesium hydroxide 400 mg/5 mL oral suspension (Milk of Magnesia) 30 ml PO DAILY PRN constipation 03/02/24 memantine 10 mg tablet 10 mg PO BID Dementia #60 tabs 03/02/24 amlodipine 5 mg tablet 5 mg PO DAILY BP 03/30/24 apixaban 5 mg tablet (Eliquis) 2.5 mg (1/2 x 5 mg) PO BID Blood thinner 20 days #20 tabs 03/30/24 paroxetine HCl 20 mg tablet 20 mg PO DAILY Mood 03/30/24 Hospital Course Operations - (Cephalo-medullary fixation right hip) Procedures None Summary of Care Provided Minutes Spent on Discharge: 37 Hospital Course: Per HPI: AMOR PETE, is a 78 M who presents to the hospital after falling at the custodial. He does not give great history from a possible learning disability versus dementia. He was found to have a left intertrochanteric femur fracture. Unfortunately there is nobody at bedside to be able to fill in any history. Most of the history is obtained from chart review and discussing with the ED physician. He claims he does not have any significant pain at the moment. Hospital Course: 1. Intertrochanteric femur fracture on the left status post fall status post repair on 03/28/2024, this is likely precipitated by his osteoporosis???78-year-old male from a custodial with dementia and probable learning disability presents after mechanical fall with a left intertrochanteric femur fracture. This was repaired with a cephalomedullary nailing. He is weightbearing as tolerated, he did tolerate the surgery very well he did have a slight leukocytosis on admission which was reactive and has been resolving without antibiotics. He has not been requiring any significant narcotics and states that his pain is fairly well-controlled with just Tylenol. Will plan to discharge for rehab prior to returning to his custodial. He will need to be on Eliquis 2.5 mg p.o. twice daily for 21 days total. 2. Essential hypertension, dementia, MRDD, anxiety, depression, osteoporosis are all chronic medical conditions which complicate his care. His home medications were continued where appropriate Physical Exam Narrative General: Alert, Oriented x2, Cooperative, No apparent distress HEENT: Atraumatic, PERRLA, EOMI, Normocephalic Oral: Moist Mucosa Neck: Supple, No JVD Lungs: Diminished, Normal air movement, No rhonchi, No wheeze, No rales Cardiovascular: Regular rate, Regular Rhythm, Normal S1, Normal S2, No murmurs Abdomen: Soft, Non Tender, Non-Distended, No Hepato-splenomegaly Extremities: No edema, Capillary Refill Less than 3 Seconds Skin: Dressing CDI Musculoskeletal: Minimal left hip pain to palpation Neurological: No focal neurological deficits Psych/Mental Status: Flat Weight / BMI Weight Weight: 116 lb 13.52 oz Body Mass Index (BMI) 20.0 ABG / Lab / Microbiology Data 03/30/24 05:42 03/30/24 05:42 Laboratory: Laboratory Results - last 24 hr 03/28/24 05:25: Diff Path Review Reviewed 03/30/24 05:42: WBC 13.7 H, RBC 3.56 L, Hgb 1 (more content not included)... [facility]09-[facility]-2024 [facility] Medical Records Department [address] [place] [address] History Physical Exam 03/30/24 1436 MR#: [id number] Acct: [id number] Name: AMOR PETE Rep #: [id number] : 1945 78 From: Belinda Teixeira DO PCP: Dr. 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 He was unable to bear weight on the left lower extremity and was complaining of pain in the hip and thigh. Imaging revealed a left intertrochanteric femur fracture. He was admitted to the hospitalist service and Dr. Rivera was consulted from orthopedics. He was taken to the OR on 03/28/2024 and underwent cephalomedullary fixation of the left hip. He was transferred to the acute inpatient rehab unit at [facility] on 03/30/2024 for 3 hours of therapy daily to restore function/independence at his level prior to the recent fracture. All lab and imaging done in the hospital was personally reviewed. Hemoglobin at presentation to the emergency department was 14.3 and dropped to 8.5 on 03/29/2024. On 03/30/2024 the hemoglobin is 10.3. Platelets are within normal limits. Chemistries today show a sodium of 144 and a potassium of 3.7. Serum bicarb is normal at 21. The BUN is 16 with a creatinine of 0.71 which is up from 0.48 yesterday. Calcium is low at 8 but there is no recent albumin on the chart. Vitamin D level in August was within normal limits. TSH in February was normal. He had a bone mineral density study done in September 2022 and was diagnosed with osteoporosis. He is taking denosumab every 6 months. The medication list was reviewed and he has been taking only as needed Tylenol for pain. I was able to speak to his lurer and she tells me that he does not generally complain of pain when he has it but he will go lay down in bed when he is painful. This happens more frequently when it is raining. [facility] Medical History (Updated 03/31/24 @ 16:[address] Belinda Teixeira, ) Impacted cerumen of both ears Closed head injury without concussion Laceration of scalp Recent change in frequency of bowel movements BPH (benign prostatic hyperplasia) Cognitive and behavioral changes Osteoporosis Hearing loss Seasonal allergies Dyspnea Other kyphoscoliosis and scoliosis Hypertension Hemorrhoid Tracheobronchomalacia Mental retardation Pericardial effusion Pleural effusion Hypoxia Shortness of breath Home Medications ???Medication ???Instructions ???Recorded ???Last Taken ???Type Adult Pull-UP #3 ea 12/12/21 Unknown Rx denosumab 60 mg/mL subcutaneous 60 mg subcut [id number] Osteoporosis 12/25/22 12/06/23 Rx syringe #1 mL cholecalciferol (vitamin D3) 50 50 mcg PO DAILY vit d deficiency 07/08/23 03/26/24 Rx mcg (2,000 unit) capsule #90 caps calcium carbonate 500 mg-vitamin 1 tab PO BID for osteoporosis #90 02/18/24 03/27/24 Rx D3 5 mcg (200 unit) tablet (Oyster tabs Shell Calcium-Vitamin D3) acetaminophen 325 mg tablet 650 mg PO Q4H PRN pain 02/25/24 Unknown History bismuth subsalicylate 262 mg/15 mL 524 mg PO Q4H PRN diarrhea 02/25/24 Unknown History oral suspension (Pepto-Bismol) calcium carbonate (Tums) 400 mg PO Q6H PRN dyspepsia 02/25/24 Unknown History galantamine 24 mg 24 hr 24 mg PO QAM dementia #30 caps 03/02/24 03/26/24 Rx capsule,extended release magnesium hydroxide 400 mg/5 mL 30 ml PO DAILY PRN constipation 03/02/24 Unknown History oral suspension (Milk of Magnesia) memantine 10 mg tablet 10 mg PO BID Dementia #60 tabs 03/02/24 03/30/24 Rx amlodipine 5 mg tablet 5 mg PO DAILY BP 03/30/24 03/30/24 History apixaban 5 mg tablet (Eliquis) 2.5 mg (1/2 x 5 mg) PO BID Blood 03/30/24 03/30/24 Rx thinner 20 days #20 tabs paroxetine HCl 20 mg tablet 20 mg PO DAILY Mood 03/30/24 03/30/24 History Allergy/AdvReac Type Severity Reaction Status Date / Time No Known Allergies Allergy Verified 03/28/24 13:12 Family History Father Alzheimer disease Mother Cancer Sister Cancer Surgical History History of surgical removal of testicle S/P laparoscopic cholecystectomy Social History Smoking Status: Former smoker second hand exposure: No alcohol intake: nev (more content not included)...[facility] 03-27-2024 [facility] Medical Records Department [address] [place] [address] Consultation 03/27/24 1235 MR#: [id number] Acct: [id number] Name: AMOR PETE Rep #: [id number] : 1945 78 From: Capo Rivera DO PCP: Dr. Maria Luz Chavira MD Status:ADM IN Location: [place] [id number] Assessment Plan Assessment/Plan (1) Intertrochanteric fracture of left femur: QUALIFIERS: Encounter type: initial encounter Fracture alignment: displaced Fracture type: closed Qualified Code(s): S72.142A - Displaced intertrochanteric fracture of left femur, initial encounter for closed fracture PLAN: Plan Plan for left hip cephalomedullary fixation for intertrochanteric femur fracture. Consent was obtained from the patient however he does have some confusion when checking with the emergency room and the caregiver that was present at that time stated that he signed his own medical consents. We will also try to get a consent from the patient advocate. I did review risk and benefits of the surgery with him. Plans for surgery 03/28/2024 antibiotics on-call to the OR. HPI Consult Data Date of Consult: 03/27/24 HPI Narrative HPI Narrative: AMOR PETE, is a 78 M who presents after ground-level fall he does have some dementia. He did sustain a left basicervical intertrochanteric fracture. He denies any other complaints [facility] Medical History Recent change in frequency of bowel movements Cerumen impaction BPH (benign prostatic hyperplasia) Cognitive and behavioral changes Osteoporosis Hearing loss Seasonal allergies Dyspnea Other kyphoscoliosis and scoliosis Hypertension Hemorrhoid Tracheobronchomalacia Mental retardation Pericardial effusion Pleural effusion Hypoxia Shortness of breath Home Medications ???Medication ???Instructions ???Recorded ???Last Taken ???Type Adult Pull-UP #3 ea 12/12/21 Unknown Rx denosumab 60 mg/mL subcutaneous 60 mg subcut [id number] #1 mL 12/25/22 Unknown Rx syringe cholecalciferol (vitamin D3) 50 50 mcg PO DAILY vit d deficiency 07/08/23 03/26/24 Rx mcg (2,000 unit) capsule #90 caps amlodipine 5 mg tablet See Rx Instructions .Route 01/18/24 03/27/24 Rx .COMPLEX #90 tabs calcium carbonate 500 mg-vitamin 1 tab PO BID for osteoporosis #90 02/18/24 03/27/24 Rx D3 5 mcg (200 unit) tablet (Oyster tabs Shell Calcium-Vitamin D3) acetaminophen 325 mg tablet 650 mg PO Q4H PRN pain 02/25/24 Unknown History bismuth subsalicylate 262 mg/15 mL 524 mg PO Q4H PRN diarrhea 02/25/24 Unknown History oral suspension (Pepto-Bismol) calcium carbonate (Tums) 400 mg PO Q6H PRN dyspepsia 02/25/24 Unknown History galantamine 24 mg 24 hr 24 mg PO QAM dementia #30 caps 03/02/24 03/26/24 Rx capsule,extended release magnesium hydroxide 400 mg/5 mL 30 ml PO DAILY PRN constipation 03/02/24 Unknown History oral suspension (Milk of Magnesia) memantine 10 mg tablet 10 mg PO BID #60 tabs 03/02/24 03/27/24 Rx paroxetine HCl 20 mg tablet See Rx Instructions .Route 03/15/24 03/26/24 Rx .COMPLEX #90 tabs Allergy/AdvReac Type Severity Reaction Status Date / Time No Known Allergies Allergy Verified 03/27/24 06:45 Family History Father Alzheimer disease Mother Cancer Sister Cancer Surgical History History of surgical removal of testicle S/P laparoscopic cholecystectomy Social History Smoking Status: Never smoker second hand exposure: No alcohol intake: never substance use type: does not use caffeine: Yes what type of physical activity do you participate in: none seatbelt use: always Physical Exam Const no apparent distress General Appearance: cooperative and comfortable Extremity Extremity Narrative: Left lower extremity no open wounds around the hip he does have a positive logroll there is compartments are soft. Lab / Micro Data 03/27/24 07:00 03/27/24 07:00 Labs: Laboratory Results - last 24 hr 03/27/24 07:00: WBC 18.8 H, RBC 4.88, Hgb 14.3, Hct 44.6, MCV 91.4, MCH 29.3, MCHC 32.1, RDW Std Deviation 48.7 H, RDW Coeff of Brenden 14.5, Plt Count 280, MPV 10.0, Immature Gran % (Auto) 0.700, Neut % (Auto) 88.5 H, Lymph % (Auto) 2.4 L, [place] % (Auto) 8.2, Eos % (Auto) 0.0, Baso % (Auto) 0.2, A bsolute Neuts (auto) 16.7 H, Absolute Lymphs (auto) 0.46 L, Nucleated RBC % 0, Differential Comment COMMENT, Diff Path Review May foll, Sodium 143, Potassium 3.7, Chloride 108 H, Carbon Dioxide 28.0, Anion Gap 7, BUN 24 H, Creatinine 0.81, Estim Creat Clear Calc 60.69, Est GFR (MDRD) Af Amer 119, Est GFR (MDRD) Non-Af 98, BUN/Creatinine Ratio 29.6 H, Glucose 145 H, Calcium 9.5 03/27/24 08:31: Ur (more content not included)...[facility] 03-31-2022 Miscellaneous Notes* Telephone Encounter - Shayla Goldberg - 03/31/2022 11:55 AM EDT Patient has been identified by name and date of : Yes Requested Prescriptions Pending Prescriptions Disp Refills [id number]-[id number] D3 (OYSTER SHELL CALCIUM-VITAMIN D) 500 mg-5 mcg (200 unit) per tablet 60tablet 3 Sig: Take 1 tablet by mouth twice daily with meals. RX INSTRUCTIONS: Pharmacy initiated this request. No need to notify patient. Shayla Goldberg [facility] of Past illness Narrative* Problem Noted Date Resolved Date Sebaceous cyst 12/17/2016 01/04/2017 Mass of left lung 2016 08/25/2018 Overview: 07/26/17: 5 mm noncalcified nodule (6 month follow-up) documented as of this encounter (statuses as of 03/31/2022) [facility] Diagnosis Onset Date Resolution Status Cerumen impaction acute Asthma chronic BPH (benign prostatic hyperplasia) chronic Cognitive and behavioral changes chronic Hypertension chronic Cerumen impaction acute Hearing loss acute Dementia chronic Mental retardation chronic Osteoporosis [facility] Work Phone: Evaluation note* Diagnosis Osteoporosis without current pathological fracture, unspecified osteoporosis type documented in this encounter [facility]* Diagnosis Onset Date Resolution Status Dementia chronic Mental retardation chronic Osteoporosis [facility] Work Phone: Evaluation note* Diagnosis Onset Date Resolution Status Dementia chronic Hypertension chronic Osteoporosis chronic [facility] Work Phone: Evaluation note* Diagnosis Onset Date Resolution Status Osteoporosis chronic BPH (benign prostatic hyperplasia) chronic Dementia chronic Hypertension chronic Osteoporosis chronic [facility] Work Phone: Evaluation note* Diagnosis Calcaneal spur, unspecified laterality- Primary [facility] in this encounter [facility]* Diagnosis Pain Generalized pain [facility]: Reason for referral (narrative)No reason for referral information [facility]Do[facility] Work Phone: Reason for visit Narrative* Diagnostic Procedure Only (Routine) - Closed Specialty Diagnoses / Procedures Referred By Theron t Referred To Contact XR IMAGING Diagnoses Pain Procedures XR FOOT GENERAL 3V AP/LAT/OBL BILATERAL RADEX FOOT COMPLETE MINIMUM 3 VIEWS [address] [place] [address] Phone: tel: fax: [place] [phone] Referral ID Status Reason Start Date Expiration Date V isits Requested Visits Authorized [id number] Closed Auto-Generate d Referral 11/24/2024 12/24/2025 1 1 [facility] Chief Complaint and Reason for Visit Chief Complaint BAGGAGEMASTER- EST COGNITIVE FUNCTIONS AND AWARENESS UTI SYMPTOMS Reason for Visit Cerumen impaction Asthma BPH (benign prostatic hyperplasia) Cognitive and behavioral changes Hypertension Cerumen impaction Hearing loss Dementia Mental retardation Osteoporosis Chief Complaint 2 M FU EORDER Reason for Visit Dementia Mental retardation Osteoporosis Chief Complaint 2 M FU EORDER Amb Documentation DEMENTIA EVAL Reason for Visit Dementia Mental retardation Osteoporosis Chief Complaint Amb Documentation DEMENTIA EVAL Routine Reason for Visit Dementia Hypertension Osteoporosis Chief Complaint DEMENTIA EVAL Routine OSTEOPOROSIS Reason for Visit Dementia Hypertension Osteoporosis Chief Complaint OSTEOPOROSIS 4 M FU 4 M FU Reason for Visit Dementia Hypertension Osteoporosis Chief Complaint PROLIA YEARLY Reason for Visit Osteoporosis BPH (benign prostatic hyperplasia) Dementia Hypertension Osteoporosis Chief Complaint Admit Date LABWORK June 09, 2024 5 :00am SIDELL DISCHARGE-KEEP 60 MIN July 072024 1:55pm 6 M FU- PROLIA SHOT August 30, 2024 9:08am Reason for Visit Admit Date Hip fracture, left July 07, 2024 1: 55pm Recent change in frequency of bowel move ments July 07, 2024 1:55pm Essential (primary) hypertension 2024 9:08am History of hip fracture August 30, 025 9:08am Dementia August 30, 2024 9:08am Osteoporosis August 30, 2024 9:08am Chief Complaint Admit Date ACUTE - WANTS TO RETURN TO [facility] 2024 12:31pm LOST VOICE/THROAT January 17, 2025 10:0 4am abnormal pulse oximetry/ CXR January 17, 2025 10:42am Reason for Visit Admit Date History of hip fracture November 01, 2024 12:31pm Chief Complaint Admit Date ACUTE - WANTS TO RETURN TO [facility] 2024 12:31pm LOST VOICE/THROAT January 17, 2025 10:0 4am abnormal pulse oximetry/ CXR January 17, 2025 10:42am follow up February 07, 2025 8:0 1am Reason for Visit Admit Date History of hip fracture November 01, 2024 12:31pm Vitamin D deficiency February 07, 2025 8: 01am Chief Complaint Admit Date ACUTE - WANTS TO RETURN TO [facility] 2024 12:31pm LOST VOICE/THROAT January 17, 2025 10:0 4am abnormal pulse oximetry/ CXR January 17, 2025 10:42am follow up February 07, 2025 8:0 1am EORDER February 07, 2025 8:4 2am Reason for Visit Admit Date History of hip fracture November 01, 2024 12:31pm Essential tremor February 07, 2025 8:0 1am Impacted cerumen of both ears February 8:01am Insomnia February 07, 2025 8:0 1am Dementia February 07, 2025 8:0 1am Mental retardation February 07, 2025 8:0 1am Vitamin D deficiency February 07, 2025 8: 01am Chief Complaint Admit Date ACUTE - WANTS TO RETURN TO [facility] 2024 12:31pm LOST VOICE/THROAT January 17, 2025 10:0 4am abnormal pulse oximetry/ CXR January 17, 2025 10:42am follow up February 07, 2025 8:0 1am EORDER February 07, 2025 8:4 2am 6 M FU February 28, 2025 10 :08am Chief Complaint Admit Date LOST VOICE/THROAT January 17, 2025 10:0 4am abnormal pulse oximetry/ CXR January 17, 2025 10:42am follow up February 07, 2025 8:0 1am EORDER February 07, 2025 8:4 2am 6 M FU February 28, 2025 10 :08am PROLIA-$0 March 02, 2025 9: 01am Reason for Visit Admit Date Essential tremor February 07, 2025 8:0 1am Impacted cerumen of both ears February 8:01am Insomnia February 07, 2025 8:0 1am Dementia February 07, 2025 8:0 1am Mental retardation February 07, 2025 8:0 1am Vitamin D deficiency February 07, 2025 8: 01am Dementia, unspecified, without behaviora l disturbance February 28, 2025 10:08am Essential (primary) hypertension February 28, 2025 10:08am Osteoporosis February 28, 2025 10 :08am Vitamin D deficiency February 28, 2025 1 0:08am Family History No Family History Records Found Relationship Condition Age at Onset Recorded Date/T lc father Alzheimer's disease Unknown mother Malignant neoplasm Unknown sister Malignant neoplasm Unknown Advance Directives No Advanced Directives Records Found Advance Directive Response Recorded Date/ Time Advance Directives No November 11 8:58am Living Will No November 11, 2021 8 :58am Power of Clinic Office Assistant No November 11, 2021 8:58am Advance Directive Response Recorded Date/ Time Advance Directives No November 11 7:58am Living Will No November 11, 2021 7 :58am Power of Clinic Office Assistant No November 11, 2021 7:58am Advance Directive Response Recorded Date/ Time Living Will No November 11, 2021 8 :58am Power of Clinic Office Assistant No November 11, 2021 8:58am Advance Directives No November 11 8:58am Advance Directive Response Recorded Date/ Time Advance Directives No November 11 8:58am Summary Purpose Additional Source Comments Goals (unrecognized section and content) Goals may be documented in a n alternate sectionGoals may be documented in an alternate sectionGoals may be documented in an alternate sectionGoals may be documented in an alternate sectionGoals may be documented in an alternate sectionGoals may be documented in an alternate sectionGoals may be documented in an alternate sectionGoals may be documented in an alternate sectionGoals may be documented in an alternate sectionGoals may be documented in an alternate sectionGoals may be documented in an alternate sectionGoals may be documented in an alternate sectionGoals may be documented in an alternate section Source Comments (unrecognize d section and content) In the event this informatio n is protected by the Federal Confidentiality of Alcohol and Drug Abuse Patient Records regulations: The Federal rules restrict any use of the information to criminally investigate or prosecute any alcohol or drug abuse patient.[facility] HospitalIn the event this information is protected by the Federal Confidentiality of Alcohol and Drug Abuse Patient Records regulations: The Federal rules restrict any use of the information to criminally investigate or prosecute any alcohol or drug abuse patient.[facility] HospitalIn the event this information is protected by the Federal Confidentiality of Alcohol and Drug Abuse Patient Records regulations: The Federal rules restrict any use of the information to criminally investigate or prosecute any alcohol or drug abuse patient.[facility] Reason for Visit (unrecogniz ed section and content) Reason Comments Refill Request Reason Comments New foot check Care Teams (unrecognized sec tion and content) [employer] Relationship Specialty Start Date End Date Sajan Mendez MD [address] [facility] [place] [address] PCP - General Family Medicine 04/07/21 Team Status: Active Member Role Status Dates Dr. Lon Quigley III, MD Family Provider Active Dr. Maria Luz Chavira MD Primary Care Provider Active Team Status: Active Member Role Status Dates Dr. Maria Luz Chavira MD Primary Care Provider Active Derian Valentin Attending Provider Active Team Status: Inactive Member Role Status Dates Dr. Maria Luz Chavira MD Primary Care P dana, Attending Provider, Referring Provider Active Team Status: Inactive Member Role Status Dates Dr. Maria Luz Chavira MD Primary Care Provider Active Dr. Bobby Garcia MD Attending Provider, Referring Provider Active Team Status: Active Member Role Status Dates Dr. Maria Luz Chavira MD Primary Care Provider, Refer ring Provider Active Dr. Bobby Garcia MD Attending Provider Active Team Status: Inactive Member Role Status Dates Dr. Maria Luz Chavira MD Primary Care Provider, Atten ding Provider Active Team Status: Active Member Role Status Dates Dr. Maria Luz Chavira MD Primary Care Provider Active Team Status: Active Member Role Status Dates Dr. Maria Luz Chavira MD Primary Care Provider Active Start: June 09, 2024 Maria Luz CHRISTY MD Attending Provider Active Start: June 09, 2024 Team Status: Inactive Member Role Status Dates Dr. Maria Luz Chavira MD Primary Care Provider Active Start: July 07, 2024 End: July 07, 2024 Dr. Maria Luz Chavria MD Referring Provider Active Start: July 07, 2024 End: July 07, 2024 MJ Chan Attending Provider Active St art: July 07, 2024 End: July 07, 2024 Team Status: Inactive Member Role Status Dates Dr. Maria Luz Chavira MD Primary Care Provider Active Start: August 30, 2024 End: August 30, 2024 Dr. Maria Luz Chavira MD Attending Provider Active Start: August 30, 2024 End: August 30, 2024 Dr. Maria Luz Chavira MD Referring Provider Active Start: August 30, 2024 End: August 30, 2024 Team Status: Active Member Role/Relationship Status Dates Dr. Maria Luz Chavira MD Primary Care Provider Active Team Status: Inactive Member Role/Relationship Status Dates Dr. Maria Luz Chavira MD Primary Care Provider Active Start: November 01, 2024 End: November 01, 2024 Dr. Maria Luz Chavira MD Referring Provider Active Start: November 01, 2024 End: November 01, 2024 MJ Chan Attending Provider Active St art: November 01, 2024 End: November 01, 2024 Team Status: Inactive Member Role/Relationship Status Dates Dr. Maria Luz Chavira MD Primary Care Provider Active Start: January 17, 2025 End: January 17, 2025 Dr. Maria Luz Chavira MD Referring Provider Active Start: January 17, 2025 End: January 17, 2025 Neal Chun PA, PA Attending Provider Active Start: January 17, 2025 End: January 17, 2025 Team Status: Active Member Role/Relationship Status Dates Dr. Maria Luz Chavira MD Primary Care Provider Active Start: January 17, 2025 Neal BARKER, PA Attending Provider Active Start: January 17, 2025 Neal Chun PA, PA Referring Provider Active Start: January 17, 2025 Team Status: Inactive Member Role/Relationship Status Dates Dr. Maria Luz Chavira MD Primary Care Provider Active Start: January 17, 2025 End: January 17, 2025 Neal Chun PA, PA Attending Provider Active Start: January 17, 2025 End: January 17, 2025 Neal Chun PA, PA Referring Provider Active Start: January 17, 2025 End: January 17, 2025 Team Status: Inactive Member Role/Relationship Status Dates Dr. Maria Luz Chavira MD Primary Care Provider Active Start: February 07, 2025 End: February 07, 2025 Dr. Maria Luz Chavira MD Referring Provider Active Start: February 07, 2025 End: February 07, 2025 Dr. Bobby Garcia MD Attending Provider Active Start: February 07, 2025 End: February 07, 2025 Team Status: Inactive Member Role/Relationship Status Dates Dr. Maria Luz Chavira MD Primary Care Provider Active Start: February 07, 2025 End: February 07, 2025 Dr. Bobby Garcia MD Attending Provider Active Start: February 07, 2025 End: February 07, 2025 Dr. Bobby Garcia MD Referring Provider Active Start: February 07, 2025 End: February 07, 2025 Team Status: Inactive Member Role/Relationship Status Dates Dr. Maria Luz Chavira MD Primary Care Provider Active Start: February 28, 2025 End: February 28, 2025 Dr. Maria Luz Chavira MD Attending Provider Active Start: February 28, 2025 End: February 28, 2025 Dr. Maria Luz Chavira MD Referring Provider Active Start: February 28, 2025 End: February 28, 2025 Team Status: Inactive Member Role/Relationship Status Dates Dr. Maria Luz Chavira MD Primary Care Provider Active Start: January 17, 2025 End: January 17, 2025 Dr. Maria Luz Chavira MD Referring Provider Active Start: January 17, 2025 End: January 17, 2025 Neal BARKER PA Attending Provider Active Start: January 17, 2025 End: January 17, 2025 Team Status: Inactive Member Role/Relationship Status Dates Dr. Maria Luz Chavira MD Primary Care Provider Active Start: January 17, 2025 End: January 17, 2025 Neal BARKER PA Attending Provider Active Start: January 17, 2025 End: January 17, 2025 Neal BARKER PA Referring Provider Active Start: January 17, 2025 End: January 17, 2025 Team Status: Inactive Member Role/Relationship Status Dates Dr. Maria Luz Chavira MD Primary Care Provider Active Start: February 07, 2025 End: February 07, 2025 Dr. Maria Luz Chavira MD Referring Provider Active Start: February 07, 2025 End: February 07, 2025 Dr. Bobby Garcia MD Attending Provider Active Start: February 07, 2025 End: February 07, 2025 Team Status: Inactive Member Role/Relationship Status Dates Dr. Maria Luz Chavira MD Primary Care Provider Active Start: February 07, 2025 End: February 07, 2025 Dr. Bobby Garcia MD Attending Provider Active Start: February 07, 2025 End: February 07, 2025 Dr. Bobby Garcia MD Referring Provider Active Start: February 07, 2025 End: February 07, 2025 Team Status: Inactive Member Role/Relationship Status Dates Dr. Maria Luz Chavira MD Primary Care Provider Active Start: February 28, 2025 End: February 28, 2025 Dr. Maria Luz Chavira MD Attending Provider Active Start: February 28, 2025 End: February 28, 2025 Dr. Maria Luz Chavira MD Referring Provider Active Start: February 28, 2025 End: February 28, 2025 Team Status: Inactive Member Role/Relationship Status Dates Dr. Maria Luz Chavira MD Primary Care Provider Active Start: March 02, 2025 End: March 02, 2025 Dr. Maria Luz Chavira MD Referring Provider Active Start: March 02, 2025 End: March 02, 2025 BIM NURSE Attending Provider Active Start: 2024 End: March 02, 2025 (unrecognized sect ion and content) No Status Records FoundNo Status Records Found INFORMATION SOURCE (unrecogn ized section and content) DATE CREATED AUTHOR 12/18/2024 [facility] DATE CREATED AUTHOR AUTHOR'S LORRIE ATLINDA 03/19/2025 [facility] FOR RECORDS PERTAINING TO PATIENTS WHO ARE [...] BE BASED ON THE PRIMARY CLINICAL RECORDS. [facility] [employer] provides no warranty or guarantee of the accuracy or completeness of information in this document.
[2025-05-26 20:45] LABS: FI02 2.0; SITE Not entered; VBG BASE EXCESS -6 mmol/L (-1.0-3.5); VBG PO2 41 mmHg (25-40); VBG SO2 61 % (50-70); VBG TCO2 25 mmol/L (23-33)
[2025-05-26 20:51] LABS: AST(SGOT) 28 U/L (<=37); Alanine Aminotransfer ALT/SGPT 16 U/L (<=46); Albumin, Serum 3.8 g/dL (3.4-4.8); Alkaline Phosphatase 87 U/L (40-129); Anion Gap 17 (5-15); BUN 21 mg/dL (4-19); BUN/Creat Ratio 18.4 RATIO (10-20); Calcium,Total 8.7 mg/dL (7.6-11.0); Carbon Dioxide 21.3 mmol/L (21.0-32.0); Chloride 110 mmol/L (98-108); Estimated Creatinine Clearance 44.66 ml/min (50-250); Globulin 3.7 g/dL (2.2-4.2); Glucose 179 mg/dL (70-99); Lipase 90 U/L (13-75); Potassium 3.5 mmol/L (3.3-5.1); Pro- Brain NATRIURETIC PEPTIDE 154 pg/mL (<=1800); Troponin T High Sensitivity 21 ng/L (<=22)
--- NOTE | 2025-05-26 21:44 | ED.RN ---
This RN attempted to call the patient's POA at this time and the POA did not answer, voicemail left.
[2025-05-26] MEDS: Azithromycin 500 MG in 0.9% Normal Saline (250mL Bag) 250 ML 250 MG IV (22:25)
[2025-05-26 22:29] LABS: Mucous, Urine 0 SEEN /hpf (<or=2+); Red Blood Cells-Urine 0 SEEN /hpf (0-5); Squamous Epithelial Cells - UA 0 SEEN /hpf (0-5)
[2025-05-26 22:41] LABS: Color, Urine Yellow (Yellow); Glucose, Dipstick Normal (Normal); Ketone-Dipstick Negative (Negative); Leukocyte Esterase-Dipstick 500 /ul (Negative); Nitrite-Dipstick Positive (Negative); Occult Blood-Urine 25 /ul (Negative); Protein-Dipstick 100 mg/dl (Negative); Specific Gravity, Urine 1.010 (1.002-1.030); Urine Bilirubin Dipstick Negative (Negative)
[2025-05-26 22:47] LABS: Troponin T High Sens 2 HR 27 ng/L (<=22)
[2025-05-26] MEDS: Oxymetazoline 0.05% 1 SPRAY SPRAY.BTL 2 SPRAY NASAL (22:49)
--- NOTE | 2025-05-26 23:00 | RAD_ITS ---
PROCEDURE: ABDOMEN SINGLE VIEW (PORTABLE) 05/27/2025 REASON FOR EXAM: NG INSERTION TECHNIQUE: Procedure Code: RADABD_P Modality: DX Procedure: ABDOMEN SINGLE VIEW (PORTABLE) COMPARISON: None FINDINGS: Bowel gas: Bowel gas pattern is normal. No evidence of bowel obstruction. 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 There is a thoracolumbar tilt to the right. Other: Other RAD/Abdomen Single View (Portable) IMPRESSION: Impression NG tube is in good position. No evidence of an acute process. Reading Location: [id number]
--- NOTE | 2025-05-26 23:00 | ED.RN ---
This RN spoke with Elin, the patient's Legal Guardian, at this time and updated Elin on the patient's plan of care and diagnostic testing being done at this time.
[2025-05-26 23:01] LABS: Triple Phosphate Crystals Ur 2+ /hpf (<or=1+)
[2025-05-26 23:30] LABS: FI02 2.0; SITE Not entered; VBG BASE EXCESS -10 mmol/L (-1.0-3.5); VBG PO2 44 mmHg (25-40); VBG SO2 69 % (50-70); VBG TCO2 20 mmol/L (23-33)
[2025-05-26] MEDS: 0.9% Normal Saline (1000mL) 1,000 ML 1000 ML IV (23:41)
[2025-05-27] VITALS (24 sets, daily range): BP systolic 106–160; BP diastolic 7–89; PULSE 67–93; RESP 16–28; TEMP 36.9–37.3; O2SAT 94–100
[2025-05-27 00:33] LABS: Reflex Lactate? Y
[2025-05-27 00:52] LABS: Troponin T High Sens 4 HR 23 ng/L (<=22)
--- NOTE | 2025-05-27 02:09 | RAD_ITS ---
PROCEDURE: ABDOMEN SINGLE VIEW (PORTABLE) 05/27/2025 REASON FOR EXAM: NG INSERTION TECHNIQUE: Procedure Code: RADABD_P Modality: DX Procedure: ABDOMEN SINGLE VIEW (PORTABLE) COMPARISON: 01/17/2025 FINDINGS: Nasogastric tube is seen within the stomach with possible kink at the distal end of the nasogastric tube. No definite bowel obstruction. Renal shadows are obscured by bowel gas. Stable thoracolumbar spine degenerative changes. RAD/Abdomen Single View (Portable) IMPRESSION: Nasogastric tube is seen within the stomach with possible kink at the distal en d of the nasogastric tube, advise retraction by 1 cm. [facility]
--- NOTE | 2025-05-27 06:31 | ED.RN ---
This RN called to update the patient's POA, Elin, at this time of the patient's condition along with the plan to transfer the patient to [facility]. This RN obtained consent over the phone at this time, as Elin is agreeable with this plan of care.
--- NOTE | 2025-05-27 10:26 | PCA ---
THIS US CALLED FOR AN BED UPDATE, NO BEDS AT THIS TIME. WAITING ON DISCHARGES
[2025-05-27] MEDS: 0.9% Normal Saline (1000mL) 1,000 ML 125 ML IV (20:00)
--- NOTE | 2025-05-27 21:57 | PCA ---
[facility] CALLED W [facility] TRANSFER LINE GIVING BED UPDATE ABOUT PT. STATES PT NOT LOOKING TO HAVE ASSIGNED BED UNTIL TOMORROW (05/28/25) AFTERNOON/EVENING PENDING D/CS, IF ANY.
[2025-05-28] VITALS (35 sets, daily range): BP systolic 101–143; BP diastolic 60–88; PULSE 63–83; RESP 14–22; TEMP 36.8–37.1; O2SAT 92–100
[2025-05-28] MEDS: 0.9% Normal Saline (1000mL) 1,000 ML 125 ML IV ×2 (04:01→12:35)
--- NOTE | 2025-05-28 05:46 | US_ITS ---
PROCEDURE: KIDNEY AND BLADDER 05/28/2025 REASON FOR EXAM: ABNORMAL CT TECHNIQUE: Procedure Code: USKI Modality: US Procedure: KIDNEY AND BLADDER COMPARISON: Prior CT scan dated May 27, 2025. FINDINGS: Kidneys: Normal renal sizes, parenchymal thicknesses, and echotextures. [place]: No evidence of hydronephrosis Cysts or Masses: There is a 1.8 cm 1.8 cm 2 cm echogenic nodule in the upper pole of the right kidney. 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 There is also evidence of a 2.3 cm 1.9 cm 1.3 cm hypoechoic solid mass in the midpole of the right kidney. This is not a typical cyst. MRI correlation recommended. Other: Nonobstructive calculus measuring 9 mm x 6 mm x 5 mm in the right kidney. RIGHT Kidney Size: 11.6 cm x 4.9 cm x 6.6 cm Cortical Thickness (if discernible): 14 mm (>6mm is normal) LEFT Kidney Size: 10 cm x 5.6 cm x 5.4 cm Cortical Thickness (if discernible): 13 mm (>6mm is normal) A Wahl catheter is seen within the empty bladder. US/Kidney and Bladder IMPRESSION: 1.8 cm 1.8 cm 2.0 cm echogenic nodule in the upper pole of the right kidney sug gestive of a angiomyolipoma. In the midpole of the right kidney, there is a 2.3 cm 1.9 cm 1.3 cm hypoechoic solid nodule. This is not a typical cyst. Correlation with MRI recommended. Reading Location: [place] [id number]
[2025-05-28 05:58] LABS: Hematocrit 41.6 % (40-54); Hemoglobin 12.6 g/dL (13.0-16.5); Immature Granulocytes Count 0.070 X10^3/uL (0.0-0.0); Mean Corp Hgb Conc 30.3 g/dL (32-36); Mean Corpuscular Volume 92.2 fL (80-94); Mean Platelet Vol. 10.0 fl (6.2-12.0); NRBC Flagged by Analyzer 0 % (0-5); POSITIVE DIFFERENTIAL YES; Platelet Count 264 K/mm3 (150-450); RBC Distribution Width CV 15.0 % (11.6-14.6); RBC Distribution Width SD 50.4 fl (35.1-43.9); Red Blood Count 4.51 M/mm3 (4.6-6.2); White Blood Count 13.7 K/mm3 (4.4-11.0)
[2025-05-28 06:10] LABS: Differential Indicated SCAN CRITERIA MET
[2025-05-28 06:38] LABS: Anion Gap 10 (5-15); BUN 21 mg/dL (4-19); BUN/Creat Ratio 32.0 RATIO (10-20); Calcium,Total 6.6 mg/dL (7.6-11.0); Carbon Dioxide 19.7 mmol/L (21.0-32.0); Chloride 122 mmol/L (98-108); Estimated Creatinine Clearance 64.75 ml/min (50-250); Glucose 93 mg/dL (70-99); Potassium 3.4 mmol/L (3.3-5.1)
[2025-05-28 06:39] LABS: Differential Comment SCANNED
--- NOTE | 2025-05-28 06:45 | PCA ---
CALLED FUNMI AT THE [facility] @ [phone]. THEY TOLD ME THEY HOPE TO HAVE A BED FOR HIM LATE MORNING EARLY AFTERNOON.
--- NOTE | 2025-05-28 10:08 | PCA ---
CALLED AND TALKED TO CHELO AT THE TRANSFER LINE. SHE SAID SHE WILL CALL BACK AT 2 WITH AN UPDATE IF THEY WOULD HAVE A BED AVAILABLE FOR HIM TODAY.
--- NOTE | 2025-05-28 14:12 | PCA ---
CALLED [facility] @ [phone], SPOKE WITH LAUREN, THEY WILL HAVE A BED TODAY, JUST WAITING FOR IT TO BE CLEANED. SHE SAID SHE WILL CALL ME SOON THEY START CLEANING IT.
--- NOTE | 2025-05-28 15:10 | PCA ---
CALLED WITH BED @ [phone] GOING [phone] [phone]
--- NOTE | 2025-05-28 15:44 | ED.RN ---
Report called to Annika at [facility].
== END 2025-05-28 15:56 | disposition short-term general hospital (02) ==
PROVIDERS: Emergency Medicine; Emergency Provider Student in an Organized Health Care Education/Training Program; PCP Internal Medicine; Visit Provider Student in an Organized Health Care Education/Training Program
DX: A41.9 Sepsis, unspecified organism (principal); J96.01 Acute respiratory failure with hypoxia; F03.90 Unspecified dementia, unspecified severity, without behavioral disturbance, psychotic disturbance, mood disturbance, and anxiety; I10 Essential (primary) hypertension; Z87.891 Personal history of nicotine dependence; N39.0 Urinary tract infection, site not specified; N28.89 Other specified disorders of kidney and ureter; J45.909 Unspecified asthma, uncomplicated
CPT/HCPCS: 51702; 71275; 74018; 74177; 76770; 80048; 80053; 81001; 82803; 83605; 83690; 83880; 84484; 85025; 87040; 87077; 87086; 87088; 87186; 87631; 93005; 94640; 96361; 96365; 96366; 96367; 96375; 99285; Q9967; A4216; J2405

== ENCOUNTER → 2025-06-06 | Outpatient (CLI) | payer MEDICARE, MEDICAID, SELFPAY ==
--- OUTSIDE RECORDS SUMMARY | 2025-06-06 06:37 | XMS RPT_ITS | CCD ---
Author Organization [facility] Care Team Providers Care Business Development Manager Name Role Phone Dr. Maria Luz Chavira Attending Provider [phone] Dr. Maria Luz Chavira Primary Care Provider [phone] Dr. Maria Luz Chavira Referring Provider [phone] Dr. Bobby Garcia Attending Provider [phone] [facility] [place] Attending Provider Unavail an Mendez MD, Artemio Rissa Primary Care Provider Dr. Maria Luz Chavira Primary Care Provider [phone] Dr. Maria Luz Chavira Referring Provider [phone] Dr. Bobby Garcia Attending Provider [phone] Maria Luz Chavira Primary Care Provider [phone] Dr. Maria Luz Chavira Referring Provider [phone] Dr. Bobby Garcia Attending Provider [phone] Derian Valentin Attending Provider Unavailable Dr. Maria [...] Provider [phone] Neal Maguire Attending Provider Neal Maguire Referring Provider [phone] Radha ROSS, Dr. Rosales Attending Provider Radha [...] Unavailable Oleghe, Efewongbe Primary Care Unavailable Luciano DOLL MAKER, Rosi Attending Unavailable Luciano DOLL MAKER, Rosi Attending Unavailable Oleghe, Efewongbe Primary Care [...] sources) Start: 02-10-2016 take 2 tablets by [facility] once daily Fiber-Lax Active 2 TABLET [...] 2:32pm Start: 02-10-2016 take 2 tablets by [facility] once daily Fiber-Lax Active 2 TABLET [...] for pain or fever (specify temp.). Active [id number] 200 actuat albuterol 0.09 mg/actuat metered dose [...] deficiency docusate sodium 50 mg / sennosides, prison 8.6 mg oral tablet (12 sources) Start: [...] hydrochloride 10 mg oral tablet (20 sources) N-grpcrn-X-aspart ate Receptor Antagonist Start: 04-23-2022 End: 02-07-2025 [...] 1 tablet by asher once daily. sennosides, prison 8.6 mg oral tablet (5 sources) Start: [...] Office Visit Reporton 2024 Office Visit Report [facility] [address] [place] [address] OFFICE VISIT Date of Service: 03/02/25 MR#: [id number] Acct: [id number] Patient: AMOR PETE Rep #: [id number] : 1945 Provider: GOLDY NURSE Age/Sex: 79/M Location: [facility] Status: Signed Intake Vital Signs 02/28/25 10:04 Height 5 ft 4 in Weight: 118 lb BMI 20.2 BP 98/58 L Blood Pressure Location Lt brachial Position Sitting Respiration 16 Temp 98.1 F Temp Source Temporal Intake Visit Reasons: PROLIA-$0 Chief Complaint: prolia injection Pharmaceutical Process Engineer Required: Yes Accompanied by: Caregiver Is patient [...] Provider: Maria Luz Chavira MD Performing Location: [facility] Administered by: Luba Garcia on 03/02/25 09:15 Dose Route Admin Location Dispensed Lot Number Expiration Date [facility] Man ufacturer 60 mg subcut Left upper arm 1 mL [id number] 09/01/27 17233-851-01 AMGEN Comments: injection given paddy without issue patient tolerated well Assessment and Plan Assessment and Plan (1) Osteoporosis: Status: Chronic Orders: Orders Prolia Injection 03/02/25 M81.0 - Age-related osteoporosis without current pathological fracture Clinical Quality Measures Falls Risk Screening/Assistive Devices Have you fallen in the past year?: No 03/08/25 1706 Date Maria Luz Chavira MD Cosigner Signature: Date (if applicable) CC: Normal [facility] Internal Medicine Office Vis iton 02-28-2025 Internal Medicine Office Visit [facility] [address] [place] [address] OFFICE VISIT Date of Service: 02/28/25 MR#: [id number] Acct: [id number] Name: AMOR PETE Rep #: [id number] : 1945 Provider: Dr. Maria Luz le MD Age/Sex: 79/M Location: [facility] Status: Signed Intake Vital Signs 08/30/24 09:19 02/28/25 10:04 Height 5 ft 4 in 5 ft 4 in Weight: 118 lb BMI 20.2 BP 98/58 L Blood Pressure Location Lt brachial Position Sitting Respiration 16 Temp 98.1 F Temp Source Temporal Intake Visit Reasons: 6 M FU Chief Complaint: fu Pharmaceutical Process Engineer Required: No Accompanied by: Self Is patient in pain?: No Allergies No Known Allergies Allergy (Verified 02/28/25 09:56) Medications ???Medication ???Instructions ???Recorded ???Confirmed ???Type Adult Pull-UP #3 ea 12/12/21 02/28/25 Rx denosumab 60 mg/mL subcutaneous 60 mg subcut [id number] Osteoporosis 12/25/22 02/28/25 Rx syringe #1 mL [...] feels its too strong [facility] Fracture of left hip requiring [...] sleep disturbance (more content not included)... Normal [facility] Vitamin D 1,25-Dihydroxyon 0 02-12-2025 VIT D 1,25 DIHY 37.2 pg/mL Normal 24.8-81.5 [facility] Comment on above: Result Comment: Perf ormed at: - [facility] [id number] Hvac Installation Technician: Nico Palm MD, Phone: [phone] Performed By: #### L [id number] ####[facility] [address] [place], [address] Neurology Visit Reporton Neurology Visit Report [facility] [address] [place] [address], [address] [place], [place] [address] OFFICE VISIT Date of Service: 02/07/25 MR#: [id number] Acct: [id number] Name: AMOR PETE Rep #: [id number] : 1945 Provider: Dr. Bobby nichole MD Age/Sex: 79/M Location: [facility] Status: Signed HPI HPI Details: Interim History: Amor returns for follow-up visit. He has a history of moderate lifelong intellectual disability, obsessive-compulsive disorder, benign prostatic hypertrophy, anxiety disorder, osteoporosis, scoliosis and hypertension. He is accompanied by a caregiver. The patient has been living in a detention setting since the early or prior. Beginning [...] Mild chronic (more content not included)... Normal [facility] Serum or plasma calcitriol m easurement (mass/volume)Ordered By: Bobby Garcia on 02-07-2025 1,25-dihydroxyvitamin D3 [Mass/Vol] 37.2 pg/mL 24.8-81.5 [facility] Comment on above: Performed at: - [address] [id number] Director: Nico Palm MD, Phone: [phone] Chest PA and Lateralon 01-17 Chest PA and Lateral [facility] Services [address] [place] [address] Chest PA and Lateral MR#: [id number] Acct: [id number] Name: AMOR PETE Rep #: [id number] : 1945 M 79 From: Daniel Tucker MD PCP: Dr. Mraia Luz Chavira MD Status: REG CLI Study: Chest PA and Lateral Date of Exam: 01/17/25 Exam# [id number] Ordering Dr: Nela Chun PA EXAM: XR Chest, 2 Views CLINICAL INDICATION: ABNORMAL PULSE OXIMETRY TECHNIQUE: Frontal and lateral views of the chest. COMPARISON: No relevant prior studies available. FINDINGS: LUNGS AND PLEURAL SPACES: Unremarkable. No consolidation. No pneumothorax. HEART: Unremarkable. No cardiomegaly. MEDIASTINUM: Unremarkable. Normal mediastinal contour. BONES/JOINTS: Unremarkable. No acute fracture. RAD/Chest PA and Lateral IMPRESSION: No acute cardiopulmonary process. Reading Location: [facility] CC: Dr. Maria Luz Chavira MD; MJ Coronel Laborer [employer]: Signed Normal [facility] Urgent Care Visit Reporton 0 01-17-2025 Urgent Care Visit Report [facility] [address], [address] [place] [address] OFFICE VISIT Date of Service: 01/17/25 MR#: [id number] Acct: [id number] Name: AMOR PETE Rep #: [id number] : 1945 Provider: MJ Coronel Age/Sex: 79/M Location: [facility] Status: Signed Intake Vital Signs 11/01/24 12:43 [...] Visit Reasons: LOST VOICE/THROAT Chief Complaint: laryngitis Pharmaceutical Process Engineer Required: No Is patient in pain?: No [...] Today R79 (more content not included)... Normal [facility] CNOVon 12-11-2024 CNOV Office Visit (PODIWS) AMOR PETE ([id number]) 1945 M Date Time Provider Department 12/11/24 1:45 PM KIM CHEUNG During your visit today, we recorded the following information about you: Terri Grimes, RN 12/11/2024 1:59 PM Signed Patient presents with: Left Foot - New, foot check Right Foot - New, foot check Patient presents from [facility] for foot check. Is not a diabetic. [...] symptoms Elevated PSA 12/27/2014 PSA 8.77 - [facility] - see scanned documents Essential hypertension, benign 12/04/2013 Intellectual disability detention Kyphosis, acquired Major depressive disorder Mass of [...] Take 2 mg by mouth as needed. tjtenxz-dczxjlyuj-rs tamin D3 (OYSTER SHELL CALCIUM-VITAMIN D) 500 [...] his current shoes should suffice. Recording using Wanderable software for draft documentation of the visit was discussed with the patient/authorized distribution sales representative; all questions welcomed and answered. Patient/authorized distribution sales representative agreed to proceed Kim Testrake, DPM Referring Provider: KIM CHEUNG [[id number]] Allergies As of Date: 12/11/2024 (No Known Allergies) Date Reviewed: 12/11/2024 Reviewed by: Terri Grimes RN - Fully Assessed Reason for Visit: New [096138] foot check [Other] New [986924] foot check [Other] Primary Visit Diagnosis:Calcaneal spur, unspecified laterali (more content not included)... Normal [facility] XR FOOT 3V AP/LAT/OBL BILon 12-11-2024 [...] osseous erosion. IMPRESSION: No acute bony abnormality. Laborer [employer]: PSCB Transcribe Date/Time: Dec 16 2024 2:54P Dictated by : CLYDE LIMON MD This examination was interpreted and the report reviewed and electronically signed by: CLYDE LIMON MD on Dec 16 2024 2:54PM EST [id number] Normal [facility] Internal Medicine Office Vis iton 11-01-2024 Internal Medicine Office Visit [facility] [address] [place] [address] [place] [address] OFFICE VISIT Date of Service: 11/01/24 MR#: [id number] Acct: [id number] Name: AMOR PETE Rep #: [id number] : 1945 Provider: MJ Parrish Age/Sex: 79/M Location: [facility] [place] Status: Signed Intake Vital Signs 09/15/24 12:11 [...] Chief Complaint: 6 M FU- PROLIA SHOT Pharmaceutical Process Engineer Required: No Accompanied by: Self Is patient in pain?: No Allergies No Known Allergies Allergy (Verified 11/01/24 12:35) Medications ???Medication ???Instructions ???Recorded ???Confirmed ???Type Adult Pull-UP #3 ea 12/12/21 11/01/24 Rx denosumab 60 mg/mL subcutaneous 60 mg subcut [id number] Osteoporosis 12/25/22 11/01/24 Rx syringe #1 mL [...] weeks and then we was in the correction for 2 more months. He was sent [...] neck skylar (more content not included)... Normal [facility] Pulmonary Visit Reporton Pulmonary Visit Report [facility] [place] [address] [place] [address] OFFICE VISIT Date of Service: 09/15/24 MR#: [id number] Acct: [id number] Name: AMOR PETE Rep #: [id number] : 1945 Provider: HONEY Taveras Age/Sex: 79/M Location: [facility] Status: Signed Assessment and Plan Assessment and [...] accompanied today by a caregiver from his detention. His case is complicated by mental retardation. [...] Chief Complaint: 6 M FU- PROLIA SHOT Pharmaceutical Process Engineer Required: No Accompanied by: Caregiver Allergies No Known Allergies Allergy (Verified 09/15/24 14:58) Medications ???Medication ???Instructions ???Recorded ???Confirmed ???Type Adult Pull-UP #3 ea 12/12/21 08/30/24 Rx denosumab 60 mg/mL subcutaneous 60 mg subcut [id number] Osteoporosis 12/25/22 09/15/24 Rx syringe #1 mL [...] you fallen in the past year?: Yes [facility] Medical History Fracture of left hip requiring [...] Surgical His (more content not included)... Normal [facility] Absolute neutrophil countOrd ered By: Maria Luz Chavira on 08-30-2024 Neutrophils (Bld) [#/Vol] 6.8 10*3/uL 2.0-7.7 [facility] BUN/creatinine ratioOrdered By: Maria Luz Chavira on 08-30-2024 Urea nitrogen/Creatinine [Mass ratio] 16.4 mg/mg - [facility] Basic Metabolic Profile (BMP )on 08-30-2024 Anion gap [Moles/Vol] 12 mmol/L Normal 11-16 [facility] Comment on above: Performed By: #### L 100.0100, L500.2500 #### [facility] [address] [place], [place], [address] BUN/CRE 16.4 RATIO Normal 04-23 [facility] Comment on above: Performed By: #### L 100.0100, L500.2500 #### [facility] [address] [place], [address] Calcium [Mass/Vol] 9.8 mg/dL Normal 7.6-11.0 [facility] Comment on above: Performed By: #### L 100.0100, L500.2500 #### [facility] [address] [place], [address] Chloride [Moles/Vol] 102 mmol/L Normal 96-108 [facility] Comment on above: Performed By: #### L 100.0100, L500.2500 #### [facility] [address] [place], [address] CO2 [Moles/Vol] 27.2 mmol/L Normal 22.0-29.0 [facility] Comment on above: Performed By: #### L 100.0100, L500.2500 #### [facility] [address] [place], [address] Creatinine [Mass/Vol] 0.8 mg/dL Normal 0.8-1.3 [facility] Comment on above: Performed By: #### L 100.0100, L500.2500 #### [facility] [address] [place], [address] GFR/1.73 sq M.predicted among non-blacks MDRD (S/P/Bld) [Vol rate/Area] 92 mL/min/{1.73_m2} Normal >60 [facility] Comment on above: Result Comment: mL/m in/1.73m2 CKD-EPI Creatinine Equation (2020) Performed By: #### L 100.0100, L500.2500 #### [facility] [address] [place], [address] Glucose [Mass/Vol] 71 mg/dL Normal 70-99 [facility] Comment on above: Performed By: #### L 100.0100, L500.2500 #### [facility] [address] [place], [address] Potassium [Moles/Vol] 3.9 mmol/L Normal 3.3-5.1 [facility] Comment on above: Performed By: #### L 100.0100, L500.2500 #### [facility] [address] [place], [address] Sodium [Moles/Vol] 141 mmol/L Normal 133-145 [facility] Comment on above: Performed By: #### L 100.0100, L500.2500 #### [facility] [address] [place], [address] Urea nitrogen [Mass/Vol] 13 mg/dL Normal 4-19 [facility] Comment on above: Performed By: #### L 100.0100, L500.2500 #### [facility] [address] [place], [address] Basophil percentageOrdered B y: Maria Luz Chavira on 08-30-2024 Basophils/100 WBC (Bld) 0.6 % 0-1 [facility] CBC W/Diff, Automatedon 08-06 Absolute Lymph 1.37 X10 3/uL Normal 0.83-4.51 [facility] Comment on above: Performed By: #### L 100.0100, L500.2500 #### [facility] [address] [place], [address] Absolute Neut 6.8 X10 3/uL Normal 2.0-7.7 [facility] Comment on above: Performed By: #### L 100.0100, L500.2500 #### [facility] [address] [place], [address] Basophils/100 WBC (Bld) 0.6 % Normal 0-1 [facility] Comment on above: Performed By: #### L 100.0100, L500.2500 #### [facility] [address] [place], [address] Eosinophils/100 WBC (Bld) 1.9 % Normal 0-5 [facility] Comment on above: Performed By: #### L 100.0100, L500.2500 #### [facility] [address] [place], [address] Erythrocyte distribution width (RBC) [Ratio] 14.6 % Normal 11.6-14.6 [facility] Comment on above: Performed By: #### L 100.0100, L500.2500 #### [facility] [address] [place], [address] Hematocrit (Bld) [Volume fraction] 48.3 % Normal 40-54 [facility] Comment on above: Performed By: #### L 100.0100, L500.2500 #### [facility] [address] [place], [address] Hemoglobin (Bld) [Mass/Vol] 14.8 g/dL Normal 13.0-16.5 [facility] Comment on above: Performed By: #### L 100.0100, L500.2500 #### [facility] [address] [place], [address] IG% 0.500 Normal 0.0-0.9 [facility] Comment on above: Result Comment: IG% - Immature Granulocytes (promyelocytes, myelocytes and metamyelocytes) > 1% indicates that a LEFT SHIFT is Present. Performed By: #### L 100.0100, L500.2500 #### [facility] [address] [place], [address] Lymphocytes/100 WBC (Bld) 14.3 % Low 19-41 [facility] Comment on above: Performed By: #### L 100.0100, L500.2500 #### [facility] [address] [place], [address] MCH (RBC) [Entitic mass] 28.8 pg Normal 27.0-32.0 [facility] Comment on above: Performed By: #### L 100.0100, L500.2500 #### [facility] [address] [place], [address] MCHC (RBC) [Mass/Vol] 30.6 g/dL Low 32-36 [facility] Comment on above: Performed By: #### L 100.0100, L500.2500 #### [facility] [address] [place], [address] MCV (RBC) [Entitic vol] 94.0 fL Normal 80-[address] [facility] Comment on above: Performed By: #### L 100.0100, L500.2500 #### [facility] [address] [place], [address] Monocytes/100 WBC (Bld) 11.3 % High 0-10 [facility] Comment on above: Performed By: #### L 100.0100, L500.2500 #### [facility] [address] [place], [address] Neutrophils/100 WBC (Bld) 71.4 % High 47-70 [facility] Comment on above: Performed By: #### L 100.0100, L500.2500 #### [facility] [address] [place], [address] Nucleated RBC (Bld) [#/Vol] 0 10*3/uL Normal 0-5 [facility] Comment on above: Performed By: #### L 100.0100, L500.2500 #### [facility] [address] [place], [address] Platelet mean volume (Bld) [Entitic vol] 10.5 fL Normal 6.2-12.0 [facility] Comment on above: Performed By: #### L 100.0100, L500.2500 #### [facility] [address] [place], [address] Platelets (Bld) [#/Vol] 343 10*3/uL Normal 150-450 [facility] Comment on above: Performed By: #### L 100.0100, L500.2500 #### [facility] [address] [place], [address] RBC (Bld) [#/Vol] 5.14 10*6/uL Normal 4.6-6.2 [facility] Comment on above: Performed By: #### L 100.0100, L500.2500 #### [facility] [address] [place], [address] RDW SD 50.8 fl High 35.1-43.9 [facility] Comment on above: Performed By: #### L 100.0100, L500.2500 #### [facility] [address] [place], [address] WBC (Bld) [#/Vol] 9.6 10*3/uL Normal 4.4-11.0 [facility] Comment on above: Performed By: #### L 100.0100, L500.2500 #### [facility] [address] [place], [address] Carbon dioxide measurementOr dered By: Maria Luz Chavira on 08-30-2024 CO2 [Moles/Vol] 27.2 mmol/L 22.0-29.0 [facility] Chloride measurementOrdered By: Maria Luz Chavira on 08-30-2024 Chloride [Moles/Vol] 102 mmol/L 96-108 [facility] Creatinine [Moles/Vol]Ordere d By: Maria Luz Chavira on 08-30-2024 Creatinine [Mass/Vol] 0.8 mg/dL 0.8-1.3 [facility] Eosinophil percentageOrdered By: Maria Luz Chavira on 08-30-2024 Eosinophils/100 WBC (Bld) 1.9 % 0-5 [facility] Erythrocyte distribution wid th ratioOrdered By: Maria Luz Chavira on 08-30-2024 Erythrocyte distribution width (RBC) [Ratio] 14.6 % 11.6-14.6 [facility] Erythrocyte distribution wid th standard deviationOrdered By: Lelialas vegastj Chavira on 08-30-2024 Erythrocyte distribution width (RBC) [Entitic vol] 50.8 fL High 35.1-43.9 [facility] GFR/1.73 sq M.predicted gelacio g non-blacks MDRD (S/P/Bld) [Vol rate/Area]Ordered By: Maria Luz Chavira on 08-30-2024 Estimated GFR (MDRD) Non-Af Amer 92 >60 [facility] Comment on above: mL/min/1.73m2 CKD-EP I Creatinine Equation (2020) Hematocrit Auto (Bld) [Volum e fraction]Ordered By: joaquinalas vegastj Chavira on 08-30-2024 Hematocrit (Bld) [Volume fraction] 48.3 % 40-54 [facility] Hemoglobin measurementOrdere d By: Maria Luz Chavira on 08-30-2024 Hemoglobin (Bld) [Mass/Vol] 14.8 g/dL 13.0-16.5 [facility] Immature granulocytes/100 WB C Auto (Bld)Ordered By: Maria Luz Chavira on 08-30-2024 Immature granulocytes/100 WBC (Bld) 0.500 % 0.0-0.9 [facility] Comment on above: IG% - Immature Granu locytes (promyelocytes, myelocytes and metamyelocytes) > 1% indicates that a LEFT SHIFT is Present. Internal Medicine Office Vis itodella 08-30-2024 Internal Medicine Office Visit [facility] [address] [place] [address] [place] [address] OFFICE VISIT Date of Service: 08/30/24 MR#: [id number] Acct: [id number] Name: AMOR PETE Rep #: [id number] 2 : 1945 Provider: Dr. Maria Luz le MD Age/Sex: 79/M Location: [facility] Status: Signed Intake Vital Signs 02/25/24 09:17 [...] denosumab 60 mg/mL subcutaneous 60 mg subcut [id number] Osteoporosis 12/25/22 08/30/24 Rx syringe #1 mL [...] well since his left hip surgery rehab [facility] Medical History (Updated 08/30/24 @ 12:35 by [...] Cardio Cardiolog (more content not included)... Normal [facility] Lymphocytes Auto (Unsp spec) [#/Vol]Ordered By: Maria Luz Chavira on 08-30-2024 Lymphocytes (Bld) [#/Vol] 1.37 10*3/uL 0.83-4.51 [facility] Lymphocytes/100 WBC Auto (Un sp spec)Ordered By: Maria Luz Chavira on 08-30-2024 Lymphocytes/100 WBC (Bld) 14.3 % Low 19-41 [facility] MCV (mean corpuscular volume ) determinationOrdered By: Maria Luz Chavira on 08-30-2024 MCV (RBC) [Entitic vol] 94.0 fL 80-94 [facility] Mean corpuscular hemoglobin (MCH) determinationOrdered By: Maria Luz Chavira on 08-30-2024 MCH (RBC) [Entitic mass] 28.8 pg 27.0-32.0 [facility] Mean corpuscular hemoglobin concentration (MCHC) determinationOrdered By: Maria Luz Chavira on 08-30-2024 MCHC (RBC) [Mass/Vol] 30.6 g/dL Low 32-36 [facility] Mean platelet volume determi nationOrdered By: Maria Luz Chavira on 08-30-2024 Platelet mean volume (Bld) [Entitic vol] 10.5 fL 6.2-12.0 [facility] Monocyte percentageOrdered B y: Maria Luz Chavira on 08-30-2024 Monocytes/100 WBC (Bld) 11.3 % High 0-10 [facility] Neutrophil percentageOrdered By: Maria Luz Chavira on 08-30-2024 Neutrophils/100 WBC (Bld) 71.4 % High 47-70 [facility] Nucleated red blood cell per centageOrdered By: Maria Luz Chavira on 08-30-2024 Nucleated RBC/100 WBC (Bld) [Ratio] 0 % 0-5 [facility] Platelet countOrdered By: Kaleigh Chavira on 08-30-2024 Platelets (Bld) [#/Vol] 343 10*3/uL 150-450 [facility] RBC Auto (Bld) [#/Vol]Ordere d By: Maria Luz Chavira on 08-30-2024 RBC (Bld) [#/Vol] 5.14 10*6/uL 4.6-6.2 [facility] Serum glucose measurement (m ass/volume)Ordered By: Maria Luz Chavira on 08-30-2024 Glucose [Mass/Vol] 71 mg/dL 70-99 [facility] Serum or plasma anion gap de termination (moles/volume)Ordered By: Maria Luz Chavira on 08-30-2024 Anion gap [Moles/Vol] 12 mmol/L 5-15 [facility] Serum or plasma calcium ray urement (mass/volume)Ordered By: Maria Luz Chavira on 08-30-2024 Calcium [Mass/Vol] 9.8 mg/dL 7.6-11.0 [facility] Serum or plasma potassium me asurementOrdered By: Maria Luz Chavira on 08-30-2024 Potassium [Moles/Vol] 3.9 mmol/L 3.3-5.1 [facility] Serum or plasma sodium measu rement (moles/volume)Ordered By: Maria Luz Chavira on 08-30-2024 Sodium [Moles/Vol] 141 mmol/L 133-145 [facility] Serum or plasma urea nitroge n measurement (mass/volume)Ordered By: Maria Luz Chavira on 08-30-2024 Urea nitrogen [Mass/Vol] 13 mg/dL 4-19 [facility] White blood cell (WBC) count Ordered By: Maria Luz Chavira on 08-30-2024 WBC (Bld) [#/Vol] 9.6 10*3/uL 4.4-11.0 [facility] Internal Medicine Office Vis iton 07-07-2024 Internal Medicine Office Visit [facility] [address] [place], [place] [address] OFFICE VISIT Date of Service: 07/07/24 MR#: [id number] Acct: [id number] Name: AMOR PETE Rep #: [id number] : 1945 Provider: MJ Parrish Age/Sex: 79/M Location: [facility] [place].[facility] Status: Signed Intake Vital Signs 04/04/24 15:14 [...] MIN Chief Complaint: [place] f/u Pharmaceutical Process Engineer Required: No Accompanied by: Caregiver Is patient in pain?: No Allergies No Known Allergies Allergy (Verified 07/07/24 13:55) Medications ???Medication ???Instructions ???Recorded ???Confirmed ???Type Adult Pull-UP #3 ea 12/12/21 07/07/24 Rx denosumab 60 mg/mL subcutaneous 60 mg subcut [id number] Osteoporosis 12/25/22 07/07/24 Rx syringe #1 mL [...] today to for f/u since being in [facility]. They need a release for him to return to work which is something he really wants to do. He was admitted to [facility] for some rehab following a fracture he suffered from a fall at the end of March. Initially he did rehab as an inpatient at the hospital and the was transferred out for the rehab where he spent 2 months there (he was discharged on 06-13-24). 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 He has continued to do physical therapy 3 times a week at the home and has been doing very well. 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 He is still using the walker with ambulation at the same time they state he walks very good and has been stable on his feet. ROS Const Constitutional: No body ache, chills, excessive sweating, fatigue, fever(s), frequent falls, headache(s), snoring, weakness or change i (more content not included)... Normal [facility] Absolute neutrophil countOrd ered By: Maria Luz Chavira on 06-09-2024 Neutrophils (Bld) [#/Vol] 9.1 10*3/uL High 2.0-7.7 [facility] Basophil percentageOrdered B y: Maria Luz Chavira on 06-09-2024 Basophils/100 WBC (Bld) 0.6 % 0-1 [facility] Blood urea nitrogen (BUN)/cr eatinine ratioOrdered By: Maria Luz Chavira on 06-09-2024 Urea nitrogen/Creatinine [Mass ratio] 38.2 mg/mg High 10-20 [facility] Carbon dioxide measurementOr dered By: Maria Luz Chavira on 06-09-2024 CO2 [Moles/Vol] 29.0 mmol/L 21.0-32.0 [facility] Chloride measurementOrdered By: Maria Luz Chavira on 06-09-2024 Chloride [Moles/Vol] 109 mmol/L High 98-107 [facility] Eosinophil percentageOrdered By: Maria Luz Chavira on 06-09-2024 Eosinophils/100 WBC (Bld) 2.0 % 0-5 [facility] Erythrocyte distribution wid th ratioOrdered By: Maria Luz Chavira on 06-09-2024 Erythrocyte distribution width (RBC) [Ratio] 14.7 % High 11.6-14.6 [facility] Erythrocyte distribution wid th standard deviationOrdered By: Maria Luz Chavira on 06-09-2024 Erythrocyte distribution width (RBC) [Entitic vol] 50.6 fL High 35.1-43.9 [facility] Estimated glomerular filtrat ion rate (GFR) AmericanOrdered By: Maria Luz Chavira on 06-09-2024 Estimated GFR (MDRD) Amer 145 mL/min >60 [facility] Comment on above: GFR Calc Glomerular filtration rate ( GFR) estimationOrdered By: Maria Luz Chavira on 06-09-2024 Estimated GFR (MDRD) Non-Af Amer 120 mL/min >60 [facility] Comment on above: Non- GFR Calc Glucose measurementOrdered B y: Maria Luz Chavira on 06-09-2024 Glucose [Mass/Vol] 97 mg/dL 74-106 [facility] Hematocrit Auto (Bld) [Volum e fraction]Ordered By: Maria Luz Chavira on 06-09-2024 Hematocrit (Bld) [Volume fraction] 42.5 % 40-54 [facility] Hemoglobin measurementOrdere d By: Maria Luz Chavira on 06-09-2024 Hemoglobin (Bld) [Mass/Vol] 12.8 g/dL Low 13.0-16.5 [facility] Immature granulocytes/100 WB C Auto (Bld)Ordered By: Maria Luz Chavira on 06-09-2024 Immature granulocytes/100 WBC (Bld) 0.500 % 0.0-0.9 [facility] Comment on above: IG% - Immature Granu locytes (promyelocytes, myelocytes and metamyelocytes) > 1% indicates that a LEFT SHIFT is Present. Lymphocytes Auto (Unsp spec) [#/Vol]Ordered By: Maria Luz Chavira on 06-09-2024 Lymphocytes (Bld) [#/Vol] 1.38 10*3/uL 0.83-4.51 [facility] Lymphocytes/100 WBC Auto (Un sp spec)Ordered By: Maria Luz Chavira on 06-09-2024 Lymphocytes/100 WBC (Bld) 11.3 % Low 19-41 [facility] MCV (mean corpuscular volume ) determinationOrdered By: Maria Luz Chavira on 06-09-2024 MCV (RBC) [Entitic vol] 93.0 fL 80-94 [facility] Mean corpuscular hemoglobin (MCH) determinationOrdered By: Maria Luz Chavira on 06-09-2024 MCH (RBC) [Entitic mass] 28.0 pg 27.0-32.0 [facility] Mean corpuscular hemoglobin concentration (MCHC) determinationOrdered By: Maria Luz Chavira on 06-09-2024 MCHC (RBC) [Mass/Vol] 30.1 g/dL Low 32-36 [facility] Mean platelet volume determi nationOrdered By: Maria Luz Chavira on 06-09-2024 Platelet mean volume (Bld) [Entitic vol] 9.9 fL 6.2-12.0 [facility] Monocyte percentageOrdered B y: Maria Luz Chavira on 06-09-2024 Monocytes/100 WBC (Bld) 11.3 % High 0-10 [facility] Neutrophil percentageOrdered By: Maria Luz Chavira on 06-09-2024 Neutrophils/100 WBC (Bld) 74.3 % High 47-70 [facility] Nucleated red blood cell per centageOrdered By: Maria Luz Chavira on 06-09-2024 Nucleated RBC/100 WBC (Bld) [Ratio] 0 % 0-5 [facility] Platelet countOrdered By: Kaleigh Chavira on 06-09-2024 Platelets (Bld) [#/Vol] 349 10*3/uL 150-450 [facility] Potassium measurementOrdered By: Maria Luz Chavira on 06-09-2024 Potassium [Moles/Vol] 4.4 mmol/L 3.5-5.1 [facility] RBC Auto (Bld) [#/Vol]Ordere d By: Maria Luz Chavira on 06-09-2024 RBC (Bld) [#/Vol] 4.57 10*6/uL Low 4.6-6.2 [facility] Serum anion gap measurementO rdered By: Maria Luz Chavira on 06-09-2024 Anion gap [Moles/Vol] 5 mmol/L 5- [facility] Serum or plasma calcium ray urement (mass/volume)Ordered By: Maria Luz Chavira on 06-09-2024 Calcium [Mass/Vol] 9.2 mg/dL 8.5-10.1 [facility] Serum or plasma creatinine m easurement (mass/volume)Ordered By: Maria Luz Chavira on 06-09-2024 Creatinine [Mass/Vol] 0.68 mg/dL Low 0.70-1.30 [facility] Comment on above: The validity of the calculated GFR & GFRAA in patients over 70 years has not been determined. Clinical correlation is essential. Serum or plasma urea nitroge n measurement (mass/volume)Ordered By: Maria Luz Chavira on 06-09-2024 Urea nitrogen [Mass/Vol] 26 mg/dL High 01-19 [facility] Sodium levelOrdered By: Lelia Chavira on 06-09-2024 Sodium [Moles/Vol] 143 mmol/L 136-145 [facility] White blood cell (WBC) count Ordered By: Maria Luz Chavira on 06-09-2024 WBC (Bld) [#/Vol] 12.3 10*3/uL High 4.4-11.0 [facility] HIP, UNI W/ Pelvis 2-3 Views on 04-21-2024 HIP, UNI W/ Pelvis 2-3 Views [facility] [address] [place] [address] HIP, UNI W/ Pelvis 2-3 Views MR#: [id number] Acct: [id number] Name: AMOR PETE Rep #: [id number] : 1945 M 78 From: Brent galicia DO PCP: Dr. Maria Luz Chavira MD Status: DEP AMB Study: HIP, UNI W/ Pelvis 2-3 Views Date of Exam: Exam# [id number] Ordering Dr: Capo Rivera DO [id number] EXAM: XR LEFT HIP WITH PELVIS WHEN [...] Luz Chavira MD; Dr. Capo Rivera DO [employer]: Signed Normal [facility] Orthopedic Visit Reporton Orthopedic Visit Report [facility] [address] [place] [address] OFFICE VISIT Date of Service: 04/21/24 MR#: [id number] Acct: [id number] Name: AMOR PETE Rep #: [id number] : 1945 Provider: Dr. Capo richards [...] denosumab 60 mg/mL subcutaneous 60 mg subcut [id number] Osteoporosis 12/25/22 03/30/24 Rx syringe #1 mL [...] Acute Order (more content not included)... Normal [facility] 12 Lead EKGon 04-03-2024 12 Lead EKG [facility] Services [address] [place] [address] 12 Lead EKG 04/03/24 1657 MR#: [id number] Acct: [id number] Name: AMOR PETE Rep #: [id number] : 1945 78 From: Tyree Snyder MD [...] found Confirmed by JANIYA ROSS, TYREE ([id number]), tape editor TERRI BECERRA ([id number]) on 04/04/2024 9:45:43 AM Referred By: Bleinda Teixeira Confirmed By:TYREE SNYDER MD 04/04/24 0945 Date Tyree Snyder MD CC: Dr. Maria Luz Chavira MD; Dr. Belinda Teixeira DO Signed Normal [facility] Shoulder min 2 Viewson 04-03 Shoulder min 2 Views [facility] Imaging [place] [id number] Shoulder min 2 Views MR#: [id number] Acct: [id number] Name: AMOR PETE Rep #: [id number] : 1945 M 78 From: Vandana Shen PCP: Dr. Maria Luz Chavira MD Status: ADM IN Study: Shoulder min 2 Views Date of Exam: 04/03/24 Exam# [id number] Ordering Dr: Belinda Teixeira DO [id number] INDICATION: recent fall EXAMINATION/TECHNIQU E: X-RAY - [...] No evidence of acute fracture. Electronically Signed: Vandaan Mcneil MD at 5:00 EDT , CC: Dr. Maria Luz Chavira MD; Dr. Belinda Teixeira DO [employer]: Signed Normal [facility] CBC W/Diff, Automatedon 03-064 Absolute Lymph 1.25 X10 3/uL Normal 0.83-4.51 [facility] Comment on above: Performed By: #### L 501.5200, L500.4050, L501.2300, L100.0100 ####[facility] [address] [place], [address] Absolute Neut 7.3 X10 3/uL Normal 2.0-7.7 [facility] Comment on above: Performed By: #### L 501.5200, L500.4050, L501.2300, L100.0100 ####[facility] [address] [place], [address] Basophils/100 WBC (Bld) 0.6 % Normal 0-1 [facility] Comment on above: Performed By: #### L 501.5200, L500.4050, L501.2300, L100.0100 ####[facility] [address] [place], [address] Eosinophils/100 WBC (Bld) 2.8 % Normal 0-5 [facility] Comment on above: Performed By: #### L 501.5200, L500.4050, L501.2300, L100.0100 ####[facility] [address] [place], [address] Erythrocyte distribution width (RBC) [Ratio] 14.8 % High 11.6-14.6 [facility] Comment on above: Performed By: #### L 501.5200, L500.4050, L501.2300, L100.0100 ####[facility] [address] [place], [address] Hematocrit (Bld) [Volume fraction] 32.2 % Low 40-54 [facility] Comment on above: Performed By: #### L 501.5200, L500.4050, L501.2300, L100.0100 ####[facility] [address] [place], [address] Hemoglobin (Bld) [Mass/Vol] 9.9 g/dL Low 13.0-16.5 [facility] Comment on above: Performed By: #### L 501.5200, L500.4050, L501.2300, L100.0100 ####[facility] [address] [place], [address] IG% 0.800 Normal 0.0-0.9 [facility] Comment on above: Result Comment: IG% - Immature Granulocytes (promyelocytes, myelocytes and metamyelocytes) > 1% indicates that a LEFT SHIFT is Present. Performed By: #### L 501.5200, L500.4050, L501.2300, L100.0100 ####[facility] [address] [place], [address] Lymphocytes/100 WBC (Bld) 12.3 % Low 19-41 [facility] Comment on above: Performed By: #### L 501.5200, L500.4050, L501.2300, L100.0100 ####[facility] [address] [place], [address] MCH (RBC) [Entitic mass] 28.8 pg Normal 27.0-32.0 [facility] Comment on above: Performed By: #### L 501.5200, L500.4050, L501.2300, L100.0100 ####[facility] [address] [place], [address] MCHC (RBC) [Mass/Vol] 30.7 g/dL Low 32-36 [facility] Comment on above: Performed By: #### L 501.5200, L500.4050, L501.2300, L100.0100 ####[facility] [address] [place], [address] MCV (RBC) [Entitic vol] 93.6 fL Normal 80-94 [facility] Comment on above: Performed By: #### L 501.5200, L500.4050, L501.2300, L100.0100 ####[facility] [address] [place], [address] Monocytes/100 WBC (Bld) 11.7 % High 0-10 [facility] Comment on above: Performed By: #### L 501.5200, L500.4050, L501.2300, L100.0100 ####[facility] [address] [place], [address] Neutrophils/100 WBC (Bld) 71.8 % High 47-70 [facility] Comment on above: Performed By: #### L 501.5200, L500.4050, L501.2300, L100.0100 ####[facility] [address] [place], [address] Nucleated RBC (Bld) [#/Vol] 0 10*3/uL Normal 0-5 [facility] Comment on above: Performed By: #### L 501.5200, L500.4050, L501.2300, L100.0100 ####[facility] [address] [place], [address] Platelet mean volume (Bld) [Entitic vol] 10.0 fL Normal 6.2-12.0 [facility] Comment on above: Performed By: #### L 501.5200, L500.4050, L501.2300, L100.0100 ####[facility] [address] [place], [address] Platelets (Bld) [#/Vol] 239 10*3/uL Normal 150-450 [facility] Comment on above: Performed By: #### L 501.5200, L500.4050, L501.2300, L100.0100 ####[facility] [address] [place], [address] RBC (Bld) [#/Vol] 3.44 10*6/uL Low 4.6-6.2 [facility] Comment on above: Performed By: #### L 501.5200, L500.4050, L501.2300, L100.0100 ####[facility] [address] [place], [address] RDW SD 51.2 fl High 35.1-43.9 [facility] Comment on above: Performed By: #### L 501.5200, L500.4050, L501.2300, L100.0100 ####[facility] [address] [place], [address] WBC (Bld) [#/Vol] 10.1 10*3/uL Normal 4.4-11.0 [facility] Comment on above: Performed By: #### L 501.5200, L500.4050, L501.2300, L100.0100 ####[facility] [address] [place], [address] Comprehensive Metabolic Prof [facility] 03-31-2024 Albumin [Mass/Vol] 2.2 g/dL Low 3.2-5.0 [facility] Comment on above: Performed By: #### L 501.5200, L500.4050, L501.2300, L100.0100 ####[facility] [address] [place], [address] Albumin/Globulin [Mass ratio] 0.7 {ratio} Low 0.9-2.4 [facility] Comment on above: Performed By: #### L 501.5200, L500.4050, L501.2300, L100.0100 ####[facility] [address] [place], [address] ALK P 52 U/L Normal 45-117 [facility] Comment on above: Performed By: #### L 501.5200, L500.4050, L501.2300, L100.0100 ####[facility] [address] [place], [address] ALT [Catalytic activity/Vol] 15 U/L Low 16-61 [facility] Comment on above: Performed By: #### L 501.5200, L500.4050, L501.2300, L100.0100 ####[facility] [address] [place], [address] AST [Catalytic activity/Vol] 16 U/L Normal 15-37 [facility] Comment on above: Performed By: #### L 501.5200, L500.4050, L501.2300, L100.0100 ####[facility] [address] [place], [address] Bilirubin [Mass/Vol] 0.50 mg/dL Normal 0.20-1.00 [facility] Comment on above: Result Comment: For patients on eltrombopag therapy, use of [employer] [place] TBIL is not recommended. Performed By: #### L 501.5200, L500.4050, L501.2300, L100.0100 ####[facility] [address] [place], [address] BUN/CRE 30.9 RATIO High 10-20 [facility] Comment on above: Performed By: #### L 501.5200, L500.4050, L501.2300, L100.0100 ####[facility] [address] [place], [address] CA,Total 8.9 mg/dL Normal 8.5-10.1 [facility] Comment on above: Performed By: #### L 501.5200, L500.4050, L501.2300, L100.0100 ####[facility] [address] [place], [address] Chloride [Moles/Vol] 115 mmol/L High 98-107 [facility] Comment on above: Performed By: #### L 501.5200, L500.4050, L501.2300, L100.0100 ####[facility] [address] [place], [address] CO2 [Moles/Vol] 29.0 mmol/L Normal 21.0-32.0 [facility] Comment on above: Performed By: #### L 501.5200, L500.4050, L501.2300, L100.0100 ####[facility] [address] [place], [address] Creatinine [Mass/Vol] 0.91 mg/dL Normal 0.70-1.30 [facility] Comment on above: Result Comment: The validity of the calculated GFR GFRAA in patients over 70 years has not been determined. Clinical correlation is essential. Performed By: #### L 501.5200, L500.4050, L501.2300, L100.0100 ####[facility] [address] [place], [address] ECRCL 53.82 ml/min Normal [facility] Comment on above: Performed By: #### L 501.5200, L500.4050, L501.2300, L100.0100 ####[facility] [address] [place], [address] EST GFR - AA 105 mL/min Normal >60 [facility] Comment on above: Result Comment: Afri can Uzbek GFR Calc Performed By: #### L 501.5200, L500.4050, L501.2300, L100.0100 ####[facility] [address] [place], [address] GAP 2 Low 5-15 [facility] Comment on above: Performed By: #### L 501.5200, L500.4050, L501.2300, L100.0100 ####[facility] [address] [place], [address] GFR/1.73 sq M.predicted among non-blacks MDRD (S/P/Bld) [Vol rate/Area] 86 mL/min/{1.73_m2} Normal >60 [facility] Comment on above: Result Comment: Non- GFR Calc Performed By: #### L 501.5200, L500.4050, L501.2300, L100.0100 ####[facility] [address] [place], [address] Globulin (S) [Mass/Vol] 3.3 g/dL Normal 2.2-4.[address] [facility] Comment on above: Performed By: #### L 501.5200, L500.4050, L501.2300, L100.0100 ####[facility] [address] [place], [address] Glucose [Mass/Vol] 113 mg/dL High 74-106 [facility] Comment on above: Result Comment: Fast ing Glucose result from 100 to 125 mg/dL suggests IMPAIRED HOMEOSTASIS per A.D.A. criteria. Performed By: #### L 501.5200, L500.4050, L501.2300, L100.0100 ####[facility] [address] [place], [address] Potassium [Moles/Vol] 3.8 mmol/L Normal 3.5-5.1 [facility] Comment on above: Performed By: #### L 501.5200, L500.4050, L501.2300, L100.0100 ####[facility] [address] [place], [address] Sodium [Moles/Vol] 146 mmol/L High 136-145 [facility] Comment on above: Performed By: #### L 501.5200, L500.4050, L501.2300, L100.0100 ####[facility] [address] [place], [address] T PROT 5.5 g/dL Low 6.4-8.2 [facility] Comment on above: Performed By: #### L 501.5200, L500.4050, L501.2300, L100.0100 ####[facility] [address] [place], [address] Urea nitrogen [Mass/Vol] 28 mg/dL High 7-18 [facility] Comment on above: Performed By: #### L 501.5200, L500.4050, L501.2300, L100.0100 ####[facility] [address] [place], [address] Magnesiumon 03-31-2024 Magnesium [Mass/Vol] 2.3 mg/dL Normal 1.6-2.6 [facility] Comment on above: Performed By: #### L 501.5200, L500.4050, L501.2300, L100.0100 ####[facility] [address] [place], [address] Phosphoruson 03-31-2024 Phosphate [Mass/Vol] 3.4 mg/dL Normal 2.5-4.9 [facility] Comment on above: Performed By: #### L 501.5200, L500.4050, L501.2300, L100.0100 ####[facility] [address] [place], [address] Basic Metabolic Profile (BMP )on 03-30-2024 BUN/CRE 22.6 RATIO High 10-20 [facility] Comment on above: Performed By: #### L 100.0100, L500.2500 #### [facility] [address] [place], [address] CA,Total 8.0 mg/dL Low 8.5-10.1 [facility] Comment on above: Performed By: #### L 100.0100, L500.2500 #### [facility] [address] [place], [address] Chloride [Moles/Vol] 114 mmol/L High 98-107 [facility] Comment on above: Performed By: #### L 100.0100, L500.2500 #### [facility] [address] [place], [address] CO2 [Moles/Vol] 29.0 mmol/L Normal 21.0-32.0 [facility] Comment on above: Performed By: #### L 100.0100, L500.2500 #### [facility] [address] [place], [address] Creatinine [Mass/Vol] 0.71 mg/dL Normal 0.70-1.30 [facility] Comment on above: Result Comment: The validity of the calculated GFR GFRAA in patients over 70 years has not been determined. Clinical correlation is essential. Performed By: #### L 100.0100, L500.2500 #### [facility] [address] [place], [address] ECRCL 58.89 ml/min Normal [facility] Comment on above: Performed By: #### L 100.0100, L500.2500 #### [facility] [address] [place], [address] EST GFR - AA 139 mL/min Normal >60 [facility] Comment on above: Result Comment: Afri can Uz[place] GFR Calc Performed By: #### L 100.0100, L500.2500 #### [facility] [address] [place], [address] GAP 1 Low 5-15 [facility] Comment on above: Performed By: #### L 100.0100, L500.2500 #### [facility] [address] [place], [address] GFR/1.73 sq M.predicted among non-blacks MDRD (S/P/Bld) [Vol rate/Area] 115 mL/min/{1.73_m2} Normal >60 [facility] Comment on above: Result Comment: Non- GFR Calc Performed By: #### L 100.0100, L500.2500 #### [facility] [address] [place], [address] Glucose [Mass/Vol] 105 mg/dL Normal 74-106 [facility] Comment on above: Result Comment: Fast ing Glucose result from 100 to 125 mg/dL suggests IMPAIRED HOMEOSTASIS per A.D.A. criteria. Performed By: #### L 100.0100, L500.2500 #### [facility] [address] [place], [address] Potassium [Moles/Vol] 3.7 mmol/L Normal 3.5-5.1 [facility] Comment on above: Performed By: #### L 100.0100, L500.2500 #### [facility] [address] [place], [address] Sodium [Moles/Vol] 144 mmol/L Normal 136-145 [facility] Comment on above: Performed By: #### L 100.0100, L500.2500 #### [facility] [address] [place], [address] Urea nitrogen [Mass/Vol] 16 mg/dL Normal 7-18 [facility] Comment on above: Performed By: #### L 100.0100, L500.2500 #### [facility] [address] [place], [address] CBC W/Diff, Automatedon 09-2 PATH REV Reviewed Normal [facility] Comment on above: Result Comment: Neut rophilic leukocytosis. Macrocytic anemia. Clinical correlation necessary. Jose Hare M.D. 03/30/24 AMENDED REPORT 03/30/24 1409 PATH REV previously reported as: November Performed By: #### L 100.0100, L500.2500 #### [facility] [address] [place], [address] Discharge Instructionon 03-06 Discharge Instruction [place] [facility] Medical Records Department [address] [place] [address] Instructions for Home/Discharge Instructions 03/30/24 1008 MR#: [id number] Acct: [id number] Name: AMOR PETE Rep #: [id number] : 1945 78 From: Rui Verma MD [...] denosumab 60 mg/mL syringe 60 mg subcut [id number] Qty: 1 2RF acetaminophen 325 mg tablet [...] MD; Dr. Capo Rivera DO Signed Normal [facility] Basic Metabolic Profile (BMP )on 03-29-2024 BUN/CRE 27.1 RATIO High 10-20 [facility] Comment on above: Performed By: #### L 500.2500, L100.0100 #### [facility] Laboratory [address] [place], [place], [address] CA,Total 5.6 mg/dL Invalid Interpretation Code 8.5-10.1 [facility] Comment on above: Result Comment: Crit ical Result(s) Called at: 07:41:36 03/29/2024 by: MORGAN HEADLEY TO MORGAN RAJPUT. Results read back by same. Performed By: #### L 500.2500, L100.0100 #### [facility] Laboratory [address] [place], [address] Chloride [Moles/Vol] 128 mmol/L Invalid Interpretation Code 98-107 [facility] Comment on above: Result Comment: Crit ical Result(s) Called at: 07:41:16 03/29/2024 by: MORGAN HEADLEY TO MORGAN RAJPUT. Results read back by same. Performed By: #### L 500.2500, L100.0100 #### [facility] Laboratory [address] [place], [address] CO2 [Moles/Vol] 21.0 mmol/L Normal 21.0-32.0 [facility] Comment on above: Performed By: #### L 500.2500, L100.0100 #### [facility] [address] [place], [address] Creatinine [Mass/Vol] 0.48 mg/dL Low 0.70-1.30 [facility] Comment on above: Result Comment: The validity of the calculated GFR GFRAA in patients over 70 years has not been determined. Clinical correlation is essential. Performed By: #### L 500.2500, L100.0100 #### [facility] [address] [place], [address] ECRCL 58.89 ml/min Normal [facility] Comment on above: Performed By: #### L 500.2500, L100.0100 #### [facility] [address] [place], [address] EST GFR - AA 218 mL/min Normal >60 [facility] Comment on above: Result Comment: Afri can Uzbek GFR Calc Performed By: #### L 500.2500, L100.0100 #### [facility] [address] [place], [address] GAP 2 Low 5-15 [facility] Comment on above: Performed By: #### L 500.2500, L100.0100 #### [facility] Laboratory [address] [place], [address] GFR/1.73 sq M.predicted among non-blacks MDRD (S/P/Bld) [Vol rate/Area] 180 mL/min/{1.73_m2} Normal >60 [facility] Comment on above: Result Comment: Non- GFR Calc Performed By: #### L 500.2500, L100.0100 #### [facility] [address] [place], [address] Glucose [Mass/Vol] 98 mg/dL Normal 74-106 [facility] Comment on above: Performed By: #### L 500.2500, L100.0100 #### [facility] [address] [place], [address] Potassium [Moles/Vol] 2.7 mmol/L Invalid Interpretation Code 3.5-5.1 [facility] Comment on above: Result Comment: Crit ical Result(s) Called at: 07:40:38 03/29/2024 by: MORGAN HEADLEY TO MORGAN RAJPUT. Results read back by same. Performed By: #### L 500.2500, L100.0100 #### [facility] [address] [place], [address] Sodium [Moles/Vol] 151 mmol/L High 136-145 [facility] Comment on above: Performed By: #### L 500.2500, L100.0100 #### [facility] [address] [place], [address] Urea nitrogen [Mass/Vol] 13 mg/dL Normal 7-18 [facility] Comment on above: Performed By: #### L 500.2500, L100.0100 #### [facility] [address] [place], [address] CBC W/Diff, Automatedon 03-06 PATH REV Reviewed Normal [facility] Comment on above: Result Comment: Neut rophilic leukocytosis. Clinical correlation necessary. Jose Hare M.D. 03/29/24 AMENDED REPORT 03/29/24 1503 PATH REV previously reported as: November Performed By: #### L 500.2500, L100.0100 ####[facility] [address] [place], [address] Absolute Lymph 0.44 X10 3/uL Low 0.83-4.51 [facility] Comment on above: Performed By: #### L 500.2500, L100.0100 #### [facility] [address] [place], [address] Absolute Neut 10.8 X10 3/uL High 2.0-7.7 [facility] Comment on above: Performed By: #### L 500.2500, L100.0100 #### [facility] [address] [place], [address] Basophils/100 WBC (Bld) 0.1 % Normal 0-1 [facility] Comment on above: Performed By: #### L 500.2500, L100.0100 #### [facility] [address] [place], [address] Eosinophils/100 WBC (Bld) 0.0 % Normal 0-5 [facility] Comment on above: Performed By: #### L 500.2500, L100.0100 #### [facility] [address] [place], [address] Erythrocyte distribution width (RBC) [Ratio] 14.9 % High 11.6-14.6 [facility] Comment on above: Performed By: #### L 500.2500, L100.0100 #### [facility] [address] [place], [address] Hematocrit (Bld) [Volume fraction] 28.1 % Low 40-54 [facility] Comment on above: Performed By: #### L 500.2500, L100.0100 #### [facility] [address] [place], [address] Hemoglobin (Bld) [Mass/Vol] 8.5 g/dL Low 13.0-16.5 [facility] Comment on above: Performed By: #### L 500.2500, L100.0100 #### [facility] [address] [place], [address] IG% 0.500 Normal 0.0-0.9 [facility] Comment on above: Result Comment: IG% - Immature Granulocytes (promyelocytes, myelocytes and metamyelocytes) > 1% indicates that a LEFT SHIFT is Present. Performed By: #### L 500.2500, L100.0100 #### [facility] [address] [place], [address] Lymphocytes/100 WBC (Bld) 3.5 % Low 19-41 [facility] Comment on above: Performed By: #### L 500.2500, L100.0100 #### [facility] [address] [place], [address] MCH (RBC) [Entitic mass] 28.9 pg Normal 27.0-32.0 [facility] Comment on above: Performed By: #### L 500.2500, L100.0100 #### [facility] [address] [place], [address] MCHC (RBC) [Mass/Vol] 30.2 g/dL Low 32-36 [facility] Comment on above: Performed By: #### L 500.2500, L100.0100 #### [facility] [address] [place], [address] MCV (RBC) [Entitic vol] 95.6 fL High 80-94 [facility] Comment on above: Performed By: #### L 500.2500, L100.0100 #### [facility] [address] [place], [address] Monocytes/100 WBC (Bld) 11.3 % High 0-10 [facility] Comment on above: Performed By: #### L 500.2500, L100.0100 #### [facility] [address] [place], [address] Neutrophils/100 WBC (Bld) 84.6 % High 47-70 [facility] Comment on above: Performed By: #### L 500.2500, L100.0100 #### [facility] [address] [place], [address] Nucleated RBC (Bld) [#/Vol] 0 10*3/uL Normal 0-5 [facility] Comment on above: Performed By: #### L 500.2500, L100.0100 #### [facility] [address] [place], [address] Platelet mean volume (Bld) [Entitic vol] 10.8 fL Normal 6.2-12.0 [facility] Comment on above: Performed By: #### L 500.2500, L100.0100 #### [facility] [address] [place], [address] Platelets (Bld) [#/Vol] 159 10*3/uL Normal 150-450 [facility] Comment on above: Performed By: #### L 500.2500, L100.0100 #### [facility] [address] [place], [address] RBC (Bld) [#/Vol] 2.94 10*6/uL Low 4.6-6.2 [facility] Comment on above: Performed By: #### L 500.2500, L100.0100 #### [facility] [address] [place], [address] RDW SD 52.1 fl High 35.1-43.9 [facility] Comment on above: Performed By: #### L 500.2500, L100.0100 #### [facility] [address] [place], [address] WBC (Bld) [#/Vol] 12.7 10*3/uL High 4.4-11.0 [facility] Comment on above: Performed By: #### L 500.2500, L100.0100 #### [facility] [address] [place], [address] L501.2276on 03-29-2024 Ionized Calcium 4.59 mg/dL Normal 4.36-5.20 [facility] Comment on above: Performed By: #### L 501.2276 ####[facility] [address] [place], [address] Basic Metabolic Profile (BMP )on 03-28-2024 BUN/CRE 23.7 RATIO High 10-20 [facility] Comment on above: Performed By: #### L 500.2500, L100.0100 ####[facility] [address] [place], [address] CA,Total 8.7 mg/dL Normal 8.5-10.1 [facility] Comment on above: Performed By: #### L 500.2500, L100.0100 ####[facility] [address] [place], [address] Chloride [Moles/Vol] 111 mmol/L High 98-107 [facility] Comment on above: Performed By: #### L 500.2500, L100.0100 ####[facility] [address] [place], [address] CO2 [Moles/Vol] 30.0 mmol/L Normal 21.0-32.0 [facility] Comment on above: Performed By: #### L 500.2500, L100.0100 ####[facility] [address] [place], [address] Creatinine [Mass/Vol] 0.84 mg/dL Normal 0.70-1.30 [facility] Comment on above: Result Comment: The validity of the calculated GFR GFRAA in patients over 70 years has not been determined. Clinical correlation is essential. Performed By: #### L 500.2500, L100.0100 ####[facility] [address] [place], [address] ECRCL 56.08 ml/min Normal [facility] Comment on above: Performed By: #### L 500.2500, L100.0100 ####[facility] [address] [place], [address] EST GFR - AA 113 mL/min Normal >60 [facility] Comment on above: Result Comment: Afri can Uzbek GFR Calc Performed By: #### L 500.2500, L100.0100 ####[facility] [address] [place], [address] GAP 3 Low 5-15 [facility] Comment on above: Performed By: #### L 500.2500, L100.0100 ####[facility] [address] [place], [address] GFR/1.73 sq M.predicted among non-blacks MDRD (S/P/Bld) [Vol rate/Area] 94 mL/min/{1.73_m2} Normal >60 [facility] Comment on above: Result Comment: Non- GFR Calc Performed By: #### L 500.2500, L100.0100 ####[facility] [address] [place], [address] Glucose [Mass/Vol] 128 mg/dL High 74-106 [facility] Comment on above: Result Comment: Fast ing Glucose result greater than or equal to 126 mg/dL suggests DIABETES MELLITUS per A.D.A. criteria. Performed By: #### L 500.2500, L100.0100 ####[facility] [address] [place], [address] Potassium [Moles/Vol] 3.8 mmol/L Normal 3.5-5.1 [facility] Comment on above: Performed By: #### L 500.2500, L100.0100 ####[facility] [address] [place], [address] Sodium [Moles/Vol] 144 mmol/L Normal 136-145 [facility] Comment on above: Performed By: #### L 500.2500, L100.0100 ####[facility] [address] [place], [address] Urea nitrogen [Mass/Vol] 20 mg/dL High 7-18 [facility] Comment on above: Performed By: #### L 500.2500, L100.0100 ####[facility] [address] [place], [address] CBC W/Diff, Automatedon 03-06 PATH REV Reviewed Normal [facility] Comment on above: Result Comment: Neut rophilic leukocytosis. Clinical correlation necessary. Jose Hare M.D. 03/28/24 AMENDED REPORT 03/28/24 1139 PATH REV previously reported as: Susanne leavitt Performed By: #### L 500.2500, L100.0100 ####[facility] [address] [place], [address] Hip 1 view with Pelvison Hip 1 view with Pelvis [facility] Imaging Services [address] [place] [address] Hip 1 view with Pelvis MR#: [id number] Acct: [id number] Name: AMOR PETE Rep #: [id number] : 1945 M 78 From: Kirk Linder MD PCP: Dr. Maria Luz Chavira MD Status: ADM IN Study: Hip 1 view with Pelvis Date of Exam: 03/28/24 Exam# [id number] Ordering Dr: Capo Rivera DO [id number] STUDY: X-RAY - LEFT HIP REASON FOR [...] 15:29 EDT Reading Location ID and State: [address] [place] [address] , Service support , CC: Dr. Maria Luz Chavira MD; Dr. Capo Rivera DO [employer]: Signed Normal [facility] MR/POSTOP.[facility] 03-28-2024 MR/POSTOP.[facility] Medical Records Department [address] [place] [address] Anesthesia Postop Eval I 03/28/24 1551 MR#: [id number] Acct: [id number] Name: AMOR PETE Rep #: [id number] : 1945 78 From: Merlin Quintana CRNA PCP: Dr. Maria Luz Chavira MD Status:ADM IN Y Race: C Location: [place] [address] Anesthesia: Postop Eval I Current Vital Signs [...] completed: Yes 03/28/24 1553 Date Merlin Quintana SANITARY INSPECTOR Cosigner Signature: Date CC: Signed Normal [facility] MR/DGHNYZXL9yh 03-28-2024 [facility] Medical Records Department [address] [place] [address] Anesthesia Postop Eval II 03/28/24 1708 MR#: [id number] Acct: [id number] Name: AMOR PETE Rep #: [id number] : 1945 78 From: Huy Miller MD PCP: Dr. Maria Luz Chavira MD Status:ADM IN Y Race: C Location: [place] [address] Anesthesia Postop Eval I Sum Postop Eval Completion status Anesthesia document: Postop Eval 1 completed: Yes Anesthesia Postop Eval I Summary Anesthesia Postop Eval I Summary: Anesthesia Postop Eval I: Assessment Summary Airway patent Yes 03/28/24 15:53 SANITARY INSPECTOR.MARIZALOU Spontaneous unlabored Yes 03/28/24 15:53 SANITARY INSPECTOR.MARIZALOU respirations Mental status Awake,Calm 03/28/24 15:53 SANITARY INSPECTOR.JBLOU nausea No 03/28/24 15:53 SANITARY INSPECTOR.JBLOU Vomiting No 03/28/24 15:53 SANITARY INSPECTOR.JBLOU Anesthesia Postop Eval I: Fluid Summary Crystalloid volume administer 600 03/28/24 15:53 SANITARY INSPECTOR.JBLOU (ml) Colloids volume administered ( ml) Blood Product volume administered (ml) Total IV fluid infused 600 03/28/24 15:53 SANITARY INSPECTOR.JBLOU Anesthesia Postop Eval I: Summary Notes Anesthesia Complication No 03/28/24 15:53 SANITARY INSPECTOR.JBLOU Anesthesia Complication Comment: Post-operative progress note Anesthesia: Postop Eval II Evaluation Mental status: Awake and Calm Pain Level: 2 nausea: No Vomiting: No Complications Anesthesia Complication: No 03/28/24 1708 Date Huy Fieldsignjose luis Signature: Date CC: Signed Normal [facility] Operative Reporton 4 Operative Report [facility] Medical Records Department [address] [place] [address] Operative Report 03/28/24 1526 MR#: [id number] Acct: [id number] Name: AMOR PETE Rep #: [id number] : 1945 78 From: Capo Rivera DO PCP: Dr. Maria Luz Chavira MD Status:ADM IN Location: [place] [address] Operative Report Date of Procedure: 03/28/24 Preoperative [...] irrigated the fascia was closed with #1 slejrp-ut-irbdi Vicryls followed by 2-0 Vicryl in the [...] Dr. Capo Rivera, DO * Signed Normal [facility] 12 Lead EKGon 03-27-2024 12 Lead EKG [facility] Cardiovascular Services [address] [place] [address] 12 Lead EKG 03/27/24 0757 MR#: [id number] Acct: [id number] Name: AMOR PETE Rep #: [id number] : 1945 78 From: Roney Disla MD Attending Dr: Dr. Rui Verma MD Status : ADM IN Ordering Dr: Neil Ramey MD Date: 03/27/24 Location: [facility] Sex: M C Admitted: 03/27/24 Test Reason [...] Otherwise normal ECG Confirmed by Roney Disla ([id number]), tape editor LEXUS PRIDE ([id number]) on 03/28/2024 10:05:59 AM Referred By: Confirmed By:Roney Disla 03/28/24 1006 Date Roney Disla MD CC: Dr. Neil Ramey MD; Dr. Maria Luz Chavira MD; Dr. Rui Verma MD Signed Normal [facility] Basic Metabolic Profile (BMP )on 03-27-2024 BUN/CRE 29.6 RATIO High 10-20 [facility] Comment on above: Performed By: #### L 500.2500, L100.0100 ####[facility] [address] [place], [address] CA,Total 9.5 mg/dL Normal 8.5-10.1 [facility] Comment on above: Performed By: #### L 500.2500, L100.0100 ####[facility] [address] [place], [address] Chloride [Moles/Vol] 108 mmol/L High 98-107 [facility] Comment on above: Performed By: #### L 500.2500, L100.0100 ####[facility] [address] [place], [address] CO2 [Moles/Vol] 28.0 mmol/L Normal 21.0-32.0 [facility] Comment on above: Performed By: #### L 500.2500, L100.0100 ####[facility] [address] [place], [address] Creatinine [Mass/Vol] 0.81 mg/dL Normal 0.70-1.30 [facility] Comment on above: Result Comment: The validity of the calculated GFR GFRAA in patients over 70 years has not been determined. Clinical correlation is essential. Performed By: #### L 500.2500, L100.0100 ####[facility] [address] [place], [address] ECRCL 60.69 ml/min Normal [facility] Comment on above: Performed By: #### L 500.2500, L100.0100 ####[facility] [address] [place], [address] EST GFR - AA 119 mL/min Normal >60 [facility] Comment on above: Result Comment: Afri can Uzbek GFR Calc Performed By: #### L 500.2500, L100.0100 ####[facility] [address] [place], [address] GAP 7 Normal 5-15 [facility] Comment on above: Performed By: #### L 500.2500, L100.0100 ####[facility] [address] [place], [address] GFR/1.73 sq M.predicted among non-blacks MDRD (S/P/Bld) [Vol rate/Area] 98 mL/min/{1.73_m2} Normal >60 [facility] Comment on above: Result Comment: Non- GFR Calc Performed By: #### L 500.2500, L100.0100 ####[facility] [address] [place], [address] Glucose [Mass/Vol] 145 mg/dL High 74-106 [facility] Comment on above: Result Comment: Fast ing Glucose result greater than or equal to 126 mg/dL suggests DIABETES MELLITUS per A.D.A. criteria. Performed By: #### L 500.2500, L100.0100 ####[facility] [address] [place], [address] Potassium [Moles/Vol] 3.7 mmol/L Normal 3.5-5.1 [facility] Comment on above: Performed By: #### L 500.2500, L100.0100 ####[facility] [address] [place], [address] Sodium [Moles/Vol] 143 mmol/L Normal 136-145 [facility] Comment on above: Performed By: #### L 500.2500, L100.0100 ####[facility] [address] [place], [address] Urea nitrogen [Mass/Vol] 24 mg/dL High 7-18 [facility] Comment on above: Performed By: #### L 500.2500, L100.0100 ####[facility] [address] [place], [address] Brain/Head without Contrasto n 03-27-2024 Brain/Head without Contrast [facility] Imaging Services [address] [place] [address] Brain/Head without Contrast MR#: [id number] Acct: [id number] Name: AMOR PETE Rep #: [id number] : 1945 M 78 From: Rogelio bose MD PCP: Dr. Maria Luz Chavira MD Status: REG ER Study: Brain/Head without Contrast Date of Exam: 03/06 09/25 Exam# [id number] Ordering Dr: Neil Ramey MD [id number] EXAM: CT HEAD WITHOUT INTRAVENOUS CONTRAST CLINICAL [...] 8:06 EDT Reading Location ID and State: [facility] / [place] , Service support , CC: Dr. Neil Ramey MD; Dr. Maria Luz Chavira MD [employer]: Signed Normal [facility] Chest 1 View (Portable)on Chest 1 View (Portable) [facility] Imaging Services [address] [place] [address] Chest 1 View (Portable) MR#: [id number] Acct: [id number] Name: AMOR PETE Rep #: [id number] : 1945 M 78 From: Ryder Hook MD PCP: Dr. Maria Luz Chavira MD Status: REG ER Study: Chest 1 View (Portable) Date of Exam: 03/27/24 Exam# [id number] Ordering Dr: Neil Ramey MD [id number] EXAM: XR CHEST, 1 VIEW CLINICAL INDICATION: [...] 8:25 EDT Reading Location ID and State: [facility] / ID Tel , Service support , CC: Dr. Neil Ramey MD; Dr. Maria Luz Chavira MD [employer]: Signed Normal [facility] Emergency Department Summary on 03-27-2024 Emergency Department Summary [facility] Medical Records Department [address] [place] [address] Emergency Department Summary 03/27/24 MR#: [id number] Acct: [id number] Name: AMOR PETE Rep #: [id number] : 1945 78 From: Neil Ramey MD PCP: Dr. Maria Luz Chavira MD Status:REG ER Location: ED HPI HPI - Fall History of Present Illness Chief Complaint: Fall Informant: patient, EMS and other (automotive manager) Narrative Narrative: Patient found that the foot [...] of his head. Denies any other pain. [facility] Medical History Recent change in frequency [...] denosumab 60 mg/mL subcutaneous 60 mg subcut [id number] #1 mL 12/25/22 Unknown Rx syringe cholecalciferol [...] GI non-tender (more content not included)... Normal [facility] H AND P Exam - Hospitaliston 03-27-2024 H&P Exam - Hospitalist [facility] Medical Records Department [address] [place] [address] H P Exam - Hospitalist 03/27/24 1650 MR#: [id number] Acct: [id number] Name: AMOR PETE Rep #: [id number] : 1945 78 From: Rui Verma MD PCP: Dr. Maria Luz Chavira MD Status:ADM IN Location: [place] [address]-1 HPI - General General Date of Admission: 03/27/24 HPI Narrative AMOR PETE, is a 78 M who presents to the hospital after falling at the detention. He does not give great history from [...] have any significant pain at the moment. [facility] Medical History Recent change in frequency [...] denosumab 60 mg/mL subcutaneous 60 mg subcut [id number] #1 mL 12/25/22 Unknown Rx syringe cholecalciferol [...] exam anton (more content not included)... Normal [facility] HIP, UNI W/ Pelvis 2-3 Views on 03-27-2024 HIP, UNI W/ Pelvis 2-3 Views [facility] Imaging Services [address] [place], [place] [address] HIP, UNI W/ Pelvis 2-3 Views MR#: [id number] Acct: [id number] Name: AMOR PETE Rep #: [id number] : 1945 M 78 From: Ryder Hook MD PCP: Dr. Maria Luz Chavira MD Status: REG ER Study: HIP, UNI W/ Pelvis 2-3 Views Date of Exam: Exam# [id number] Ordering Dr: Neil Ramey MD [id number] EXAM: XR LEFT HIP WITH PELVIS WHEN [...] Ramey MD; Dr. Maria Luz Chavira MD [employer]: Signed Normal [facility] Urinalysis, Completeon 03-27 EPI,RENAL 0-5 SEEN Normal 0-5 [facility] Comment on above: Order Comment: COLLE CTOR TO SPECIFY Performed By: #### L 400.0001 #### [facility] Laboratory [address] [place], [address] CAST,HYALINE 0-5 SEEN Normal 0-5 [facility] Comment on above: Order Comment: COLLE CTOR TO SPECIFY Performed By: #### L 400.0001 #### [facility] Laboratory [address] [place], [address] BACTERIA 1+ /hpf Normal None Seen [facility] Comment on above: Order Comment: COLLE CTOR TO SPECIFY Performed By: #### L 400.0001 #### [facility] Laboratory [address] [place], [address] EPI,SQUAMOUS 0-5 SEEN Normal 0-5 [facility] Comment on above: Order Comment: COLLE CTOR TO SPECIFY Performed By: #### [id number] [id number] #### [facility] [address] [place], [address] EPI,TRANSITION 0-5 SEEN Normal 0-5 [facility] Comment on above: Order Comment: COLLE CTOR TO SPECIFY Performed By: #### [id number] #### [facility] [address] [place], [address] RBC 0-5 SEEN Normal 0-5 [facility] Comment on above: Order Comment: COLLE CTOR TO SPECIFY Performed By: #### [id number] #### [facility] [address] [place], [address] WBC 0-5 SEEN Normal 0-5 [facility] Comment on above: Order Comment: DENNY CTOR TO SPECIFY Performed By: #### [id number] #### [facility] [address] [place], [address] Mucus Ql (Urine sed) 0 SEEN Normal [facility] Comment on above: Order Comment: COLLE CTOR TO SPECIFY Performed By: #### [id number] #### [facility] [address] [place], [address] Absolute lymphocyte countOrd ered By: Maria Luz Chavira on 08-27-2023 Lymphocytes Auto (Unsp spec) [#/Vol] 1.13 10*3/uL 0.83-4.51 [facility] Automated lymphocyte count a s percentage of total leukocytesOrdered By: Maria Luz Chavira on 08-27-2023 Lymphocytes/100 WBC Auto (Unsp spec) 16.5 % 19-41 [facility] Basophil percentageOrdered B y: Maria Luz Chavira on 08-27-2023 Basophils/100 WBC (Bld) 0.9 % 0-[address] [facility] Bilirubin [Mass/Vol] 0.50 mg/dL 0.20-1.00 [facility] Comment on above: For patients on eltr ombopag therapy, use of [employer] [place] TBIL is not recommended. Chloride [Moles/Vol] 108 mmol/L 98-107 [facility] Cholesterol [Mass/Vol] 213 mg/dL <200 [facility] Comment on above: <200 mg/dL Desirable 200-240 mg/dL Borderline >240 mg/dL High Risk Eosinophils/100 WBC (Bld) 2.8 % 0-5 [facility] Glucose [Mass/Vol] 68 mg/dL 74-106 [facility] Hemoglobin (Bld) [Mass/Vol] 15.3 g/dL 13.0-16.5 [facility] Monocytes/100 WBC (Bld) 9.3 % 0-[address] [facility] Neutrophils (Bld) [#/Vol] 4.8 10*3/uL 2.0-7.7 [facility] Neutrophils/100 WBC (Bld) 70.2 % 47-70 [facility] Potassium [Moles/Vol] 4.0 mmol/L 3.5-5.1 [facility] Protein [Mass/Vol] 8.0 g/dL 6.4-8.2 [facility] Sodium [Moles/Vol] 142 mmol/L 136-145 [facility] Triglyceride [Mass/Vol] 93 mg/dL <[address] [facility] Comment on above: The drugs N-Acetylcy steine and Metamizole may falsely depress this assay.Serum Triglycerides Reference Interval Normal <150 mg/dL Borderline high 150 - 199 mg/dL High 200 - 499 mg/dL Very High > or = 500 mg/dL WBC (Bld) [#/Vol] 6.9 10*3/uL 4.4-11.0 [facility] Determination of erythrocyte mean corpuscular volume (MCV)Ordered By: Maria Luz Chavira on 08-27-2023 MCV (RBC) [Entitic vol] 92.0 fL 80-[address] [facility] Erythrocyte distribution wid th ratioOrdered By: [facility] on 08-27-2023 Erythrocyte distribution width (RBC) [Ratio] 14.7 % 11.6-14.6 [facility] Erythrocyte distribution wid th standard deviationOrdered By: [facility] Festussuzie on 08-27-2023 Erythrocyte distribution width (RBC) [Entitic vol] 50.2 fL 35.1-43.9 [facility] Hematocrit Auto (Bld) [Volum e fraction]Ordered By: Maria Luz Chavira on 08-27-2023 Hematocrit (Bld) [Volume fraction] 48.0 % 40-54 [facility] Immature granulocytes/100 WB C Auto (Bld)Ordered By: joaquinalas vegastj Chavira on 08-27-2023 Immature granulocytes/100 WBC (Bld) 0.300 % 0.0-0.9 [facility] Comment on above: IG% - Immature Granu locytes (promyelocytes, myelocytes and metamyelocytes) > 1% indicates that a LEFT SHIFT is Present. Laboratory - Chemistry and C hemistry - challengeOrdered By: Maria Luz Chavira on 08-27-2023 Albumin/Globulin [Mass ratio] 0.8 {ratio} 0.9-2.4 [facility] ALP [Catalytic activity/Vol] 83 U/L 45-117 [facility] ALT [Catalytic activity/Vol] 27 U/L 16-61 [facility] Cholesterol in HDL [Mass/Vol] 99 mg/dL >40 [facility] Comment on above: The drugs N-Acetylcy steine and Metamizole may falsely depress this assay. Reference Range HDL <40 mg/dL Low HDL Cholesterol HDL >or= 60 mg/dL High HDL Cholesterol Cholesterol in LDL [Mass/Vol] 95 mg/dL 0-130 [facility] CO2 [Moles/Vol] 30.0 mmol/L 21.0-32.0 [facility] Globulin (S) [Mass/Vol] 4.5 g/dL 2.2-4.[address] [facility] Urea nitrogen/Creatinine [Mass ratio] 20.3 mg/mg 10-20 [facility] - Hematology and Cell countsOrdered By: Maria Luz Chavira on 08-27-2023 MCH (RBC) [Entitic mass] 29.3 pg 27.0-32.0 [facility] MCHC (RBC) [Mass/Vol] 31.9 g/dL 32-36 [facility] Nucleated RBC/100 WBC (Bld) [Ratio] 0 % 0-5 [facility] Platelet mean volume (Bld) [Entitic vol] 10.0 fL 6.2-12.0 [facility] Platelets (Bld) [#/Vol] 263 10*3/uL 150-450 [facility] No Panel InformationOrdered By: Maria Luz Chavira on 08-27-2023 Estimated GFR (MDRD) Amer 95 mL/min >60 [facility] Comment on above: GFR Calc Estimated GFR (MDRD) Non-Af Amer 79 mL/min >60 [facility] Comment on above: Non- GFR Calc Prostate Specific Antigen Screen 6.76 ng/mL 0.00-4.00 [facility] Comment on above: This test was perfor med using the TPSA assay method for the[employer] chemistry system. Values obtained with differentassay methods cannot be used interchangably.When changing PSA assays in the course of monitoring apatient, additional sequential testing should be carriedout to confirm baseline values. Vitamin D 25-Hydroxy 50.1 ng/mL [facility] Comment on above: Vitamin D 25(OH) Sta tus Range Deficiency <20 ng/mL (50nmol/L) Insufficiency 20 - 30 ng/mL (50 - 75 nmol/L) Sufficiency 30 - 100 ng/mL (75 - 250 nmol/L) Toxicity >100 ng/mL (>250 nmol/L) VLDL Cholesterol 19 mg/dL 5-40 [facility] RBC Auto (Bld) [#/Vol]Ordere d By: Maria Luz Chavira on 08-27-2023 RBC (Bld) [#/Vol] 5.22 10*6/uL 4.6-6.2 [facility] Serum or plasma calcium ray urement (mass/volume)Ordered By: Maria Luz Chavira on 08-27-2023 Calcium [Mass/Vol] 9.4 mg/dL 8.5-10.1 [facility] Serum or plasma creatinine m easurement (mass/volume)Ordered By: Maria Luz Chavira on 08-27-2023 Creatinine [Mass/Vol] 0.98 mg/dL 0.70-1.30 [facility] Comment on above: The validity of the calculated GFR & GFRAA in patients over 70 years has not been determined. Clinical correlation is essential. Serum or plasma urea nitroge n measurement (mass/volume)Ordered By: Maria Luz Chavira on 08-27-2023 Urea nitrogen [Mass/Vol] 20 mg/dL 7-18 [facility] Thin prep Papanicolaou smear with manual screeningOrdered By: Maria Luz Chavira on 08-27-2023 Thin prep Papanicolaou smear with manual screening 3.5 g/dL 3.2-5.0 [facility] Thin prep Papanicolaou smear with manual screening 20 U/L 15-37 [facility] Thin prep Papanicolaou smear with manual screening 4 5-15 [facility] Absolute lymphocyte countOrd ered By: Dr. Chavira on 12-25-2022 Lymphocytes Auto (Unsp spec) [#/Vol] 1.01 10*3/uL 0.83-4.51 [facility] Basophil percentageOrdered B y: Dr. Chavira on 12-25-2022 Basophils/100 WBC (Bld) 0.9 % 0-1 [facility] Bilirubin [Mass/Vol] 0.40 mg/dL 0.20-1.00 [facility] Comment on above: For patients on eltr ombopag therapy, use of [employer] [place] TBIL is not recommended. Chloride [Moles/Vol] 105 mmol/L 98-107 [facility] Eosinophils/100 WBC (Bld) 0.7 % 0-5 [facility] Glucose [Mass/Vol] 77 mg/dL 74-106 [facility] Neutrophils (Bld) [#/Vol] 5.7 10*3/uL 2.0-7.7 [facility] Neutrophils/100 WBC (Bld) 74.0 % 47-70 [facility] Potassium [Moles/Vol] 4.2 mmol/L 3.5-5.1 [facility] Protein [Mass/Vol] 7.1 g/dL 6.4-8.2 [facility] Sodium [Moles/Vol] 143 mmol/L 136-145 [facility] WBC (Bld) [#/Vol] 7.6 10*3/uL 4.4-11.0 [facility] Blood erythrocytes count (nu mber/volume)Ordered By: Dr. Chavira on 12-25-2022 RBC (Bld) [#/Vol] 5.02 10*6/uL 4.6-6.2 [facility] Blood hemoglobin measurement (mass/volume)Ordered By: Dr. Chavira on 12-25-2022 Hemoglobin (Bld) [Mass/Vol] 14.7 g/dL 13.0-16.5 [facility] Blood lymphocytes/100 leukoc ytesOrdered By: Dr. Chavira on 12-25-2022 Lymphocytes/100 WBC (Bld) 13.3 % 19-41 [facility] Blood monocytes/100 leukocyt esOrdered By: Dr. Chavira on 12-25-2022 Monocytes/100 WBC (Bld) 10.8 % 0-10 [facility] Blood platelet mean volumeOr dered By: Dr. Chavira on 12-25-2022 Platelet mean volume (Bld) [Entitic vol] 10.3 fL 6.2-12.0 [facility] Determination of erythrocyte mean corpuscular volume (MCV)Ordered By: Dr. Chavira on 12-25-2022 MCV (RBC) [Entitic vol] 93.4 fL 80-94 [facility] Hematocrit Auto (Bld) [Volum e fraction]Ordered By: Dr. Chavira on 12-25-2022 Hematocrit (Bld) [Volume fraction] 46.9 % 40-54 [facility] - Chemistry and C hemistry - challengeOrdered By: Dr. Chavira on 12-25-2022 ALP [Catalytic activity/Vol] 87 U/L 45-117 [facility] ALT [Catalytic activity/Vol] 15 U/L 16-61 [facility] CO2 [Moles/Vol] 35.0 mmol/L 21.0-32.0 [facility] Globulin (S) [Mass/Vol] 3.9 g/dL 2.2-4.2 [facility] Urea nitrogen/Creatinine [Mass ratio] 22.3 mg/mg 10-20 [facility] - Hematology and Cell countsOrdered By: Dr. Chavira on 12-25-2022 Erythrocyte distribution width (RBC) [Entitic vol] 48.2 fL 35.1-43.9 [facility] Erythrocyte distribution width (RBC) [Ratio] 14.1 % 11.6-14.6 [facility] Immature granulocytes/100 WBC (Bld) 0.300 % 0.0-0.9 [facility] Comment on above: IG% - Immature Granu locytes (promyelocytes, myelocytes and metamyelocytes) > 1% indicates that a LEFT SHIFT is Present. MCH (RBC) [Entitic mass] 29.3 pg 27.0-32.0 [facility] Nucleated RBC/100 WBC (Bld) [Ratio] 0 % 0-5 [facility] MCHC Auto (RBC) [Mass/Vol]Or dered By: Dr. Chavira on 12-25-2022 MCHC (RBC) [Mass/Vol] 31.3 g/dL 32-36 [facility] No Panel InformationOrdered By: Dr. Chavira on 12-25-2022 Estimated GFR (MDRD) Amer 106 mL/min >60 [facility] Comment on above: GFR Calc Estimated GFR (MDRD) Non-Af Amer 88 mL/min >60 [facility] Comment on above: Non- GFR Calc Vitamin D 25-Hydroxy 52.4 ng/mL [facility] Comment on above: Vitamin D 25(OH) Sta tus Range Deficiency <20 ng/mL (50nmol/L) Insufficiency 20 - 30 ng/mL (50 - 75 nmol/L) Sufficiency 30 - 100 ng/mL (75 - 250 nmol/L) Toxicity >100 ng/mL (>250 nmol/L) Platelets bldOrdered By: Dr. Chavira on 12-25-2022 Platelets (Bld) [#/Vol] 309 10*3/uL 150-450 [facility] Serum or plasma albumin ray urement (mass/volume)Ordered By: Dr. Chavira on 12-25-2022 Albumin [Mass/Vol] 3.2 g/dL 3.2-5.0 [facility] Serum or plasma albumin/glob ulin mass ratioOrdered By: Dr. Chavira on 12-25-2022 Albumin/Globulin [Mass ratio] 0.8 {ratio} 0.9-2.4 [facility] Serum or plasma calcium ray urement (mass/volume)Ordered By: Dr. Chavira on 12-25-2022 Calcium [Mass/Vol] 9.3 mg/dL 8.5-10.1 [facility] Serum or plasma creatinine m easurement (mass/volume)Ordered By: Dr. Chavira on 12-25-2022 Creatinine [Mass/Vol] 0.90 mg/dL 0.70-1.30 [facility] Comment on above: The validity of the calculated GFR & GFRAA in patients over 70 years has not been determined. Clinical correlation is essential. Serum or plasma urea nitroge n measurement (mass/volume)Ordered By: Dr. Chavira on 12-25-2022 Urea nitrogen [Mass/Vol] 20 mg/dL 7-18 [facility] Thin prep Papanicolaou smear with manual screeningOrdered By: Dr. Chavira on 12-25-2022 Thin prep Papanicolaou smear with manual screening 14 U/L 15-37 [facility] Thin prep Papanicolaou smear with manual screening 3 5-15 [facility] Basophil percentageOrdered B y: Dr. Chavira on 08-19-2022 Bilirubin [Mass/Vol] 0.40 mg/dL 0.20-1.00 [facility] Comment on above: For patients on eltr ombopag therapy, use of [employer] [place] TBIL is not recommended. Chloride [Moles/Vol] 109 mmol/L 98-107 [facility] Cholesterol [Mass/Vol] 178 mg/dL <200 [facility] Comment on above: <200 mg/dL Desirable 200-240 mg/dL Borderline >240 mg/dL High Risk Glucose [Mass/Vol] 87 mg/dL 74-106 [facility] Potassium [Moles/Vol] 4.5 mmol/L 3.5-5.1 [facility] Protein [Mass/Vol] 7.5 g/dL 6.4-8.2 [facility] Sodium [Moles/Vol] 145 mmol/L 136-145 [facility] Triglyceride [Mass/Vol] 73 mg/dL <199 [facility] Comment on above: The drugs N-Acetylcy steine and Metamizole may falsely depress this assay.Serum Triglycerides Reference Interval Normal <150 mg/dL Borderline high 150 - 199 mg/dL High 200 - 499 mg/dL Very High > or = 500 mg/dL Laboratory - Chemistry and C hemistry - challengeOrdered By: Dr. Chavira on 08-19-2022 ALP [Catalytic activity/Vol] 86 U/L 45-117 [facility] ALT [Catalytic activity/Vol] 15 U/L 16-61 [facility] CO2 [Moles/Vol] 31.0 mmol/L 21.0-32.0 [facility] Globulin (S) [Mass/Vol] 4.0 g/dL 2.2-4.2 [facility] Urea nitrogen/Creatinine [Mass ratio] 18.9 mg/mg 10-20 [facility] No Panel InformationOrdered By: Dr. Chavira on 08-19-2022 Estimated GFR (MDRD) Amer 106 mL/min >60 [facility] Comment on above: GFR Calc Estimated GFR (MDRD) Non-Af Amer 88 mL/min >60 [facility] Comment on above: Non- GFR Calc Prostate Specific Antigen Total 6.91 ng/mL 0.0-4.0 [facility] Comment on above: This test was perfor med using the TPSA assay method for [employer] chemistry system. Values obtained with differentassay methods cannot be used interchangably.When changing PSA assays in the course of monitoring apatient, additional sequential testing should be carriedout to confirm baseline values. Vitamin D 25-Hydroxy 26.5 ng/mL [facility] Comment on above: Vitamin D 25(OH) Sta tus Range Deficiency <20 ng/mL (50nmol/L) Insufficiency 20 - 30 ng/mL (50 - 75 nmol/L) Sufficiency 30 - 100 ng/mL (75 - 250 nmol/L) Toxicity >100 ng/mL (>250 nmol/L) Serum or plasma albumin ray urement (mass/volume)Ordered By: Dr. Chavira on 08-19-2022 Albumin [Mass/Vol] 3.5 g/dL 3.2-5.0 [facility] Serum or plasma albumin/glob ulin mass ratioOrdered By: Dr. Chavira on 08-19-2022 Albumin/Globulin [Mass ratio] 0.9 {ratio} 0.9-2.4 [facility] Serum or plasma calcium ray urement (mass/volume)Ordered By: Dr. Chavira on 08-19-2022 Calcium [Mass/Vol] 9.3 mg/dL 8.5-10.1 [facility] Serum or plasma cholesterol in HDL measurement (mass/volume)Ordered By: Dr. Chavira on 08-19-2022 Cholesterol in HDL [Mass/Vol] 91 mg/dL >40 [facility] Comment on above: The drugs N-Acetylcy steine and Metamizole may falsely depress this assay. Reference Range HDL <40 mg/dL Low HDL Cholesterol HDL >or= 60 mg/dL High HDL Cholesterol Serum or plasma cholesterol in VLDL measurement (mass/volume)Ordered By: Dr. Chavira on 08-19-2022 Cholesterol in VLDL [Mass/Vol] 15 mg/dL 5-40 [facility] Serum or plasma creatinine m easurement (mass/volume)Ordered By: Dr. Chavira on 08-19-2022 Creatinine [Mass/Vol] 0.90 mg/dL 0.70-1.30 [facility] Comment on above: The validity of the calculated GFR & GFRAA in patients over 70 years has not been determined. Clinical correlation is essential. Serum or plasma low density lipoprotein (LDL) cholesterol measurement (mass/volume)Ordered By: Dr. Chavira on 08-19-2022 Cholesterol in LDL [Mass/Vol] 72 mg/dL 0-130 [facility] Serum or plasma urea nitroge n measurement (mass/volume)Ordered By: Dr. Chavira on 08-19-2022 Urea nitrogen [Mass/Vol] 17 mg/dL 7-18 [facility] Thin prep Papanicolaou smear with manual screeningOrdered By: Dr. Chavira on 08-19-2022 Thin prep Papanicolaou smear with manual screening 14 U/L 15-37 [facility] Thin prep Papanicolaou smear with manual screening 5 5-15 [facility] Basophil percentageon 2021 Bilirubin [Mass/Vol] 0.30 mg/dL 0.20-1.00 [facility] Work Phone: Comment on above: For patients on eltr ombopag therapy, use of [employer]ension [place] TBIL is not recommended. Chloride [Moles/Vol] 108 mmol/L 98-107 [facility] Work Phone: Glucose [Mass/Vol] 82 mg/dL 74-106 [facility] Work Phone: Potassium [Moles/Vol] 3.7 mmol/L 3.5-5.1 [facility] Work Phone: Protein [Mass/Vol] 7.7 g/dL 6.4-8.2 [facility] Work Phone: [phone] Sodium [Moles/Vol] 147 mmol/L 136-145 [facility] Work Phone: WBC (Bld) [#/Vol] 8.5 10*3/uL 4.4-11.0 [facility] Work Phone: [phone] Blood erythrocytes count (nu mber/volume)on 04-23-2022 RBC (Bld) [#/Vol] 5.02 10*6/uL 4.6-6.2 [facility] Work Phone: [phone] Blood hemoglobin measurement (mass/volume)on 04-23-2022 Hemoglobin (Bld) [Mass/Vol] 15.1 g/dL 13.0-16.5 [facility] Work Phone: [phone] Blood platelet mean volumeon 04-23-2022 Platelet mean volume (Bld) [Entitic vol] 10.7 fL 6.2-12.0 [facility] Work Phone: [phone] Determination of erythrocyte mean corpuscular volume (MCV)on 04-23-2022 MCV (RBC) [Entitic vol] 93.2 fL 80-94 [facility] Work Phone: [phone] Hematocrit Auto (Bld) [Volum e fraction]on 04-23-2022 Hematocrit (Bld) [Volume fraction] 46.8 % 40-54 [facility] Work Phone: Laboratory - Chemistry and C hemistry - challengeon 04-23-2022 ALP [Catalytic activity/Vol] 89 U/L 45-117 [facility] Work Phone: [phone] ALT [Catalytic activity/Vol] 22 U/L 16-61 [facility] Work Phone: [phone] CO2 [Moles/Vol] 34.0 mmol/L 21.0-32.0 [facility] Work Phone: [phone] Cobalamin (Vitamin B12) [Mass/Vol] 501 pg/mL 211-911 [facility] Work Phone: [phone] Globulin (S) [Mass/Vol] 4.2 g/dL 2.2-4.2 [facility] Work Phone: [phone] Urea nitrogen/Creatinine [Mass ratio] 21.2 mg/mg 04-23 [facility] Work Phone: Laboratory - Hematology and Cell countson 04-23-2022 Erythrocyte distribution width (RBC) [Entitic vol] 48.8 fL 35.1-43.9 [facility] Work Phone: [phone] Erythrocyte distribution width (RBC) [Ratio] 14.4 % 11.6-14.6 [facility] Work Phone: [phone] MCH (RBC) [Entitic mass] 30.1 pg 27.0-32.0 [facility] Work Phone: [phone] MCHC Auto (RBC) [Mass/Vol]on 04-23-2022 MCHC (RBC) [Mass/Vol] 32.3 g/dL 32-36 [facility] Work Phone: No Panel Informationon 04-23 Estimated GFR (MDRD) Amer 100 mL/min >60 [facility] Work Phone: [phone] Comment on above: GFR Calc Estimated GFR (MDRD) Non-Af Amer 83 mL/min >60 [facility] Work Phone: [phone] Comment on above: Non- GFR Calc Thyroid Stimulating Hormone (TSH) 2.19 uIU/mL 0.358-3.74 [facility] Work Phone: [phone] Blood Vitamin B1 Level 161.0 nmol/L 66.5-200.0 [facility] Work Phone: Comment on above: Performed at: - [address] [id number] Director: Nico Palm MD, Phone: [phone] Platelets bldon 04-23-2022 Platelets (Bld) [#/Vol] 312 10*3/uL 150-450 [facility] Work Phone: [phone] Serum or plasma albumin ray urement (mass/volume)on 04-23-2022 Albumin [Mass/Vol] 3.5 g/dL 3.2-5.0 [facility] Work Phone: [phone] Serum or plasma albumin/glob ulin mass ratioon 04-23-2022 Albumin/Globulin [Mass ratio] 0.8 {ratio} 0.9-2.4 [facility] Work Phone: Serum or plasma calcitriol m easurement (mass/volume)on 04-23-2022 1,25-dihydroxyvitamin D3 [Mass/Vol] 45.1 pg/mL 24.8-81.5 [facility] Work Phone: Comment on above: Performed at: - [address] [id number] Director: Nico Palm MD, Phone: [phone] Serum or plasma calcium ray urement (mass/volume)on 04-23-2022 Calcium [Mass/Vol] 9.0 mg/dL 8.5-10.1 [facility] Work Phone: Serum or plasma creatinine m easurement (mass/volume)on 04-23-2022 Creatinine [Mass/Vol] 0.94 mg/dL 0.70-1.30 [facility] Work Phone: Comment on above: The validity of the calculated GFR & GFRAA in patients over 70 years has not been determined. Clinical correlation is essential. Serum or plasma folate measu rement (mass/volume)on 04-23-2022 Folate [Mass/Vol] 14.20 ng/mL 3.1-55.4 [facility] Work Phone: Serum or plasma urea nitroge n measurement (mass/volume)on 04-23-2022 Urea nitrogen [Mass/Vol] 20 mg/dL 7-18 [facility] Work Phone: [phone] Thin prep Papanicolaou smear with manual screeningon 04-23-2022 Thin prep Papanicolaou smear with manual screening 16 U/L 15-37 [facility] Work Phone: [phone] Thin prep Papanicolaou smear with manual screening 5 5-15 [facility] Work Phone: Basophil percentageon 2021 Basophil percentage 0 SEEN /hpf [facility] Work Phone: [phone] Bilirubin Test strip Ql (U)o n 06-09-2022 Bilirubin Ql (U) Negative Negative [facility] Work Phone: Culture, urineon 12-11-2021 Bacteria identified Cx Nom (U) Mixed Gram Pos & Gram Neg Org [facility] Work Phone: Ketones Test strip Ql (U)on 12-11-2021 Ketones Ql (U) Negative Negative [facility] Work Phone: Mucus LM Ql (Urine sed)on Mucus Ql (Urine sed) 0 SEEN /hpf [facility] Work Phone: Nitrite Test strip Ql (U)on 12-11-2021 Nitrite Ql (U) Negative Negative [facility] Work Phone: Protein Test strip Ql (U)on 12-11-2021 Protein Ql (U) Negative Negative [facility] Work Phone: Squamous epithelial cells de tection in urine sediment by light microscopyon 12-11-2021 Epithelial cells.squamous LM Ql (Urine sed) 0-5 SEEN /hpf [facility] Work Phone: Urine blood detectionon RBC Ql (U) Negative Negative [facility] Work Phone: RBC Ql (U) 0 SEEN /hpf [facility] Work Phone: Urine clarityon 12-11-2021 Clarity (U) Sl. Cloudy Clear [facility] Work Phone: Urine color determinationon 12-11-2021 Color (U) Yellow Yellow [facility] Work Phone: Urine glucose detectionon Glucose Ql (U) Normal mg/dl Normal [facility] Work Phone: Urine leukocyte esterase det ection by dipstickon 12-11-2021 Leukocyte esterase Test strip Ql (U) Negative Negative [facility] Work Phone: Urine pHon 12-11-2021 pH (U) 6.5 [pH] [facility] Work Phone: Urine sediment bacteria coun t by microscopy (number/high power field)on 12-11-2021 Bacteria LM.HPF (Urine sed) [#/Area] 0 /[HPF] None Seen [facility] Work Phone: Urine specific gravity measu rementon 12-11-2021 Specific gravity (U) [Rel density] 1.015 [facility] Work Phone: Urobilinogen Auto test strip Ql (U)on 12-11-2021 Urobilinogen Ql (U) Normal mg/dl Normal [facility] Work Phone: Absolute lymphocyte counton 12-10-2021 Lymphocytes Auto (Unsp spec) [#/Vol] 1.29 10*3/uL 0.83-4.51 [facility] Work Phone: Basophil percentageon 2021 Basophils/100 WBC (Bld) 0.7 % 0-1 [facility] Work Phone: Bilirubin [Mass/Vol] 0.40 mg/dL 0.20-1.00 [facility] Work Phone: Comment on above: For patients on eltr ombopag therapy, use of [employer] [place] TBIL is not recommended. Chloride [Moles/Vol] 109 mmol/L 98-107 [facility] Work Phone: Eosinophils/100 WBC (Bld) 0.6 % 0-5 [facility] Work Phone: [phone] Glucose [Mass/Vol] 105 mg/dL 74-106 [facility] Work Phone: Comment on above: Fasting Glucose resu lt from 100 to 125 mg/dL suggests IMPAIRED HOMEOSTASIS per A.D.A. criteria. Neutrophils (Bld) [#/Vol] 6.8 10*3/uL 2.0-7.7 [facility] Work Phone: Neutrophils/100 WBC (Bld) 74.6 % 47-70 [facility] Work Phone: Potassium [Moles/Vol] 3.7 mmol/L 3.5-5.1 [facility] Work Phone: Protein [Mass/Vol] 8.2 g/dL 6.4-8.2 [facility] Work Phone: Sodium [Moles/Vol] 145 mmol/L 136-[facility]: WBC (Bld) [#/Vol] 9.1 10*3/uL 4.4-11.0 [facility] Work Phone: Blood erythrocytes count (nu mber/volume)on 12-10-2021 RBC (Bld) [#/Vol] 5.40 10*6/uL 4.6-6.2 [facility] Work Phone: Blood hemoglobin measurement (mass/volume)on 12-10-2021 Hemoglobin (Bld) [Mass/Vol] 15.3 g/dL 13.0-16.5 [facility] Work Phone: Blood lymphocytes/100 leukoc yteson 12-10-2021 Lymphocytes/100 WBC (Bld) 14.2 % 19-41 [facility] Work Phone: Blood monocytes/100 leukocyt eson 12-10-2021 Monocytes/100 WBC (Bld) 9.6 % 0-10 [facility] Work Phone: Blood platelet mean volumeon 12-10-2021 Platelet mean volume (Bld) [Entitic vol] 10.7 fL 6.2-12.0 [facility] Work Phone: Determination of erythrocyte mean corpuscular volume (MCV)on 12-10-2021 MCV (RBC) [Entitic vol] 93.9 fL 80-94 [facility] Work Phone: Hematocrit Auto (Bld) [Volum e fraction]on 12-10-2021 Hematocrit (Bld) [Volume fraction] 50.7 % 40-54 [facility] Work Phone: Laboratory - Chemistry and C hemistry - challengeon 12-10-2021 ALP [Catalytic activity/Vol] 92 U/L 45-117 [facility] Work Phone: [phone] ALT [Catalytic activity/Vol] 19 U/L 16-61 [facility] Work Phone: [phone] CO2 [Moles/Vol] 32.0 mmol/L 21.0-32.0 [facility] Work Phone: [phone] Globulin (S) [Mass/Vol] 4.6 g/dL 2.2-4.2 [facility] Work Phone: [phone] Urea nitrogen/Creatinine [Mass ratio] 20.9 mg/mg 10-20 [facility] Work Phone: [phone] Laboratory - Hematology and Cell countson 12-10-2021 Erythrocyte distribution width (RBC) [Entitic vol] 49.5 fL 35.1-43.9 [facility] Work Phone: [phone] Erythrocyte distribution width (RBC) [Ratio] 14.6 % 11.6-14.6 [facility] Work Phone: [phone] Immature granulocytes/100 WBC (Bld) 0.300 % 0.0-0.9 [facility] Work Phone: [phone] Comment on above: IG% - Immature Granu locytes (promyelocytes, myelocytes and metamyelocytes) > 1% indicates that a LEFT SHIFT is Present. MCH (RBC) [Entitic mass] 28.3 pg 27.0-32.0 [facility] Work Phone: [phone] Nucleated RBC/100 WBC (Bld) [Ratio] 0 % 0-5 [facility] Work Phone: [phone] MCHC Auto (RBC) [Mass/Vol]on 12-10-2021 MCHC (RBC) [Mass/Vol] 30.2 g/dL 32-36 [facility] Work Phone: [phone] Panel Informationon 12-10 Prostate Specific Antigen Total 10.30 ng/mL 0.0-4.0 [facility] Work Phone: [phone] Comment on above: This test was perfor med using the TPSA [facility] method [facility], [place] chemistry system. Values obtained with differentassay methods cannot be used interchangably.When changing PSA assays in the course of monitoring apatient, additional sequential testing should be carriedout to confirm baseline values. Estimated GFR (MDRD) Amer 111 mL/min >60 [facility] Work Phone: Comment on above: GFR Calc Estimated GFR (MDRD) Non-Af Amer 92 mL/min >60 [facility] Work Phone: Comment on above: Non- GFR Calc Platelets bldon 12-10-2021 Platelets (Bld) [#/Vol] 280 10*3/uL 150-450 [facility] Work Phone: Serum or plasma albumin ray urement (mass/volume)on 12-10-2021 Albumin [Mass/Vol] 3.6 g/dL 3.2-5.0 [facility] Work Phone: Serum or plasma albumin/glob ulin mass ratioon 12-10-2021 Albumin/Globulin [Mass ratio] 0.8 {ratio} 0.9-2.4 [facility] Work Phone: Serum or plasma calcium ray urement (mass/volume)on 12-10-2021 Calcium [Mass/Vol] 9.6 mg/dL 8.5-10.1 [facility] Work Phone: Serum or plasma creatinine m easurement (mass/volume)on 12-10-2021 Creatinine [Mass/Vol] 0.86 mg/dL 0.70-1.30 [facility] Work Phone: Comment on above: The validity of the calculated GFR & GFRAA in patients over 70 years has not been determined. Clinical correlation is essential. Serum or plasma urea nitroge n measurement (mass/volume)on 12-10-2021 Urea nitrogen [Mass/Vol] 18 mg/dL 7-18 [facility] Work Phone: Thin prep Papanicolaou smear with manual screeningon 12-10-2021 Thin prep Papanicolaou smear with manual screening 18 U/L 15-37 [facility] Work Phone: Thin prep Papanicolaou smear with manual screening 4 5-15 [facility] Work Phone: Absolute lymphocyte counton 08-28-2021 Lymphocytes Auto (Unsp spec) [#/Vol] 1.34 10*3/uL 0.83-4.51 [facility] Work Phone: Basophil percentageon 2021 Basophils/100 WBC (Bld) 0.6 % 0-1 [facility] Work Phone: Bilirubin [Mass/Vol] 0.20 mg/dL 0.20-1.00 [facility] Work Phone: Comment on above: For patients on eltr ombopag therapy, use of [employer] [place] TBIL is not recommended. Chloride [Moles/Vol] 107 mmol/L 98-107 [facility] Work Phone: Cholesterol [Mass/Vol] 169 mg/dL <200 [facility] Work Phone: Comment on above: <200 mg/dL Desirable 200-240 mg/dL Borderline >240 mg/dL High Risk Eosinophils/100 WBC (Bld) 1.6 % 0-5 [facility] Work Phone: Glucose [Mass/Vol] 110 mg/dL 74-106 [facility] Work Phone: Comment on above: Fasting Glucose resu lt from 100 to 125 mg/dL suggests IMPAIRED HOMEOSTASIS per A.D.A. criteria. Neutrophils (Bld) [#/Vol] 5.6 10*3/uL 2.0-7.7 [facility] Work Phone: Neutrophils/100 WBC (Bld) 69.3 % 47-70 [facility] Work Phone: Potassium [Moles/Vol] 3.9 mmol/L 3.5-5.1 [facility] Work Phone: Protein [Mass/Vol] 7.8 g/dL 6.4-8.2 [facility] Work Phone: Sodium [Moles/Vol] 142 mmol/L 136-145 [facility] Work Phone: [phone] Triglyceride [Mass/Vol] 127 mg/dL [facility] Work Phone: Comment on above: The drugs N-Acetylcy steine and Metamizole may falsely depress this assay.Serum Triglycerides Reference Interval Normal <150 mg/dL Borderline high 150 - 199 mg/dL High 200 - 499 mg/dL Very High > or = 500 mg/dL WBC (Bld) [#/Vol] 8.0 10*3/uL 4.4-11.0 [facility] Work Phone: Blood erythrocytes count (nu mber/volume)on 08-28-2021 RBC (Bld) [#/Vol] 5.18 10*6/uL 4.6-6.2 [facility] Work Phone: Blood hemoglobin measurement (mass/volume)on 08-28-2021 Hemoglobin (Bld) [Mass/Vol] 14.6 g/dL 13.0-16.5 [facility] Work Phone: Blood lymphocytes/100 leukoc yteson 08-28-2021 Lymphocytes/100 WBC (Bld) 16.7 % 19-41 [facility] Work Phone: [phone] Blood monocytes/100 leukocyt eson 08-28-2021 Monocytes/100 WBC (Bld) 11.6 % 0-10 [facility] Work Phone: [phone] Blood platelet mean volumeon 08-28-2021 Platelet mean volume (Bld) [Entitic vol] 9.8 fL 6.2-12.0 [facility] Work Phone: [phone] Determination of erythrocyte mean corpuscular volume (MCV)on 08-28-2021 MCV (RBC) [Entitic vol] 90.0 fL 80-94 [facility] Work Phone: [phone] Hematocrit Auto (Bld) [Volum e fraction]on 08-28-2021 Hematocrit (Bld) [Volume fraction] 46.6 % 40-54 [facility] Work Phone: [phone] Laboratory - Chemistry and C hemistry - challengeon 08-28-2021 ALP [Catalytic activity/Vol] 94 U/L 45-117 [facility] Work Phone: [phone] ALT [Catalytic activity/Vol] 19 U/L 16-61 [facility] Work Phone: [phone] CO2 [Moles/Vol] 30.0 mmol/L 21.0-32.0 [facility] Work Phone: [phone] Globulin (S) [Mass/Vol] 4.6 g/dL 2.2-4.2 [facility] Work Phone: [phone] Urea nitrogen/Creatinine [Mass ratio] 17.8 mg/mg 10-20 [facility] Work Phone: [phone] Laboratory - Hematology and Cell countson 08-28-2021 Erythrocyte distribution width (RBC) [Entitic vol] 48.7 fL 35.1-43.9 [facility] Work Phone: [phone] Erythrocyte distribution width (RBC) [Ratio] 14.7 % 11.6-14.6 [facility] Work Phone: [phone] Immature granulocytes/100 WBC (Bld) 0.200 % 0.0-0.9 [facility] Work Phone: [phone] Comment on above: IG% - Immature Granu locytes (promyelocytes, myelocytes and metamyelocytes) > 1% indicates that a LEFT SHIFT is Present. MCH (RBC) [Entitic mass] 28.2 pg 27.0-32.0 [facility] Work Phone: [phone] Nucleated RBC/100 WBC (Bld) [Ratio] 0 % 0-5 [facility] Work Phone: [phone] MCHC Auto (RBC) [Mass/Vol]on 08-28-2021 MCHC (RBC) [Mass/Vol] 31.3 g/dL 32-36 [facility] Work Phone: [phone] Panel Informationon 08-28 Estimated GFR (MDRD) Amer 93 mL/min >60 [facility] Work Phone: [phone] Comment on above: GFR Calc Estimated GFR (MDRD) Non-Af Amer 77 mL/min >60 [facility] Work Phone: Comment on above: Non- GFR Calc Prostate Specific Antigen Screen 9.18 ng/mL 0.00-4.00 [facility] Work Phone: Comment on above: This test was perfor med using the TPSA assay method for the[employer] chemistry system. Values obtained with differentassay methods cannot be used interchangably.When changing PSA assays in the course of monitoring apatient, additional sequential testing should be carriedout to confirm baseline values. Platelets bldon 08-28-2021 Platelets (Bld) [#/Vol] 319 10*3/uL 150-450 [facility] Work Phone: Serum or plasma albumin ray urement (mass/volume)on 08-28-2021 Albumin [Mass/Vol] 3.2 g/dL 3.2-5.0 [facility] Work Phone: [phone] Serum or plasma albumin/glob ulin mass ratioon 08-28-2021 Albumin/Globulin [Mass ratio] 0.7 {ratio} 0.9-2.4 [facility] Work Phone: Serum or plasma calcium ray urement (mass/volume)on 08-28-2021 Calcium [Mass/Vol] 9.3 mg/dL 8.5-10.1 [facility] Work Phone: Serum or plasma cholesterol in HDL measurement (mass/volume)on 08-28-2021 Cholesterol in HDL [Mass/Vol] 70 mg/dL [facility] Work Phone: Comment on above: The drugs N-Acetylcy steine and Metamizole may falsely depress this assay. Reference Range HDL <40 mg/dL Low HDL Cholesterol HDL >or= 60 mg/dL High HDL Cholesterol Serum or plasma cholesterol in VLDL measurement (mass/volume)on 08-28-2021 Cholesterol in VLDL [Mass/Vol] 25 mg/dL 5-40 [facility] Work Phone: [phone] Serum or plasma creatinine m easurement (mass/volume)on 08-28-2021 Creatinine [Mass/Vol] 1.01 mg/dL 0.70-1.30 [facility] Work Phone: Comment on above: The validity of the calculated GFR & GFRAA in patients over 70 years has not been determined. Clinical correlation is essential. Serum or plasma low density lipoprotein (LDL) cholesterol measurement (mass/volume)on 08-28-2021 Cholesterol in LDL [Mass/Vol] 74 mg/dL 0-130 [facility] Work Phone: Serum or plasma urea nitroge n measurement (mass/volume)on 08-28-2021 Urea nitrogen [Mass/Vol] 18 mg/dL 7-18 [facility] Work Phone: Thin prep Papanicolaou smear with manual screeningon 08-28-2021 Thin prep Papanicolaou smear with manual screening 13 U/L 15-37 [facility] Work Phone: Thin prep Papanicolaou smear with manual screening 5 5-15 [facility] Work Phone: Vital Signs Date Time Vital Sign Value Performing Clinician Faci lity 02-28-2025 10:04-0400 Body height 162.[address] Maria Luz Chavira MD Work Phone: [facility] 02-28-2025 10:04-0400 Body mass index (BMI) [Ratio] 20.2 kg/m2 Dr. Maria Luz Chavira MD Work Phone: [facility] 02-28-2025 10:04-0400 Body temperature 98.1 [degF] Dr. Maria Luz Chavira MD Work Phone: [facility] 02-28-2025 10:04-0400 Body weight 53.[address] Maria Luz Chavira MD Work Phone: [facility] 02-28-2025 10:04-0400 Diastolic blood pressure 58 mm[Hg] Dr. Maria Luz Chavira MD Work Phone: [facility] 02-28-2025 10:04-0400 Respiratory rate 16 /min Dr. Maria Luz Chavira MD Work Phone: [facility] 02-28-2025 10:04-0400 Systolic blood pressure 98 mm[Hg] Dr. Maria Luz Chavira MD Work Phone: [facility] 02-07-2025 08:07-0400 Body height 162.[address] Maria Luz Chavira MD Work Phone: [facility] 02-07-2025 08:07-0400 Body mass index (BMI) [Ratio] 21.6 kg/m2 Dr. Maria Luz Chavira MD Work Phone: [facility] 02-07-2025 08:07-0400 Body temperature 98.4 [degF] Dr. Maria Luz Chavira MD Work Phone: [facility] 02-07-2025 08:07-0400 Body weight 57.[address] Maria Luz Chavira MD Work Phone: [facility] 02-07-2025 08:07-0400 Diastolic blood pressure 74 mm[Hg] Dr. Maria Luz Chavira MD Work Phone: [facility] 02-07-2025 08:07-0400 Heart rate 75 /min Dr. Maria Luz Chavira MD Work Phone: [facility] 02-07-2025 08:07-0400 Respiratory rate 16 /min Dr. Maria Luz Chavira MD Work Phone: [facility] 02-07-2025 08:07-0400 SaO2% (BldA) [Mass fraction] 97 % Dr. Maria Luz Chavira MD Work Phone: [facility] 02-07-2025 08:07-0400 Systolic blood pressure 147 mm[Hg] Dr. Maria Luz Chavira MD Work Phone: [facility] 01-17-2025 11:17-0400 Heart rate 86 /min Dr. Maria Luz Chavira MD Work Phone: [facility] 01-17-2025 11:17-0400 Respiratory rate 14 /min Dr. Maria Luz Chavira MD Work Phone: [facility] 01-17-2025 11:17-0400 SaO2% (BldA) [Mass fraction] 95 % Dr. Maria Luz Chavira MD Work Phone: [facility] 01-17-2025 10:26-0400 Body temperature 98.2 [degF] Dr. Maria Luz Chavira MD Work Phone: [facility] 01-17-2025 10:26-0400 Diastolic blood pressure 76 mm[Hg] Dr. Maria Luz Chavira MD Work Phone: [facility] 01-17-2025 10:26-0400 Systolic blood pressure 142 mm[Hg] Dr. Maria Luz Chavira MD Work Phone: [facility] 11-01-2024 12:43-0400 Body height 162.[address] Maria Luz Chavira MD Work Phone: [facility] 11-01-2024 12:43-0400 Body mass index (BMI) [Ratio] 20.3 kg/m2 Dr. Maria Luz Chavira MD Work Phone: [facility] 11-01-2024 12:43-0400 Body temperature 97.5 [degF] Dr. Maria Luz Chavira MD Work Phone: [facility] 11-01-2024 12:43-0400 Body weight 53.[address] Maria Luz Chavira MD Work Phone: [facility] 11-01-2024 12:43-0400 Diastolic blood pressure 64 mm[Hg] Dr. Maria Luz Chavira MD Work Phone: [facility] 11-01-2024 12:43-0400 Heart rate 66 /min Dr. Maria Luz Chavira MD Work Phone: [facility] 11-01-2024 12:43-0400 Respiratory rate 16 /min Dr. Maria Luz Chavira MD Work Phone: [facility] 11-01-2024 12:43-0400 SaO2% (BldA) [Mass fraction] 96 % Dr. Maria Luz Chavira MD Work Phone: [facility] 11-01-2024 12:43-0400 Systolic blood pressure 110 mm[Hg] Dr. Maria Luz Chavira MD Work Phone: [facility] 08-30-2024 09:19-0500 Body height 162.[address] Maria Luz Chavira MD Work Phone: [facility] 08-30-2024 09:19-0500 Body mass index (BMI) [Ratio] 20.4 kg/m2 Dr. Maria Luz Chavira MD Work Phone: [facility] 08-30-2024 09:19-0500 Body temperature 97.8 [degF] Dr. Maria Luz Chavira MD Work Phone: [facility] 08-30-2024 09:19-0500 Body weight 53.[address] Maria Luz Chavira MD Work Phone: [facility] 08-30-2024 09:19-0500 Diastolic blood pressure 66 mm[Hg] Dr. Maria Luz Chavira MD Work Phone: [facility] 08-30-2024 09:19-0500 Heart rate 54 /min Dr. Maria Luz Chavira MD Work Phone: [facility] 08-30-2024 09:19-0500 Respiratory rate 18 /min Dr. Maria Luz Chavira MD Work Phone: [facility] 08-30-2024 09:19-0500 SaO2% (BldA) [Mass fraction] 96 % Dr. Maria Luz Chavira MD Work Phone: [facility] 08-30-2024 09:19-0500 Systolic blood pressure 124 mm[Hg] Dr. Maria Luz Chavira MD Work Phone: [facility] 07-07-2024 14:02-0500 Body mass index (BMI) [Ratio] 21.4 kg/m2 Dr. Maria Luz Chavira MD Work Phone: [facility] 07-07-2024 14:02-0500 Body temperature 98.5 [degF] Dr. Maria Luz Chavira MD Work Phone: [facility] 07-07-2024 14:02-0500 Body weight 56.[address] Maria Luz Chavira MD Work Phone: [facility] 07-07-2024 14:02-0500 Diastolic blood pressure 62 mm[Hg] Dr. Maria Luz Chavira MD Work Phone: [facility] 07-07-2024 14:02-0500 Heart rate 76 /min Dr. Maria Luz Chavira MD Work Phone: [facility] 07-07-2024 14:02-0500 Respiratory rate 16 /min Dr. Maria Luz Chavira MD Work Phone: [facility] 07-07-2024 14:02-0500 SaO2% (BldA) [Mass fraction] 99 % Dr. Maria Luz Chavira MD Work Phone: [facility] 07-07-2024 14:02-0500 Systolic blood pressure 116 mm[Hg] Dr. Maria Luz Chavira MD Work Phone: [facility] 08-27-2023 08:45-0500 Body height 157.[address] Maria Luz Chavira Work Phone: [facility] 08-27-2023 08:45-0500 Body mass index (BMI) [Ratio] 22.1 kg/m2 Dr. Maria Luz Chavira Work Phone: [facility] 08-27-2023 08:45-0500 Body temperature 97.3 [degF] Dr. Maria Luz Chavira Work Phone: [facility] 08-27-2023 08:45-0500 Body weight 54.[address] Maria Luz Chavira Work Phone: [facility] 08-27-2023 08:45-0500 Diastolic blood pressure 64 mm[Hg] Dr. Maria Luz Chavira Work Phone: [facility] 08-27-2023 08:45-0500 Heart rate 64 /min Dr. Maria Luz Chavira Work Phone: [facility] 08-27-2023 08:45-0500 Respiratory rate 6 /min Dr. Maria Luz Chavira Work Phone: [facility] 08-27-2023 08:45-0500 SaO2% (BldA) [Mass fraction] 92 % Dr. Maria Luz Chavira Work Phone: [facility] 08-27-2023 08:45-0500 Systolic blood pressure 118 mm[Hg] Dr. Maria Luz Chavira Work Phone: [facility] 12-29-2022 15:37-0400 Body height 157.[address] Maria Luz Chavira Work Phone: [facility] 12-29-2022 15:37-0400 Body mass index (BMI) [Ratio] 20.6 kg/m2 Dr. Maria Luz Chavira Work Phone: [facility] 12-29-2022 15:37-0400 Body temperature 98.2 [degF] Dr. Maria Luz Chavira Work Phone: [facility] 12-29-2022 15:37-0400 Body weight 51.[address] Maria Luz Chavira Work Phone: [facility] 12-29-2022 15:37-0400 Diastolic blood pressure 80 mm[Hg] Dr. Maria Luz Chavira Work Phone: [facility] 12-29-2022 15:37-0400 Heart rate 66 /min Dr. Maria Luz Chavira Work Phone: [facility] 12-29-2022 15:37-0400 Respiratory rate 16 /min Dr. Maria Luz Chavira Work Phone: [facility] 12-29-2022 15:37-0400 SaO2% (BldA) [Mass fraction] 99 % Dr. Maria Luz Chavira Work Phone: [facility] 12-29-2022 15:37-0400 Systolic blood pressure 132 mm[Hg] Dr. Maria Luz Chavira Work Phone: [facility] 12-25-2022 09:02-0400 Body mass index (BMI) [Ratio] 21.5 kg/m2 Dr. Maria Luz Chavira Work Phone: [facility] 12-25-2022 09:02-0400 Body temperature 98.2 [degF] Dr. Maria Luz Chavira Work Phone: [facility] 12-25-2022 09:02-0400 Body weight 53.[address] Maria Luz Chavira Work Phone: [facility] 12-25-2022 09:02-0400 Diastolic blood pressure 60 mm[Hg] Dr. Maria Luz Chavira Work Phone: [facility] 12-25-2022 09:02-0400 Heart rate 76 /min Dr. Maria Luz Chavira Work Phone: [facility] 12-25-2022 09:02-0400 Respiratory rate 16 /min Dr. Maria Luz Chavira Work Phone: [facility] 12-25-2022 09:02-0400 SaO2% (BldA) [Mass fraction] 96 % Dr. Maria Luz Chavira Work Phone: [facility] 12-25-2022 09:02-0400 Systolic blood pressure 118 mm[Hg] Dr. Maria Luz Chavira Work Phone: [facility] 08-19-2022 10:13-0500 Body height 157.[address] Maria Luz Chavira Work Phone: [facility] 08-19-2022 10:13-0500 Body mass index (BMI) [Ratio] 21.2 kg/m2 Dr. Maria Luz Chavira Work Phone: [facility] 08-19-2022 10:13-0500 Body temperature 98.7 [degF] Dr. Maria Luz Chavira Work Phone: [facility] 08-19-2022 10:13-0500 Body weight 52.[address] Maria Luz Chavira Work Phone: [facility] 08-19-2022 10:13-0500 Diastolic blood pressure 80 mm[Hg] Dr. Maria Luz Chavira Work Phone: [facility] 08-19-2022 10:13-0500 Heart rate 59 /min Dr. Maria Luz Chavira Work Phone: [facility] 08-19-2022 10:13-0500 Respiratory rate 16 /min Dr. Maria Luz Chavira Work Phone: [facility] 08-19-2022 10:13-0500 SaO2% (BldA) [Mass fraction] 92 % Dr. Maria Luz Chavira Work Phone: [facility] 08-19-2022 10:13-0500 Systolic blood pressure 130 mm[Hg] Dr. Maria Luz Chavira Work Phone: [facility] 04-23-2022 15:21-0400 Body height 157.[address] Maria Luz Chavira Work Phone: [facility] Work Phone: 04-23-2022 15:21-0400 Body mass index (BMI) [Ratio] 21.8 kg/m2 Dr. Maria Luz Chavira Work Phone: [facility] Work Phone: 04-23-2022 15:21-0400 Body temperature 98.4 [degF] Dr. Maria Luz Chavira Work Phone: [facility] Work Phone: 04-23-2022 15:21-0400 Body weight 54.[address] Maria Luz Chavira Work Phone: [facility] Work Phone: 04-23-2022 15:21-0400 Diastolic blood pressure 70 mm[Hg] Dr. Maria Luz Chavira Work Phone: [facility] Work Phone: 04-23-2022 15:21-0400 Heart rate 84 /min Dr. Maria Luz Chavira Work Phone: [facility] Work Phone: 04-23-2022 15:21-0400 Respiratory rate 16 /min Dr. Maria Luz Chavira Work Phone: [facility] Work Phone: 04-23-2022 15:21-0400 SaO2% (BldA) [Mass fraction] 98 % Dr. Maria Luz Chavira Work Phone: [facility] Work Phone: 04-23-2022 15:21-0400 Systolic blood pressure 110 mm[Hg] Dr. Maria Luz Chavira Work Phone: [facility] Work Phone: 12-10-2021 09:59-0400 Body height 157.[address] Maria Luz Chavira Work Phone: [facility] Work Phone: 12-10-2021 09:59-0400 Body mass index (BMI) [Ratio] 24 kg/m2 Dr. Maria Luz Chavira Work Phone: [facility] Work Phone: 12-10-2021 09:59-0400 Body temperature 97.6 [degF] Dr. Maria Luz Chavira Work Phone: [facility] Work Phone: 12-10-2021 09:59-0400 Body weight 59.[address] Maria Luz Chavira Work Phone: [facility] Work Phone: 12-10-2021 09:59-0400 Diastolic blood pressure 64 mm[Hg] Dr. Maria Luz Chavira Work Phone: [facility] Work Phone: 12-10-2021 09:59-0400 Heart rate 88 /min Dr. Maria Luz Chavira Work Phone: [facility] Work Phone: 12-10-2021 09:59-0400 Respiratory rate 18 /min Dr. Maria Luz Chavira Work Phone: [facility] Work Phone: 12-10-2021 09:59-0400 SaO2% (BldA) [Mass fraction] 96 % Dr. Maria Luz Chavira Work Phone: [facility] Work Phone: 12-10-2021 09:59-0400 Systolic blood pressure 124 mm[Hg] Dr. Maria Luz Chavira Work Phone: [facility] Work Phone: 11-11-2021 08:27-0400 Body temperature 98.6 [degF] Dr. Maria Luz Chavira Work Phone: [facility] Work Phone: 11-11-2021 08:27-0400 Body weight 63.[address] Maria Luz Chavira Work Phone: [facility] Work Phone: 11-11-2021 08:27-0400 Diastolic blood pressure 72 mm[Hg] Dr. Marai Luz Chavira Work Phone: [facility] Work Phone: 11-11-2021 08:27-0400 Heart rate 77 /min Dr. Maria Luz Chavira Work Phone: [facility] Work Phone: 11-11-2021 08:27-0400 Respiratory rate 16 /min Dr. Maria Luz Chavira Work Phone: [facility] Work Phone: 11-11-2021 08:27-0400 SaO2% (BldA) [Mass fraction] 97 % Dr. Maria Luz Chavira Work Phone: [facility] Work Phone: 11-11-2021 08:27-0400 Systolic blood pressure 130 mm[Hg] Dr. Maria Luz Chavira Work Phone: [facility] Work Phone: 08-28-2021 13:41-0500 Body mass index (BMI) [Ratio] 25 kg/m2 Dr. Maria Luz Chavira Work Phone: [facility] Work Phone: 08-28-2021 13:41-0500 Body temperature 98.4 [degF] Dr. Maria Luz Chavira Work Phone: [facility] Work Phone: 08-28-2021 13:41-0500 Body weight 62.[address] Maria Luz Chavira Work Phone: [facility] Work Phone: 08-28-2021 13:41-0500 Diastolic blood pressure 80 mm[Hg] Dr. Maria Luz Chavira Work Phone: [facility] Work Phone: 08-28-2021 13:41-0500 Heart rate 65 /min Dr. Maria Luz Chavira Work Phone: [facility] Work Phone: 08-28-2021 13:41-0500 Respiratory rate 16 /min Dr. Maria Luz Chavira Work Phone: [facility] Work Phone: 08-28-2021 13:41-0500 SaO2% (BldA) [Mass fraction] 90 % Dr. Maria Luz Chavira Work Phone: [facility] Work Phone: 08-28-2021 13:41-0500 Systolic blood pressure 124 mm[Hg] Dr. Maria Luz Chavira Work Phone: [facility] Work Phone: Encounters Encounter Date Encounter Type Care Provider Facility Start: 03-02-2025 End: 03-02-2025 Patient encounter procedure GOLDY NURSE -[place] [facility] Work Phone: Start: 03-02-2025 End: 03-02-[address] Maria Luz Chavira MD Work Phone: -[facility] Start: 02-28-2025 End: 02-28-[address] Maria Luz Chavira MD -[place] [facility] Work Phone: Start: 02-28-2025 End: 02-28-[address] Maria Luz Chavira MD Work Phone: -[place] [facility] Start: 02-07-2025 End: 02-07-[address] Bobby Garcia MD -[place] [facility] Work Phone: Start: 02-07-2025 End: 02-07-[address] Maria Luz Chavira MD Work Phone: -[place] [facility] Start: 02-07-2025 End: 02-07-2025 ambulatory Bobby Garcia Facility:[facility] Start: 01-17-2025 End: 01-17-2025 Patient encounter procedure Neal Chun [facility] Work Phone: Start: 01-17-2025 End: 01-17-[address] Maria Luz Chavira MD Work Phone: [facility] Start: 01-17-2025 End: 01-17-2025 ambulatory Neal Chun Facility:[facility] Start: 12-11-2024 End: 12-11-2024 Patient encounter procedure Kim Cheung Work Phone: Podiatry Comment on above: Calcaneal spur, unsp ecified laterality (Primary Dx) Start: 12-11-2024 End: 12-11-2024 ambulatory KIM CHEUNG Facility:[facility] Start: 12-11-2024 End: 12-11-2024 Subsequent hospital visit by physician [facility] Work Phone: Radiology Comment on above: Pain [R52] Start: 11-01-2024 End: 11-01-2024 Patient encounter procedure Kim BARKER -[place] [facility] Work Phone: Start: 11-01-2024 End: 11-01-2024 ambulatory Kim Doshi Facility:[facility] Start: 09-15-2024 End: 09-15-2024 ambulatory Nikki Taveras NP Facility:[facility] Start: 08-30-2024 End: 08-30-[address] Maria Luz Chavira MD -[place] [facility] Work Phone: Start: 08-30-2024 End: 08-30-[address] Maria Luz Chavira MD Work Phone: [facility] Work Phone: Start: 08-30-2024 End: 08-30-2024 ambulatory Kaleighjoaquinaongbe Tee Facility:[facility] Start: 07-07-2024 End: 07-07-2024 Patient encounter procedure Kim BARKER -[place] [facility] Work Phone: Start: 07-07-2024 End: 07-07-2024 ambulatory Kaleighjoaquinaongbe Olecaneloe Facility:[facility] Start: 06-09-2024 ambulatory Efewongbe Olecaneloe OLS Fa cility:[facility] Start: 06-09-2024 Registered Referred Maria Luz Chavira MD -[facility] Start: 05-12-2024 End: 05-12-2024 ambulatory Rosi Wolf NP Facility:[facility] Start: 05-12-2024 End: 05-12-2024 ambulatory Efjoaquinaongbe Tee Facility:[facility] Start: 04-28-2024 End: 04-28-2024 ambulatory Efewongbe Festuscaneloe Facility:[facility] Start: 04-21-2024 End: 04-21-20[facility] Start: 04-18-2024 End: 04-18-2024 ambulatory Efewongbe Olecaneloe Facility:[facility] Start: 04-14-2024 End: 04-14-2024 ambulatory Efewongbe Oleghe Facility:[facility] Start: 04-03-2024 End: 04-03-2024 ambulatory Efewongbe Tee Facility:[facility] Start: 03-30-2024 ambulatory Efewongbe Festuscaneloe Facili ty:[facility] Start: 03-30-2024 End: 04-13-2024 Evaluation and management of inpatient Efewongbe Oleghe Facility:[facility] Start: 03-27-2024 [facility] Start: 03-27-2024 End: 03-30-2024 Evaluation and management of inpatient Capo Borruso Facility:[facility] Start: 08-27-2023 End: 08-27-[address] Maria Luz Chavira Work Phone: [facility] Work Phone: Start: 08-27-2023 End: 08-27-[address] Maria Luz Chavira Work Phone: [facility] Work Phone: Start: 08-12-2023 End: 08-12-[address] Maria Luz Chavira Work Phone: [facility] Work Phone: Start: 12-29-[address] Maria Luz Chavira Work Phone: [facility] Start: 12-25-2022 End: 12-25-[address] Maria Luz Chavira Work Phone: [facility] Work Phone: Start: 12-25-2022 End: 12-25-[address] Maria Luz Chavira Work Phone: [facility] Start: 09-08-2022 End: 09-08-[address] Maria Luz Chavira Work Phone: [facility] Work Phone: Start: 09-08-2022 End: 09-08-[address] Maria Luz Chavira Work Phone: [facility]-Outpatient Bone Densitometry Start: 08-19-2022 End: 08-19-[address] Maria Luz Chavira Work Phone: [facility] Work Phone: Start: 08-19-2022 End: 08-19-[address] Maria Luz Chavira Work Phone: [facility]Laboratory, [facility] Start: 08-19-2022 End: 08-19-[address] Maria Luz Chavira Work Phone: [facility] Start: 05-19-2022 End: 05-19-[address] Maria Luz Chavira Work Phone: [facility] Work Phone: Start: 05-19-2022 End: 05-19-[address] [facility] Lu[facility] Phone[facility] Start: 05-12-2022 Non-patient / Non-visit Dr. Maria Luz Chavira Work Phone: [facility] Start: 04-23-2022 End: 04-23-[address] Maria Luz Chavira Work Phone: [facility] Work Phone: Start: 04-23-2022 End: 04-23-[address] Maria Luz Chavira Work Phone: [facility] Start: 04-23-2022 End: 04-23-[address] Maria Luz Chavira Work Phone: [facility] Start: 03-31-2022 Refill Sajan Mendez MD Work Phone: [facility] Comment on above: Refill Request Start: 12-10-2021 End: 12-10-[address] Maria Luz Chavira Work Phone: [facility] Start: 11-11-2021 End: 11-11-[address] Maria Luz Chavira Work Phone: [facility] Start: 08-28-2021 End: 08-28-[address] Maria Luz Chavira Work Phone: [facility] Date Procedure Procedure Detail Performing Clinician Start: [...] 03-05-2025 Influenza vaccination Influenza Vaccine (Season Ended) [facility] Start: 07-05-2024 Advance Directive Discussion Advance Directive Discussion [facility] Start: 03-05-2024 Covid-19 Vaccine ( season) Covid-19 Vaccine ( season) [facility] Start: 08-28-2023 DIABETES SCREEN DIABETES SCREEN [facility] Start: 08-28-2023 Diabetes Screening Diabetes Screening [facility] Start: 2022 RSV Vaccine (1 - 1-dose 75+ series) RSV Vaccine (1 - 1-dose 75+ series) [facility] Start: 03-19-2022 ANNUAL PCP TEAM CHRONIC DISEASE VISIT ANNUAL PCP TEAM CHRONIC DISEASE VISIT [facility] Start: 03-05-2022 Influenza vaccination INFLUENZA (#1) [facility] Start: 11-11-2021 Patient referral [facility] Work Phone: Start: 08-28-2021 Patient referral [facility] Work Phone: Start: 07-05-2021 ADVANCE DIRECTIVE DISCUSSION ADVANCE DIRECTIVE DISCUSSION [facility] Start: 07-05-2021 DEPRESSION ASSESSMENT DEPRESSION ASSESSMENT [facility] Start: 09-26-2020 COVID-19 VACCINE (3 - Booster for Pfizer series) COVID-19 VACCINE (3 - Booster for Pfizer series) [facility] Start: 07-01-2020 LIPID SCREEN LIPID SCREEN [facility] Start: 11-02-2018 Urine microalbumin profile [facility] Start: 07-07-2017 FECAL OCCULT BLOOD FECAL OCCULT BLOOD [facility] Start: 07-08-2016 COLORECTAL CANCER SCREENING COLORECTAL CANCER SCREENING [facility] Start: 01-29-2013 Colonoscopy COLONOSCOPY [facility] Start: 1997 SHINGRIX VACCINE (1 of 2) SHINGRIX VACCINE (1 of 2) [facility] Start: 1992 COLOGUARD (FIT-DNA) COLOGUARD (FIT-DNA) [facility] Start: [address] COLONOGRAPHY [facility] Start: 1992 SIGMOIDOSCOPY SIGMOIDOSCOPY [facility] Start: 1965 Anxiety Screening Anxiety Screening [facility] Start: 1965 BP CONTROLLED (<130/80) BP CONTROLLED (<130/80) [facility] Start: 1965 Depression Screening Depression Screening [facility] Start: 1965 SPIROMETRY SPIROMETRY [facility] DXA Bone [Mass/Area] Bone density [facility] Work Phone: Vitamin D, 1,25-dihydroxy measurement [facility] XR Foot - bilateral AP and Lateral and oblique XR FOOT GENERAL 3V AP/LAT/OBL BILATERAL Radiology Routine Pain 12/11/2024 1:26 PM EDT [facility] Work Phone: Immunizations Immunization Date Immunization Notes Care Provider Becca topete 05-07-2023 influenza virus vaccine, unspecified formulation Kim Cheung Work Phone: [facility] 04-04-2023 Influenza High-Dose Quadrivalent Dr. Maria Luz Chavira MD Work Phone: [facility] 07-05-2022 Covid (Pfizer) Dr. Maria Luz Chavira MD Work Phone: [facility] 04-27-2017 influenza, high dose seasonal, preservative-free Sajan Mendez MD Work Phone: [facility] 07-07-2016 influenza, high dose seasonal, preservative-free Sajan Mendez MD Work Phone: [facility] 07-01-2015 pneumococcal polysaccharide vaccine, 23 valent Sajan Mendez MD Work Phone: [facility] 04-26-2014 pneumococcal conjuga te vaccine, 13 valent Sajan Mendez MD Work Phone: [facility] 04-03-2014 influenza, high dose seasonal, preservative-free Sajan Mendez MD Work Phone: [facility] Work Phone: 04-13-2013 influenza virus vaccine, unspecified formulation Sajan Mendez MD Work Phone: [facility] Work Phone: 05-12-2012 influenza virus vaccine, unspecified formulation Sajan Mendez MD Work Phone: [facility] 04-27-2011 influenza virus vaccine, unspecified formulation Sajan Mendez MD Work Phone: [facility] Work Phone: 04-04-2009 influenza virus vaccine, unspecified formulation Sajan Mendez MD Work Phone: [facility] 11-02-2008 tetanus toxoid, redu kang diphtheria toxoid, and acellular pertussis vaccine, adsorbed Sajan Mendez MD Work Phone: [facility] Payers Date Payer Category Payer Self-pay [id number] 2016 Medicaid [id number] 2016 Medicaid [id number] 3b [id number] 1987 Medicare [id number] 1987 Medicare [id number] Unknown [id number] 2.16.8 40.1.220212.3.579.2.462 Unknown [id number] 2.16.8 40.1.809680.3.579.2.462 Unknown [id number] 2.16.8 40.1.321631.3.579.2.462 Unknown [id number] 2.16.8 40.1.545300.3.579.2.462 Unknown [id number] 2.16.8 40.1.864934.3.579.2.462 Unknown [id number] 2.16.8 40.1.580353.3.579.2.462 Unknown [id number] 2.16.8 40.1.458084.3.579.2.462 Unknown [id number] 2.16.8 40.1.911470.3.579.2.462 Unknown [id number] 2.16.8 40.1.630829.3.579.2.462 Unknown [id number] 2.16.8 40.1.285183.3.579.2.462 Unknown [id number] 2.16.8 40.1.197325.3.579.2.462 Unknown [id number] 2.16.8 40.1.474694.3.579.2.462 Unknown [id number] 2.16.8 40.1.817720.3.579.2.462 Unknown [id number] 2.16.8 40.1.417749.3.579.2.462 Unknown [id number] 2.16.8 40.1.458310.3.579.2.462 Unknown [id number] 2.16.8 40.1.890620.3.579.2.462 Unknown [id number] 2.16.8 40.1.665199.3.579.2.462 Unknown [id number] 2.16.8 40.1.639737.3.579.2.462 Unknown [id number] 2.16.8 40.1.365767.3.579.2.462 Unknown [id number] 2.16.8 40.1.179345.3.579.2.462 Unknown [id number] 2.16.8 40.1.074755.3.579.2.462 Unknown [id number] 2.16.8 40.1.916237.3.579.2.462 Unknown [id number] 2.16.8 40.1.081780.3.579.2.462 Unknown [id number] 2.16.8 40.1.873596.3.579.2.462 Unknown [id number] 2.16.8 40.1.777878.3.579.2.462 Unknown [id number] 2.16.8 40.1.157017.3.579.2.462 Unknown [id number] 2.16.8 40.1.994628.3.579.2.462 Unknown [id number] 2.16.8 40.1.534418.3.579.2.462 Unknown [id number] 2.16.8 40.1.082125.3.579.2.462 Unknown [id number] 2.16.8 40.1.081591.3.579.2.462 Unknown [id number] 2.16.8 40.1.342434.3.579.2.462 Unknown [id number] 2.16.8 40.1.836817.3.579.2.462 Unknown [id number] 2.16.8 40.1.498647.3.579.2.462 Social History Date Type Detail Facility Start: 12-10-2021 End: 08-27-2023 Tobacco smoking status NHIS Unknown if ever smoked [facility] Start: 02-11-2016 None [facility] Start: 02-11-2016 - [facility] Start: 02-11-2016 Non-smoker [facility] Start: 1945 Sex Assigned At Male [facility] Start: 04-13-2013 [facility] Work Phone: Start: 04-13-2013 Tobacco use and exposure Smokeless tobacco non-user [facility] Work Phone: Start: 03-19-2021 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) [facility] Start: 1945 Sex Assigned At Not on file [facility] Start: 03-30-2024 Tobacco smoking stat us GAIS Ex-smoker (finding) [facility] Start: 09-14-2024 Sex Male (finding) [facility] Start: 03-19-2021 End: 12-11-2024 History of Social function [facility] Start: 03-19-2021 End: 12-11-2024 Tobacco use panel [facility] Adult Depression Screening Assessment 0 [facility] Medical Equipment Procedure Code Equipment Code Equipment Original Text Equipment Identifier Dates Insertion, intramedullary joyce, femur, using titanium trochanteric fixation nail syste [employer] Locking Screw For IM Nail FDA Start: 03-28-2024 Insertion, intramedullary joyce, femur, using titanium trochanteric fixation nail syste [employer] TI [id number] FDA Start: 03-28-2024 Insertion, intramedullary joyce, femur, using titanium trochanteric fixation nail syste ([id number]) Spiral blade [id number] FDA Start: 03-28-2024 Insertion, intramedullary joyce, femur, [...] 01/11/2015 10:00 AM Daphne Bentley RN No [facility] Work Phone: 01-11-2015 Are you blind, or do you have serious difficulty seeing, even when wearing glasses No 01/11/2015 10:00 AM Daphne Bentley RN No [facility] 01-11-2015 Do you have serious difficulty walking or climbing stairs No 01/11/2015 10:00 AM Daphne Bentley RN No [facility] 01-11-2015 Do you have difficul ty dressing or bathing No 01/11/2015 10:00 AM Daphne Bentley RN No [facility] 01-11-2015 Because of a physica l, mental, or emotional condition, do you have difficulty doing errands alone such as visiting a physician's office or shopping Yes 01/11/2015 10:00 AM Daphne Bentley RN Yes [facility] Mental Status Date Assessment Result Facility 01-11-2015 Because of a physica l, mental, or emotional condition, do you have serious difficulty concentrating, remembering, or making decisions Yes 01/11/2015 10:00 AM Daphne Bentley RN Yes [facility] Clinical Notes 12-17-2016 to 02-07-2025 Note [...] 10:08am Vitamin D deficiency resolved 2024 10:08am [facility] Work Phone: 1(381) 700-836706-09-2025 NoteHNO ID: [id number] Author: KIM CHEUNG, ? Service: ? Author [...] symptoms Elevated PSA 12/27/2014 PSA 8.77 - [facility] - see scanned documents Essential hypertension, benign 12/04/2013 Intellectual disability detention Kyphosis, acquired Major depressive disorder Mass of [...] Take 2 mg by mouth as needed. njbxysd-tuoanuvcp-ojhptnn D3 (OYSTER SHELL CALCIUM-VITAMIN D) 500 mg-5 [...] his current shoes should suffice. Recording using [employer] software for draft documentation of the visit was discussed with the patient/authorized distribution sales representative; all questions welcomed and answered. Patient/authorized distribution sales representative agreed to proceed Kim Yajairatico [facility]06-09-2025 History of Present illness Narrative* Kim [...] symptoms Elevated PSA 12/27/2014 PSA 8.77 - [facility] - see scanned documents Essential hypertension, benign 12/04/2013 Intellectual disability detention Kyphosis, acquired Major depressive disorder Mass of [...] Take 2 mg by mouth as needed. fbahbxu-eiipntdgw-bzwyqpj D3 (OYSTER SHELL CALCIUM-VITAMIN D) 500 mg-5 [...] his current shoes should suffice. Recording using [employer] software for draft documentation of the visit was discussed with the patient/authorized distribution sales representative; all questions welcomed and answered. Patient/authorized distribution sales representative agreed to proceed Kim Cheung DPM * Terri Grimes RN - 12/11/2024 1:29 PM EDT Patient presents with: Left Foot - New, foot check Right Foot - New, foot check Patient presents from [facility] for foot check. Is not a diabetic. Denies any current pain. Xraysprior to appointment. [facility] NoteHNO ID: [id number] Author: TERRI GRIMES RN Service: ? Author Type: Registered Nurse Type: Progress Notes Filed: 12/11/2024 13:59 Note Text: Patient presents with: Left Foot - New, foot check Right Foot - New, foot check Patient presents from [facility] for foot check. Is not a diabetic. Denies any current pain. Xrays prior to appointment.[facility]06-09-2025 History of Present illness Narrative* Caitlin [...] PATIENT PRESENTS WITH AN IMPLANTABLE OR ATTACHED TREE WRAPPER: No RADIOLOGY DEPARTMENT: General X-ray: Exam(s) Completed: Lower Extremity X- Ray(s): Foot, Bilateral PERIPHERAL IV DATA: Not applicable SIGNED BY: Jordin Markham December 11, 2024 1:01 PM documented [facility]-2025 NoteHNO ID: [id number] Author: CAITLIN LEW Tech Service: ? Author [...] PATIENT PRESENTS WITH AN IMPLANTABLE OR ATTACHED TREE WRAPPER: No RADIOLOGY DEPARTMENT: General X-ray: Exam(s) Completed: Lower Extremity X-Ray(s): Foot, Bilateral PERIPHERAL IV DATA: Not applicable SIGNED BY: Jordin Markham December 11, 2024 1:01 [facility]04-30-2025 Evaluation note* Diagnosis Onset Date Resolution Status Admit Date History of hip fracture acute A 2024 12:31pm [facility] Work Phone: 1(587) 584-616404-30-2025 Evaluation note* Diagnosis Onset Date Resolution Status Admit Date History of hip fracture acute A 2024 12:31pm Vitamin D deficiency acute 2024 8:01am [place] [facility] Work Phone: 1(315) 464-512804-30-2025 Evaluation note* Diagnosis Onset Date Resolution Status Admit Date History of hip fracture acute A 2024 12:31pm Essential tremor acute February 072024 8:01am Impacted cerumen of both ears acute February 07, 2025 8:01am Insomnia acute February 07 8:01am Dementia chronic February 07 8:01am Mental retardation chronic February 07, 2025 8:01am Vitamin D deficiency resolved 2024 8:01am [facility] Work Phone: 1(972) 403-936501-03-2025 Evaluation note* Diagnosis Onset Date Resolution Status Admit Date Hip fracture, left acute Juluar 2024 1:55pm Recent change in frequency o f bowel movements acute July 07 1:55pm Essential (primary) hypertension acute August 30, 025 9:08am History of hip fracture acute F ebruary 2024 9:08am Dementia chronic August 30, 2024 9:08am Osteoporosis chronic August 9:08am [facility] Work Phone: 1(893) 777-479910-09-2024 [facility] Medical Records Department [address] [place] [address] Discharge Summary 04/12/24833 MR#: [id number] Acct: [id number] Name: AMOR PETE Rep #: [id number] : 1945 78 From: Leo Snow MD PCP: Dr. Maria Luz Chavira MD Status:ADM IN Location: [place] [address] Providers Date of Admission: 03/30/24 Primary Care [...] 60 mg/mL subcutaneous syringe 60 mg subcut [id number] Osteoporosis #1 mL 12/25/22 cholecalciferol (vitamin D3) [...] prior to discharge home. Discharge 04/13/2024 to [facility] PT/OT, FWW, Hospital Bed. FWW: Patient is [...] Extremity normal capillary re (more content not included)...[facility] 03-30-2024 [facility] Medical Records Department [address] [place] [address] Discharge Summary 03/30/24 1437 MR#: [id number] Acct: [id number] Name: AMOR PETE Rep #: [id number] : 1945 78 From: Rui Verma MD PCP: Dr. Maria Luz Chavira MD Status:DIS IN Location: [facility] [id number] Providers Date of Admission: 03/27/24 Primary Care [...] 60 mg/mL subcutaneous syringe 60 mg subcut [id number] Osteoporosis #1 mL 12/25/22 cholecalciferol (vitamin D3) [...] to the hospital after falling at the detention. He does not give great history from [...] precipitated by his osteoporosis???78-year-old male from a detention with dementia and probable learning disability presents [...] for rehab prior to returning to his detention. He will need to be on Eliquis [...] L, Hgb 1 (more content not included)... [facility]09-26-2024 [facility] Medical Records Department [address] [place] [address] History Physical Exam 03/30/24 1436 MR#: [id number] Acct: [id number] Name: AMOR PETE Rep #: [id number] : 1945 78 From: Belinda Teixeira DO PCP: Dr. 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 This happens more frequently when it is raining. [facility] Medical History (Updated 03/31/24 @ 16:32 by [...] denosumab 60 mg/mL subcutaneous 60 mg subcut [id number] Osteoporosis 12/25/22 12/06/23 Rx syringe #1 mL [...] No alcohol intake: nev (more content not included)...[facility] 03-27-2024 [facility] Medical Records Department [address] [place] [address] Consultation 03/27/24 1235 MR#: [id number] Acct: [id number] Name: AMOR PETE Rep #: [id number] : 1945 78 From: [place] DO PCP: Dr. Maria Luz Chavira MD Status:ADM IN Location: [place] [id number] Assessment Plan Assessment/Plan (1) Intertrochanteric fracture of [...] intertrochanteric fracture. He denies any other complaints [facility] Medical History Recent change in frequency [...] denosumab 60 mg/mL subcutaneous 60 mg subcut [id number] #1 mL 12/25/22 Unknown Rx syringe cholecalciferol [...] 88.5 H, Lymph % (Auto) 2.4 L, Beaver % (Auto) 8.2, Eos % (Auto) 0.0, [...] 9.5 03/27/24 08:31: Ur (more content not included)...[facility] 03-31-2022 Miscellaneous Notes* Telephone Encounter - Shayla Goldberg - 03/31/2022 11:55 AM EDT Patient has been identified by name and date of : Yes Requested Prescriptions Pending Prescriptions Disp Refills [id number]-vfogsfvoj-uzfsdqd D3 (OYSTER SHELL CALCIUM-VITAMIN D) 500 mg-5 mcg (200 unit) per tablet 60tablet 3 Sig: Take 1 tablet by mouth twice daily with meals. RX INSTRUCTIONS: Pharmacy initiated this request. No need to notify patient. Shayla Goldberg [facility] History of Past illness Narrative* Problem Noted Date Resolved Date Sebaceous cyst 12/17/2016 01/04/2017 Mass of left lung 2016 08/25/2018 Overview: 07/26/17: 5 mm noncalcified nodule (6 month follow-up) documented as of this encounter (statuses as of 03/31/2022) [facility] Diagnosis Onset Date Resolution Status Cerumen impaction acute Asthma chronic BPH (benign prostatic hyperplasia) chronic Cognitive and behavioral changes chronic Hypertension chronic Cerumen impaction acute Hearing loss acute Dementia chronic Mental retardation chronic Osteoporosis [facility] Work Phone: Evaluation note* Diagnosis Osteoporosis without current pathological fracture, unspecified osteoporosis type [facility] Diagnosis Onset Date Resolution Status Dementia chronic Mental retardation chronic Osteoporosis [facility] Work Phone: Evaluation note* Diagnosis Onset Date Resolution Status Dementia chronic Hypertension chronic Osteoporosis chronic [facility] Work Phone: Evaluation note* Diagnosis Onset Date Resolution Status Osteoporosis chronic BPH (benign prostatic hyperplasia) chronic Dementia chronic Hypertension chronic Osteoporosis chronic [facility] Work Phone: Evaluation note* Diagnosis Calcaneal spur, unspecified laterality- Primary [facility] Diagnosis Pain Generalized pain [facility] Phone: Reason for referral (narrative)No reason for referral information available[facility] Work Phone: Reason for visit Narrative* Diagnostic Procedure Only (Routine) - Closed Specialty Diagnoses / Procedures Referred By Theron t Referred To Contact XR IMAGING Diagnoses Pain Procedures XR FOOT GENERAL 3V AP/LAT/OBL BILATERAL RADEX FOOT COMPLETE MINIMUM 3 VIEWS [address] [place] [address] Phone: tel: fax: [place] [id number] Referral ID Status Reason Start Date Expiration Date V isits Requested Visits Authorized [id number] Closed Auto-Generate d Referral 11/24/2024 12/24/2025 1 1 [facility] Chief Complaint and Reason for Visit 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 [...] Date LABWORK June 09, 2024 5 :00am AMALIA DISCHARGE-KEEP 60 MIN July 072024 1:55pm 6 [...] ACUTE - WANTS TO RETURN TO [facility] 2024 12:31pm LOST VOICE/THROAT January 17, 2025 10:0 4am abnormal pulse oximetry/ CXR January 17, 2025 10:42am Reason for Visit Admit Date History of hip fracture November 01, 2024 12:31pm Chief Complaint Admit Date ACUTE - WANTS TO RETURN TO [facility] 2024 12:31pm LOST VOICE/THROAT January 17, 2025 10:0 4am abnormal pulse oximetry/ CXR January 17, 2025 10:42am follow up February 07, 2025 8:0 1am Reason for Visit Admit Date History of hip fracture November 01, 2024 12:31pm Vitamin D deficiency February 07, 2025 8: 01am Chief Complaint Admit Date ACUTE - WANTS TO RETURN TO [facility] 2024 12:31pm LOST VOICE/THROAT January 17, 2025 [...] ACUTE - WANTS TO RETURN TO [facility] 2024 12:31pm LOST VOICE/THROAT January 17, 2025 [...] November 11, 2021 8 :58am Power of Design Printing Machine Setter No November 11, 2021 8:58am Advance Directive Response Recorded Date/ Time Advance Directives No November 11 7:58am Living Will No November 11, 2021 7 :58am Power of Design Printing Machine Setter No November 11, 2021 7:58am Advance Directive Response Recorded Date/ Time Living Will No November 11, 2021 8 :58am Power of Design Printing Machine Setter No November 11, 2021 8:58am Advance Directives [...] or prosecute any alcohol or drug abuse patient.[facility] the event this information is protected by the Federal Confidentiality of Alcohol and Drug Abuse Patient Records regulations: The Federal rules restrict any use of the information to criminally investigate or prosecute any alcohol or drug abuse patient.[facility] HospitalIn the event this information is protected [...] Care Teams (unrecognized sec tion and content) Business Development Manager Relationship Specialty Start Date End Date Sajan Mendez MD [id number] [facility] [place] [address] PCP - General Family Medicine 04/07/21 Team [...] Member Role Status Dates Dr. Maria Luz Chaviar MD Primary Care Provider Active Team Status: Active Member Role Status Dates Dr. Maria Luz Chavira MD Primary Care Provider Active Start: June 09, 2024 Maria Luz CHRISTY MD Attending Provider Active Start: June 09, 2024 Team Status: Inactive Member Role Status Dates Dr. Maria Luz Chavira MD Primary Care Provider Active Start: July 07, 2024 End: July 07, 2024 Dr. Maria Luz Chavira MD Referring Provider Active Start: July 07, [...] section and content) DATE CREATED AUTHOR 12/18/2024 [facility] DATE CREATED AUTHOR AUTHOR'S LORRIE ATLINDA 03/19/2025 [facility] FOR RECORDS PERTAINING TO PATIENTS WHO ARE [...] BE BASED ON THE PRIMARY CLINICAL RECORDS. [facility] [employer] provides no warranty or guarantee of the accuracy or completeness of information in this document.
--- NOTE | 2025-06-06 07:05 | MRI_ITS ---
PROCEDURE: MRI ABD WITH AND W/O CONTRAST 06/06/2025 REASON FOR EXAM: KIDNEY MASS TECHNIQUE: Procedure Code: MRIABDWW Modality: MR Procedure: MRI ABD WITH AND W/O CONTRAST Multiplanar and multisequence images were obtained. CONTRAST: Clariscan VOLUME: 10 cc. Examination was compromised due to motion. COMPARISON: Renal ultrasound dated 05/28/2025 FINDINGS: Liver: Normal in signal size and morphology. No visible mass within the limited visualization of the liver. Biliary: The gallbladder has been surgically removed. There is no biliary ductal dilatation. Pancreas: Normal in signal. No ductal dilatation. Spleen: Normal Adrenals: Unremarkable Kidneys: Bilateral peripelvic renal cysts. There is a fat containing lesion in the upper cortex of the right kidney measuring a proximally 1.8 centimeters consistent with an angiomyolipoma. There is a simple cyst arising from the right mid cortex measuring 15 millimeters corresponding to the lesion seen on ultrasound. There is no suspicious pattern of enhancement. Peritoneum / Retroperitoneum: No ascites Lymph Nodes: No lymphadenopathy Major Vessels: Normal flow voids Bones: Unremarkable signal MRI/MRI Abd WITH and W/O Contrast IMPRESSION: Multiple bilateral peripelvic renal cyst and simple renal cysts including the l esion noted on recent ultrasound. No suspicious enhancing mass. Given the limitations of the examination follow-up examination 6 months could be performed to document stability. 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 Reading Location: [id number]
== END | disposition home or self-care (01) ==
LOC: OPMRI 06:28
PROVIDERS: PCP Internal Medicine; Referring Provider Nurse Practitioner Adult Health; Visit Provider Nurse Practitioner Adult Health
DX: N28.89 Other specified disorders of kidney and ureter (principal)
CPT/HCPCS: 74183; A9575